=== PATIENT | female | born 1960 | race American Indian/Alaskan Native ===

== ENCOUNTER 2016-06-29 06:51 | Emergency (ER) | payer BC ==
[2016-06-29] MEDS ORDERED: NORCO 10/325 PO ONE (07:22)
[2016-06-29] MEDS ORDERED: ZOFRAN ODT ONE (07:24)
[2016-06-29] MEDS ORDERED: ZOFRAN ODT PO ONE (07:26)
--- NOTE | 2016-06-29 07:27 | Emergency Department Report ---
ED Neck Pain/Injury HPI - General Chief Complaint: Extremity Problem,Nontraumatic Stated Complaint: NECK/SHOULDER/EAR PAIN Time Seen by Provider: 06/29/16 07:21 Mode of arrival: Wheelchair Limitations: No Limitations - History of Present Illness Initial Comments: 55-year-old female past medical history hypertension, spinal fusion surgery presents with complaint of severe left sided neck and shoulder stiffness and pain. Patient states she was at work and spontaneously started feeling pain in her left upper shoulder region. Pain is radiating from left trapezius down to left shoulder, no arm involvement. Patient denies any chest pain palpitations nausea vomiting or diaphoresis. Patient states her neck feels very stiff. Denies any fever or chills. States that she has had episodes of pain like this in the past associated with her cervical radiculopathy. Patient is in acute distress states pain is 10 out of 10 states that turning her head to her left is extremely painful. Denies any new rash. No recent trauma no recent falls. Patient's pain and symptoms are atraumatic. Patient tells me that she has had multiple spinal fusion surgeries. MD Complaint: neck pain Onset/Timin -: Sudden Radiation: left lateral, left shoulder, upper back Severity: moderate Severity scale (0 -10): 8 Quality: sharp, aching Consistency: constant - Related Data Home Medications Medication Instructions Recorded Confirmed Last Taken Lansoprazole (Nf) [Prevacid (Nf)] 30 mg PO QDAY 02/07/16 02/24/16 01/18/16 Previous Rx's Medication Instructions Recorded Last Taken Type Fluticasone/Salmeterol [Advair 1 puff IH BID #1 disk.w.dev 05/16/14 02/16/16 06: 00 Rx Diskus 500-50 mcg] Montelukast [Singulair] 10 mg PO QPM #30 tablet 10/16/15 Unknown Rx Celecoxib [celeBREX] 200 mg PO BID #60 capsule 03/03/16 Unknown Rx Cyclobenzaprine [Flexeril 10 MG 10 mg PO TID PRN #60 tablet 03/03/16 Unknown Rx TAB] Gabapentin [Neurontin] 300 mg PO BID #60 capsule 03/03/16 Unknown Rx HYDROcodone/APAP 10-325 [[place] 1 each PO Q6HR PRN #60 tablet 03/03/16 Unknown Rx 10/325] Butalb/Acetaminophen/Caffeine 1 cap PO Q8HR PRN #10 cap 03/07/16 Unknown Rx [Fioricet 50-300-40 mg CAP] Meclizine [Antivert] 25 mg PO TID PRN #20 tablet 03/07/16 Unknown Rx amLODIPine [Norvasc] 5 mg PO DAILY #60 tab 03/07/16 Unknown Rx HYDROcodone/APAP 5-325 [[place] 1 each PO Q6HR PRN #20 tablet 06/29/16 Unknown Rx 5/325] Allergies Allergy/AdvReac Type Severity Reaction Status Date / Time dexamethasone [From Decadron] Allergy Anaphylaxis Verified 03/07/16 14:18 dexamethasone sod phosphate Allergy Anaphylaxis Verified 03/07/16 14:18 [From Decadron] epinephrine Allergy Rash Verified 03/07/16 14:18 ipratropium bromide Allergy Anaphylaxis Verified 03/07/16 14:18 [From Atrovent] peanut Allergy Anaphylaxis Verified 03/07/16 14:18 ED Review of Systems ROS: Stated complaint: NECK/SHOULDER/EAR PAIN Other details as noted in HPI Constitutional: denies: chills, fever Eyes: denies: eye pain, eye discharge, vision change ENT: denies: ear pain, throat pain Respiratory: denies: cough, shortness of breath, wheezing Cardiovascular: denies: chest pain, palpitations Endocrine: no symptoms reported Gastrointestinal: denies: abdominal pain, nausea, diarrhea Genitourinary: denies: urgency, dysuria, discharge Musculoskeletal: as per HPI, back pain, other (chronic neck pain). denies: joint swelling, arthralgia Skin: denies: rash, lesions Neurological: denies: headache, weakness, paresthesias Psychiatric: denies: anxiety, depression Hematological/Lymphatic: denies: easy bleeding, easy bruising ED Past Medical Hx - Past Medical History Previous Medical History?: Yes Hx Hypertension: Yes (PAIN RELATED) Hx Pulmonary Embolism: Yes Hx Liver Disease: Yes (HEPATITIS C) Hx Sickle Cell Disease: Yes (TRAIT) Hx Asthma: Yes (2004 Pt state she had 5 intubations) Additional medical history: intubations for asthma, lumbar radiculopathy - Surgical History Past Surgical History?: Yes Additional Surgical History: neck surgery, pain pump. States previous to admission and had an exercise stress test. States that test was terminated secondary to asthma. device in back. Pain implant. L4-L5, S1 fusion - Social History Smoking Status: Never Smoker Substance Use Type: Prescribed - Medications Home Medications: Home Medications Medication Instructions Recorded Confirmed Last Taken Type Fluticasone/Salmeterol [Advair 1 puff IH BID #1 disk.w.dev 05/16/14 02/24/16 06:00 Rx Diskus 500-50 mcg] Montelukast [Singulair] 10 mg PO QPM #30 tablet 10/16/15 02/24/16 Unknown Rx Lansoprazole (Nf) [Prevacid (Nf)] 30 mg PO QDAY 02/07/16 02/24/16 01/18/16 History Celecoxib [celeBREX] 200 mg PO BID #60 capsule 03/03/16 Unknown Rx Cyclobenzaprine [Flexeril 10 MG 10 mg PO TID PRN #60 tablet 03/03/16 Unknown Rx TAB] Gabapentin [Neurontin] 300 mg PO BID #60 capsule 03/03/16 Unknown Rx HYDROcodone/APAP 10-325 [[place] 1 each PO Q6HR PRN #60 tablet 03/03/16 Unknown Rx 10/325] Butalb/Acetaminophen/Caffeine 1 cap PO Q8HR PRN #10 cap 03/07/16 Unknown Rx [Fioricet 50-300-40 mg CAP] Meclizine [Antivert] 25 mg PO TID PRN #20 tablet 03/07/16 Unknown Rx amLODIPine [Norvasc] 5 mg PO DAILY #60 tab 03/07/16 Unknown Rx HYDROcodone/APAP 5-325 [[place] 1 each PO Q6HR PRN #20 tablet 06/29/16 Unknown Rx 5/325] ED Physical Exam - General Limitations: No Limitations General appearance: alert, in no apparent distress - Head Head exam: Present: atraumatic, normocephalic - Eye Eye exam: Present: normal appearance, PERRL, EOMI - ENT ENT exam: Present: mucous membranes moist - Neck Neck exam: Present: normal inspection, tenderness (has reproducible tenderness and left trapezius region) - Respiratory Respiratory exam: Present: normal lung sounds bilaterally. Absent: respiratory distress - Cardiovascular Cardiovascular Exam: Present: regular rate, normal rhythm. Absent: systolic murmur, diastolic murmur, rubs, gallop - GI/Abdominal GI/Abdominal exam: Present: soft, normal bowel sounds - Extremities Exam Extremities exam: Present: normal inspection - Back Exam Back exam: Present: normal inspection, full ROM (range of motion limited due to pain in the left side neck shoulder/trapezius), tenderness, muscle spasm, paraspinal tenderness (he shouldn't has palpable spasm of left trapezius muscle , tender to palpation) - Neurological Exam Neurological exam: Present: alert, oriented X3 - Psychiatric Psychiatric exam: Present: normal affect, normal mood - Skin Skin exam: Present: warm, dry, intact, normal color. Absent: rash ED Course Vital Signs 06/29/16 06/29/16 06/29/16 06:56 07:30 08:04 Temperature 98.0 F Pulse Rate 96 H Respiratory 26 H 26 H 26 H Rate Blood Pressure 189/123 Blood Pressure [Right] O2 Sat by Pulse 100 Oximetry 06/29/16 06/29/16 09:41 12:13 Temperature Pulse Rate 88 Respiratory 20 20 Rate Blood Pressure Blood Pressure 160/104 [Right] O2 Sat by Pulse 100 Oximetry ED Medical Decision Making - Lab Data Result diagrams: 06/29/16 08:01 06/29/16 08:01 - Medical Decision Making A/P: Left trapezius muscle spasm, cervical radiculopathy 1- case discussed with Dr. Hong 2- bloodwork and CT within normal limits no acute fracture 3- after administering Toradol and Valium and morphine pain has somewhat diminished. Patient has no acute neurological deficits, range of motion left upper extremity and strength fully intact, patient's neck range of motion is only limited to left lateral flexion due to spasm and left trapezius. 4- patient's follow up with her hiv cts specialist this week, I prescribed analgesics and advised patient to follow-up with orthopedic doctor soon as possible. Patient has no clinical signs of meningitis. Discussed case with Dr. Hong before discharging patient Critical care attestation.: If time is entered above; I have spent that time in minutes in the direct care of this critically ill patient, excluding procedure time. ED Disposition Clinical Impression: Cervical radicular pain, Trapezius muscle spasm, Musculoskeletal pain Disposition: DISCHARGED TO HOME OR SELFCARE Is pt being admited?: No Does the pt Need Aspirin: No Condition: Stable Instructions: Musculoskeletal Pain (ED), Muscle Spasm (ED) Prescriptions: HYDROcodone/APAP 5-325 [[place] 5/325] 1 each PO Q6HR PRN #20 tablet PRN Reason: Pain Referrals: HAI MCMILLAN MD [Staff Physician] - 3-5 Days PRIMARY CARE, [Primary Care Provider] - 3-5 Days ION AYOUB MD [Staff Physician] - 3-5 Days Forms: Work/School Release Form(ED)
[2016-06-29] MEDS ORDERED: ATIVAN IV ONE (07:46)
[2016-06-29] MEDS ORDERED: TORADOL IV ONE (07:47)
[2016-06-29] MEDS ORDERED: LACTATED RINGERS 1,000 ML IV SCH (08:00)
[2016-06-29 08:18] LABS: Basophils % (Auto) 0.3 % (0.0-1.8); Eosinophils % (Auto) 0.6 % (0.0-4.3); Hematocrit 35.4 % (30.3-42.9); Hemoglobin 11.9 gm/dl (10.1-14.3); Mean Corpuscular HGB Conc 34 % (30-34); Mean Corpuscular Volume 75 fl (79-97); Platelet Count 293 K/mm3 (140-440); Red Cell Distribution Width 14.8 % (13.2-15.2); White Blood Count 7.8 K/mm3 (4.5-11.0)
[2016-06-29 08:22] LABS: Mean Corpuscular Hemoglobin 25 pg (28-32)
[2016-06-29 08:41] LABS: Anion Gap 20 mmol/L; Blood Urea Nitrogen 9 mg/dL (7-17); Carbon Dioxide 20 mmol/L (22-30); Chloride 104.3 mmol/L (98-107); Creatine Kinase 124 units/L (30-135); Glucose 100 mg/dL (65-100); Magnesium 1.6 mg/dL (1.7-2.3); Potassium 3.5 mmol/L (3.6-5.0); Sodium 141 mmol/L (137-145)
[2016-06-29] MEDS ORDERED: MORPHINE IV ONE (09:27)
--- NOTE | 2016-06-29 10:49 | Cat Scan Report ---
CT CERVICAL SPINE WITHOUT CONTRAST History: Neck pain Technique: Helical CT with sagittal and coronal reformatted images. Comparison: CT cervical myelogram dated 04/30/12. Findings: There is been previous fusion from C4-C6 with bony fusion of the disc spaces. There is also a disc spacer at C3-4 without complete bony fusion. There is also anterior fusion hardware at C6-7 with disc spacer placement and incomplete bony fusion of the disc space. There is lucency surrounding the orthopedic screws within C7. This could represent mild loosening. This was also demonstrated on the CT cervical myelogram and 04/30/12. Please correlate with the patient. There is no evidence for fracture or subluxation or bone lesion. The posterior elements are appropriate relationship. There is mild bilateral uncovertebral spurring at C3-4 and C6-7 but no evidence for central canal stenosis or high-grade neural foraminal narrowing. The central canal is within normal limits given artifact from surgical hardware. Impression: Postsurgical changes as described above which are unchanged in appearance since 04/30/12. Degenerative changes which are most pronounced at C3-4 and C6-7.
[2016-06-29 12:16] VITALS: BP 160/104
== END 2016-06-29 12:13 | disposition home or self-care (01) ==
LOC: ED 06:51
DX: M54.2 Cervicalgia (principal); M62.838 Other muscle spasm; M79.1 Myalgia; I10 Essential (primary) hypertension; J45.909 Unspecified asthma, uncomplicated; Z86.711 Personal history of pulmonary embolism
CPT/HCPCS: 36415; 72125; 80048; 82550; 83735; 85025; 96361; 96374; 96375; 99284; J1885; J2060; J2270; J7120; Q0162

== ENCOUNTER 2016-10-03 09:15 | Emergency (ER) | payer BC ==
[2016-10-03 09:25] VITALS: BP 129/96
[2016-10-03] MEDS ORDERED: TORADOL IM ONE (11:41)
--- NOTE | 2016-10-05 07:30 | Emergency Department Report ---
Entered by CUCO SIMPSON, acting as scribe for MARCOS ESPINO NP. ED Extremity Problem HPI - General Chief complaint: Extremity Injury, Lower Stated complaint: LT HIP/LEG Time Seen by Provider: 10/03/16 11:33 Source: patient Mode of arrival: Ambulatory Limitations: No Limitations - History of Present Illness Initial comments: 54 y/o female , nontoxic, well nourished in appearance, no acute signs of distress presents c/o choric constant, left sided hip pain that is exacerbated by laying on it. Pt notes pain radiating down the leg. PMHx includes herniated disk to the right side with similar pain, had surgery on 02/16/16. Pt denies numbness, tingling in extremity, trauma to the area, chest pain, SOB, n/v, fever , chills. Patient stated has a primary care doctor that she sees on a regular basis for these but is unable to see him due to no availability is until 2 weeks from now. Patient stated she is here for pain management. MD Complaint: other (left sided hip pain) -: week(s) (1) Location: left (sided hip pain) History of Same: Yes (PSHx of herniated disk associated with right sided pain) Radiation: other (pain shooting down towards leg) Severity scale (0 -10): 5 Quality: aching Consistency: constant Improves with: nothing Worsens with: other (laying down) Associated Symptoms: denies other symptoms - Related Data Home Medications Medication Instructions Recorded Confirmed Last Taken Lansoprazole (Nf) [Prevacid (Nf)] 30 mg PO QDAY 02/07/16 02/24/16 01/18/16 Previous Rx's Medication Instructions Recorded Last Taken Type Fluticasone/Salmeterol [Advair 1 puff IH BID #1 disk.w.dev 05/16/14 02/16/16 06: 00 Rx Diskus 500-50 mcg] Montelukast [Singulair] 10 mg PO QPM #30 tablet 10/16/15 Unknown Rx Celecoxib [celeBREX] 200 mg PO BID #60 capsule 03/03/16 Unknown Rx Cyclobenzaprine [Flexeril 10 MG 10 mg PO TID PRN #60 tablet 03/03/16 Unknown Rx TAB] Gabapentin [Neurontin] 300 mg PO BID #60 capsule 03/03/16 Unknown Rx HYDROcodone/APAP 10-325 [[place] 1 each PO Q6HR PRN #60 tablet 03/03/16 Unknown Rx 10/325] Butalb/Acetaminophen/Caffeine 1 cap PO Q8HR PRN #10 cap 03/07/16 Unknown Rx [Fioricet 50-300-40 mg CAP] Meclizine [Antivert] 25 mg PO TID PRN #20 tablet 03/07/16 Unknown Rx amLODIPine [Norvasc] 5 mg PO DAILY #60 tab 03/07/16 Unknown Rx HYDROcodone/APAP 5-325 [[place] 1 each PO Q6HR PRN #20 tablet 06/29/16 Unknown Rx 5/325] HYDROcodone/APAP 7.5-325 [[place] 1 each PO Q8HR PRN #12 tablet 10/03/16 Unknown Rx 7.5/325] Allergies Allergy/AdvReac Type Severity Reaction Status Date / Time dexamethasone [From Decadron] Allergy Anaphylaxis Verified 03/07/16 14:18 dexamethasone sod phosphate Allergy Anaphylaxis Verified 03/07/16 14:18 [From Decadron] epinephrine Allergy Rash Verified 03/07/16 14:18 ipratropium bromide Allergy Anaphylaxis Verified 03/07/16 14:18 [From Atrovent] peanut Allergy Anaphylaxis Verified 03/07/16 14:18 ED Review of Systems Comment: All other systems reviewed and negative Constitutional: denies: chills, fever Respiratory: denies: shortness of breath Cardiovascular: denies: chest pain Gastrointestinal: denies: nausea, vomiting Neurological: denies: headache, numbness, other (tingling in extremities) ED Past Medical Hx - Past Medical History Previous Medical History?: Yes Hx Hypertension: Yes (PAIN RELATED) Hx Pulmonary Embolism: Yes Hx Liver Disease: Yes (HEPATITIS C) Hx Sickle Cell Disease: Yes (TRAIT) Hx Asthma: Yes (2004 Pt state she had 5 intubations) Additional medical history: intubations for asthma, lumbar radiculopathy - Surgical History Past Surgical History?: Yes Additional Surgical History: neck surgery, pain pump. States previous to admission and had an exercise stress test. States that test was terminated secondary to asthma. device in back. Pain implant. L4-L5, S1 fusion - Social History Smoking Status: Never Smoker Substance Use Type: Alcohol - Medications Home Medications: Home Medications Medication Instructions Recorded Confirmed Last Taken Type Fluticasone/Salmeterol [Advair 1 puff IH BID #1 disk.w.dev 05/16/14 02/24/16 06:00 Rx Diskus 500-50 mcg] Montelukast [Singulair] 10 mg PO QPM #30 tablet 10/16/15 02/24/16 Unknown Rx Lansoprazole (Nf) [Prevacid (Nf)] 30 mg PO QDAY 02/07/16 02/24/16 01/18/16 History Celecoxib [celeBREX] 200 mg PO BID #60 capsule 03/03/16 Unknown Rx Cyclobenzaprine [Flexeril 10 MG 10 mg PO TID PRN #60 tablet 03/03/16 Unknown Rx TAB] Gabapentin [Neurontin] 300 mg PO BID #60 capsule 03/03/16 Unknown Rx HYDROcodone/APAP 10-325 [[place] 1 each PO Q6HR PRN #60 tablet 03/03/16 Unknown Rx 10/325] Butalb/Acetaminophen/Caffeine 1 cap PO Q8HR PRN #10 cap 03/07/16 Unknown Rx [Fioricet 50-300-40 mg CAP] Meclizine [Antivert] 25 mg PO TID PRN #20 tablet 03/07/16 Unknown Rx amLODIPine [Norvasc] 5 mg PO DAILY #60 tab 03/07/16 Unknown Rx HYDROcodone/APAP 5-325 [[place] 1 each PO Q6HR PRN #20 tablet 06/29/16 Unknown Rx 5/325] HYDROcodone/APAP 7.5-325 [[place] 1 each PO Q8HR PRN #12 tablet 10/03/16 Unknown Rx 7.5/325] ED Physical Exam - General Limitations: No Limitations General appearance: alert, in no apparent distress - Head Head exam: Present: atraumatic, normocephalic - Eye Eye exam: Present: normal appearance, PERRL, EOMI Pupils: Present: normal accommodation - ENT ENT exam: Present: mucous membranes moist - Neck Neck exam: Present: normal inspection, full ROM - Respiratory Respiratory exam: Present: normal lung sounds bilaterally - Cardiovascular Cardiovascular Exam: Present: regular rate, normal rhythm, normal heart sounds - GI/Abdominal GI/Abdominal exam: Present: soft, normal bowel sounds. Absent: tenderness, guarding, rebound - External exam: Present: normal external exam - Extremities Exam Extremities exam: Present: normal inspection, full ROM, normal capillary refill. Absent: tenderness, pedal edema, joint swelling, calf tenderness - Expanded Lower Extremity Exam Left Hip exam: Present: normal inspection, full ROM. Absent: tenderness, swelling, abrasion, laceration, ecchymosis, deformity, crepidus, dislocation, erythema, shortening Upper Leg exam: Present: normal inspection, full ROM. Absent: tenderness, swelling Knee exam: Present: normal inspection, full ROM. Absent: tenderness, swelling Lower Leg exam: Present: normal inspection, full ROM. Absent: tenderness, swelling Ankle exam: Present: normal inspection, full ROM. Absent: tenderness, swelling Foot/Toe exam: Present: normal inspection, full ROM. Absent: tenderness, swelling Neuro vascular tendon exam: Present: no vascular compromise Gait: Positive: observed and normal - Back Exam Back exam: Present: normal inspection. Absent: tenderness (spinal), other ( swelling, erythema) - Neurological Exam Neurological exam: Present: oriented X3 - Psychiatric Psychiatric exam: Present: normal affect, normal mood - Skin Skin exam: Present: warm, dry, intact, normal color. Absent: rash ED Course Vital Signs 10/03/16 09:22 Temperature 98 F Pulse Rate 87 Respiratory 20 Rate Blood Pressure 129/96 O2 Sat by Pulse 97 Oximetry ED Medical Decision Making - Medical Decision Making Ed course: This is a 55-year-old female that lives with chronic left hip pain. 1- after physical exam patient denies receiving x-rays for evaluation purposes. Patient stated she will follow-up with her primary care doctor that will perform several series of x-rays. I instructed my concerns about receiving x- ray the patient still denies. Patient stated he wants to be treated for pain currently until she gets in with her primary care doctor. 2- patient received Marion at the time of discharge and was instructed not to operate machinery due to sedation. 3- at the time of discharge patient stated will follow up with her primary care doctor. Agrees with discharge plan of care. No further questions noted by the patient. ED Disposition Clinical Impression: Lumbar radiculopathy, chronic Disposition: DISCHARGED TO HOME OR SELFCARE Is pt being admited?: No Does the pt Need Aspirin: No Condition: Stable Instructions: Lumbar Radiculopathy (ED) Additional Instructions: Follow-up with her primary care doctor in 3-5 days or if symptoms worsen reported by the emergency room. Take Marion as prescribed as needed for pain. Do not operate heavy machinery while taking Marion due to sedation. Prescriptions: HYDROcodone/APAP 7.5-325 [[place] 7.5/325] 1 each PO Q8HR PRN #12 tablet PRN Reason: Pain Referrals: PRIMARY MD ZARIA [Primary Care Provider] - 3-5 Days ZEKE IRAHETA MD [Referring] - 3-5 Days [facility] [Outside] - 3-5 Days [facility] [Outside] - 3-5 Days Forms: Work/School Release Form(ED) This documentation as recorded by the CALVIN [employer]lex[employer] MATHEW,accurately reflects the service I personally performed and the decisions made by me,MARCOS ESPINO, [employer].
== END 2016-10-03 12:34 | disposition home or self-care (01) ==
LOC: ED 09:15
DX: M54.16 Radiculopathy, lumbar region (principal); I10 Essential (primary) hypertension; J45.909 Unspecified asthma, uncomplicated; Z86.711 Personal history of pulmonary embolism; Z86.19 Personal history of other infectious and parasitic diseases; Z91.010 Allergy to peanuts; Z88.8 Allergy status to other drugs, medicaments and biological substances
CPT/HCPCS: 96372; 99282; J1885

== ENCOUNTER 2016-12-17 11:18 | Emergency (ER) | payer BC ==
--- NOTE | 2016-12-17 13:18 | Emergency Department Report ---
ED Headache HPI - General Chief Complaint: Headache Stated Complaint: HEADACHE Time Seen by Provider: 12/17/16 11:45 Source: patient, family Exam Limitations: no limitations - History of Present Illness Initial Comments: Patient here reports headache since Sunday which is 2 days ago. She says she took [id number] medication and amitriptyline without any relief of symptoms. She said she is nauseous but no vomiting. She says she feels like the room is spinning when she stands. She reports photophobia. Patient with history of asthma, congestive heart failure, COPD, diabetes, GERD, hypertension , liver disease, pulmonary embolism, chronic pain syndrome to include back and neck pain status post surgery. Pain and plan to L4 and L5 and S1 infusion. Pain is 10 out of 10 and achy located the frontal head. Denies any fever or chills. Denies any neck pain or stiffness. Pain is better with rest and worse with moving around. Last menstrual period was 05/02/2016. He has any abdominal pain. Denies any back pain. Denies any head injury. Pt had previous headache in the past Timing/Duration: constant, increasing Quality: severe, achy, constant Head Injury Location: frontal Recent Head Trauma: chronic headaches Modifying Factors: improves with: exposure to light, rest Associated Symptoms: other (vertigo). denies: confusion, fatigue, facial pain, fever/chills, flushing, loss of consciousness, nausea/vomiting, nasal congestion , nasal drainage, numbness in legs/feet, rash, seizures, sinus infection, stiff neck, vision changes, weakness Allergies/Adverse Reactions: Allergies dexamethasone [From Decadron] Allergy (Verified 03/07/16 14:18) Anaphylaxis dexamethasone sod phosphate [From Decadron] Allergy (Verified 03/07/16 14:18) Anaphylaxis epinephrine Allergy (Verified 03/07/16 14:18) Rash ipratropium bromide [From Atrovent] Allergy (Verified 03/07/16 14:18) Anaphylaxis peanut Allergy (Verified 03/07/16 14:18) Anaphylaxis Home Medications: Ambulatory Orders Fluticasone/Salmeterol [Advair Diskus 500-50 mcg] 1 puff IH BID #1 disk.w.dev Montelukast [Singulair] 10 mg PO QPM #30 tablet 10/16/15 Lansoprazole (Nf) [Prevacid (Nf)] 30 mg PO QDAY 02/07/16 Celecoxib [celeBREX] 200 mg PO BID #60 capsule 03/03/16 Cyclobenzaprine [Flexeril 10 MG TAB] 10 mg PO TID PRN #60 tablet 03/03/16 Gabapentin [Neurontin] 300 mg PO BID #60 capsule 03/03/16 HYDROcodone/APAP 10-325 [Dieterich 10/325] 1 each PO Q6HR PRN #60 tablet 03/03/16 Butalb/Acetaminophen/Caffeine [Fioricet 50-300-40 mg CAP] 1 cap PO Q8HR PRN #10 cap 03/07/16 Meclizine [Antivert] 25 mg PO TID PRN #20 tablet 03/07/16 amLODIPine [Norvasc] 5 mg PO DAILY #60 tab 03/07/16 HYDROcodone/APAP 5-325 [Dieterich 5/325] 1 each PO Q6HR PRN #20 tablet 06/29/16 HYDROcodone/APAP 7.5-325 [Dieterich 7.5-325 mg TAB] 1 each PO Q8HR PRN #12 tablet Meclizine [Antivert] 25 mg PO TID PRN #12 tablet 12/17/16 Promethazine [Phenergan TAB] 25 mg PO Q6HR PRN #12 tab 12/17/16 Sulfamethoxazole/Trimethoprim [Bactrim DS TAB] 1 each PO BID #14 tablet ED Review of Systems ROS: Stated complaint: HEADACHE Other details as noted in HPI Comment: All other systems reviewed and negative Constitutional: denies: chills, fever Eyes: other (photphobia) ENT: denies: ear pain, throat pain Respiratory: no symptoms reported Cardiovascular: denies: chest pain, palpitations, dyspnea on exertion, orthopnea , edema, syncope, paroxysmal nocturnal dyspnea Gastrointestinal: nausea. denies: abdominal pain, vomiting, diarrhea, constipation Genitourinary: denies: urgency, dysuria, frequency, hematuria, discharge Musculoskeletal: denies: back pain, arthralgia Skin: denies: rash Neurological: headache, vertigo. denies: weakness, numbness, paresthesias, confusion, abnormal gait ED Past Medical Hx - Past Medical History Previous Medical History?: Yes Hx Hypertension: Yes (PAIN RELATED) Hx Pulmonary Embolism: Yes Hx Liver Disease: Yes (HEPATITIS C) Hx Sickle Cell Disease: Yes (TRAIT) Hx Asthma: Yes (2004 Pt state she had 5 intubations) Additional medical history: intubations for asthma, lumbar radiculopathy - Surgical History Past Surgical History?: Yes Additional Surgical History: neck surgery, pain pump. States previous to admission and had an exercise stress test. States that test was terminated secondary to asthma. device in back. Pain implant. L4-L5, S1 fusion - Family History Family history: diabetes, hypertension - Social History Smoking Status: Never Smoker Substance Use Type: Alcohol Other Social History: lives with family - Medications Home Medications: Home Medications Medication Instructions Recorded Confirmed Last Taken Type Fluticasone/Salmeterol [Advair 1 puff IH BID #1 disk.w.dev 05/16/14 02/24/16 06:00 Rx Diskus 500-50 mcg] Montelukast [Singulair] 10 mg PO QPM #30 tablet 10/16/15 02/24/16 Unknown Rx Lansoprazole (Nf) [Prevacid (Nf)] 30 mg PO QDAY 02/07/16 02/24/16 01/18/16 History Celecoxib [celeBREX] 200 mg PO BID #60 capsule 03/03/16 Unknown Rx Cyclobenzaprine [Flexeril 10 MG 10 mg PO TID PRN #60 tablet 03/03/16 Unknown Rx TAB] Gabapentin [Neurontin] 300 mg PO BID #60 capsule 03/03/16 Unknown Rx HYDROcodone/APAP 10-325 [Dieterich 1 each PO Q6HR PRN #60 tablet 03/03/16 Unknown Rx 10/325] Butalb/Acetaminophen/Caffeine 1 cap PO Q8HR PRN #10 cap 03/07/16 Unknown Rx [Fioricet 50-300-40 mg CAP] Meclizine [Antivert] 25 mg PO TID PRN #20 tablet 03/07/16 Unknown Rx amLODIPine [Norvasc] 5 mg PO DAILY #60 tab 03/07/16 Unknown Rx HYDROcodone/APAP 5-325 [Dieterich 1 each PO Q6HR PRN #20 tablet 06/29/16 Unknown Rx 5/325] HYDROcodone/APAP 7.5-325 [Dieterich 1 each PO Q8HR PRN #12 tablet 12/17/16 Unknown Rx 7.5-325 mg TAB] Meclizine [Antivert] 25 mg PO TID PRN #12 tablet 12/17/16 Unknown Rx Promethazine [Phenergan TAB] 25 mg PO Q6HR PRN #12 tab 12/17/16 Unknown Rx Sulfamethoxazole/Trimethoprim 1 each PO BID #14 tablet 12/17/16 Unknown Rx [Bactrim DS TAB] ED Physical Exam - General Limitations: No Limitations General appearance: alert, in no apparent distress - Head Head exam: Present: atraumatic, normocephalic, normal inspection - Expanded Head Exam Expanded Head exam: Absent: laceration, abrasion, contusion, hematoma, racoon eyes, watkins's sign, general tenderness, tenderness of temporal artery, CSF rhinorrhea , CSF otorrhea - Eye Eye exam: Present: normal appearance, PERRL, EOMI. Absent: nystagmus, periorbital swelling, periorbital tenderness Pupils: Present: normal accommodation - Expanded Eye Exam Expanded Eyelids: Normal Inspection: Left (normal) Pupils: Regular, Round: Bilateral, Reactive: Bilateral Sclera/Conjunctival: Normal Inspection: Bilateral - ENT ENT exam: Present: normal exam, normal orophraynx, mucous membranes moist, TM's normal bilaterally, normal external ear exam - Neck Neck exam: Present: normal inspection, full ROM. Absent: tenderness, meningismus, lymphadenopathy, thyromegaly - Respiratory Respiratory exam: Present: normal lung sounds bilaterally. Absent: respiratory distress, wheezes, rales, rhonchi, stridor, chest wall tenderness, accessory muscle use, decreased breath sounds, prolonged expiratory - Cardiovascular Cardiovascular Exam: Present: regular rate, normal rhythm, normal heart sounds - GI/Abdominal GI/Abdominal exam: Present: soft, normal bowel sounds. Absent: distended, tenderness, guarding, rebound, rigid - Extremities Exam Extremities exam: Present: normal inspection, full ROM, normal capillary refill. Absent: tenderness, pedal edema, joint swelling, calf tenderness - Back Exam Back exam: Present: normal inspection, full ROM - Neurological Exam Neurological exam: Present: alert, oriented X3 - Expanded Neurological Exam Expanded Neurological exam: Absent: innattentive, memory loss-remote event, memory loss- recent event, ataxia, receptive aphasia, expressive aphasia, total aphasia, tremor, protecting the airway Patient oriented to: Present: person, place, time Speech: Present: fluid speech Cranial nerves: EOM's Intact: Normal, Gag Reflex: Normal, Tongue Deviation: Normal, Nystagmus: Normal, Facial Sensation: Normal Cerebellar function: Romberg: Normal Upper motor neuron: Pronator Drift: Normal Motor strength exam: RUE: 5, LUE: 5, RLE: 5, LLE: 5 DTR: bicep (R): 2+, bicep (L): 2+, tricep (R): 2+, tricep (L): 2+, knee (R): 2+ , knee (L): 2+, ankle (R): 2+, ankle (L): 2+ Best Eye Response (Donovan): (4) open spontaneously Best Motor Response (Donovan): (6) obeys commands Best Verbal Response (Donovan): (5) oriented Donovan Total: 15 - Psychiatric Psychiatric exam: Present: normal affect, normal mood - Skin Skin exam: Present: warm, dry, intact, normal color. Absent: rash ED Course Vital Signs 12/17/16 11:23 Temperature 98.4 F Pulse Rate 82 Respiratory 18 Rate Blood Pressure 152/96 O2 Sat by Pulse 100 Oximetry - Reevaluation(s) Reevaluation #1: 12/17/16 15:39 Patient received Percocet 5/325 2 tablets in emergency room which had little effect on her headache. She further received Dilaudid 1 mg IM and we will reevaluate. Received a total of 4 mg of Zofran IM which did not relieve her nausea and additional 8 mg Zofran ODT. She is currently tolerating oral liquids. Patient urinalysis also revealed that she has a UTI. Reevaluation #2: 12/17/16 16:53 Patient voices relief of headache after 1 mg of Dilaudid given. ED Medical Decision Making - Lab Data Result diagrams: 12/17/16 14:07 12/17/16 14:07 Lab Results 12/17/16 12/17/16 12/17/16 Range/Units 13:48 14:07 14:07 WBC 5.0 (4.5-11.0) K/mm3 RBC 4.61 (3.65-5.03) M/mm3 Hgb 12.3 (10.1-14.3) gm/dl Hct 36.9 (30.3-42.9) % MCV 80 (79-97) fl MCH 27 L (28-32) pg MCHC 33 (30-34) % RDW 13.8 (13.2-15.2) % Plt Count 217 (140-440) K/mm3 Lymph % (Auto) 43.2 H (13.4-35.0) % [place] % (Auto) 10.1 H (0.0-7.3) % Eos % (Auto) 2.0 (0.0-4.3) % Baso % (Auto) 0.2 (0.0-1.8) % Lymph # 2.2 (1.2-5.4) K/mm3 [place] # 0.5 (0.0-0.8) K/mm3 Eos # 0.1 (0.0-0.4) K/mm3 Baso # 0.0 (0.0-0.1) K/mm3 Seg Neutrophils % 44.5 (40.0-70.0) % Seg Neutrophils # 2.2 (1.8-7.7) K/mm3 Sodium 138 (137-145) mmol/L Potassium 4.2 (3.6-5.0) mmol/L Chloride 100.1 (98-107) mmol/L Carbon Dioxide 25 (22-30) mmol/L Anion Gap 17 mmol/L BUN 10 (7-17) mg/dL Creatinine 0.8 (0.7-1.2) mg/dL Estimated GFR > 60 ml/min BUN/Creatinine Ratio 12.50 % Glucose 103 H (65-100) mg/dL Calcium 8.9 (8.4-10.2) mg/dL Total Bilirubin 0.20 (0.1-1.2) mg/dL AST 17 (5-40) units/L ALT 14 (7-56) units/L Alkaline Phosphatase 97 (35-129) units/L Total Protein 7.2 (6.3-8.2) g/dL Albumin 3.9 (3.9-5) g/dL Albumin/Globulin Ratio 1.2 % Urine Color Straw (Yellow) Urine Turbidity Clear (Clear) Urine pH 7.0 (5.0-7.0) Ur Specific [place] 1.011 (1.003-1.030) Urine Protein <15 mg/dl (Negative) mg/dL Urine Glucose (UA) Neg (Negative) mg/dL Urine Ketones Neg (Negative) mg/dL Urine Blood Neg (Negative) Urine Nitrite Neg (Negative) Urine Bilirubin Neg (Negative) Urine Urobilinogen < 2.0 (<2.0) mg/dL Ur Leukocyte Esterase Mod (Negative) Urine WBC (Auto) 12.0 H (0.0-6.0) /HPF Urine RBC (Auto) 3.0 (0.0-6.0) /HPF U Epithel Cells (Auto) 4.0 (0-13.0) /HPF Urine Bacteria (Auto) 1+ (Negative) /HPF Urine Mucus Few /HPF Urine culture pending - Radiology Data Radiology results: report reviewed CT scan of the brain reveals no acute findings - Medical Decision Making ED course: Patient here presented with headache that started ongoing. Denies any head injury. Acute headache, vertigo and nausea alone. She does have a history of headache and has been treated in the past for headache. Her neurological tests positive Romberg and she reports that she was having vertigo therefore CT scan was done which showed no acute intracranial findings. Patient was given Percocet 5/325 mg 2 tablet in emergency room, Zofran 4 mg IM for nausea and headache but headache was not relieved. She was further given Dilaudid 1 mg IM along with Zofran 8 mg ODT and she voiced relief of headache and nausea. She had lab work done and CBC and chemistry was stable with some level mildly elevated. Previous lab work evaluated from previous hospitalization and no significant change in lab values. Patient had urinalysis done which was positive for bacteria, white blood cell and leukocyte Estrace. Urine culture sent and pending. I discussed diagnosis and treatment plan the patient along with lab results and CT scan results. She voices understanding. Patient discharged home in stable condition with prescription for Dieterich, Phenergan and Antivert's and to follow-up with her primary care physician tomorrow. Discharged home with her family member. Critical care attestation.: If time is entered above; I have spent that time in minutes in the direct care of this critically ill patient, excluding procedure time. ED Disposition Clinical Impression: Nausea alone, Acute cystitis without hematuria, Vertigo Headache Qualifiers: Headache type: unspecified Headache chronicity pattern: episodic headache Intractability: not intractable Qualified Code(s): R51 - Headache Disposition: DC-01 TO HOME OR SELFCARE Is pt being admited?: No Does the pt Need Aspirin: No Condition: Stable Instructions: Acute Headache (ED), Vertigo (ED), Urinary Tract Infection in Women (ED), Acute Nausea and Vomiting (ED) Additional Instructions: Please follow up with primary care physician in the morning Take hydrocodone as instructed and please do not drive or operate heavy machinery while taking this medication Phenergan kidney making sleepy so please do not drive or operate any heavy machinery If you headache or nausea worsen ,please return to the emergency room JAS Rest and increase her fluid intake Take Antibiotic for urinary tract infection Prescriptions: HYDROcodone/APAP 7.5-325 [Dieterich 7.5-325 mg TAB] 1 each PO Q8HR PRN #12 tablet PRN Reason: Pain Meclizine [Antivert] 25 mg PO TID PRN #12 tablet PRN Reason: Vertigo Promethazine [Phenergan TAB] 25 mg PO Q6HR PRN #12 tab PRN Reason: Nausea Sulfamethoxazole/Trimethoprim [Bactrim DS TAB] 1 each PO BID #14 tablet Referrals: PRIMARY CARE, [Primary Care Provider] - 12/18/16 Forms: Accompanied Note, Work/School Release Form(ED)
[2016-12-17] MEDS ORDERED: ZOFRAN IM ONE (13:19)
[2016-12-17] MEDS ORDERED: PERCOCET 5/325 PO ONE (13:19)
[2016-12-17 14:20] LABS: Basophils % (Auto) 0.2 % (0.0-1.8); Hematocrit 36.9 % (30.3-42.9); Hemoglobin 12.3 gm/dl (10.1-14.3); Mean Corpuscular HGB Conc 33 % (30-34); Mean Corpuscular Hemoglobin 27 pg (28-32); Mean Corpuscular Volume 80 fl (79-97); Red Blood Count 4.61 M/mm3 (3.65-5.03); Red Cell Distribution Width 13.8 % (13.2-15.2)
--- NOTE | 2016-12-17 14:33 | Cat Scan Report ---
FINAL REPORT PROCEDURE: CT HEAD/BRAIN WO CON TECHNIQUE: Computerized tomography of the head was performed without contrast material. HISTORY: headache, dizziness COMPARISON: No prior studies are available for comparison. FINDINGS: Skull and scalp: Normal. Paranasal sinuses: Normal. Ventricles and subarachnoid spaces: Normal. Cerebrum: No evidence of hemorrhage, acute infarction or mass . Cerebellum and brainstem: No evidence of hemorrhage, acute infarction or mass. Vasculature: Normal. Comments: Mild periventricular microischemic change and minimal central lacunar infarct disease suspected. IMPRESSION: No acute intracranial pathology seen
[2016-12-17 14:39] LABS: Bacteria,Urine 1+ /HPF (Negative); Bilirubin,Urine NEG (Negative); Blood,Urine NEG (Negative); Ketones,Urine NEG (Negative); Leukocyte Esterase,Urine MOD (Negative); Mucus,Urine FEW /HPF; Nitrite,Urine NEG (Negative); Protein,Urine <15 mg/dL mg/dL (Negative); Urobilinogen,Urine < 2.0 mg/dL (<2.0)
[2016-12-17 14:41] LABS: Alanine Aminotransferase 14 units/L (7-56); Albumin 3.9 g/dL (3.9-5); Albumin/Globulin Ratio 1.2 %; Alkaline Phosphatase 97 units/L (35-129); Anion Gap 17 mmol/L; Blood Urea Nitrogen 10 mg/dL (7-17); Calcium 8.9 mg/dL (8.4-10.2); Carbon Dioxide 25 mmol/L (22-30); Chloride 100.1 mmol/L (98-107); Glucose 103 mg/dL (65-100); Potassium 4.2 mmol/L (3.6-5.0); Sodium 138 mmol/L (137-145); Total Protein 7.2 g/dL (6.3-8.2)
[2016-12-17] MEDS ORDERED: ZOFRAN ODT PO ONE ×2 (14:53→15:01)
[2016-12-17] MEDS ORDERED: ZOFRAN ODT ONE (14:53)
[2016-12-17 15:20] LABS: Platelet Count 217 K/mm3 (140-440)
[2016-12-17] MEDS ORDERED: DILAUDID IM ONE (15:33)
[2016-12-17 17:10] VITALS: BP 170/95
== END 2016-12-17 17:08 | disposition home or self-care (01) ==
LOC: ED 11:18
DX: N30.00 Acute cystitis without hematuria (principal); R51 Headache; R42 Dizziness and giddiness; R11.0 Nausea; D57.00 Hb-SS disease with crisis, unspecified; J45.909 Unspecified asthma, uncomplicated; I10 Essential (primary) hypertension; Z86.711 Personal history of pulmonary embolism; Z88.8 Allergy status to other drugs, medicaments and biological substances; Z79.01 Long term (current) use of anticoagulants
CPT/HCPCS: 36415; 70450; 80053; 81001; 85025; 87086; 96372; 99284; J1170; J2405; J2930; Q0162

== ENCOUNTER 2017-06-27 17:50 | Emergency (ER) | payer BC ==
[2017-06-27 17:56] VITALS: BP 137/86
[2017-06-27] MEDS ORDERED: PERCOCET 5/325 PO ONE (18:01)
[2017-06-27] MEDS ORDERED: ZOFRAN ORAL LIQ PO ONE (18:02)
[2017-06-27] MEDS ORDERED: ZOFRAN ODT PO ONE (18:04)
[2017-06-27] MEDS ORDERED: ZOFRAN ODT ONE (18:05)
--- NOTE | 2017-06-27 18:05 | Emergency Department Report ---
<AYESHA LOCKWOOD - Last Filed: 06/27/17 18:05> ED Lower Extremity HPI - General Chief Complaint: Extremity Injury, Lower Stated Complaint: RIGHT FOOT PAIN Time Seen by Provider: 06/27/17 18:01 Source: patient Mode of arrival: Wheelchair Limitations: No Limitations - History of Present Illness Initial Comments: 56-year-old female past medical history chronic back pain, spinal nerve stimulator, history of laminectomy L spine, right ankle surgery presents with complaint of right ankle and foot pain status post mechanical fall/inversion injury. As per patient she slipped while walking and inverted on her right ankle last night. Pain progressed overnight and right ankle is swollen. Patient denies any paresthesias. MD Complaint: ankle injury -: During the night Injury: Ankle: Right Type of Injury: inversion Place: home Severity scale (0 -10): 8 Worsens With: weight bearing, movement, palpation Context: fall Treatments Prior to Arrival: cold therapy - Related Data Home Medications Medication Instructions Recorded Confirmed Last Taken Lansoprazole (Nf) [Prevacid (Nf)] 30 mg PO QDAY 02/07/16 02/24/16 01/18/16 Previous Rx's Medication Instructions Recorded Last Taken Type Fluticasone/Salmeterol [Advair 1 puff IH BID #1 disk.w.dev 05/16/14 02/16/16 06: 00 Rx Diskus 500-50 mcg] Montelukast [Singulair] 10 mg PO QPM #30 tablet 10/16/15 Unknown Rx Celecoxib [celeBREX] 200 mg PO BID #60 capsule 03/03/16 Unknown Rx Cyclobenzaprine [Flexeril 10 MG 10 mg PO TID PRN #60 tablet 03/03/16 Unknown Rx TAB] Gabapentin [Neurontin] 300 mg PO BID #60 capsule 03/03/16 Unknown Rx HYDROcodone/APAP 10-325 [Dawson 1 each PO Q6HR PRN #60 tablet 03/03/16 Unknown Rx 10/325] Butalb/Acetaminophen/Caffeine 1 cap PO Q8HR PRN #10 cap 03/07/16 Unknown Rx [Fioricet 50-300-40 mg CAP] Meclizine [Antivert] 25 mg PO TID PRN #20 tablet 03/07/16 Unknown Rx amLODIPine [Norvasc] 5 mg PO DAILY #60 tab 03/07/16 Unknown Rx HYDROcodone/APAP 5-325 [Dawson 1 each PO Q6HR PRN #20 tablet 06/29/16 Unknown Rx 5/325] HYDROcodone/APAP 7.5-325 [Dawson 1 each PO Q8HR PRN #12 tablet 12/17/16 Unknown Rx 7.5-325 mg TAB] Meclizine [Antivert] 25 mg PO TID PRN #12 tablet 12/17/16 Unknown Rx Promethazine [Phenergan TAB] 25 mg PO Q6HR PRN #12 tab 12/17/16 Unknown Rx Sulfamethoxazole/Trimethoprim 1 each PO BID #14 tablet 12/17/16 Unknown Rx [Bactrim DS TAB] HYDROcodone/APAP 5-325 [Dawson 1 each PO Q6HR PRN #14 tablet 03/20/17 Unknown Rx 5/325] Ondansetron [Zofran Odt] 4 mg PO Q8HR PRN #14 tab.rapdis 03/20/17 Unknown Rx Pregabalin [Lyrica] 75 mg PO QDAY #30 cap 03/20/17 Unknown Rx Ibuprofen [Motrin] 600 mg PO Q8H PRN #30 tablet 06/27/17 Unknown Rx Allergies Allergy/AdvReac Type Severity Reaction Status Date / Time dexamethasone [From Decadron] Allergy Anaphylaxis Verified 03/20/17 18:43 dexamethasone sod phosphate Allergy Anaphylaxis Verified 03/20/17 18:43 [From Decadron] epinephrine Allergy Rash Verified 03/20/17 18:43 ipratropium bromide Allergy Anaphylaxis Verified 03/20/17 18:43 [From Atrovent] peanut Allergy Anaphylaxis Verified 03/20/17 18:43 ED Review of Systems ROS: Stated complaint: RIGHT FOOT PAIN Other details as noted in HPI ED Past Medical Hx - Past Medical History Previous Medical History?: Yes Hx Hypertension: Yes Hx Pulmonary Embolism: Yes Hx Liver Disease: Yes (HEPATITIS C) Hx Sickle Cell Disease: Yes (TRAIT) Hx Asthma: Yes (2004 Pt state she had 5 intubations) Additional medical history: intubations for asthma, lumbar radiculopathy - Surgical History Additional Surgical History: neck surgery, pain pump. States previous to admission and had an exercise stress test. States that test was terminated secondary to asthma. device in back. Pain implant. L4-L5, S1 fusion. right ankle surgery - Social History Smoking Status: Never Smoker Substance Use Type: None - Medications Home Medications: Home Medications Medication Instructions Recorded Confirmed Last Taken Type Fluticasone/Salmeterol [Advair 1 puff IH BID #1 disk.w.dev 05/16/14 02/24/16 06:00 Rx Diskus 500-50 mcg] Montelukast [Singulair] 10 mg PO QPM #30 tablet 10/16/15 02/24/16 Unknown Rx Lansoprazole (Nf) [Prevacid (Nf)] 30 mg PO QDAY 02/07/16 02/24/16 01/18/16 History Celecoxib [celeBREX] 200 mg PO BID #60 capsule 03/03/16 Unknown Rx Cyclobenzaprine [Flexeril 10 MG 10 mg PO TID PRN #60 tablet 03/03/16 Unknown Rx TAB] Gabapentin [Neurontin] 300 mg PO BID #60 capsule 03/03/16 Unknown Rx HYDROcodone/APAP 10-325 [Dawson 1 each PO Q6HR PRN #60 tablet 03/03/16 Unknown Rx 10/325] Butalb/Acetaminophen/Caffeine 1 cap PO Q8HR PRN #10 cap 03/07/16 Unknown Rx [Fioricet 50-300-40 mg CAP] Meclizine [Antivert] 25 mg PO TID PRN #20 tablet 03/07/16 Unknown Rx amLODIPine [Norvasc] 5 mg PO DAILY #60 tab 03/07/16 Unknown Rx HYDROcodone/APAP 5-325 [Dawson 1 each PO Q6HR PRN #20 tablet 06/29/16 Unknown Rx 5/325] HYDROcodone/APAP 7.5-325 [Dawson 1 each PO Q8HR PRN #12 tablet 12/17/16 Unknown Rx 7.5-325 mg TAB] Meclizine [Antivert] 25 mg PO TID PRN #12 tablet 12/17/16 Unknown Rx Promethazine [Phenergan TAB] 25 mg PO Q6HR PRN #12 tab 12/17/16 Unknown Rx Sulfamethoxazole/Trimethoprim 1 each PO BID #14 tablet 12/17/16 Unknown Rx [Bactrim DS TAB] HYDROcodone/APAP 5-325 [Dawson 1 each PO Q6HR PRN #14 tablet 03/20/17 Unknown Rx 5/325] Ondansetron [Zofran Odt] 4 mg PO Q8HR PRN #14 tab.rapdis 03/20/17 Unknown Rx Pregabalin [Lyrica] 75 mg PO QDAY #30 cap 03/20/17 Unknown Rx Ibuprofen [Motrin] 600 mg PO Q8H PRN #30 tablet 06/27/17 Unknown Rx ED Physical Exam - General Limitations: No Limitations General appearance: alert, in no apparent distress - Head Head exam: Present: atraumatic, normocephalic - Eye Eye exam: Present: normal appearance, PERRL, EOMI Pupils: Present: normal accommodation, irregular - ENT ENT exam: Present: mucous membranes moist - Neck Neck exam: Present: normal inspection, full ROM - Respiratory Respiratory exam: Present: normal lung sounds bilaterally. Absent: respiratory distress - Cardiovascular Cardiovascular Exam: Present: regular rate, normal rhythm. Absent: systolic murmur, diastolic murmur, rubs, gallop - GI/Abdominal GI/Abdominal exam: Present: soft, normal bowel sounds - Extremities Exam Extremities exam: Present: normal inspection - Expanded Lower Extremity Exam Right Hip exam: Present: normal inspection, full ROM Upper Leg exam: Present: normal inspection, full ROM Knee exam: Present: normal inspection, full ROM Lower Leg exam: Present: normal inspection, full ROM Ankle exam: Present: tenderness (tenderness right lateral malleolus), swelling Foot/Toe exam: Present: full ROM, tenderness, swelling (right lateral 5th metatarsal and lateral mallelous), tenderness at base of 5th metatarsal Neuro vascular tendon exam: Present: no vascular compromise (distal dorsalis pedis and posterior tibial pulses are strong to palpation) Gait: Positive: antalgic, unable to bear weight 1 - Pain and swelling here - Back Exam Back exam: Present: normal inspection - Neurological Exam Neurological exam: Present: alert, oriented X3, CN II-XII intact, normal gait - Psychiatric Psychiatric exam: Present: normal affect, normal mood - Skin Skin exam: Present: warm, dry, intact, normal color. Absent: rash ED Course Vital Signs 06/27/17 06/27/17 17:52 19:00 Temperature 97.5 F L Pulse Rate 82 Respiratory 18 16 Rate Blood Pressure 137/86 O2 Sat by Pulse 97 Oximetry Critical care attestation.: If time is entered above; I have spent that time in minutes in the direct care of this critically ill patient, excluding procedure time. ED Disposition Clinical Impression: Right ankle sprain Qualifiers: Encounter type: initial encounter Involved ligament of ankle: unspecified ligament Qualified Code(s): S93.401A - Sprain of unspecified ligament of right ankle, initial encounter Disposition: - TO HOME OR SELFCARE Condition: Stable Instructions: Ankle Sprain (ED), Ankle Stirrup Splint (ED), Ibuprofen (By mouth ), RICE Therapy (ED), Crutch Instructions (ED) Additional Instructions: Follow-up with a orthopedic doctor in 3-5 days or if symptoms worsen and continue return to emergency room as soon as possible. Rest, elevate and ice extremity. Prescriptions: Ibuprofen [Motrin] 600 mg PO Q8H PRN #30 tablet PRN Reason: Pain Referrals: PRIMARY CAREMD [Primary Care Provider] - 3-5 Days DEVANG BARR MD [Staff Physician] - 3-5 Days [facility] [Outside] - 3-5 Days [facility] [Outside] - 3-5 Days <MARCOS ESPINO - Last Filed: 06/27/17 19:17> ED Course - Reevaluation(s) Reevaluation #1: 06/27/17 19:13 Patient is signed out to me by MANUELA Cai and pending xray results. Patient is speaking in full sentences with no signs of distress noted. ED Lower Extremity MDM - Medical Decision Making This is a 56-year-old female that presents with right ankle sprain. Patient is stable. Patient was signed out by Dr. Lashay ROY. X-ray pending. X-ray results within normal limits and the radiologist. Notified of x-ray results not about the patient. Patient received ankle stirrup and crutches and discharged. The patient was educated how to use crutches by RN. Patient was instructed to rice therapy. Patient received Motrin at discharge. Patient was instructed Follow-up with a orthopedic doctor in 3-5 days or if symptoms worsen and continue return to emergency room as soon as possible. At time of discharge , the patient does not seem toxic or ill in appearance. No acute signs of distress noted. Patient agrees to discharge treatment plan of care. No further questions noted by the patient. ED Disposition Is pt being admited?: No Does the pt Need Aspirin: No
[2017-06-27] MEDS ORDERED: MOTRIN PO ONE (18:57)
[2017-06-27] MEDS ORDERED: MOTRIN ONE (18:58)
--- NOTE | 2017-06-27 19:06 | XRay Report ---
FINAL REPORT EXAM: XR ANKLE 3+V RT HISTORY: right ankle pain s/p fall TECHNIQUE: Three views right ankle PRIORS: None. FINDINGS: No fracture is identified. No dislocation seen. Ankle mortise is intact no evidence of joint space widening. There is lateral soft tissue swelling No erosive or degenerative changes are identified. No evidence of joint effusion. IMPRESSION: Lateral soft tissue swelling No acute fracture identified
--- NOTE | 2017-06-27 19:09 | XRay Report ---
FINAL REPORT EXAM: XR FOOT 3+V RT HISTORY: right foot pain s/p fall ? fracture TECHNIQUE: 3 views right foot PRIORS: None. FINDINGS: No fracture or dislocation identified. Joint spaces are within normal limits. No radiopaque foreign body seen. No soft tissue abnormality identified. IMPRESSION: Negative foot series
== END 2017-06-27 19:40 | disposition home or self-care (01) ==
LOC: ED 17:50
DX: S93.491A Sprain of other ligament of right ankle, initial encounter (principal); I26.99 Other pulmonary embolism without acute cor pulmonale; J45.909 Unspecified asthma, uncomplicated; I10 Essential (primary) hypertension; D57.80 Other sickle-cell disorders without crisis; Z88.8 Allergy status to other drugs, medicaments and biological substances; Z91.010 Allergy to peanuts; Z86.19 Personal history of other infectious and parasitic diseases; Z88.5 Allergy status to narcotic agent; W01.0XXA Fall on same level from slipping, tripping and stumbling without subsequent striking against object, initial encounter; Y93.89 Activity, other specified; Y92.89 Other specified places as the place of occurrence of the external cause; Y99.8 Other external cause status
CPT/HCPCS: Q0162

== ENCOUNTER 2017-08-26 11:26 | Emergency (ER) | payer BC ==
[2017-08-26] MEDS ORDERED: ATROVENT IH ONE (11:49)
[2017-08-26] MEDS ORDERED: PROVENTIL IH ONE (11:49)
[2017-08-26] MEDS ORDERED: MAGNESIUM SULFATE 2GM/50ML 2 GM/50 ML BAG IV ONE (12:18)
[2017-08-26] MEDS ORDERED: NACL 0.9% 1000 ML 1,000 ML IV ONE (12:18)
--- NOTE | 2017-08-26 13:03 | XRay Report ---
AP CHEST: HISTORY: Hypertension AP view of the chest demonstrates a normal mediastinal and cardiac contour with clear lungs and normal bony and soft tissue structures. IMPRESSION: Unremarkable AP chest.
--- NOTE | 2017-08-26 13:14 | Emergency Department Report ---
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 She complains of exacerbation of asthma symptoms. She also states that she has some sinus drainage and some small amount of yellow sputum. She does not complain of chest pain. She states that she has been intubated twice in the past. She has a history of pulmonary embolism but does not describe anticoagulation more than a few days. She states that her d-dimer was elevated. Upon review of her records here I do not see any documented pulmonary embolism throughout the course of her history at this hospital. In any case she is not on any anticoagulants. She denies any recent leg pain or swelling. She denies any known cardiac history. She does not smoke. She said no recent travel. -: Gradual, days(s) (1 day) Consistency: other (does not c/o pain) Improves with: none Worsens with: none Associated Symptoms: denies other symptoms, shortness of breath - Related Data Home Medications Medication Instructions Recorded Confirmed Last Taken Lansoprazole (Nf) [Prevacid (Nf)] 30 mg PO QDAY 02/07/16 02/24/16 01/18/16 Previous Rx's Medication Instructions Recorded Last Taken Type Montelukast [Singulair] 10 mg PO QPM #30 tablet 10/16/15 Unknown Rx Celecoxib [celeBREX] 200 mg PO BID #60 capsule 03/03/16 Unknown Rx Cyclobenzaprine [Flexeril 10 MG 10 mg PO TID PRN #60 tablet 03/03/16 Unknown Rx TAB] Gabapentin [Neurontin] 300 mg PO BID #60 capsule 03/03/16 Unknown Rx HYDROcodone/APAP 10-325 [Carnation 1 each PO Q6HR PRN #60 tablet 03/03/16 Unknown Rx 10/325] Butalb/Acetaminophen/Caffeine 1 cap PO Q8HR PRN #10 cap 03/07/16 Unknown Rx [Fioricet 50-300-40 mg CAP] Meclizine [Antivert] 25 mg PO TID PRN #20 tablet 03/07/16 Unknown Rx amLODIPine [Norvasc] 5 mg PO DAILY #60 tab 03/07/16 Unknown Rx HYDROcodone/APAP 5-325 [Carnation 1 each PO Q6HR PRN #20 tablet 06/29/16 Unknown Rx 5/325] HYDROcodone/APAP 7.5-325 [Carnation 1 each PO Q8HR PRN #12 tablet 12/17/16 Unknown Rx 7.5-325 mg TAB] Meclizine [Antivert] 25 mg PO TID PRN #12 tablet 12/17/16 Unknown Rx Promethazine [Phenergan TAB] 25 mg PO Q6HR PRN #12 tab 12/17/16 Unknown Rx Sulfamethoxazole/Trimethoprim 1 each PO BID #14 tablet 12/17/16 Unknown Rx [Bactrim DS TAB] HYDROcodone/APAP 5-325 [Carnation 1 each PO Q6HR PRN #14 tablet 03/20/17 Unknown Rx 5/325] Ondansetron [Zofran Odt] 4 mg PO Q8HR PRN #14 tab.rapdis 03/20/17 Unknown Rx Pregabalin [Lyrica] 75 mg PO QDAY #30 cap 03/20/17 Unknown Rx Ibuprofen [Motrin] 600 mg PO Q8H PRN #30 tablet 06/27/17 Unknown Rx ALBUTEROL NEB's [Proventil 0.083% 2.5 mg IH QID PRN #120 neb 08/26/17 Unknown Rx NEBS] Albuterol Sulfate [Ventolin HFA] 2 puff IH Q4H PRN #1 hfa.aer.ad 08/26/17 Unknown Rx Azithromycin [Zithromax Z-SELWYN] 250 mg PO DAILY #6 tab 08/26/17 Unknown Rx Fluticasone/Salmeterol [Advair 1 puff IH BID #1 disk.w.dev 08/26/17 Unknown Rx Diskus 500-50 mcg] predniSONE [Deltasone] 40 mg PO QDAY #10 tab 08/26/17 Unknown Rx Allergies Allergy/AdvReac Type Severity Reaction Status Date / Time dexamethasone [From Decadron] Allergy Anaphylaxis Verified 08/26/17 11:36 dexamethasone sod phosphate Allergy Anaphylaxis Verified 08/26/17 11:36 [From Decadron] epinephrine Allergy Rash Verified 08/26/17 11:36 ipratropium bromide Allergy Anaphylaxis Verified 08/26/17 11:36 [From Atrovent] peanut Allergy Anaphylaxis Verified 08/26/17 11:36 ED Review of Systems ROS: Stated complaint: SOB Other details as noted in HPI Constitutional: denies: chills, fever Eyes: denies: eye pain, eye discharge, vision change ENT: denies: ear pain, throat pain Respiratory: cough, shortness of breath, wheezing Cardiovascular: denies: chest pain, palpitations Endocrine: no symptoms reported Gastrointestinal: denies: abdominal pain, nausea, diarrhea Genitourinary: denies: urgency, dysuria, discharge Musculoskeletal: denies: back pain, joint swelling, arthralgia Skin: denies: rash, lesions Neurological: denies: headache, weakness, paresthesias Psychiatric: denies: anxiety, depression Hematological/Lymphatic: denies: easy bleeding, easy bruising ED Past Medical Hx - Past Medical History Previous Medical History?: Yes Hx Hypertension: Yes Hx Diabetes: Yes Hx Pulmonary Embolism: Yes Hx Liver Disease: Yes (HEPATITIS C) Hx Sickle Cell Disease: Yes (TRAIT) Hx Asthma: Yes (2004 Pt state she had 5 intubations) Additional medical history: intubations for asthma, lumbar radiculopathy - Surgical History Past Surgical History?: Yes Additional Surgical History: neck surgery, pain pump. States previous to admission and had an exercise stress test. States that test was terminated secondary to asthma. device in back. Pain implant. L4-L5, S1 fusion. right ankle surgery - Social History Smoking Status: Never Smoker Substance Use Type: None - Medications Home Medications: Home Medications Medication Instructions Recorded Confirmed Last Taken Type Montelukast [Singulair] 10 mg PO QPM #30 tablet 10/16/15 02/24/16 Unknown Rx Lansoprazole (Nf) [Prevacid (Nf)] 30 mg PO QDAY 02/07/16 02/24/16 01/18/16 History Celecoxib [celeBREX] 200 mg PO BID #60 capsule 03/03/16 Unknown Rx Cyclobenzaprine [Flexeril 10 MG 10 mg PO TID PRN #60 tablet 03/03/16 Unknown Rx TAB] Gabapentin [Neurontin] 300 mg PO BID #60 capsule 03/03/16 Unknown Rx HYDROcodone/APAP 10-325 [Carnation 1 each PO Q6HR PRN #60 tablet 03/03/16 Unknown Rx 10/325] Butalb/Acetaminophen/Caffeine 1 cap PO Q8HR PRN #10 cap 03/07/16 Unknown Rx [Fioricet 50-300-40 mg CAP] Meclizine [Antivert] 25 mg PO TID PRN #20 tablet 03/07/16 Unknown Rx amLODIPine [Norvasc] 5 mg PO DAILY #60 tab 03/07/16 Unknown Rx HYDROcodone/APAP 5-325 [Carnation 1 each PO Q6HR PRN #20 tablet 06/29/16 Unknown Rx 5/325] HYDROcodone/APAP 7.5-325 [Carnation 1 each PO Q8HR PRN #12 tablet 12/17/16 Unknown Rx 7.5-325 mg TAB] Meclizine [Antivert] 25 mg PO TID PRN #12 tablet 12/17/16 Unknown Rx Promethazine [Phenergan TAB] 25 mg PO Q6HR PRN #12 tab 12/17/16 Unknown Rx Sulfamethoxazole/Trimethoprim 1 each PO BID #14 tablet 12/17/16 Unknown Rx [Bactrim DS TAB] HYDROcodone/APAP 5-325 [Carnation 1 each PO Q6HR PRN #14 tablet 03/20/17 Unknown Rx 5/325] Ondansetron [Zofran Odt] 4 mg PO Q8HR PRN #14 tab.rapdis 03/20/17 Unknown Rx Pregabalin [Lyrica] 75 mg PO QDAY #30 cap 03/20/17 Unknown Rx Ibuprofen [Motrin] 600 mg PO Q8H PRN #30 tablet 06/27/17 Unknown Rx ALBUTEROL NEB's [Proventil 0.083% 2.5 mg IH QID PRN #120 neb 08/26/17 Unknown Rx NEBS] Albuterol Sulfate [Ventolin HFA] 2 puff IH Q4H PRN #1 hfa.aer.ad 08/26/17 Unknown Rx Azithromycin [Zithromax Z-SELWYN] 250 mg PO DAILY #6 tab 08/26/17 Unknown Rx Fluticasone/Salmeterol [Advair 1 puff IH BID #1 disk.w.dev 08/26/17 Unknown Rx Diskus 500-50 mcg] predniSONE [Deltasone] 40 mg PO QDAY #10 tab 08/26/17 Unknown Rx ED Physical Exam - General Limitations: No Limitations General appearance: alert, in no apparent distress - Head Head exam: Present: atraumatic, normocephalic - Eye Eye exam: Present: normal appearance. Absent: scleral icterus - ENT ENT exam: Present: mucous membranes moist - Neck Neck exam: Present: normal inspection. Absent: tenderness, meningismus - Respiratory Respiratory exam: Absent: respiratory distress, accessory muscle use - Cardiovascular Cardiovascular Exam: Present: regular rate, normal rhythm. Absent: systolic murmur, diastolic murmur, rubs, gallop - GI/Abdominal GI/Abdominal exam: Present: soft, normal bowel sounds. Absent: distended, tenderness, guarding, rebound, rigid - Extremities Exam Extremities exam: Present: normal inspection, full ROM, normal capillary refill. Absent: pedal edema, joint swelling, calf tenderness - Back Exam Back exam: Present: normal inspection - Neurological Exam Neurological exam: Present: alert, oriented X3, CN II-XII intact. Absent: motor sensory deficit - Psychiatric Psychiatric exam: Present: normal affect, normal mood - Skin Skin exam: Present: warm, dry, intact, normal color. Absent: rash ED Course Vital Signs 08/26/17 08/26/17 08/26/17 11:32 11:53 12:00 Temperature 97.5 F L Pulse Rate 84 70 Respiratory 16 12 Rate Blood Pressure 168/96 159/98 O2 Sat by Pulse 99 98 100 Oximetry 08/26/17 08/26/17 08/26/17 12:31 13:01 13:31 Temperature Pulse Rate 76 79 Respiratory 25 H 19 16 Rate Blood Pressure 174/94 160/64 160/60 O2 Sat by Pulse 100 99 95 Oximetry 08/26/17 14:00 Temperature Pulse Rate 79 Respiratory 14 Rate Blood Pressure 164/79 O2 Sat by Pulse 97 Oximetry ED Medical Decision Making - Lab Data Result diagrams: 08/26/17 12:44 08/26/17 12:44 Laboratory Results - last 24 hr 08/26/17 08/26/17 08/26/17 12:44 12:44 12:44 WBC 5.8 RBC 5.02 Hgb 13.1 Hct 39.6 MCV 79 MCH 26 L MCHC 33 RDW 14.4 Plt Count 276 Lymph % (Auto) 45.5 H Kings % (Auto) 10.2 H Eos % (Auto) 1.5 Baso % (Auto) 0.5 Lymph # 2.6 Kings # 0.6 Eos # 0.1 Baso # 0.0 Seg Neutrophils % 42.3 Seg Neutrophils # 2.5 PT 12.5 INR 0.89 APTT 27.1 Magnesium 1.70 Total Bilirubin 0.30 AST 17 ALT 14 Alkaline Phosphatase 128 Troponin T < 0.010 NT-Pro-B Natriuret Pep 30.57 Total Protein 7.7 Albumin 3.8 L Albumin/Globulin Ratio 1.0 - Radiology Data Radiology results: report reviewed Critical care attestation.: If time is entered above; I have spent that time in minutes in the direct care of this critically ill patient, excluding procedure time. ED Disposition Clinical Impression: Exacerbation of asthma Qualifiers: Asthma severity: moderate Asthma persistence: unspecified Qualified Code(s): J45.901 - Unspecified asthma with (acute) exacerbation Acute bronchitis Qualifiers: Bronchitis organism: unspecified organism Qualified Code(s): J20.9 - Acute bronchitis, unspecified Disposition: - TO HOME OR SELFCARE Is pt being admited?: No Does the pt Need Aspirin: No Condition: Stable Instructions: Acute Bronchitis (ED) Additional Instructions: Return any recurrent symptoms. Follow up with her primary care physician within the next 24-48 hours. Prescriptions: ALBUTEROL NEB's [Proventil 0.083% NEBS] 2.5 mg IH QID PRN #120 neb PRN Reason: Wheezing Albuterol Sulfate [Ventolin HFA] 2 puff IH Q4H PRN #1 hfa.aer.ad PRN Reason: Shortness Of Breath Azithromycin [Zithromax Z-SELWYN] 250 mg PO DAILY #6 tab Fluticasone/Salmeterol [Advair Diskus 500-50 mcg] 1 puff IH BID #1 disk.w.dev predniSONE [Deltasone] 40 mg PO QDAY #10 tab Referrals: AYESHA THOMAS MD [Primary Care Provider] - 24 Hours Time of Disposition: 14:41
[2017-08-26 13:22] LABS: Basophils % (Auto) 0.5 % (0.0-1.8); Eosinophils # (Auto) 0.1 K/mm3 (0.0-0.4); Eosinophils % (Auto) 1.5 % (0.0-4.3); Hematocrit 39.6 % (30.3-42.9); Hemoglobin 13.1 gm/dl (10.1-14.3); Lymphocytes # (Auto) 2.6 K/mm3 (1.2-5.4); Lymphocytes % (Auto) 45.5 % (13.4-35.0); Mean Corpuscular HGB Conc 33 % (30-34); Mean Corpuscular Hemoglobin 26 pg (28-32); Mean Corpuscular Volume 79 fl (79-97); Monocytes # (Auto) 0.6 K/mm3 (0.0-0.8); Monocytes % (Auto) 10.2 % (0.0-7.3); Platelet Count 276 K/mm3 (140-440); Red Blood Count 5.02 M/mm3 (3.65-5.03); Red Cell Distribution Width 14.4 % (13.2-15.2)
[2017-08-26 13:32] LABS: INR 0.89 (0.87-1.13)
[2017-08-26 13:33] LABS: Partial Thromboplastin Time 27.1 Sec. (24.2-36.6)
[2017-08-26 13:45] LABS: Alanine Aminotransferase 14 units/L (7-56); Albumin 3.8 g/dL (3.9-5)
[2017-08-26 14:06] LABS: Bilirubin,Direct < 0.2 mg/dL (0-0.2)
[2017-08-26 14:24] VITALS: BP 164/79
[2017-08-26 14:35] LABS: Creatine Kinase MB 1.3 ng/mL (0.0-4.0)
[2017-08-26 14:36] LABS: BUN/Creatinine Ratio 13; Blood Urea Nitrogen 9 mg/dL (7-17); Calcium 9.1 mg/dL (8.4-10.2); Hemolysis Index 27
== END 2017-08-26 15:00 | disposition home or self-care (01) ==
LOC: ED 11:26
DX: J45.901 Unspecified asthma with (acute) exacerbation (principal); J20.9 Acute bronchitis, unspecified; I10 Essential (primary) hypertension; E11.9 Type 2 diabetes mellitus without complications
CPT/HCPCS: 36415; 71045; 80048; 80074; 82550; 82553; 83735; 83880; 84484; 85025; 85610; 85730; 96365; 96375; 99283; J2930; J3475; J7030

== ENCOUNTER 2018-07-09 13:24 | Inpatient (IN) | payer BC, OTHER ==
[2018-07-09] MEDS ORDERED: TESSALON PERLES PO ONE (13:36)
[2018-07-09] MEDS ORDERED: PROVENTIL IH ONE (13:36)
[2018-07-09] MEDS ORDERED: NACL 0.9% 1000 ML 1,000 ML IV ONE (13:36)
[2018-07-09] MEDS ORDERED: ATROVENT IH ONE (13:36)
[2018-07-09] MEDS ORDERED: SOLU-Medrol IV ONE (13:36)
[2018-07-09] MEDS ORDERED: BENADRYL IV ONE (13:58)
[2018-07-09] MEDS ORDERED: MAGNESIUM SULFATE 1 GM in NACL 0.9% 50 ML IV ONE (14:00)
[2018-07-09 14:01] LABS: Basophils % (Auto) 0.7 % (0.0-1.8); Eosinophils # (Auto) 0.2 K/mm3 (0.0-0.4); Eosinophils % (Auto) 3.8 % (0.0-4.3); Hematocrit 38.3 % (30.3-42.9); Hemoglobin 12.7 gm/dl (10.1-14.3); Lymphocytes % (Auto) 36.8 % (13.4-35.0); Mean Corpuscular HGB Conc 33 % (30-34); Mean Corpuscular Volume 79 fl (79-97); Monocytes # (Auto) 0.5 K/mm3 (0.0-0.8); Monocytes % (Auto) 10.2 % (0.0-7.3); Platelet Count 296 K/mm3 (140-440); Red Blood Count 4.86 M/mm3 (3.65-5.03); Red Cell Distribution Width 14.2 % (13.2-15.2)
[2018-07-09] MEDS ORDERED: BENADRYL ONE (14:01)
--- NOTE | 2018-07-09 14:01 | Emergency Department Report ---
- General Chief Complaint: Dyspnea/Respdistress Stated Complaint: JOHN Time Seen by Provider: 07/09/18 13:33 Source: patient Mode of arrival: Ambulatory Limitations: No Limitations - History of Present Illness Initial Comments: Patient is a 57-year-old female who is presenting with dyspnea shortness of breath. Patient has a history of asthma has been intubated in the past. Naveed nt has had cough congestion or wheeze. Proximal knee 1 week. Patient receives steroid shot at her primary care physician office after already being on prednisone for several days. Patient was been on Z-[place] as well as is now Levaquin and amoxicillin. Patient's states that medications are not helping. Severity scale (0 -10): 8 Consistency: constant Improves With: nothing Associated Symptoms: nasal congestion, cough, shortness of breath, hoarseness. denies: fever, chills, diaphoresis, headache, rhinorrhea, sore throat, stiff neck, chest pain, abdominal pain, nausea, vomiting, diarrhea, confusion, right sweats, weight loss, epistaxis - Related Data Home Medications Medication Instructions Recorded Confirmed Last Taken Lansoprazole (Nf) [Prevacid (Nf)] 30 mg PO QDAY 02/07/16 02/24/16 01/18/16 Previous Rx's Medication Instructions Recorded Last Taken Type Montelukast [Singulair] 10 mg PO QPM #30 tablet 10/16/15 Unknown Rx Celecoxib [celeBREX] 200 mg PO BID #60 capsule 03/03/16 Unknown Rx Cyclobenzaprine [Flexeril 10 MG 10 mg PO TID PRN #60 tablet 03/03/16 Unknown Rx TAB] Gabapentin [Neurontin] 300 mg PO BID #60 capsule 03/03/16 Unknown Rx HYDROcodone/APAP 10-325 [[place] 1 each PO Q6HR PRN #60 tablet 03/03/16 Unknown Rx 10/325] Butalb/Acetaminophen/Caffeine 1 cap PO Q8HR PRN #10 cap 03/07/16 Unknown Rx [Fioricet 50-300-40 mg CAP] Meclizine [Antivert] 25 mg PO TID PRN #20 tablet 03/07/16 Unknown Rx amLODIPine [Norvasc] 5 mg PO DAILY #60 tab 03/07/16 Unknown Rx HYDROcodone/APAP 5-325 [[place] 1 each PO Q6HR PRN #20 tablet 06/29/16 Unknown Rx 5/325] HYDROcodone/APAP 7.5-325 [[place] 1 each PO Q8HR PRN #12 tablet 12/17/16 Unknown Rx 7.5-325 mg TAB] Meclizine [Antivert] 25 mg PO TID PRN #12 tablet 12/17/16 Unknown Rx Promethazine [Phenergan TAB] 25 mg PO Q6HR PRN #12 tab 12/17/16 Unknown Rx Sulfamethoxazole/Trimethoprim 1 each PO BID #14 tablet 12/17/16 Unknown Rx [Bactrim DS TAB] HYDROcodone/APAP 5-325 [[place] 1 each PO Q6HR PRN #14 tablet 03/20/17 Unknown Rx 5/325] Ondansetron [Zofran Odt] 4 mg PO Q8HR PRN #14 tab.rapdis 03/20/17 Unknown Rx Pregabalin [Lyrica] 75 mg PO QDAY #30 cap 03/20/17 Unknown Rx Ibuprofen [Motrin] 600 mg PO Q8H PRN #30 tablet 06/27/17 Unknown Rx ALBUTEROL NEB's [Proventil 0.083% 2.5 mg IH QID PRN #120 neb 08/26/17 Unknown Rx NEBS] Albuterol Sulfate [Ventolin HFA] 2 puff IH Q4H PRN #1 hfa.aer.ad 08/26/17 Unknown Rx Azithromycin [Zithromax Z-SELWYN] 250 mg PO DAILY #6 tab 08/26/17 Unknown Rx Fluticasone/Salmeterol [Advair 1 puff IH BID #1 disk.w.dev 08/26/17 Unknown Rx Diskus 500-50 mcg] predniSONE [Deltasone] 40 mg PO QDAY #10 tab 08/26/17 Unknown Rx Hydrocodone/Chlorphen Polis(Nf 473 ml PO Q12HR PRN #180 susp 05/09/18 Unknown Rx [Tussionex (Nf)] SUMAtriptan SUCCINATE [Imitrex] 25 mg PO BID PRN #10 tab 05/09/18 Unknown Rx Allergies Allergy/AdvReac Type Severity Reaction Status Date / Time dexamethasone [From Decadron] Allergy Anaphylaxis Verified 08/26/17 11:36 dexamethasone sod phosphate Allergy Anaphylaxis Verified 04/08/18 11:36 [From Decadron] epinephrine Allergy Rash Verified 08/26/17 11:36 ipratropium bromide Allergy Anaphylaxis Verified 08/26/17 11:36 [From Atrovent] peanut Allergy Anaphylaxis Verified 08/26/17 11:36 ED Review of Systems ROS: Stated complaint: JOHN Other details as noted in HPI Comment: All other systems reviewed and negative ED Past Medical Hx - Past Medical History Hx Hypertension: Yes Hx Diabetes: Yes Hx Pulmonary Embolism: Yes Hx Liver Disease: Yes (HEPATITIS C) Hx Sickle Cell Disease: Yes (TRAIT) Hx Asthma: Yes (2004 Pt state she had 5 intubations) Additional medical history: intubations for asthma, lumbar radiculopathy - Surgical History Additional Surgical History: neck surgery, pain pump. States previous to admission and had an exercise stress test. States that test was terminated secondary to asthma. device in back. Pain implant. L4-L5, S1 fusion. right ankle surgery - Social History Smoking Status: Never Smoker Substance Use Type: None - Medications Home Medications: Home Medications Medication Instructions Recorded Confirmed Last Taken Type Montelukast [Singulair] 10 mg PO QPM #30 tablet 10/16/15 02/24/16 Unknown Rx Lansoprazole (Nf) [Prevacid (Nf)] 30 mg PO QDAY 02/07/16 02/24/16 01/18/16 History Celecoxib [celeBREX] 200 mg PO BID #60 capsule 03/03/16 Unknown Rx Cyclobenzaprine [Flexeril 10 MG 10 mg PO TID PRN #60 tablet 03/03/16 Unknown Rx TAB] Gabapentin [Neurontin] 300 mg PO BID #60 capsule 03/03/16 Unknown Rx HYDROcodone/APAP 10-325 [[place] 1 each PO Q6HR PRN #60 tablet 03/03/16 Unknown Rx 10/325] Butalb/Acetaminophen/Caffeine 1 cap PO Q8HR PRN #10 cap 03/07/16 Unknown Rx [Fioricet 50-300-40 mg CAP] Meclizine [Antivert] 25 mg PO TID PRN #20 tablet 03/07/16 Unknown Rx amLODIPine [Norvasc] 5 mg PO DAILY #60 tab 03/07/16 Unknown Rx HYDROcodone/APAP 5-325 [[place] 1 each PO Q6HR PRN #20 tablet 06/29/16 Unknown Rx 5/325] HYDROcodone/APAP 7.5-325 [[place] 1 each PO Q8HR PRN #12 tablet 12/17/16 Unknown Rx 7.5-325 mg TAB] Meclizine [Antivert] 25 mg PO TID PRN #12 tablet 12/17/16 Unknown Rx Promethazine [Phenergan TAB] 25 mg PO Q6HR PRN #12 tab 12/17/16 Unknown Rx Sulfamethoxazole/Trimethoprim 1 each PO BID #14 tablet 12/17/16 Unknown Rx [Bactrim DS TAB] HYDROcodone/APAP 5-325 [[place] 1 each PO Q6HR PRN #14 tablet 03/20/17 Unknown Rx 5/325] Ondansetron [Zofran Odt] 4 mg PO Q8HR PRN #14 tab.rapdis 03/20/17 Unknown Rx Pregabalin [Lyrica] 75 mg PO QDAY #30 cap 03/20/17 Unknown Rx Ibuprofen [Motrin] 600 mg PO Q8H PRN #30 tablet 06/27/17 Unknown Rx ALBUTEROL NEB's [Proventil 0.083% 2.5 mg IH QID PRN #120 neb 08/26/17 Unknown Rx NEBS] Albuterol Sulfate [Ventolin HFA] 2 puff IH Q4H PRN #1 hfa.aer.ad 08/26/17 Unknown Rx Azithromycin [Zithromax Z-SELWYN] 250 mg PO DAILY #6 tab 08/26/17 Unknown Rx Fluticasone/Salmeterol [Advair 1 puff IH BID #1 disk.w.dev 08/26/17 Unknown Rx Diskus 500-50 mcg] predniSONE [Deltasone] 40 mg PO QDAY #10 tab 08/26/17 Unknown Rx Hydrocodone/Chlorphen Polis(Nf 473 ml PO Q12HR PRN #180 susp 05/09/18 Unknown Rx [Tussionex (Nf)] SUMAtriptan SUCCINATE [Imitrex] 25 mg PO BID PRN #10 tab 05/09/18 Unknown Rx ED Physical Exam - General Limitations: No Limitations General appearance: alert, in no apparent distress - Head Head exam: Present: atraumatic, normocephalic - Eye Eye exam: Present: normal appearance - ENT ENT exam: Present: mucous membranes moist - Neck Neck exam: Present: normal inspection - Respiratory Respiratory exam: Present: respiratory distress, wheezes, prolonged expiratory. Absent: normal lung sounds bilaterally, rales, rhonchi - Cardiovascular Cardiovascular Exam: Present: regular rate, normal rhythm, normal heart sounds. Absent: systolic murmur, diastolic murmur, rubs, gallop - GI/Abdominal GI/Abdominal exam: Present: soft, normal bowel sounds. Absent: distended, tenderness, guarding, rebound - Extremities Exam Extremities exam: Present: normal inspection - Back Exam Back exam: Present: normal inspection - Neurological Exam Neurological exam: Present: alert, oriented X3 - Psychiatric Psychiatric exam: Present: normal affect, normal mood - Skin Skin exam: Present: warm, dry, intact, normal color. Absent: rash ED Course Vital Signs 07/09/18 13:53 Pulse Rate [ 94 H Bilateral] Pulse Rate [ 88 Throughout] Respiratory 16 Rate [Bilateral ] Respiratory 16 Rate [ Throughout] - Reevaluation(s) Reevaluation #1: 07/09/18 14:19 Patient with some continued increased work of breathing. Myself and Dr. King decided to be best to put the patient on BiPAP and be proactive regarding her respiratory state care. Patient also have ABG to determine if the patient is retaining CO2. Patient be admitted to the hospitalist service at this time. ED Medical Decision Making - Lab Data Result diagrams: 07/09/18 13:47 Critical Care Time: Yes (30) Critical care attestation.: If time is entered above; I have spent that time in minutes in the direct care of this critically ill patient, excluding procedure time. ED Disposition Clinical Impression: Status asthmaticus Qualifiers: Asthma severity: moderate Asthma persistence: unspecified Qualified Code(s): J45.902 - Unspecified asthma with status asthmaticus Disposition: OP ADMIT IP TO THIS HOSP Is pt being admited?: Yes Does the pt Need Aspirin: No Condition: Stable Time of Disposition: 14:20
[2018-07-09 14:19] LABS: BUN/Creatinine Ratio 13; Blood Urea Nitrogen 10 mg/dL (7-17); Calcium 9.3 mg/dL (8.4-10.2); Hemolysis Index 27
--- NOTE | 2018-07-09 14:29 | History and Physical Report ---
History of Present Illness Chief complaint: I cant breathe History of present illness: 57 YO Female with HTN, HCV, Asthma, DM, PE, Lumbar Radiculopathy S/P Pain Pump Placement, PE not currently on anticoagulation therapy presents to ED for evaluation. Pt states that she has experienced shortness of breath, wheezing ov er the past 1 week with worsening symptoms over the past 2 days. Pt was seen and evaluated by her PCP and treated as outpatient with oral antibiotic therapy, and steroid therapy without improvement. Pt acknowledges frequent nebulizer use without relief. Pt transported to [facility] for further care and evaluation. Pt seen and evaluated in ED and found to have Acute Respiratory Failure. Pt denies fever, chills, CP, Palpitation, NVD, Prolonged travel/immobility, unilateral leg swelling, calf pain, hemoptysis, or recent ill contacts. Pt admitted to IMCU and placed on supplemental oxygen. Past History Past Medical History: hepatitis, pulmonary embolism Past Surgical History: Other (BAck ssurgery, spine surgery, right ankle surgery, pain pump) Social history: , lives with family. denies: smoking, alcohol abuse, prescription drug abuse Family history: hypertension Medications and Allergies Allergies Allergy/AdvReac Type Severity Reaction Status Date / Time dexamethasone [From Decadron] Allergy Anaphylaxis Verified 08/26/17 11:36 dexamethasone sod phosphate Allergy Anaphylaxis Verified 08/26/17 11:36 [From Decadron] epinephrine Allergy Rash Verified 08/26/17 11:36 ipratropium bromide Allergy Anaphylaxis Verified 08/26/17 11:36 [From Atrovent] peanut Allergy Anaphylaxis Verified 08/26/17 11:36 Home Medications Medication Instructions Recorded Confirmed Last Taken Type amLODIPine [Norvasc] 5 mg PO DAILY #60 tab 03/07/16 07/09/18 Unknown Rx Ondansetron [Zofran Odt] 4 mg PO Q8HR PRN #14 tab.rapdis 03/20/17 07/09/18 Unknown Rx ALBUTEROL NEB's [Proventil 0.083% 2.5 mg IH QID PRN #120 neb 08/26/17 07/09/18 Unknown Rx NEBS] Albuterol Sulfate [Ventolin HFA] 2 puff IH Q4H PRN #1 hfa.aer.ad 08/26/17 07/09/18 Unknown Rx Fluticasone/Salmeterol [Advair 1 puff IH BID #1 disk.w.dev 08/26/17 07/09/18 Unknown Rx Diskus 500-50 mcg] Amoxicillin [Trimox CAP] 500 mg PO Q8H 07/09/18 07/09/18 Unknown History Gabapentin [Neurontin] 300 mg PO TID 07/09/18 07/09/18 Unknown History Oxycodone HCl [oxyCODONE TAB] 10 mg PO BID 07/09/18 07/09/18 Unknown History predniSONE [Deltasone] 20 mg PO TID 07/09/18 07/09/18 Unknown History Active Meds: Active Medications Magnesium Sulfate 1 gm/ Sodium (Chloride) 52 mls @ 52 mls/hr IV ONCE ONE Stop: 07/09/18 14:59 Last Admin: 07/09/18 14:29 Dose: 52 mls/hr Documented by: Sodium Chloride (Nacl 0.9% 1000 Ml) 1,000 mls @ 999 mls/hr IV BOLUS ONE Stop: 07/09/18 14:36 Last Admin: 07/09/18 14:28 Dose: 999 mls/hr Documented by: Review of Systems Constitutional: no weight loss, no weight gain, no fever, no chills Ears, nose, mouth and throat: nasal congestion, post-nasal drip, no ear pain, no ear discharge, no decreased hearing Breasts: no change in shape, no mass Cardiovascular: no chest pain, no palpitations, no edema, no lightheadedness Respiratory: shortness of breath, congestion, wheezing, no pain on inspiration Gastrointestinal: no nausea, no vomiting, no hematochezia Genitourinary Female: no pelvic pain, no flank pain, no dysuria, no urinary frequency Rectal: no pain, no incontinence, no hemorrhoids Musculoskeletal: no neck pain, no shooting arm pain, no low back pain Integumentary: no rash, no pruritis, no redness Neurological: memory loss, no head injury, no weakness, no numbness, no seizures Psychiatric: no anxiety, no change in sleep habits, no sleep disturbances Endocrine: no cold intolerance, no polyphagia, no polyuria, no excessive sweating, no weight change Hematologic/Lymphatic: no easy bleeding, no lymphadenopathy Allergic/Immunologic: no urticaria, no allergic rhinitis, no persistent infections Exam - Constitutional Vitals: Temp Pulse Resp BP Pulse Ox 94 H 16 07/09/18 13:53 07/09/18 13:53 General appearance: Present: mild distress - EENT Eyes: Present: PERRL ENT: hearing intact, clear oral mucosa - Neck Neck: Present: supple, normal ROM - Respiratory Respiratory effort: labored Respiratory: bilateral: diminished, wheezing - Cardiovascular Heart Sounds: Present: S1 & S2. Absent: rub, click - Extremities Extremities: pulses symmetrical, No edema Peripheral Pulses: within normal limits - Abdominal General gastrointestinal: Present: soft, non-tender, non-distended, normal bowel sounds Female genitourinary: Present: normal - Integumentary Integumentary: Present: clear, warm, dry - Musculoskeletal Musculoskeletal: gait normal, strength equal bilaterally - Psychiatric Psychiatric: appropriate mood/affect, intact judgment & insight - Neurologic Neurologic: CNII-XII intact, moves all extremities Results - Labs CBC & Chem 7: 07/10/18 05:08 07/10/18 05:08 Labs: Abnormal lab results 07/09/18 07/09/18 Range/Units 13:47 13:47 MCH 26 L (28-32) pg Lymph % (Auto) 36.8 H (13.4-35.0) % [place] % (Auto) 10.2 H (0.0-7.3) % Glucose 112 H (65-100) mg/dL Assessment and Plan - Patient Problems (1) Respiratory failure Current Visit: Yes Status: Acute Qualifiers: Chronicity: acute Respiratory failure complication: hypoxia Qualified Code(s): J96.01 - Acute respiratory failure with hypoxia Plan to address problem: Admit to IMCU, ABG, chest x ray, supplemental oxygen, NIPPV as clinically indicated, pulse oximetry, (2) HTN (hypertension) Current Visit: Yes Status: Acute Qualifiers: Hypertension type: essential hypertension Qualified Code(s): I10 - Essential (primary) hypertension Plan to address problem: monitor bp q shift, continue medical management (3) DVT prophylaxis Current Visit: Yes Status: Acute Plan to address problem: scd to BLE while in bed (4) Status asthmaticus Current Visit: Yes Status: Acute Qualifiers: Asthma severity: moderate Asthma persistence: unspecified Qualified Code(s): J45.902 - Unspecified asthma with status asthmaticus Plan to address problem: IV steroid therapy, IV magnesium therapy, ABG, pulse oximetry, nebulizer therapy, NIPPV as clinically indicated
[2018-07-09] MEDS ORDERED: PROVENTIL IH PRN (14:30)
[2018-07-09] MEDS ORDERED: SODIUM CHLORIDE FLUSH SYRINGE 10 ML IV PRN (14:30)
[2018-07-09] MEDS ORDERED: CHLORPHENIRAMINE PO PRN (14:32)
[2018-07-09] MEDS ORDERED: IMITREX PO PRN (14:32)
[2018-07-09] MEDS ORDERED: NORCO 10/325 PO PRN (14:32)
[2018-07-09] MEDS ORDERED: PHENERGAN PO PRN (14:32)
[2018-07-09] MEDS ORDERED: ANTIVERT PO PRN (14:32)
[2018-07-09] MEDS ORDERED: FLEXERIL PO PRN (14:32)
[2018-07-09] MEDS ORDERED: HYDROCODONE PO PRN (14:32)
[2018-07-09] MEDS ORDERED: IBUPROFEN PO PRN (14:32)
[2018-07-09] MEDS ORDERED: ZOFRAN ODT PO PRN (14:32)
[2018-07-09] MEDS ORDERED: NON-FORMULARY (Butalb/Acetaminophen/Caffeine [Fioricet 50-300-40 Mg Cap] 1 CAP) PO PRN (14:32)
--- NOTE | 2018-07-09 14:40 | XRay Report ---
AP CHEST :07/09/18 13:24:00 CLINICAL: Dyspnea. COMPARISON:08/26/17 FINDINGS: Normal heart and pulmonary vasculature. The lungs are normally expanded and clear. No tubes or lines. The bones and soft tissues are normal. IMPRESSION: Normal chest.
[2018-07-09] MEDS ORDERED: FIORICET PO PRN (15:27)
[2018-07-09] MEDS: SINGULAIR PO SCH (18:52)
[2018-07-09] MEDS: PULMICORT IH SCH (19:14)
[2018-07-09] MEDS: BROVANA NEBU IH SCH (19:14)
[2018-07-09] MEDS: BACTRIM DS PO SCH (21:31)
[2018-07-09] MEDS ORDERED: NON-FORMULARY (Fluticasone/Salmeterol [Advair Diskus 500-50 Mcg] 1 PUFF) IH SCH (22:00)
[2018-07-09] MEDS ORDERED: NEURONTIN PO SCH (22:00)
[2018-07-10 05:36] LABS: Basophils % (Auto) 0.1 % (0.0-1.8); Hematocrit 37.2 % (30.3-42.9); Hemoglobin 12.1 gm/dl (10.1-14.3); Lymphocytes # (Auto) 1.2 K/mm3 (1.2-5.4); Lymphocytes % (Auto) 12.2 % (13.4-35.0); Mean Corpuscular HGB Conc 33 % (30-34); Mean Corpuscular Volume 80 fl (79-97); Monocytes # (Auto) 0.5 K/mm3 (0.0-0.8); Monocytes % (Auto) 5.2 % (0.0-7.3); Platelet Count 288 K/mm3 (140-440); Red Blood Count 4.67 M/mm3 (3.65-5.03); Red Cell Distribution Width 14.1 % (13.2-15.2)
[2018-07-10 06:02] LABS: Alanine Aminotransferase 13 units/L (7-56); Albumin 3.7 g/dL (3.9-5); BUN/Creatinine Ratio 16; Blood Urea Nitrogen 11 mg/dL (7-17); Calcium 9.2 mg/dL (8.4-10.2); Hemolysis Index 8
[2018-07-10] MEDS: PULMICORT IH SCH ×2 (08:05→20:11)
[2018-07-10] MEDS: BROVANA NEBU IH SCH ×2 (08:06→20:11)
[2018-07-10] MEDS: BACTRIM DS PO SCH (09:19)
[2018-07-10] MEDS: SOLU-Medrol IV SCH ×3 (09:19→22:24)
[2018-07-10] MEDS: OxyCONTIN PO SCH ×2 (09:19→22:22)
[2018-07-10] MEDS: LYRICA PO SCH (09:19)
[2018-07-10] MEDS: NEURONTIN PO SCH ×3 (09:19→20:26)
[2018-07-10] MEDS: NORVASC PO SCH (09:20)
[2018-07-10] MEDS: PROTONIX PO SCH (09:21)
[2018-07-10] MEDS: SODIUM CHLORIDE FLUSH SYRINGE 10 ML IV SCH ×2 (09:22→22:29)
[2018-07-10] MEDS ORDERED: LANSOPRAZOLE 30 MG PO SCH (10:00)
[2018-07-10] MEDS ORDERED: NON-FORMULARY (Oxycodone Hcl [Oxycodone Tab] 10 MG) PO SCH (10:00)
--- NOTE | 2018-07-10 13:07 | Progress Note ---
Assessment and Plan Assessment and plan: Acute hypoxemic respiratory failure. Etiology secondary to asthma exacerbation. Continue O2 and supportive care. Acute asthma exacerbation. Continue IV steroid, bronchodilator/nebulizer treatments. BiPAP as clinically indicated. Hypertension. Resume anti-hypertensive medications. DVT prophylaxis. Continue SCDs. History Interval history: Patient complains of cough. Hospitalist Physical - Constitutional Vitals: Temp Pulse Resp BP Pulse Ox 97.4 F L 88 18 150/69 97 07/09/18 14:56 07/10/18 09:20 07/10/18 07:50 07/10/18 09:20 07/09/18 14:56 General appearance: Present: no acute distress - EENT Eyes: Present: PERRL, EOM intact ENT: hearing intact, clear oral mucosa, dentition normal - Neck Neck: Present: supple, normal ROM - Respiratory Respiratory effort: normal Respiratory: bilateral: CTA - Cardiovascular Rhythm: regular Heart Sounds: Present: S1 & S2. Absent: gallop, rub - Extremities Extremities: no ischemia, No edema, Full ROM - Abdominal General gastrointestinal: soft, non-tender, non-distended, normal bowel sounds - Integumentary Integumentary: Present: clear, warm, dry - Neurologic Neurologic: CNII-XII intact, moves all extremities Results - Labs CBC & Chem 7: 07/10/18 05:08 07/10/18 05:08 Labs: Laboratory Last Values WBC 9.7 K/mm3 (4.5-11.0) 07/10/18 05:08 RBC 4.67 M/mm3 (3.65-5.03) 07/10/18 05:08 Hgb 12.1 gm/dl (10.1-14.3) 07/10/18 05:08 Hct 37.2 % (30.3-42.9) 07/10/18 05:08 MCV 80 fl (79-97) 07/10/18 05:08 MCH 26 pg (28-32) L 07/10/18 05:08 MCHC 33 % (30-34) 07/10/18 05:08 RDW 14.1 % (13.2-15.2) 07/10/18 05:08 Plt Count 288 K/mm3 (140-440) 07/10/18 05:08 Lymph % (Auto) 12.2 % (13.4-35.0) L 07/10/18 05:08 [place] % (Auto) 5.2 % (0.0-7.3) 07/10/18 05:08 Eos % (Auto) 0.0 % (0.0-4.3) 07/10/18 05:08 Baso % (Auto) 0.1 % (0.0-1.8) 07/10/18 05:08 Lymph # 1.2 K/mm3 (1.2-5.4) 07/10/18 05:08 [place] # 0.5 K/mm3 (0.0-0.8) 07/10/18 05:08 Eos # 0.0 K/mm3 (0.0-0.4) 07/10/18 05:08 Baso # 0.0 K/mm3 (0.0-0.1) 07/10/18 05:08 Seg Neutrophils % 82.5 % (40.0-70.0) H 07/10/18 05:08 Seg Neutrophils # 8.0 K/mm3 (1.8-7.7) H 07/10/18 05:08 POC ABG pH 7.461 (7.35-7.45) H 07/09/18 15:01 POC ABG pCO2 33.9 (35-45) L 07/09/18 15:01 POC ABG pO2 95 (80-105) 07/09/18 15:01 POC ABG HCO3 24.2 07/09/18 15:01 POC ABG Total CO2 25 07/09/18 15:01 POC ABG O2 Sat 98 07/09/18 15:01 POC ABG Base Excess 0 07/09/18 15:01 FiO2 21 % 07/09/18 15:01 Sodium 139 mmol/L (137-145) 07/10/18 05:08 Potassium 5.0 mmol/L (3.6-5.0) 07/10/18 05:08 Chloride 103.6 mmol/L (98-107) 07/10/18 05:08 Carbon Dioxide 24 mmol/L (22-30) 07/10/18 05:08 Anion Gap 16 mmol/L 07/10/18 05:08 BUN 11 mg/dL (7-17) 07/10/18 05:08 Creatinine 0.7 mg/dL (0.7-1.2) 07/10/18 05:08 Estimated GFR > 60 ml/min 07/10/18 05:08 BUN/Creatinine Ratio 16 % 07/10/18 05:08 Glucose 119 mg/dL (65-100) H 07/10/18 05:08 Calcium 9.2 mg/dL (8.4-10.2) 07/10/18 05:08 Total Bilirubin < 0.20 mg/dL (0.1-1.2) 07/10/18 05:08 AST 13 units/L (5-40) 07/10/18 05:08 ALT 13 units/L (7-56) 07/10/18 05:08 Alkaline Phosphatase 102 units/L (35-129) 07/10/18 05:08 Total Protein 7.2 g/dL (6.3-8.2) 07/10/18 05:08 Albumin 3.7 g/dL (3.9-5) L 07/10/18 05:08 Albumin/Globulin Ratio 1.1 % 07/10/18 05:08
[2018-07-10] MEDS: TESSALON PERLES PO SCH ×2 (14:20→22:23)
[2018-07-10] MEDS: ROBITUSSIN PO PRN (16:26)
[2018-07-10] MEDS: HumuLIN R SUB-Q SCH ×2 (16:53→23:33)
[2018-07-10] MEDS: SINGULAIR PO SCH (18:19)
[2018-07-10] MEDS: MUCINEX ER PO SCH (22:23)
[2018-07-11] MEDS: TESSALON PERLES PO SCH ×3 (06:13→21:06)
[2018-07-11] MEDS: SOLU-Medrol IV SCH ×3 (06:13→21:08)
[2018-07-11] MEDS: PULMICORT IH SCH ×2 (07:14→21:40)
[2018-07-11] MEDS: BROVANA NEBU IH SCH ×2 (07:14→21:40)
[2018-07-11] MEDS: HumuLIN R SUB-Q SCH ×4 (09:23→21:26)
--- NOTE | 2018-07-11 09:26 | Progress Note ---
Assessment and Plan Assessment and plan: Acute hypoxemic respiratory failure. Etiology secondary to asthma exacerbation. Continue O2 and supportive care. Acute asthma exacerbation. Continue IV steroid, bronchodilator/nebulizer treatments. BiPAP as clinically indicated. Hypertension. Resume anti-hypertensive medications. DVT prophylaxis. Continue SCDs. History Interval history: Patient complains of cough. Hospitalist Physical - Constitutional Vitals: Temp Pulse Resp BP Pulse Ox 97.6 F 99 H 18 125/67 94 07/11/18 07:00 07/11/18 07:30 07/11/18 07:30 07/11/18 07:00 07/11/18 07:00 General appearance: Present: no acute distress - EENT Eyes: Present: PERRL, EOM intact ENT: hearing intact, clear oral mucosa, dentition normal - Neck Neck: Present: supple, normal ROM - Respiratory Respiratory effort: normal Respiratory: bilateral: diminished, wheezing - Cardiovascular Rhythm: regular Heart Sounds: Present: S1 & S2. Absent: gallop, rub - Extremities Extremities: no ischemia, No edema, Full ROM - Abdominal General gastrointestinal: soft, non-tender, non-distended, normal bowel sounds - Integumentary Integumentary: Present: clear, warm, dry - Neurologic Neurologic: CNII-XII intact, moves all extremities Results - Labs CBC & Chem 7: 07/10/18 05:08 07/10/18 05:08 Labs: Laboratory Last Values WBC 9.7 K/mm3 (4.5-11.0) 07/10/18 05:08 RBC 4.67 M/mm3 (3.65-5.03) 07/10/18 05:08 Hgb 12.1 gm/dl (10.1-14.3) 07/10/18 05:08 Hct 37.2 % (30.3-42.9) 07/10/18 05:08 MCV 80 fl (79-97) 07/10/18 05:08 MCH 26 pg (28-32) L 07/10/18 05:08 MCHC 33 % (30-34) 07/10/18 05:08 RDW 14.1 % (13.2-15.2) 07/10/18 05:08 Plt Count 288 K/mm3 (140-440) 07/10/18 05:08 Lymph % (Auto) 12.2 % (13.4-35.0) L 07/10/18 05:08 [place] % (Auto) 5.2 % (0.0-7.3) 07/10/18 05:08 Eos % (Auto) 0.0 % (0.0-4.3) 07/10/18 05:08 Baso % (Auto) 0.1 % (0.0-1.8) 07/10/18 05:08 Lymph # 1.2 K/mm3 (1.2-5.4) 07/10/18 05:08 [place] # 0.5 K/mm3 (0.0-0.8) 07/10/18 05:08 Eos # 0.0 K/mm3 (0.0-0.4) 07/10/18 05:08 Baso # 0.0 K/mm3 (0.0-0.1) 07/10/18 05:08 Seg Neutrophils % 82.5 % (40.0-70.0) H 07/10/18 05:08 Seg Neutrophils # 8.0 K/mm3 (1.8-7.7) H 07/10/18 05:08 POC ABG pH 7.461 (7.35-7.45) H 07/09/18 15:01 POC ABG pCO2 33.9 (35-45) L 07/09/18 15:01 POC ABG pO2 95 (80-105) 07/09/18 15:01 POC ABG HCO3 24.2 07/09/18 15:01 POC ABG Total CO2 25 07/09/18 15:01 POC ABG O2 Sat 98 07/09/18 15:01 POC ABG Base Excess 0 07/09/18 15:01 FiO2 21 % 07/09/18 15:01 Sodium 139 mmol/L (137-145) 07/10/18 05:08 Potassium 5.0 mmol/L (3.6-5.0) 07/10/18 05:08 Chloride 103.6 mmol/L (98-107) 07/10/18 05:08 Carbon Dioxide 24 mmol/L (22-30) 07/10/18 05:08 Anion Gap 16 mmol/L 07/10/18 05:08 BUN 11 mg/dL (7-17) 07/10/18 05:08 Creatinine 0.7 mg/dL (0.7-1.2) 07/10/18 05:08 Estimated GFR > 60 ml/min 07/10/18 05:08 BUN/Creatinine Ratio 16 % 07/10/18 05:08 Glucose 119 mg/dL (65-100) H 07/10/18 05:08 POC Glucose 151 (70-105) H 07/11/18 07:55 Calcium 9.2 mg/dL (8.4-10.2) 07/10/18 05:08 Total Bilirubin < 0.20 mg/dL (0.1-1.2) 07/10/18 05:08 AST 13 units/L (5-40) 07/10/18 05:08 ALT 13 units/L (7-56) 07/10/18 05:08 Alkaline Phosphatase 102 units/L (35-129) 07/10/18 05:08 Total Protein 7.2 g/dL (6.3-8.2) 07/10/18 05:08 Albumin 3.7 g/dL (3.9-5) L 07/10/18 05:08 Albumin/Globulin Ratio 1.1 % 07/10/18 05:08
[2018-07-11] MEDS: MUCINEX ER PO SCH ×2 (11:15→21:06)
[2018-07-11] MEDS: OxyCONTIN PO SCH ×2 (11:15→21:07)
[2018-07-11] MEDS: PROTONIX PO SCH (11:16)
[2018-07-11] MEDS: LYRICA PO SCH (11:16)
[2018-07-11] MEDS: NEURONTIN PO SCH ×3 (11:17→21:07)
[2018-07-11] MEDS: NORVASC PO SCH (11:18)
[2018-07-11] MEDS: ROBITUSSIN PO PRN (11:25)
[2018-07-11] MEDS: MIRALAX 3350 PO SCH (11:39)
[2018-07-11] MEDS: SODIUM CHLORIDE FLUSH SYRINGE 10 ML IV SCH ×2 (12:34→21:08)
[2018-07-11] MEDS: SINGULAIR PO SCH (17:13)
[2018-07-12] MEDS: TESSALON PERLES PO SCH (05:40)
[2018-07-12] MEDS: SOLU-Medrol IV SCH (05:41)
[2018-07-12] MEDS: HumuLIN R SUB-Q SCH (08:16)
[2018-07-12] MEDS: BROVANA NEBU IH SCH (08:51)
[2018-07-12] MEDS: PULMICORT IH SCH (08:51)
--- NOTE | 2018-07-12 09:30 | Discharge Summary ---
Providers - Providers Date of Admission: 07/09/18 14:30 Date of discharge: 07/12/18 Attending physician: LILIBETH FLEMING Primary care physician: AYESHA THOMAS Hospitalization Reason for admission: asthma exac Condition: Stable Hospital course: 57 YO Female with HTN, HCV, Asthma, DM, PE, Lumbar Radiculopathy S/P Pain Pump Placement, PE not currently on anticoagulation therapy presented to ED w/ c/o shortness of breath, wheezing over the past 1 week with worsening symptoms over the past 2 days LUGGER. Pt was seen and evaluated by her PCP and treated as outpatient with oral antibiotic therapy, and steroid therapy without improvement. Pt acknowledged frequent nebulizer use without relief. Pt transported to [facility] for further care and evaluation. Pt was admitted with diagnosis of Acute hypoxic Respiratory Failure secondary to acute asthma exacerbation. The patient was initially admitted to IM and treated with breathing treatments and IV steroids and Singulair. Patient has slow but significant improvement throughout hospitalization. Patient returned to her baseline and was felt to receive maximal hospital benefit for discharge. D edicated discharge time 32 minutes. Disposition: DC- TO HOME OR SELFCARE Time spent for discharge: 32 - Discharge Diagnoses (1) HTN (hypertension) Status: Acute Qualifiers: Hypertension type: essential hypertension Qualified Code(s): I10 - Essential (primary) hypertension (2) Respiratory failure Status: Acute Qualifiers: Chronicity: acute Respiratory failure complication: hypoxia Qualified Code(s): J96.01 - Acute respiratory failure with hypoxia (3) Status asthmaticus Status: Acute Qualifiers: Asthma severity: moderate Asthma persistence: unspecified Qualified Code(s): J45.902 - Unspecified asthma with status asthmaticus (4) Cough Status: Acute Core Measure Documentation - Palliative Care Palliative Care/ Comfort Measures: Not Applicable - Core Measures Any of the following diagnoses?: none Exam - Constitutional Vitals: Temp Pulse Resp BP Pulse Ox 97.8 F 67 16 173/88 96 07/12/18 05:58 07/12/18 05:58 07/12/18 05:58 07/12/18 05:58 07/12/18 05:58 General appearance: Present: no acute distress, well-nourished - EENT Eyes: Present: PERRL ENT: hearing intact, clear oral mucosa - Neck Neck: Present: supple, normal ROM - Respiratory Respiratory effort: normal Respiratory: bilateral: CTA - Cardiovascular Heart Sounds: Present: S1 & S2. Absent: rub, click - Extremities Extremities: pulses symmetrical, No edema Peripheral Pulses: within normal limits - Abdominal General gastrointestinal: Present: soft, non-tender, non-distended, normal bowel sounds Female genitourinary: Present: normal - Integumentary Integumentary: Present: clear, warm, dry - Musculoskeletal Musculoskeletal: gait normal, strength equal bilaterally - Psychiatric Psychiatric: appropriate mood/affect, intact judgment & insight - Neurologic Neurologic: CNII-XII intact, moves all extremities Plan Activity: no restrictions Weight Bearing Status: Full Weight Bearing Diet: diabetic Follow up with: AYESHA THOMAS MD [Primary Care Provider] - 3-5 Days KRUPA REY MD [Staff Physician] - 7 Days Prescriptions: ALBUTEROL NEB's [Proventil 0.083% NEBS] 2.5 mg IH Q3HRT PRN 30 Days nebu PRN Reason: Shortness Of Breath amLODIPine [Norvasc] 5 mg PO DAILY #60 tab Arformoterol Nebu [Brovana Nebu] 15 mcg IH Q12HRT 30 Days ml Benzonatate [Tessalon Perles] 100 mg PO Q8HR #30 capsule Budesonide [Pulmicort Respules] 0.5 mg IH Q12HRT 30 Days nebu Butalb/Acetamin/Caff 50-325-40 [Fioricet] 1 tab PO Q8H PRN 30 Days tablet PRN Reason: Headache Celecoxib [celeBREX] 200 mg PO BID #20 capsule Cyclobenzaprine [Flexeril 10 MG TAB] 10 mg PO TID PRN #12 tablet PRN Reason: Muscle Spasm Gabapentin [Neurontin] 300 mg PO TID #90 capsule guaiFENesin [Robitussin] 200 mg PO Q4H PRN 12 Days oral.liqd PRN Reason: Cough Montelukast [Singulair] 10 mg PO QPM #30 tablet Ondansetron [Zofran ODT TAB] 4 mg PO Q8HR PRN #14 tab.rapdis PRN Reason: Nausea And Vomiting Oxycodone HCl [oxyCODONE TAB] 10 mg PO BID #12 tablet Pantoprazole [Protonix TAB] 40 mg PO DAILY #30 tablet Pregabalin [Lyrica] 75 mg PO QDAY #30 capsule SUMAtriptan succinate [Imitrex] 25 mg PO BID PRN #60 tablet PRN Reason: Headache,MIGRAINE
[2018-07-12] MEDS: NORVASC PO SCH (09:52)
[2018-07-12] MEDS: OxyCONTIN PO SCH (09:52)
[2018-07-12] MEDS: PROTONIX PO SCH (09:52)
[2018-07-12] MEDS: MUCINEX ER PO SCH (09:52)
[2018-07-12] MEDS: SODIUM CHLORIDE FLUSH SYRINGE 10 ML IV SCH (09:53)
[2018-07-12] MEDS: NEURONTIN PO SCH (09:53)
[2018-07-12] MEDS: MIRALAX 3350 PO SCH (09:53)
[2018-07-12] MEDS: LYRICA PO SCH (09:53)
[2018-07-12 17:42] VITALS: BP 143/86
== END 2018-07-12 13:54 | disposition home or self-care (01) | DRG 189 ==
LOC: ED 13:24 → IMCU 14:30 → 3A 07-10 15:05
PROVIDERS: ADMIT Internal Medicine; ATTEND Hospitalist
PROC: 4A033R1 Measurement of Arterial Saturation, Peripheral, Percutaneous Approach (ICD-10-PCS; principal; 2018-07-09)
DX: J96.01 Acute respiratory failure with hypoxia (principal); J45.902 Unspecified asthma with status asthmaticus; I10 Essential (primary) hypertension; E11.9 Type 2 diabetes mellitus without complications; Z79.899 Other long term (current) drug therapy; Z79.51 Long term (current) use of inhaled steroids; Z88.8 Allergy status to other drugs, medicaments and biological substances; Z91.010 Allergy to peanuts; Z86.711 Personal history of pulmonary embolism; Z82.49 Family history of ischemic heart disease and other diseases of the circulatory system; Z79.84 Long term (current) use of oral hypoglycemic drugs
CPT/HCPCS: 36415; 71045; 80048; 80053; 82803; 82962; 85025; 94640; 96365; 96375; G0378; J1200; J1815; J2930; J3475; J7030

== ENCOUNTER 2019-01-06 09:04 | Outpatient (CLI) | payer BC, OTHER ==
[2019-01-06 09:31] LABS: Basophils % (Auto) 0.7 % (0.0-1.8); Eosinophils # (Auto) 0.1 K/mm3 (0.0-0.4); Eosinophils % (Auto) 2.7 % (0.0-4.3); Hematocrit 35.9 % (30.3-42.9); Lymphocytes # (Auto) 1.3 K/mm3 (1.2-5.4); Lymphocytes % (Auto) 36.1 % (13.4-35.0); Mean Corpuscular HGB Conc 34 % (30-34); Mean Corpuscular Volume 80 fl (79-97); Monocytes # (Auto) 0.3 K/mm3 (0.0-0.8); Monocytes % (Auto) 9.6 % (0.0-7.3); Platelet Count 276 K/mm3 (140-440)
[2019-01-06 10:01] LABS: Alanine Aminotransferase 14 units/L (7-56); Albumin 4.1 g/dL (3.9-5); BUN/Creatinine Ratio 16; Blood Urea Nitrogen 11 mg/dL (7-17); Calcium 9.4 mg/dL (8.4-10.2); Hemolysis Index 0
== END 2019-01-06 09:05 | disposition home or self-care (01) ==
LOC: LAB 09:04
PROVIDERS: ATTEND Internal Medicine
DX: R00.2 Palpitations (principal)
CPT/HCPCS: 36415; 80053; 84443; 85025

== ENCOUNTER 2019-05-16 07:09 | Outpatient (CLI) | payer BC, OTHER | END 2019-05-16 07:10 | disposition home or self-care (01) | LOC: ECHO 07:09 | PROVIDERS: ATTEND Internal Medicine | DX: I34.0 Nonrheumatic mitral (valve) insufficiency (principal); I10 Essential (primary) hypertension; R00.2 Palpitations; R07.89 Other chest pain | CPT/HCPCS: 78452; 93017; 93306; A9502 ==

== ENCOUNTER 2019-06-17 20:34 | Observation (INO) | payer BC, OTHER ==
[2019-06-17] MEDS ORDERED: ASPIRIN 325 MG TAB PO ONE (20:50)
[2019-06-17] MEDS ORDERED: ONDANSETRON 4 MG/2 ML INJ IV ONE (21:07)
[2019-06-17] MEDS ORDERED: MECLIZINE 25 MG TAB PO ONE (21:07)
[2019-06-17 21:45] LABS: Basophils % (Auto) 0.5 % (0.0-1.8); Eosinophils # (Auto) 0.2 K/mm3 (0.0-0.4); Eosinophils % (Auto) 3.3 % (0.0-4.3); Hematocrit 35.1 % (30.3-42.9); Hemoglobin 11.8 gm/dl (10.1-14.3); Lymphocytes % (Auto) 40.4 % (13.4-35.0); Mean Corpuscular HGB Conc 34 % (30-34); Mean Corpuscular Volume 79 fl (79-97); Monocytes # (Auto) 0.6 K/mm3 (0.0-0.8); Platelet Count 279 K/mm3 (140-440); Red Blood Count 4.43 M/mm3 (3.65-5.03); Red Cell Distribution Width 13.9 % (13.2-15.2)
--- NOTE | 2019-06-17 21:48 | Emergency Department Report ---
ED Dizziness HPI - General Chief Complaint: Dizziness Stated Complaint: DIZZINESS Time Seen by Provider: 06/17/19 20:59 Source: patient, old records reviewed Mode of arrival: Wheelchair Limitations: No Limitations - History of Present Illness Initial Comments: 58-year-old female with a past medical history asthma, diabetes, hypertension, hepatitis C, previous pulmonary embolism, and sickle cell trait presents to the hospital complains of dizziness for the last several days to have been progressively we have worsening. Today while working here at [facility] dizziness worsened to the point where she has difficulty walking and had to hold on to the wall and keep her balance. Patient describes the dizziness as a spinning sensation that is worse with any head movement or postural changes. Positive social nausea without vomiting. Patient complains of a headache behind her eyes. Denies blurred vision or focal weakness. Patient did complain of some intermittent left-sided tingling sensation to her left arm that started earlier today. Patient complains of a fluttering sensation in her heart without chest pain or shortness of breath. Patient has had fluttering recently and had a negative stress test 2 weeks ago and has been recommended to have an outpatient Holter monitor placed. As per medical record patient had a stress test and echocardiogram performed here 05/16/2019. Patient also states she's had intermittent epistaxis for the past week - Related Data Previous Rx's Medication Instructions Recorded Last Taken Type ALBUTEROL NEB's [Proventil 0.083% 2.5 mg IH QID PRN #120 neb 08/26/17 Unknown Rx NEBS] Albuterol Sulfate [Ventolin HFA] 2 puff IH Q4H PRN #1 hfa.aer.ad 08/26/17 Unknown Rx Fluticasone/Salmeterol [Advair 1 puff IH BID #1 disk.w.dev 08/26/17 Unknown Rx Diskus 500-50 mcg] ALBUTEROL NEB's [Proventil 0.083% 2.5 mg IH Q3HRT PRN 30 Days nebu 07/12/18 Unknown Rx NEBS] Arformoterol Nebu [Brovana Nebu] 15 mcg IH Q12HRT 30 Days ml 07/12/18 Unknown Rx Benzonatate [Tessalon Perles] 100 mg PO Q8HR #30 capsule 07/12/18 Unknown Rx Budesonide [Pulmicort Respules] 0.5 mg IH Q12HRT 30 Days nebu 07/12/18 Unknown Rx Butalb/Acetamin/Caff 50-325-40 1 tab PO Q8H PRN 30 Days tablet 07/12/18 Unknown Rx [Fioricet 50-325-40] Cefuroxime Axetil [Ceftin] 500 mg PO Q12H #14 ml 07/12/18 Unknown Rx Celecoxib [celeBREX] 200 mg PO BID #20 capsule 07/12/18 Unknown Rx Cyclobenzaprine [Flexeril 10 MG 10 mg PO TID PRN #12 tablet 07/12/18 Unknown Rx TAB] Gabapentin 300 mg PO TID #90 capsule 07/12/18 Unknown Rx Montelukast [Singulair] 10 mg PO QPM #30 tablet 07/12/18 Unknown Rx Ondansetron [Zofran ODT TAB] 4 mg PO Q8HR PRN #14 tab.rapdis 07/12/18 Unknown Rx Oxycodone HCl [oxyCODONE] 10 mg PO BID #12 tablet 07/12/18 Unknown Rx Pantoprazole [Protonix TAB] 40 mg PO DAILY #30 tablet 07/12/18 Unknown Rx Pregabalin 75 mg PO QDAY #30 capsule 07/12/18 Unknown Rx SUMAtriptan succinate [Imitrex] 25 mg PO BID PRN #60 tablet 07/12/18 Unknown Rx amLODIPine 5 mg PO DAILY #60 tab 07/12/18 Unknown Rx guaiFENesin [Robitussin] 200 mg PO Q4H PRN 12 Days 07/12/18 Unknown Rx oral.liqd methylPREDNISolone [Medrol] 4 mg PO QAM #1 tab.ds.pk 07/12/18 Unknown Rx Oxycodone HCl [oxyCODONE TAB] 10 mg PO BID #30 tablet 08/12/18 Unknown Rx Prednisone [predniSONE 10 mg 10 mg PO .TAPER #1 tab.ds.pk 11/29/18 Unknown Rx (6-Day Pack, 21 Tabs)] levoFLOXacin [Levaquin TAB] 500 mg PO QDAY #6 tablet 11/29/18 Unknown Rx Allergies Allergy/AdvReac Type Severity Reaction Status Date / Time dexamethasone [From Decadron] Allergy Anaphylaxis Verified 09/07/18 15:52 dexamethasone sod phosphate Allergy Anaphylaxis Verified 09/07/18 15:52 [From Decadron] epinephrine Allergy Rash Verified 09/07/18 15:52 ipratropium bromide Allergy Anaphylaxis Verified 09/07/18 15:52 [From Atrovent] peanut Allergy Anaphylaxis Verified 09/07/18 15:52 ED Review of Systems ROS: Stated complaint: DIZZINESS Other details as noted in HPI Comment: All other systems reviewed and negative ED Past Medical Hx - Past Medical History Previous Medical History?: Yes Hx Hypertension: Yes Hx Diabetes: Yes (steroid induced) Hx Pulmonary Embolism: Yes Hx Liver Disease: Yes (HEPATITIS C) Hx Sickle Cell Disease: Yes (TRAIT) Hx Asthma: Yes (2004 Pt state she had 5 intubations) Additional medical history: intubations for asthma, lumbar radiculopathy - Surgical History Past Surgical History?: Yes Additional Surgical History: neck surgery, pain pump. States previous to admission and had an exercise stress test. States that test was terminated secondary to asthma. device in back. Pain implant. L4-L5, S1 fusion. right ankle surgery - Social History Smoking Status: Never Smoker Substance Use Type: None - Medications Home Medications: Home Medications Medication Instructions Recorded Confirmed Last Taken Type ALBUTEROL NEB's [Proventil 0.083% 2.5 mg IH QID PRN #120 neb 08/26/17 07/09/18 Unknown Rx NEBS] Albuterol Sulfate [Ventolin HFA] 2 puff IH Q4H PRN #1 hfa.aer.ad 08/26/17 07/09/18 Unknown Rx Fluticasone/Salmeterol [Advair 1 puff IH BID #1 disk.w.dev 08/26/17 07/09/18 Unknown Rx Diskus 500-50 mcg] ALBUTEROL NEB's [Proventil 0.083% 2.5 mg IH Q3HRT PRN 30 Days nebu 07/12/18 Unknown Rx NEBS] Arformoterol Nebu [Brovana Nebu] 15 mcg IH Q12HRT 30 Days ml 07/12/18 Unknown Rx Benzonatate [Tessalon Perles] 100 mg PO Q8HR #30 capsule 07/12/18 Unknown Rx Budesonide [Pulmicort Respules] 0.5 mg IH Q12HRT 30 Days nebu 07/12/18 Unknown Rx Butalb/Acetamin/Caff 50-325-40 1 tab PO Q8H PRN 30 Days tablet 07/12/18 Unknown Rx [Fioricet 50-325-40] Cefuroxime Axetil [Ceftin] 500 mg PO Q12H #14 ml 07/12/18 Unknown Rx Celecoxib [celeBREX] 200 mg PO BID #20 capsule 07/12/18 Unknown Rx Cyclobenzaprine [Flexeril 10 MG 10 mg PO TID PRN #12 tablet 07/12/18 Unknown Rx TAB] Gabapentin 300 mg PO TID #90 capsule 07/12/18 Unknown Rx Montelukast [Singulair] 10 mg PO QPM #30 tablet 07/12/18 Unknown Rx Ondansetron [Zofran ODT TAB] 4 mg PO Q8HR PRN #14 tab.rapdis 07/12/18 Unknown Rx Oxycodone HCl [oxyCODONE] 10 mg PO BID #12 tablet 07/12/18 Unknown Rx Pantoprazole [Protonix TAB] 40 mg PO DAILY #30 tablet 07/12/18 Unknown Rx Pregabalin 75 mg PO QDAY #30 capsule 07/12/18 Unknown Rx SUMAtriptan succinate [Imitrex] 25 mg PO BID PRN #60 tablet 07/12/18 Unknown Rx amLODIPine 5 mg PO DAILY #60 tab 07/12/18 Unknown Rx guaiFENesin [Robitussin] 200 mg PO Q4H PRN 12 Days 07/12/18 Unknown Rx oral.liqd methylPREDNISolone [Medrol] 4 mg PO QAM #1 tab.ds.pk 07/12/18 Unknown Rx Oxycodone HCl [oxyCODONE TAB] 10 mg PO BID #30 tablet 08/12/18 Unknown Rx Prednisone [predniSONE 10 mg 10 mg PO .TAPER #1 tab.ds.pk 11/29/18 Unknown Rx (6-Day Pack, 21 Tabs)] levoFLOXacin [Levaquin TAB] 500 mg PO QDAY #6 tablet 11/29/18 Unknown Rx ED Physical Exam - General Limitations: No Limitations ED Course Vital Signs 06/17/19 06/17/19 06/17/19 20:38 21:04 21:16 Temperature 97.9 F Pulse Rate 74 80 Respiratory 18 15 Rate Blood Pressure 176/84 Blood Pressure 179/89 [Right] O2 Sat by Pulse 99 89 Oximetry 06/17/19 06/17/1906/17/20 21:30 22:40 22:46 Temperature Pulse Rate 77 76 Respiratory 14 17 Rate Blood Pressure 176/84 176/84 176/84 Blood Pressure [Right] O2 Sat by Pulse 96 95 Oximetry 06/17/19 06/17/19 06/17/19 23:00 23:16 23:30 Temperature Pulse Rate 79 78 72 Respiratory 14 17 14 Rate Blood Pressure 142/74 146/82 128/67 Blood Pressure [Right] O2 Sat by Pulse 93 94 96 Oximetry 06/17/19 06/18/19 06/18/19 23:46 00:00 00:16 Temperature Pulse Rate 70 70 70 Respiratory 16 15 16 Rate Blood Pressure 170/89 156/60 147/87 Blood Pressure [Right] O2 Sat by Pulse 96 95 96 Oximetry 06/18/19 06/18/19 06/18/19 00:30 00:54 01:00 Temperature Pulse Rate 70 72 70 Respiratory 16 19 16 Rate Blood Pressure 133/70 133/70 133/70 Blood Pressure [Right] O2 Sat by Pulse 94 97 94 Oximetry 06/18/19 06/18/19 06/18/19 01:16 01:30 01:46 Temperature Pulse Rate 63 63 65 Respiratory 16 16 15 Rate Blood Pressure 77/45 87/50 77/45 Blood Pressure [Right] O2 Sat by Pulse 96 95 95 Oximetry 06/18/19 06/18/19 06/18/19 02:00 02:16 02:30 Temperature Pulse Rate 69 63 91 H Respiratory 15 16 15 Rate Blood Pressure 77/45 77/45 77/45 Blood Pressure [Right] O2 Sat by Pulse 97 97 98 Oximetry - Reevaluation(s) Reevaluation #1: 06/18/19 02:06 Complained of headache and persistent dizziness. Toradol provided without improvement in her headache. Dilaudid 0.5 mg provided. Patient received meclizine 50 mg then pt and received additional Benadryl [address] given her report of cramps with prior IV contrast administration. Patient tolerated IV contrast without allergy. ED Medical Decision Making - Lab Data Result diagrams: 06/17/19 21:28 06/17/19 21:28 Lab Results 06/17/19 06/17/19 06/17/19 Range/Units 21:28 21:28 21:28 WBC 5.0 (4.5-11.0) K/mm3 RBC 4.43 (3.65-5.03) M/mm3 Hgb 11.8 (10.1-14.3) gm/dl Hct 35.1 (30.3-42.9) % MCV 79 (79-97) fl MCH 27 L (28-32) pg MCHC 34 (30-34) % RDW 13.9 (13.2-15.2) % Plt Count 279 (140-440) K/mm3 Lymph % (Auto) 40.4 H (13.4-35.0) % Riley % (Auto) 11.0 H (0.0-7.3) % Eos % (Auto) 3.3 (0.0-4.3) % Baso % (Auto) 0.5 (0.0-1.8) % Lymph # 2.0 (1.2-5.4) K/mm3 Riley # 0.6 (0.0-0.8) K/mm3 Eos # 0.2 (0.0-0.4) K/mm3 Baso # 0.0 (0.0-0.1) K/mm3 Seg Neutrophils % 44.8 (40.0-70.0) % Seg Neutrophils # 2.3 (1.8-7.7) K/mm3 PT 13.0 (12.2-14.9) Sec. INR 0.97 (0.87-1.13) APTT 27.2 (24.2-36.6) Sec. Sodium 144 (137-145) mmol/L Potassium 3.8 (3.6-5.0) mmol/L Chloride 107.3 H (98-107) mmol/L Carbon Dioxide 25 (22-30) mmol/L Anion Gap 16 mmol/L BUN 11 (7-17) mg/dL Creatinine 0.7 (0.7-1.2) mg/dL Estimated GFR > 60 ml/min BUN/Creatinine Ratio 16 % Glucose 116 H (65-100) mg/dL Calcium 9.1 (8.4-10.2) mg/dL Magnesium (1.7-2.3) mg/dL Troponin T < 0.010 (0.00-0.029) ng/mL 06/17/19 06/17/19 Range/Units 21:28 23:36 WBC (4.5-11.0) K/mm3 RBC (3.65-5.03) M/mm3 Hgb (10.1-14.3) gm/dl Hct (30.3-42.9) % MCV (79-97) fl MCH (28-32) pg MCHC (30-34) % RDW (13.2-15.2) % Plt Count (140-440) K/mm3 Lymph % (Auto) (13.4-35.0) % Riley % (Auto) (0.0-7.3) % Eos % (Auto) (0.0-4.3) % Baso % (Auto) (0.0-1.8) % Lymph # (1.2-5.4) K/mm3 Riley # (0.0-0.8) K/mm3 Eos # (0.0-0.4) K/mm3 Baso # (0.0-0.1) K/mm3 Seg Neutrophils % (40.0-70.0) % Seg Neutrophils # (1.8-7.7) K/mm3 PT (12.2-14.9) Sec. INR (0.87-1.13) APTT (24.2-36.6) Sec. Sodium (137-145) mmol/L Potassium (3.6-5.0) mmol/L Chloride (98-107) mmol/L Carbon Dioxide (22-30) mmol/L Anion Gap mmol/L BUN (7-17) mg/dL Creatinine (0.7-1.2) mg/dL Estimated GFR ml/min BUN/Creatinine Ratio % Glucose (65-100) mg/dL Calcium (8.4-10.2) mg/dL Magnesium 1.90 (1.7-2.3) mg/dL Troponin T < 0.010 (0.00-0.029) ng/mL - Radiology Data Radiology results: report reviewed CT HEAD WITHOUT CONTRAST INDICATION / CLINICAL INFORMATION: headache, vertigo. TECHNIQUE: All CT scans at this location are performed using CT dose reduction for ALARA by means of automated exposure control. COMPARISON: None available. FINDINGS: HEMORRHAGE: No evidence of intracranial hemorrhage or extra-axial fluid collection. EXTRA-AXIAL SPACES: Cortical sulci, sylvian fissures and basilar cisterns have an unremarkable appearance. VENTRICULAR SYSTEM: The ventricular system is of normal size and configuration. CEREBRAL PARENCHYMA: No areas of abnormal brain parenchymal attenuation are identified. There is no indication of recent infarction. MIDLINE SHIFT OR HERNIATION: There is no mass effect. CEREBELLUM / BRAINSTEM: Brainstem and cerebellum have an unremarkable appe arance. INTRACRANIAL VESSELS: Calcified atherosclerotic plaque is seen along the course of the cavernous segments of both internal carotid arteries. ORBITS: visualized portions of the orbits have an unremarkable appearance. SOFT TISSUES of HEAD: No significant abnormality. CALVARIUM: Evaluation of bone windows reveals no abnormalities. PARANASAL SINUSES / MASTOID AIR CELLS: Paranasal sinuses are free from inflammatory mucosal disease. Mastoid air cells are normally pneumatized. IMPRESSION: 1. No significant abnormality on head CT without contrast. No interval change. CHEST 2 VIEW, 06/17/2019 9:56 PM CLINICAL INFORMATION/INDICATION: Chest pain COMPARISON: Chest radiograph, 07/09/2018 FINDINGS: SUPPORT DEVICES: Spinal stimulator device is again noted. HEART: The heart is normal in size. LUNGS/PLEURA: The lungs are clear of focal airspace disease or significant pleural effusion. ADDITIONAL FINDINGS: No additional acute findings. IMPRESSION: 1. No evidence of acute cardiopulmonary process. CTA neck without and with intravenous contrast material CLINICAL HISTORY: Headache with Vertigo TECHNIQUE: Following acquisition of a timing bolus 0.625 mm thick contiguous axial scans we re obtained from aortic arch to the skull base during rapid bolus intravenous contrast infusion. In addition to evaluation of axial source images multiplanar reconstructions were produced and reviewed for this report. 3 plane MIP reconstructions were produced and reviewed. FINDINGS: Thoracic aorta: No abnormalities are observed along the course of the visualized thoracic aorta or at the origins of the great vessels. Right carotid artery: Right common carotid artery, right carotid bifurcation and cervical portions of the right internal carotid artery all have an unremarkable appearance. Carotid artery: Left common carotid artery, left carotid bifurcation and cervical portions of the left internal carotid artery are all free from atherosclerotic disease. Normal and symmetrical vertebral arteries are present. There is no indication of stenosis along the course of the vertebral arteries. Both vertebral arteries contribute to the basilar artery origin. The basilar artery has an unremarkable appearance. The degree of stenosis, if any, is determined utilizing NASCET like criteria. In this case there is no indication of hemodynamically significant stenosis. At the carotid bifurcations or elsewhere. Evaluation of the airway reveals findings suggesting right-sided vocal cord paralysis. The right vocal cord is in a near midline position. There is dilatation of the right piriform sinus. Evaluation of the nonvascular soft tissue structures reveal no additional abnormality. There is no indication of cervical lymphadenopathy. Visualized portions of the parotid glands and the submandibular salivary glands have a normal appearance. Thyroid gland has a normal appearance. Evaluation of the lung apices reveals no evidence of lung nodule or infiltrate. Evaluation of the cervical spine reveals extensive postoperative changes. Patient is status post ACDF at C3-4, C4-5, C5-6 and C6-7 levels. Solid bone union is present at the C4- 5 and C5-6 levels. Imaging findings do not indicate the presence of solid bone union at C3-4 and C6-7 levels. Advanced osteoarthritic changes are observed at C2-3 and C7-T1 levels. IMPRESSION: 1. No indication of stenosis at the carotid bifurcations or elsewhere. 2. Evidence of right vocal cord paralysis. 3. Extensive postoperative changes throughout the cervical region as described above. CTA head with intravenous contrast CLINICAL HISTORY: Headache with Vertigo TECHNIQUE: 0.625 mm thick contiguous axial scans were obtained from the skull base to the skull vertex during rapid bolus administration of intravenous contrast material. Multiplanar reconstructions were produced in the coronal and sagittal planes. In addition 3 plane MIP in structions were produced and reviewed for this report. The axial source images and reconstructed images were reviewed for this report. All CT scans at this location are performed using CT dose reduction for ALARA by means of automated exposure control. FINDINGS: The caliber of the intracranial vessels is normal throughout. There is no indication of intracranial stenosis or large vessel occlusion. There is no indication of vasculitis. There is no evidence of aneurysm or other vascular malformation. Incidental note is made of a large right posterior communicating artery. Dural sinuses are well visualized on this study. There is no indication of dural sinus thrombosis. Note is made of a dominant right transverse sinus. IMPRESSION: No significant abnormalities are identified on CTA head. - Medical Decision Making Patient persisted also with intractable vertigo. No improvement after meclizine and additional meds. Patient also has headache and required pain medication. CT head and CT angiogram head and neck without acute findings. She she will be admitted to the hospitalist service for further treatment. - Differential Diagnosis peripheral versus central vertigo, intracranial hemorrhage, intracranial ma Critical Care Time: No Critical care attestation.: If time is entered above; I have spent that time in minutes in the direct care of this critically ill patient, excluding procedure time. ED Disposition Clinical Impression: Vertigo, Headache Disposition: DC-09 OP ADMIT IP TO THIS HOSP Is pt being admited?: Yes Condition: Stable Time of Disposition: 02:32 (DR Gonzalez/hosp)
[2019-06-17 21:54] LABS: INR 0.97 (0.87-1.13)
[2019-06-17 21:56] LABS: Partial Thromboplastin Time 27.2 Sec. (24.2-36.6)
[2019-06-17 22:07] LABS: BUN/Creatinine Ratio 16; Blood Urea Nitrogen 11 mg/dL (7-17); Calcium 9.1 mg/dL (8.4-10.2); Hemolysis Index 1
--- NOTE | 2019-06-17 22:34 | Cat Scan Report ---
CT HEAD WITHOUT CONTRAST INDICATION / CLINICAL INFORMATION: headache, vertigo. TECHNIQUE: All CT scans at this location are performed using CT dose reduction for ALARA by means of automated e xposure control. COMPARISON: None available. FINDINGS: HEMORRHAGE: No evidence of intracranial hemorrhage or extra-axial fluid collection. EXTRA-AXIAL SPACES: Cortical sulci, sylvian fissures and basilar cisterns have an unremarkable appear ance. VENTRICULAR SYSTEM: The ventricular system is of normal size and configuration. CEREBRAL PARENCHYMA: No areas of abnormal brain parenchymal attenuation are identified. There is no i ndication of recent infarction. MIDLINE SHIFT OR HERNIATION: There is no mass effect. CEREBELLUM / BRAINSTEM: Brainstem and cerebellum have an unremarkable appearance. INTRACRANIAL VESSELS: Calcified atherosclerotic plaque is seen along the course of the cavernous segm ents of both internal carotid arteries. ORBITS: visualized portions of the orbits have an unremarkable appearance. SOFT TISSUES of HEAD: No significant abnormality. CALVARIUM: Evaluation of bone windows reveals no abnormalities. PARANASAL SINUSES / MASTOID AIR CELLS: Paranasal sinuses are free from inflammatory mucosal disease. Mastoid air cells are normally pneumatized. IMPRESSION: 1. No significant abnormality on head CT without contrast. No interval change. Signer Name: Zbigniew Carlson MD Signed: 06/17/2019 10:30 PM Workstation Name: [id number]
--- NOTE | 2019-06-17 22:40 | XRay Report ---
CHEST 2 VIEW, 06/17/2019 9:56 PM CLINICAL INFORMATION/INDICATION: Chest pain COMPARISON: Chest radiograph, 07/09/2018 FINDINGS: SUPPORT DEVICES: Spinal stimulator device is again noted. HEART: The heart is normal in size. LUNGS/PLEURA: The lungs are clear of focal airspace disease or significant pleural effusion. ADDITIONAL FINDINGS: No additional acute findings. IMPRESSION: 1. No evidence of acute cardiopulmonary process. Signer Name: Марина Aguilera MD Signed: 06/17/2019 10:36 PM Workstation Name: [id number]
[2019-06-17] MEDS ORDERED: diphenhydrAMINE 50 MG/ML VIAL IV ONE (23:11)
[2019-06-17] MEDS ORDERED: KETOROLAC 30 MG/1 ML INJ IV ONE (23:11)
[2019-06-17] MEDS ORDERED: SODIUM CHLORIDE 0.9% 500 ML 500 ML IV ONE (23:43)
--- NOTE | 2019-06-18 01:49 | Cat Scan Report ---
CTA neck without and with intravenous contrast material CLINICAL HISTORY: Headache with Vertigo TECHNIQUE: Following acquisition of a timing bolus 0.625 mm thick contiguous axial scans were obtained from aort ic arch to the skull base during rapid bolus intravenous contrast infusion. In addition to evaluation of axial source images multiplanar reconstructions were produced and reviewed for this report. 3 [place] ne MIP reconstructions were produced and reviewed. FINDINGS: Thoracic aorta: No abnormalities are observed along the course of the visualized thoracic aorta or at the origins of the great vessels. Right carotid artery: Right common carotid artery, right carotid bifurcation and cervical portions of the right internal carotid artery all have an unremarkable appearance. Carotid artery: Left common carotid artery, left carotid bifurcation and cervical portions of the lef t internal carotid artery are all free from atherosclerotic disease. Normal and symmetrical vertebral arteries are present. There is no indication of stenosis along the c ourse of the vertebral arteries. Both vertebral arteries contribute to the basilar artery origin. The basilar artery has an unremarkable appearance. The degree of stenosis, if any, is determined utilizing NASCET like criteria. In this case there is no indication of hemodynamically significant stenosis. At the carotid bifurcations or elsewhere. Evaluation of the airway reveals findings suggesting right-sided vocal cord paralysis. The right voca l cord is in a near midline position. There is dilatation of the right piriform sinus. Evaluation of the nonvascular soft tissue structures reveal no additional abnormality. There is no in dication of cervical lymphadenopathy. Visualized portions of the parotid glands and the submandibular salivary glands have a normal appearance. Thyroid gland has a normal appearance. Evaluation of the l anil apices reveals no evidence of lung nodule or infiltrate. Evaluation of the cervical spine reveals extensive postoperative changes. Patient is status post ACDF at C3-4, C4-5, C5-6 and C6-7 levels. Solid bone union is present at the C4-5 and C5-6 levels. Imagin g findings do not indicate the presence of solid bone union at C3-4 and C6-7 levels. Advanced osteoar thritic changes are observed at C2-3 and C7-T1 levels. IMPRESSION: 1. No indication of stenosis at the carotid bifurcations or elsewhere. 2. Evidence of right vocal cord paralysis. 3. Extensive postoperative changes throughout the cervical region as described above. Contrast dose report: Omnipaque 350: 100 ml, administered intravenously All CT examinations performed at this facility utilize modulated dose reduction, iterative reconstruc tion or weight-based dosing, as appropriate, to obtain a radiation dose which is as low as can reason ably be achieved. Signer Name: Zbigniew Carlson MD Signed: 06/18/2019 1:45 AM Workstation Name: [id number]
[2019-06-18] MEDS ORDERED: HYDROmorphone 1 MG/1 ML INJ IV ONE (01:53)
[2019-06-18] MEDS ORDERED: ONDANSETRON 4 MG/2 ML INJ IV ONE (01:53)
--- NOTE | 2019-06-18 01:54 | Cat Scan Report ---
CTA head with intravenous contrast CLINICAL HISTORY: Headache with Vertigo TECHNIQUE: 0.625 mm thick contiguous axial scans were obtained from the skull base to the skull vertex during ra pid bolus administration of intravenous contrast material. Multiplanar reconstructions were produced in the coronal and sagittal planes. In addition 3 plane MIP instructions were produced and reviewed f or this report. The axial source images and reconstructed images were reviewed for this report. All CT scans at this location are performed using CT dose reduction for ALARA by means of automated e xposure control. FINDINGS: The caliber of the intracranial vessels is normal throughout. There is no indication of intracranial stenosis or large vessel occlusion. There is no indication of vasculitis. There is no evidence of aneurysm or other vascular malformation. Incidental note is made of a large right posterior communicating artery. Dural sinuses are well visualized on this study. There is no indication of dural sinus thrombosis. No te is made of a dominant right transverse sinus. IMPRESSION: No significant abnormalities are identified on CTA head. CONTRAST DOSE REPORT: Omnipaque 350: 100 ml administered intravenously. Signer Name: Zbigniew Carlson MD Signed: 06/18/2019 1:49 AM Workstation Name: [id number]
--- NOTE | 2019-06-18 02:50 | History and Physical Report ---
History of Present Illness History of present illness: 58-year-old male with a history of asthma, chronic pain, migraine comes emergency room with complaints of dizziness. She states that when she changes position, the room spins and she is having difficulty ambulating. Her symptoms started yesterday, she went home, during the night symptoms worsen so she came back to the emergency room for further evaluation. Also stated that 5 days ago she had some fluttering in her heart, status post recent evaluation with cardiology for the fluttering, stress test which is negative, she is scheduled to go back to set up for Holter monitor. Patient is being admitted for acute vertigo with difficulty ambulating. Patient stated over the last few days her blood pressures been running high, no history of hypertension. Patient is admitted for vertigo, difficulty ambulating Review Of Systems: Constitutional: no weight loss, fever, chills Ears, eyes, nose, mouth and throat: no nasal congestion, no nasal discharge, no sinus pressure, blurry vision, diplopia Neck: No neck pain or rigidity. Cardiovascular: No palpitations, chest pain Respiratory: No s cough, shortness of breath Gastrointestinal: No hematochezia, abdominal pain Genitourinary : no dysuria, frequency , hematuria Musculoskeletal: no muscle ache , joint pain Integumentary: no rash, no pruritis Neurological: no parathesias, focal weakness Endocrine: no cold or heat intolerance, no polyuria or polydipsia Hematologic/Lymphatic: no easy bruising, no easy bleeding, no gland swelling Allergic/Immunologic: no urticaria, no angioedema. PAST MEDICAL HISTORY: chronic pain, asthma, migraine PAST SURGICAL HISTORY: Neck, left ankle, carpal tunnel release, ulnar nerve, lower back, pain pump FAMILY HISTORY:hypertension, diabetes SOCIAL HISTORY: Denies tobacco, drugs, social alcohol Medications and Allergies Allergies Allergy/AdvReac Type Severity Reaction Status Date / Time dexamethasone [From Decadron] Allergy Anaphylaxis Verified 09/07/18 15:52 dexamethasone sod phosphate Allergy Anaphylaxis Verified 09/07/18 15:52 [From Decadron] epinephrine Allergy Rash Verified 09/07/18 15:52 ipratropium bromide Allergy Anaphylaxis Verified 09/07/18 15:52 [From Atrovent] peanut Allergy Anaphylaxis Verified 09/07/18 15:52 Home Medications Medication Instructions Recorded Confirmed Last Taken Type ALBUTEROL NEB's [Proventil 0.083% 2.5 mg IH QID PRN #120 neb 08/26/17 06/18/19 Unknown Rx NEBS] Fluticasone/Salmeterol [Advair 1 puff IH BID #1 disk.w.dev 08/26/17 06/18/19 Unknown Rx Diskus 500-50 mcg] Montelukast [Singulair] 10 mg PO QPM #30 tablet 07/12/18 06/18/19 Unknown Rx Oxycodone HCl [oxyCODONE] 10 mg PO BID #12 tablet 07/12/18 06/18/19 Unknown Rx Meclizine [Antivert] 25 mg PO TID PRN #20 tablet 06/18/19 Unknown Rx amLODIPine 10 mg PO QDAY #30 tablet 06/18/19 Unknown Rx Exam - Physical Exam Narrative exam: General Apperance: The patient sitting in bed no acute distress HEENT: Normocephalic, atraumatic. Pupils equally round and reactive to light, extraocular movement intact, and no sclericterus or JVD or thyromegaly or nodule. Neck supple, no carotid bruit, mucous membranes moist, no exudate or erythema Heart: S1-S2, regular is rhythm Lungs: Clear to auscultation decreased breath sounds at bases bilaterally, breathing comfortable Abdomen: Positive bowel sounds, soft, nontender, nondistended, no organomegaly Extremities: No edema cyanosis clubbing Skin: no rash, nodule, warm and dry Neuro:CN 2 -12 intact, motor/sensory intact, speech is fluent - Constitutional Vitals: Temp Pulse Resp BP Pulse Ox 97.9 F 91 H 15 77/45 98 06/17/19 20:38 06/18/19 02:30 06/18/19 02:30 06/18/19 02:30 06/18/19 02:30 Results - Labs CBC & Chem 7: 06/18/19 03:37 06/18/19 03:37 Labs: Abnormal lab results 06/17/19 06/17/19 Range/Units 21:28 21:28 MCH 27 L (28-32) pg Lymph % (Auto) 40.4 H (13.4-35.0) % [place] % (Auto) 11.0 H (0.0-7.3) % Chloride 107.3 H (98-107) mmol/L Glucose 116 H (65-100) mg/dL - Imaging and Cardiology CT Scan - head: report reviewed Assessment and Plan CTA head and neck reviewed Assessment Vertigo, acute Start meclizine, consult neurology Hypertension, new onset IV hydralazine as needed for control Chronic pain Continue Percocet, stable Vocal cord paralysis, follow-up with ENT outpatient DVT prophylaxis
[2019-06-18] MEDS ORDERED: ONDANSETRON 4 MG/2 ML INJ IV PRN (03:19)
[2019-06-18] MEDS ORDERED: ACETAMINOPHEN 325 MG TAB PO PRN (03:19)
[2019-06-18] MEDS ORDERED: hydrALAZINE 20 MG/1 ML INJ IV PRN (03:28)
[2019-06-18 04:14] LABS: Basophils % (Auto) 0.5 % (0.0-1.8); Eosinophils # (Auto) 0.2 K/mm3 (0.0-0.4); Eosinophils % (Auto) 3.9 % (0.0-4.3); Hematocrit 33.2 % (30.3-42.9); Hemoglobin 11.2 gm/dl (10.1-14.3); Lymphocytes # (Auto) 2.2 K/mm3 (1.2-5.4); Lymphocytes % (Auto) 47.3 % (13.4-35.0); Mean Corpuscular HGB Conc 34 % (30-34); Mean Corpuscular Volume 80 fl (79-97); Monocytes # (Auto) 0.4 K/mm3 (0.0-0.8); Platelet Count 261 K/mm3 (140-440); Red Blood Count 4.18 M/mm3 (3.65-5.03); Red Cell Distribution Width 14.1 % (13.2-15.2)
[2019-06-18 04:35] LABS: BUN/Creatinine Ratio 18; Blood Urea Nitrogen 11 mg/dL (7-17); Calcium 8.7 mg/dL (8.4-10.2); Hemolysis Index 3
[2019-06-18] MEDS: MECLIZINE 25 MG TAB PO SCH ×3 (04:48→17:55)
[2019-06-18] MEDS ORDERED: MECLIZINE 25 MG TAB ONE (04:53)
[2019-06-18] MEDS: oxyCODONE /ACETAMINOPHEN 5-325MG TAB PO PRN ×3 (06:05→17:55)
[2019-06-18] MEDS ORDERED: ENOXAPARIN 40 MG/0.4 ML INJ SUB-Q SCH (10:00)
[2019-06-18] MEDS ORDERED: amLODIPine 10 MG TAB PO SCH (13:00)
--- NOTE | 2019-06-18 13:01 | Discharge Summary ---
Providers - Providers Date of Admission: 06/18/19 02:48 Date of discharge: 06/18/19 Attending physician: YUKO SANTOS 06/18/19 03:19 Consult to Physician [CONS] Routine Comment: Consulting Provider: SHAWNA COLE Physician Instructions: Reason For Exam: vertigo 06/18/19 12:47 Physical Therapy Evaluation and Treat [CONS] Routine Comment: Reason For Exam: placement Primary care physician: [facility] MD ADALGISA Hospitalization Condition: Stable Pertinent studies: CT head CTA head/neck CXR Hospital course: Discharge diagnosis: /Vertigo, acute Started on meclizine, consulted neurology CT head CTA head/neck w/o acute findings /Hypertension, new onset IV hydralazine as needed for control placed on norvasc /Chronic pain Continue Percocet, stable /Vocal cord paralysis, follow-up with ENT outpatient Disposition: - TO HOME OR SELFCARE Time spent for discharge: 34 minutes Core Measure Documentation - Palliative Care Palliative Care/ Comfort Measures: Not Applicable - Core Measures Any of the following diagnoses?: none Exam - Constitutional Vitals: Temp Pulse Resp BP Pulse Ox 98.7 F 73 20 123/66 94 06/18/19 05:12 06/18/19 04:50 06/18/19 05:12 06/18/19 05:12 06/18/19 04:50 General appearance: Present: no acute distress, well-nourished - EENT Eyes: Present: PERRL ENT: hearing intact, clear oral mucosa - Neck Neck: Present: supple, normal ROM - Respiratory Respiratory effort: normal Respiratory: bilateral: CTA - Cardiovascular Heart Sounds: Present: S1 & S2. Absent: rub, click - Extremities Extremities: pulses symmetrical, No edema Peripheral Pulses: within normal limits - Abdominal General gastrointestinal: Present: soft, non-tender, non-distended, normal bowel sounds - Integumentary Integumentary: Present: clear, warm, dry - Musculoskeletal Musculoskeletal: gait normal, strength equal bilaterally - Psychiatric Psychiatric: appropriate mood/affect, intact judgment & insight - Neurologic Neurologic: CNII-XII intact, moves all extremities Plan Activity: advance as tolerated, fall precautions Weight Bearing Status: Weight Bear as Tolerated Diet: low fat, low cholesterol Follow up with: PIERRE FREY MD [Primary Care Provider] - 3-5 Days Prescriptions: amLODIPine 10 mg PO QDAY #30 tablet Meclizine [Antivert] 25 mg PO TID PRN #20 tablet PRN Reason: Vertigo
[2019-06-18 14:13] VITALS: BP 119/74
--- NOTE | 2019-06-18 19:32 | Consultation ---
History of Present Illness Consult date: 06/18/19 Reason for Consult: Vertigo Chief complaint: Vertigo History of present illness: Patient is a 58-year-old woman with a history of asthma, diabetes, hypertension, history of PE, sickle cell trait, history of migraines. She states that for the past 1 week, she's been having symptoms of dizziness, with the room spinning around, that was associated with nausea. These symptoms have progressively worsened over the past week, and ultimately she was admitted yesterday. She states that symptoms of vertigo worsened with head movement and with change in position, and improved with laying down and sitting still. Patient has a history of chronic pain as well, and has a pain pump in place. Past History Past Medical History: other (asthma, diabetes, hypertension, history of PE, sickle cell trait, history of migraines) Social history: lives with family Family history: no significant family history Medications and Allergies Allergies Allergy/AdvReac Type Severity Reaction Status Date / Time dexamethasone [From Decadron] Allergy Anaphylaxis Verified 09/07/18 15:52 dexamethasone sod phosphate Allergy Anaphylaxis Verified 09/07/18 15:52 [From Decadron] epinephrine Allergy Rash Verified 09/07/18 15:52 ipratropium bromide Allergy Anaphylaxis Verified 09/07/18 15:52 [From Atrovent] peanut Allergy Anaphylaxis Verified 09/07/18 15:52 Home Medications Medication Instructions Recorded Confirmed Last Taken Type ALBUTEROL NEB's [Proventil 0.083% 2.5 mg IH QID PRN #120 neb 08/26/17 06/18/19 Unknown Rx NEBS] Fluticasone/Salmeterol [Advair 1 puff IH BID #1 disk.w.dev 08/26/17 06/18/19 Unknown Rx Diskus 500-50 mcg] Montelukast [Singulair] 10 mg PO QPM #30 tablet 07/12/18 06/18/19 Unknown Rx Oxycodone HCl [oxyCODONE] 10 mg PO BID #12 tablet 07/12/18 06/18/19 Unknown Rx Meclizine [Antivert] 25 mg PO TID PRN #20 tablet 06/18/19 Unknown Rx amLODIPine 10 mg PO QDAY #30 tablet 06/18/19 Unknown Rx Review of Systems All systems: negative Neurological: vertigo Physical Examination - Vital Signs Vital Signs: Vital Signs Temp Pulse Resp BP Pulse Ox 97.9 F 74 18 179/89 99 06/17/19 20:38 06/17/19 20:38 06/17/19 20:38 06/17/19 20:38 06/17/19 20:38 - Physical Exam Narrative exam: Patient is alert, awake, oriented x4, follows complex commands. PERRL, EOMI, VFF, no facial weakness noted, tongue midline, b/l intact to LT. No dysarthria or aphasia noted. 5/5 strength in all extremities. B/l intact to LT. B/l intact to FTN and HTS. 2+ reflexes throughout. [place]-Hallpike maneuver was positive on t he right. Benny maneuver was performed on the right. - Constitutional General appearance: comfortable - EENT EENT: Present: ATNC, PERRL, mucous membranes moist, hearing intact, vision intact - Respiratory Respiratory: Present: lungs clear, normal breath sounds - Cardiovascular Cardiovascular: Present: regular rate, normal S1, normal S2 Extremities: Present: no clubbing, cyanosis, no inflammation - Gastrointestinal Gastrointestinal: Present: normoactive bowel sounds, soft, non-tender - Integumentary Integumentary: Present: normal - Musculoskeletal Musculoskeletal: Present: no fluid collection, no pain - Psychiatric Psychiatric: Present: mood/affect appropriate Results - Laboratory Findings CBC and BMP: 06/18/19 03:37 06/18/19 03:37 Abnormal Lab Findings: Abnormal Labs 06/17/19 06/17/19 06/18/19 21:28 21:28 03:37 MCH 27 L 27 L Lymph % (Auto) 40.4 H 47.3 H [place] % (Auto) 11.0 H 9.0 H Seg Neutrophils % 39.3 L Chloride 107.3 H Creatinine Glucose 116 H 06/18/19 03:37 MCH Lymph % (Auto) [place] % (Auto) Seg Neutrophils % Chloride Creatinine 0.6 L Glucose 117 H Assessment and Plan Patient is a 58-year-old woman with a history of asthma, diabetes, hypertension, history of PE, sickle cell trait, history of migraines, who presents with one- week history of vertigo area according patient's clinical findings, 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 To support this diagnosis, [place]-Hallpike test was positive on the right, and patient had some improvement with symptoms after Benny maneuver was performed. Plan: 1. BPPV: - [place]-hallpike +ve on right - Benny maneuver performed, with some improvement in symptoms - CT head: no acute abnormality - CTA head/neck: no significant stenosis - Cont. Meclizine 25mg Q12H PRN for vertigo - Recommend outpatient Vestibular occupational therapy - Recommend for patient to follow up with ENT as outpatient. - Will sign off. Please call with any questions. Thank you for allowing me to take part in the care of this patient. Chema Cool MD Neurology
== END 2019-06-18 18:33 | disposition home or self-care (01) ==
LOC: ED 20:34 → 3A 06-18 02:48
PROVIDERS: ADMIT Internal Medicine; ATTEND Internal Medicine
DX: R42 Dizziness and giddiness (principal); G43.909 Migraine, unspecified, not intractable, without status migrainosus; I10 Essential (primary) hypertension; G89.29 Other chronic pain; J45.909 Unspecified asthma, uncomplicated; E11.9 Type 2 diabetes mellitus without complications; Z86.19 Personal history of other infectious and parasitic diseases; Z86.711 Personal history of pulmonary embolism
CPT/HCPCS: 36415; 70450; 70496; 70498; 71046; 80048; 83735; 84484; 85025; 85610; 85730; 93005; 93010; 96372; 96374; 96375; 96376; 99284; G0378; J1170; J1200; J1650; J1885; J2405; J7040; Q9967

== ENCOUNTER 2019-10-20 16:54 | Emergency (ER) | payer SELFPAY ==
[2019-10-20] MEDS ORDERED: predniSONE 20 MG TAB PO ONE (17:01)
[2019-10-20] MEDS ORDERED: KETOROLAC 60 MG/2 ML INJ IM ONE (17:01)
[2019-10-20] MEDS ORDERED: HYDROcodone/ACETAMINOPHEN 10-325MG TAB PO ONE (17:01)
--- NOTE | 2019-10-20 17:20 | Emergency Department Report ---
ED Back Pain/Injury HPI - General Chief Complaint: Back Pain/Injury Stated Complaint: BACK PAIN Time Seen by Provider: 10/20/19 17:01 Source: patient Limitations: No Limitations - History of Present Illness Initial Comments: This is a 58-year-old female nontoxic, well nourished in appearance, no acute signs of distress presents to the ED with c/o of acute on chronic lower back pain. Patient stated that the past 2 days he was moving and developed this pain. Patient states has history of sciatica nerve pain which is similar symptoms as today. Patient states that pain radiates through to her right lower extremity. Patient stated she has hard time walking due to the pain. Patient denies any trauma. Denies any bladder or bowel instability. Patient denies any urinary symptoms. Denies any fever, chills, nausea, vomiting, headache, stiff neck, chest pain or shortness of breath. Patient denies any numbness or tingling. Denies any allergies to predisone. Had several lumbar surgeries. MD Complaint: back pain -: days(s) Similar Symptoms Previously: Yes Radiation: left leg Severity: moderate Severity scale (0 -10): 10 Quality: aching Consistency: constant Improves With: immobilization, sitting upright Worsens With: movement, walking Associated Symptoms: denies other symptoms. denies: confusion, weakness, chest pain, numbness, difficulty walking, cough, difficulty urinating, diaphoresis, incontinence, fever/chills, constipation, headaches, abdominal pain, loss of appetite, malaise, nausea/vomiting, rash, seizure, shortness of breath, syncope - Related Data Previous Rx's Medication Instructions Recorded Last Taken Type ALBUTEROL NEB's [Proventil 0.083% 2.5 mg IH QID PRN #120 neb 08/26/17 Unknown Rx NEBS] Fluticasone/Salmeterol [Advair 1 puff IH BID #1 disk.w.dev 08/26/17 Unknown Rx Diskus 500-50 mcg] Montelukast [Singulair] 10 mg PO QPM #30 tablet 07/12/18 Unknown Rx Oxycodone HCl [oxyCODONE] 10 mg PO BID #12 tablet 07/12/18 Unknown Rx Meclizine [Antivert] 25 mg PO TID PRN #20 tablet 06/18/19 Unknown Rx amLODIPine 10 mg PO QDAY #30 tablet 06/18/19 Unknown Rx Acetaminophen/Codeine [Tylenol 1 tab PO Q6H PRN #12 tab 10/20/19 Unknown Rx /Codeine # 3 tab] Sulfamethoxazole/Trimethoprim 1 each PO BID #14 tablet 10/20/19 Unknown Rx [Bactrim DS TAB] Allergies Allergy/AdvReac Type Severity Reaction Status Date / Time dexamethasone [From Decadron] Allergy Anaphylaxis Verified 09/07/18 15:52 dexamethasone sod phosphate Allergy Anaphylaxis Verified 09/07/18 15:52 [From Decadron] epinephrine Allergy Rash Verified 09/07/18 15:52 ipratropium bromide Allergy Anaphylaxis Verified 09/07/18 15:52 [From Atrovent] peanut Allergy Anaphylaxis Verified 09/07/18 15:52 ED Review of Systems ROS: Stated complaint: BACK PAIN Other details as noted in HPI Constitutional: denies: chills, fever Eyes: denies: eye pain, eye discharge, vision change ENT: denies: ear pain, throat pain Respiratory: denies: cough, shortness of breath, wheezing Cardiovascular: denies: chest pain, palpitations Endocrine: no symptoms reported Gastrointestinal: denies: abdominal pain, nausea, diarrhea Genitourinary: denies: urgency, dysuria, discharge Musculoskeletal: back pain. denies: joint swelling, arthralgia Skin: denies: rash, lesions Neurological: denies: headache, weakness, paresthesias Psychiatric: denies: anxiety, depression Hematological/Lymphatic: denies: easy bleeding, easy bruising ED Past Medical Hx - Past Medical History Previous Medical History?: Yes Hx Hypertension: Yes Hx Diabetes: Yes (steroid induced) Hx Pulmonary Embolism: Yes Hx Liver Disease: Yes (HEPATITIS C) Hx Sickle Cell Disease: No Hx Asthma: Yes (2004 Pt state she had 5 intubations) Hx HIV: No Additional medical history: intubations for asthma, lumbar radiculopathy - Surgical History Hx Open Heart Surgery: No Hx Cholecystectomy: No Hx Appendectomy: No Hx Breast Surgery: No Additional Surgical History: neck surgery, pain pump. States previous to admission and had an exercise stress test. States that test was terminated secondary to asthma. device in back. Pain implant. L4-L5, S1 fusion. right ankle surgery - Social History Smoking Status: Never Smoker - Medications Home Medications: Home Medications Medication Instructions Recorded Confirmed Last Taken Type ALBUTEROL NEB's [Proventil 0.083% 2.5 mg IH QID PRN #120 neb 08/26/17 06/18/19 Unknown Rx NEBS] Fluticasone/Salmeterol [Advair 1 puff IH BID #1 disk.w.dev 08/26/17 06/18/19 Unknown Rx Diskus 500-50 mcg] Montelukast [Singulair] 10 mg PO QPM #30 tablet 07/12/18 06/18/19 Unknown Rx Oxycodone HCl [oxyCODONE] 10 mg PO BID #12 tablet 07/12/18 06/18/19 Unknown Rx Meclizine [Antivert] 25 mg PO TID PRN #20 tablet 06/18/19 Unknown Rx amLODIPine 10 mg PO QDAY #30 tablet 06/18/19 Unknown Rx Acetaminophen/Codeine [Tylenol 1 tab PO Q6H PRN #12 tab 10/20/19 Unknown Rx /Codeine # 3 tab] Sulfamethoxazole/Trimethoprim 1 each PO BID #14 tablet 10/20/19 Unknown Rx [Bactrim DS TAB] ED Physical Exam - General Limitations: No Limitations General appearance: alert, in no apparent distress - Head Head exam: Present: atraumatic, normocephalic - Neck Neck exam: Present: normal inspection, full ROM. Absent: tenderness, lymphadenopathy - GI/Abdominal GI/Abdominal exam: Present: soft, normal bowel sounds. Absent: distended, tenderness, guarding, rebound, rigid, diminished bowel sounds - Extremities Exam Extremities exam: Present: normal inspection, full ROM, normal capillary refill. Absent: tenderness - Back Exam Back exam: Present: normal inspection, full ROM, paraspinal tenderness (right lumbar paraspinal), vertebral tenderness. Absent: tenderness, CVA tenderness (R), CVA tenderness (L), muscle spasm, rash noted - Expanded Back Exam Expanded Back exam: Absent: saddle anesthesia Back exam: Negative Straight Leg Raising: Left, Right - Neurological Exam Neurological exam: Present: alert, oriented X3, normal gait - Psychiatric Psychiatric exam: Present: normal affect, normal mood - Skin Skin exam: Present: warm, dry, intact, normal color. Absent: rash ED Course Vital Signs 10/20/19 10/20/19 17:18 18:20 Temperature 98.5 F Pulse Rate 72 Respiratory 20 20 Rate Blood Pressure 144/77 [Left] O2 Sat by Pulse 99 Oximetry - Reevaluation(s) Reevaluation #1: 10/20/19 17:20 Patient is speaking in full sentences with no signs of distress noted. ED Medical Decision Making - Medical Decision Making This is a 58-year-old female that presents with low back strain. Patient is stable was examined by me. UA has been obtained and shows some UTI. CT scan has been obtained and dictated by the radiologist with chronic findings and no acute changes. There is no cauda equina syndrome during examination. No bladder or bowel instability. Patient received medical treatment in the ED which stated that her symptoms has resolved and subsided. Stated family member will drive the patient home after discharge due to possible drowsiness. Patient is discharged with Tylenol #3. Patient was instructed not to operate any machinery while taking this medication as they cause her drowsiness. Patient was referred to Follow-up with a primary care doctor in 3-5 days or if symptoms worsen and continue return to emergency room as soon as possible. At time of discharge, the patient does not seem toxic or ill in appearance. No acute signs of distress noted. Patient agrees to discharge treatment plan of care. No further questions noted by the patient. This chart is dictated with using [employer] Critical care attestation.: If time is entered above; I have spent that time in minutes in the direct care of this critically ill patient, excluding procedure time. ED Disposition Clinical Impression: Low back strain Qualifiers: Encounter type: initial encounter Qualified Code(s): S39.012A - Strain of muscle, fascia and tendon of lower back, initial encounter UTI (urinary tract infection) Qualifiers: Urinary tract infection type: acute cystitis Hematuria presence: without hematuria Qualified Code(s): N30.00 - Acute cystitis without hematuria Disposition: TO HOME OR SELFCARE Is pt being admited?: No Does the pt Need Aspirin: No Condition: Stable Instructions: Low Back Strain (ED), Acetaminophen/Codeine (By mouth) Additional Instructions: Follow-up with your primary care doctor in 3-5 days or if symptoms worsen such as bladder or bowel stability, chest pain, short of breath, numbness or tingling sensation in extremities, headache, dizziness, visual changes, nausea vomiting, or abdominal pain, return back to emergency room as was possible. Do not operate any machinery while taking Tylenol with codeine as this may cause drowsiness. Prescriptions: Sulfamethoxazole/Trimethoprim [Bactrim DS TAB] 1 each PO BID #14 tablet Acetaminophen/Codeine [Tylenol /Codeine # 3 tab] 1 tab PO Q6H PRN #12 tab PRN Reason: Pain , Severe (7-10) Referrals: PRIMARY MD ZARIA [Primary Care Provider] - 3-5 Days MONET BARNEY MD [Staff Physician] - 3-[address] [facility] [Provider Group] - 3-5 Days Forms: Work/School Release Form(ED)
[2019-10-20] MEDS ORDERED: HYDROmorphone 2 MG/1 ML INJ IM ONE (18:16)
--- NOTE | 2019-10-20 19:15 | Cat Scan Report ---
CT LUMBAr SPINE INDICATION: low back pain. TECHNIQUE: Axial CT images of the lumbar spine were obtained. Sagittal and coronal reformatted images were prod uced. All CT scans at this location are performed using CT dose reduction for ALARA by means of autom ated exposure control. COMPARISON: No previous exams available for comparison. FINDINGS: ALIGNMENT: There is decompressive laminectomy and fusion at L4-5 with posterior instrumentation. Ther e is mild residual anterolisthesis at this segment. There is no significant lumbar scoliosis. 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 There is no clear CT evidence of acute compression fracture involving the lumbar spine . INTRAVERTEBRAL DISCS:There is notable left facet joint arthropathy at L3-L4, particularly on the righ t with notable irregularity of the articular contours at. The pedicle screws at L4 PICC somewhat supe rior course as well as slightly medial on the right. The disc bulge appears to contribute to moderate degree of spinal stenosis at L3-4. Additionally, the right neural foraminal narrowing appears to enc richey on the exiting right L3 nerve root sheath. The disc bulge at L2-3 slightly flattens the ventral thecal sac. The neural foramen appear patent at. There is no CT evidence of significant stenosis at L1-2 or the transitional level L5-S1. PARASPINAL SOFT TISSUES: No significant abnormality. ADDITIONAL FINDINGS: None. IMPRESSION: 1. There is decompression and fusion at L4-L5 as detailed above. 2. There is prominent facet joint arthropathy at L3-4 with moderate spinal stenosis. Additionally, th e right neural from narrowing appears to encroach on the exiting right L3 nerve root sheath. 3. There is no CT evidence of acute compression fracture involving the lumbar spine. 4. 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
[2019-10-20 19:50] LABS: Bacteria,Urine 1+ /HPF (Negative); Bilirubin,Urine NEG (Negative); Blood,Urine SM (Negative); Color,Urine Yellow (Yellow); Mucus,Urine FEW /HPF; Protein,Urine <15 mg/dL mg/dL (Negative); Urobilinogen,Urine < 2.0 mg/dL (<2.0)
[2019-10-20 20:35] VITALS: BP 152/71
== END 2019-10-20 20:36 | disposition home or self-care (01) ==
LOC: ED 16:54
DX: S39.012A Strain of muscle, fascia and tendon of lower back, initial encounter (principal); N39.0 Urinary tract infection, site not specified; I10 Essential (primary) hypertension; E11.9 Type 2 diabetes mellitus without complications; J45.909 Unspecified asthma, uncomplicated; Z98.890 Other specified postprocedural states; Z79.899 Other long term (current) drug therapy; Z88.6 Allergy status to analgesic agent; X58.XXXA Exposure to other specified factors, initial encounter; Y93.89 Activity, other specified; Y92.89 Other specified places as the place of occurrence of the external cause; Y99.8 Other external cause status
CPT/HCPCS: 72131; 81001; 87086; 96372; 99284; J1170; J1885; J7512

== ENCOUNTER 2020-01-08 15:07 | Inpatient (IN) | payer OTHER, SELFPAY ==
[2020-01-08] MEDS ORDERED: MAGNESIUM SULFATE 2 GM/50 ML BAG IV ONE (15:09)
[2020-01-08] MEDS ORDERED: SODIUM CHLORIDE 0.9% 1000 ML 1,000 ML IV ONE (15:09)
[2020-01-08] MEDS ORDERED: methylPREDNISolone Sod Succinate 125 MG/2 ML INJ IV ONE (15:09)
[2020-01-08] MEDS ORDERED: ALBUTEROL 2.5 MG/3 ML NEBU IH ONE (15:10)
[2020-01-08] MEDS ORDERED: ONDANSETRON 4 MG/2 ML INJ IV ONE (16:05)
[2020-01-08] MEDS ORDERED: MORPHINE 2 MG/1 ML INJ ONE (16:05)
[2020-01-08] MEDS ORDERED: ONDANSETRON 4 MG/2 ML INJ ONE (16:05)
[2020-01-08] MEDS ORDERED: MORPHINE 2 MG/1 ML INJ IV ONE (16:05)
[2020-01-08 16:08] LABS: Basophils % (Auto) 0.5 % (0.0-1.8); Eosinophils # (Auto) 0.2 K/mm3 (0.0-0.4); Eosinophils % (Auto) 3.2 % (0.0-4.3); Hematocrit 37.3 % (30.3-42.9); Hemoglobin 12.4 gm/dl (10.1-14.3); Lymphocytes # (Auto) 1.7 K/mm3 (1.2-5.4); Lymphocytes % (Auto) 33.4 % (13.4-35.0); Mean Corpuscular HGB Conc 33 % (30-34); Mean Corpuscular Volume 80 fl (79-97); Monocytes # (Auto) 0.5 K/mm3 (0.0-0.8); Monocytes % (Auto) 9.1 % (0.0-7.3); Platelet Count 272 K/mm3 (140-440); Red Blood Count 4.68 M/mm3 (3.65-5.03); Red Cell Distribution Width 14.2 % (13.2-15.2)
--- NOTE | 2020-01-08 16:10 | XRay Report ---
CHEST 1 VIEW INDICATION / CLINICAL INFORMATION: JOHN. COMPARISON: 01/04/2020 FINDINGS: SUPPORT DEVICES: None. HEART / MEDIASTINUM: Stable. LUNGS / PLEURA: No significant pulmonary or pleural abnormality. No pneumothorax. ADDITIONAL FINDINGS: No significant additional findings. IMPRESSION: 1. No acute findings. Signer Name: Vikas Gee MD Signed: 01/08/2020 4:06 PM Workstation Name: [id number]
[2020-01-08 16:16] LABS: INR 0.92 (0.87-1.13); Partial Thromboplastin Time 26.7 Sec. (24.2-36.6)
[2020-01-08 16:21] LABS: Creatine Kinase MB 2.2 ng/mL (0.0-4.0)
[2020-01-08 16:22] LABS: Alanine Aminotransferase 13 units/L (7-56); Blood Urea Nitrogen 10 mg/dL (7-17); Calcium 8.9 mg/dL (8.4-10.2); Hemolysis Index 12
[2020-01-08 16:24] LABS: C-Reactive Protein 0.4 mg/dL (0.00-1.30)
--- NOTE | 2020-01-08 16:26 | Emergency Department Report ---
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 She has a history of asthma requiring intubation previously. She was here 3 days ago with complaints of shortness of breath. As per my colleague's, 01/04/2020 medical decision making: - Medical Decision Making 59-year-old female presents to ED with acute asthma exacerbation. Patient initially tachypneic, diaphoretic, respiratory distress. Patient was given a 1 hour neb treatment of albuterol, along with mag sulfate and Solu-Medrol. Chest x-ray was negative. Patient was reassessed multiple times. She is currently feeling much better. She is no longer tachypneic, wheezing has resolved. Patient feels well enough for discharge home. Prescriptions given. Outpatient follow-up advised. Return precautions given. Patient states that she is again very short of breath. She thinks she may have had a fever. She has been weak in general. She has had a nonproductive cough. She presents with a pulse oximetry of approximately 95-96 on room air. She is coughing frequently. She feels quite weak and is giving a limited history. According to triage patient has been short of breath since Sunday. She went to her primary care physician today who sent her to the emergency department. She has not been experiencing fever. Severity scale (0 -10): 10 - Related Data Previous Rx's Medication Instructions Recorded Last Taken Type ALBUTEROL NEB's [Proventil 0.083% 2.5 mg IH QID PRN #120 neb 08/26/17 Unknown Rx NEBS] Fluticasone/Salmeterol [Advair 1 puff IH BID #1 disk.w.dev 08/26/17 Unknown Rx Diskus 500-50 mcg] Montelukast [Singulair] 10 mg PO QPM #30 tablet 07/12/18 Unknown Rx Oxycodone HCl [oxyCODONE] 10 mg PO BID #12 tablet 07/12/18 Unknown Rx Meclizine [Antivert] 25 mg PO TID PRN #20 tablet 06/18/19 Unknown Rx amLODIPine 10 mg PO QDAY #30 tablet 06/18/19 Unknown Rx Acetaminophen/Codeine [Tylenol 1 tab PO Q6H PRN #12 tab 10/20/19 Unknown Rx /Codeine # 3 tab] Sulfamethoxazole/Trimethoprim 1 each PO BID #14 tablet 10/20/19 Unknown Rx [Bactrim DS TAB] Albuterol Sulfate [Proventil Hfa] 2 puff IH Q4HR PRN #1 hfa.aer.ad 01/04/20 Unknown Rx Allergies Allergy/AdvReac Type Severity Reaction Status Date / Time dexamethasone [From Decadron] Allergy Anaphylaxis Verified 09/07/18 15:52 dexamethasone sod phosphate Allergy Anaphylaxis Verified 09/07/18 15:52 [From Decadron] epinephrine Allergy Rash Verified 09/07/18 15:52 ipratropium bromide Allergy Anaphylaxis Verified 09/07/18 15:52 [From Atrovent] peanut Allergy Anaphylaxis Verified 09/07/18 15:52 ED Review of Systems Comment: Unobtainable due to pts medical conditions ED Past Medical Hx - Past Medical History Previous Medical History?: Yes Hx Hypertension: Yes Hx Diabetes: Yes (steroid induced) Hx Pulmonary Embolism: Yes Hx Liver Disease: Yes (HEPATITIS C) Hx Sickle Cell Disease: No Hx Asthma: Yes (2004 Pt state she had 5 intubations) Hx HIV: No Additional medical history: intubations for asthma, lumbar radiculopathy - Surgical History Past Surgical History?: Yes Hx Open Heart Surgery: No Hx Cholecystectomy: No Hx Appendectomy: No Hx Breast Surgery: No Additional Surgical History: neck surgery, pain pump. States previous to admission and had an exercise stress test. States that test was terminated secondary to asthma. device in back. Pain implant. L4-L5, S1 fusion. right ankle surgery - Social History Smoking Status: Never Smoker Substance Use Type: None - Medications Home Medications: Home Medications Medication Instructions Recorded Confirmed Last Taken Type ALBUTEROL NEB's [Proventil 0.083% 2.5 mg IH QID PRN #120 neb 08/26/17 06/18/19 Unknown Rx NEBS] Fluticasone/Salmeterol [Advair 1 puff IH BID #1 disk.w.dev 04/08/18 01/29/20 Unknown Rx Diskus 500-50 mcg] Montelukast [Singulair] 10 mg PO QPM #30 tablet 07/12/18 06/18/19 Unknown Rx Oxycodone HCl [oxyCODONE] 10 mg PO BID #12 tablet 07/12/18 06/18/19 Unknown Rx Meclizine [Antivert] 25 mg PO TID PRN #20 tablet 06/18/19 Unknown Rx amLODIPine 10 mg PO QDAY #30 tablet 06/18/19 Unknown Rx Acetaminophen/Codeine [Tylenol 1 tab PO Q6H PRN #12 tab 10/20/19 Unknown Rx /Codeine # 3 tab] Sulfamethoxazole/Trimethoprim 1 each PO BID #14 tablet 10/20/19 Unknown Rx [Bactrim DS TAB] Albuterol Sulfate [Proventil Hfa] 2 puff IH Q4HR PRN #1 hfa.aer.ad 01/04/20 Unknown Rx ED Physical Exam - General Limitations: No Limitations General appearance: in no apparent distress, lethargic - Head Head exam: Present: atraumatic, normocephalic - Eye Eye exam: Present: normal appearance. Absent: scleral icterus - ENT ENT exam: Present: mucous membranes moist - Neck Neck exam: Present: normal inspection - Respiratory Respiratory exam: Present: rhonchi. Absent: respiratory distress - Cardiovascular Cardiovascular Exam: Present: regular rate, normal rhythm. Absent: systolic murmur, diastolic murmur, rubs, gallop - GI/Abdominal GI/Abdominal exam: Present: soft, normal bowel sounds. Absent: distended, tenderness, guarding, rebound, rigid - Extremities Exam Extremities exam: Present: normal inspection. Absent: pedal edema, calf tenderness - Back Exam Back exam: Present: normal inspection - Neurological Exam Neurological exam: Present: oriented X3, CN II-XII intact (As testable). Absent: alert (Somewhat lethargic), motor sensory deficit - Psychiatric Psychiatric exam: Present: anxious, flat affect - Skin Skin exam: Present: warm, dry, intact, normal color. Absent: rash ED Course - Reevaluation(s) Reevaluation #1: Patient was given a continuous neb when she arrived. I really did not hear a lot of wheezing. She tolerated that well. Her respiratory condition seemed to improved. However, she was still not giving much information. She was complaining of being congested and feeling ill. Her complaints seem to be somewhat disproportionate. The respiratory therapist initially thought that she needed BiPAP because she was lethargic. However, she was able to speak in full sentences and did not have signs of respiratory distress. Ultimately a blood gas was performed to better elucidate the patient's respiratory status. It was essentially not suggestive of the need for BiPAP. I actually discussed this with the patient. She stated that she did not need BiPAP. Continue to complain of congestion. She received Solu-Medrol and magnesium. Patient was found to have a mildly elevated d-dimer. A COVID work-up was ad ditionally ordered due to the patient's repeated visits for shortness of breath. Was not suggestive yet of COVID infection based on ancillary testing. The PCR was negative. The patient is allergic to contrast dye she states. Therefore a VQ scan of her chest was ordered. This is pending. Patient will be signed out to the oncoming physician for follow-up on this test. 01/08/20 19:51 ED Medical Decision Making - Lab Data Result diagrams: 01/08/20 15:46 01/08/20 15:46 Laboratory Results - last 24 hr 01/08/20 01/08/20 01/08/20 15:46 15:46 15:46 WBC 5.2 RBC 4.68 Hgb 12.4 Hct 37.3 MCV 80 MCH 27 L MCHC 33 RDW 14.2 Plt Count 272 Lymph % (Auto) 33.4 [place] % (Auto) 9.1 H Eos % (Auto) 3.2 Baso % (Auto) 0.5 Lymph # 1.7 [place] # 0.5 Eos # 0.2 Baso # 0.0 Seg Neutrophils % 53.8 Seg Neutrophils # 2.8 PT 12.5 INR 0.92 APTT 26.7 D-Dimer 293.08 H Sodium 139 Potassium 3.8 Chloride 102.8 Carbon Dioxide 22 Anion Gap 18 BUN 10 Glucose 117 H Calcium 8.9 Magnesium 1.90 Total Bilirubin 0.40 AST 17 ALT 13 Alkaline Phosphatase 102 Lactate Dehydrogenase Total Creatine Kinase 143 H CK-MB (CK-2) 2.2 CK-MB (CK-2) Rel Index 1.5 Troponin T < 0.010 C-Reactive Protein NT-Pro-B Natriuret Pep 69.51 Total Protein 7.4 Albumin 4.0 Albumin/Globulin Ratio 1.2 01/08/20 15:46 WBC RBC Hgb Hct MCV MCH MCHC RDW Plt Count Lymph % (Auto) [place] % (Auto) Eos % (Auto) Baso % (Auto) Lymph # [place] # Eos # Baso # Seg Neutrophils % Seg Neutrophils # PT INR APTT D-Dimer Sodium Potassium Chloride Carbon Dioxide Anion Gap BUN Glucose 118 H Calcium Magnesium Total Bilirubin AST ALT Alkaline Phosphatase Lactate Dehydrogenase 198 H Total Creatine Kinase CK-MB (CK-2) CK-MB (CK-2) Rel Index Troponin T C-Reactive Protein 0.40 NT-Pro-B Natriuret Pep Total Protein Albumin Albumin/Globulin Ratio Laboratory Results - last 24 hr 01/08/20 01/08/20 01/08/20 15:46 15:46 15:46 WBC 5.2 RBC 4.68 Hgb 12.4 Hct 37.3 MCV 80 MCH 27 L MCHC 33 RDW 14.2 Plt Count 272 Lymph % (Auto) 33.4 [place] % (Auto) 9.1 H Eos % (Auto) 3.2 Baso % (Auto) 0.5 Lymph # 1.7 [place] # 0.5 Eos # 0.2 Baso # 0.0 Seg Neutrophils % 53.8 Seg Neutrophils # 2.8 PT 12.5 INR 0.92 APTT 26.7 D-Dimer 293.08 H ABG pH ABG pCO2 ABG pO2 ABG HCO3 ABG O2 Saturation ABG O2 Content ABG Base Excess ABG Hemoglobin ABG Carboxyhemoglobin ABG Methemoglobin Oxyhemoglobin FiO2 Sodium 139 Potassium 3.8 Chloride 102.8 Carbon Dioxide 22 Anion Gap 18 BUN 10 Creatinine 0.7 Estimated GFR > 60 BUN/Creatinine Ratio 14 Glucose 117 H Calcium 8.9 Magnesium 1.90 Ferritin Total Bilirubin 0.40 Direct Bilirubin < 0.2 Indirect Bilirubin 0.2 AST 17 ALT 13 Alkaline Phosphatase 102 Lactate Dehydrogenase Total Creatine Kinase 143 H CK-MB (CK-2) 2.2 CK-MB (CK-2) Rel Index 1.5 Troponin T < 0.010 C-Reactive Protein NT-Pro-B Natriuret Pep 69.51 Total Protein 7.4 Albumin 4.0 Albumin/Globulin Ratio 1.2 01/08/20 01/08/20 01/08/20 15:46 15:46 16:53 WBC RBC Hgb Hct MCV MCH MCHC RDW Plt Count Lymph % (Auto) [place] % (Auto) Eos % (Auto) Baso % (Auto) Lymph # [place] # Eos # Baso # Seg Neutrophils % Seg Neutrophils # PT INR APTT D-Dimer ABG pH 7.481 H ABG pCO2 30.0 ABG pO2 87.2 ABG HCO3 21.9 ABG O2 Saturation 97.3 ABG O2 Content 17.0 ABG Base Excess -0.7 ABG Hemoglobin 12.6 ABG Carboxyhemoglobin 1.1 ABG Methemoglobin 0.5 Oxyhemoglobin 95.7 FiO2 21 Sodium Potassium Chloride Carbon Dioxide Anion Gap BUN Creatinine Estimated GFR BUN/Creatinine Ratio Glucose 118 H Calcium Magnesium Ferritin 87.9 Total Bilirubin Direct Bilirubin Indirect Bilirubin AST ALT Alkaline Phosphatase Lactate Dehydrogenase 198 H Total Creatine Kinase CK-MB (CK-2) CK-MB (CK-2) Rel Index Troponin T C-Reactive Protein 0.40 NT-Pro-B Natriuret Pep Total Protein Albumin Albumin/Globulin Ratio ED Disposition Clinical Impression: SOB (shortness of breath), Hypoxia, Elevated d-dimer, Lethargic Asthma Qualifiers: Asthma severity: unspecified severity Asthma persistence: intermittent Asthma complication type: with acute exacerbation Qualified Code(s): J45.21 - Mild intermittent asthma with (acute) exacerbation Respiratory failure Qualifiers: Chronicity: acute Respiratory failure complication: hypoxia Qualified Code(s): J96.01 - Acute respiratory failure with hypoxia Disposition: OP ADMIT IP TO THIS HOSP Condition: Critical <VISHAL JIMENEZ III - Last Filed: 01/08/20 22:06> ED Review of Systems ROS: Stated complaint: SOB/COUGH Other details as noted in HPI ED Course Vital Signs 01/08/20 01/08/20 01/08/20 15:23 15:27 15:30 Temperature Pulse Rate 87 Pulse Rate [ 92 H Anterior Bilateral Throughout] Respiratory 25 H Rate Respiratory 29 H Rate [Anterior Bilateral Throughout] Blood Pressure 197/105 Blood Pressure [Left] O2 Sat by Pulse 97 99 Oximetry 01/08/20 01/08/20 01/08/20 15:46 15:56 16:00 Temperature 98.3 F Pulse Rate 89 106 H Pulse Rate [ Anterior Bilateral Throughout] Respiratory 34 H 25 H Rate Respiratory Rate [Anterior Bilateral Throughout] Blood Pressure 197/105 154/70 Blood Pressure [Left] O2 Sat by Pulse 100 Oximetry 01/08/20 01/08/20 01/08/20 17:00 18:29 19:45 Temperature 97.9 F Pulse Rate 85 90 93 H Pulse Rate [ Anterior Bilateral Throughout] Respiratory 20 16 18 Rate Respiratory Rate [Anterior Bilateral Throughout] Blood Pressure 163/68 Blood Pressure 152/63 151/71 [Left] O2 Sat by Pulse 99 96 96 Oximetry 01/08/20 01/08/20 01/08/20 20:00 21:00 21:40 Temperature Pulse Rate 85 Pulse Rate [ Anterior Bilateral Throughout] Respiratory 20 18 27 H Rate Respiratory Rate [Anterior Bilateral Throughout] Blood Pressure 148/85 Blood Pressure [Left] O2 Sat by Pulse 100 Oximetry 01/08/20 21:56 Temperature Pulse Rate Pulse Rate [ Anterior Bilateral Throughout] Respiratory 20 Rate Respiratory Rate [Anterior Bilateral Throughout] Blood Pressure Blood Pressure [Left] O2 Sat by Pulse Oximetry - Reevaluation(s) Reevaluation #2: Patient is complaining of headache. Patient will be given Dilaudid. On 50% on the BiPAP and she is satting only 97%. Patient still having increased work to breathe. Patient will be admitted to the hospitalist service. I discussed all results with patient. I discussed plan of care with patient. Patient agrees with plan of care and admission. Patient to be admitted to the hospitalist service. 01/08/20 22:04 - Consultations Consultation #1: Hospitalist consulted for admission. Hospitalist to admit patient. 01/08/20 22:05 ED Medical Decision Making - Lab Data Result diagrams: 01/08/20 15:46 01/08/20 15:46 - EKG Data -: EKG Interpreted by Nh EKG shows normal: sinus rhythm, axis, intervals, QRS complexes, ST-T waves Rate: normal - Radiology Data Radiology results: report reviewed NUCLEAR MEDICINE PERFUSION LUNG SCAN INDICATION / CLINICAL INFORMATION: Difficulty breathing. TECHNIQUE: 5.0 mCi of Tc-99m MAA were given by IV. COMPARISON: Chest radiograph dated 01/08/2020. FINDINGS: PERFUSION: No significant perfusion defects. ADDITIONAL FINDINGS: None. IMPRESSION: 1. Low probability for pulmonary embolism. CHEST 1 VIEW INDICATION / CLINICAL INFORMATION: JOHN. COMPARISON: 01/04/2020 FINDINGS: SUPPORT DEVICES: None. HEART / MEDIASTINUM: Stable. LUNGS / PLEURA: No significant pulmonary or pleural abnormality. No pneumothorax. ADDITIONAL FINDINGS: No significant additional findings. IMPRESSION: 1. No acute findings - Differential Diagnosis Hypoxia, status asthmaticus, fatigue, respiratory failure, Critical Care Time: Yes Critical care time in (mins) excluding proc time.: 35 Critical care attestation.: If time is entered above; I have spent that time in minutes in the direct care of this critically ill patient, excluding procedure time. Critical Care Time: 35 minutes ED Disposition Is pt being admited?: Yes Does the pt Need Aspirin: No Time of Disposition: 22:04
[2020-01-08 16:33] LABS: BUN/Creatinine Ratio 14; Bilirubin,Direct < 0.2 mg/dL (0-0.2)
[2020-01-08 17:07] LABS: ABG Base Excess -0.7 mmol/L (-2.0-3.0); ABG HCO3 21.9 mmol/L (20.0-26.0); ABG Methemoglobin 0.5 % (0.0-1.5); ABG Oxygen Saturation 97.3 % (95.0-99.0); ABG PH 7.481 pH Units (7.350-7.450); ABG PO2 87.2 mm Hg (80.0-90.0)
[2020-01-08] MEDS ORDERED: HYDROcodone/ACETAMINOPHEN 5-325 MG TAB PO ONE (19:50)
[2020-01-08] MEDS ORDERED: KETOROLAC 30 MG/1 ML INJ IV ONE (21:32)
--- NOTE | 2020-01-08 21:56 | Nuclear Medicine Report ---
NUCLEAR MEDICINE PERFUSION LUNG SCAN INDICATION / CLINICAL INFORMATION: Difficulty breathing. TECHNIQUE: 5.0 mCi of Tc-99m MAA were given by IV. COMPARISON: Chest radiograph dated 01/08/2020. FINDINGS: PERFUSION: No significant perfusion defects. ADDITIONAL FINDINGS: None. IMPRESSION: 1. Low probability for pulmonary embolism. Signer Name: Cheko Valenzuela MD Signed: 01/08/2020 9:52 PM Workstation Name: [id number]
[2020-01-08] MEDS ORDERED: HYDROmorphone 1 MG/1 ML INJ IV ONE (22:05)
[2020-01-08] MEDS ORDERED: HYDROmorphone 1 MG/1 ML INJ ONE (22:25)
[2020-01-08] MEDS ORDERED: ACETAMINOPHEN 325 MG TAB PO PRN (23:04)
[2020-01-08] MEDS ORDERED: MAGNESIUM HYDROXIDE (MOM) ORAL LIQD UDC PO PRN (23:04)
--- NOTE | 2020-01-08 23:18 | History and Physical Report ---
History of Present Illness Date of examination: 01/08/20 Date of admission: 01/08/20 22:06 Chief complaint: Shortness of breath History of present illness: 59-year-old female with known history of asthma with 5 previous intubations in the past presents today in the emergency room with shortness of breath. She was seen in the emergency room 3 days ago with similar complaints. She was seen by her primary care physician today and sent to the emergency room. She complains of occasional cough which is nonproductive, she denies any fever or chills, no chest pain, no headache or dizziness, no nausea or vomiting however she complains of feeling weak. Upon arrival in the emergency room patient was tachypneic, diaphoretic, hypoxic and in respiratory distress. She was given nebulizing treatments, magnesium sulfate and IV Solu-Medrol. Patient was subsequently placed on BiPAP. Chest x-ray has been within normal limits. 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 Past History Past Medical History: diabetes (steroid induced), hypertension, other (hepatitis C, Asthma with 5 intubations in the past,Lumbar radiculopathy) Past Surgical History: Other (L4-l5,S1 Fusion, BACK IMPLANT for pain, Neck surgery, Right ankle surgery) Family history: no significant family history Medications and Allergies Allergies Allergy/AdvReac Type Severity Reaction Status Date / Time dexamethasone [From Decadron] Allergy Anaphylaxis Verified 09/07/18 15:52 dexamethasone sod phosphate Allergy Anaphylaxis Verified 09/07/18 15:52 [From Decadron] epinephrine Allergy Rash Verified 09/07/18 15:52 ipratropium bromide Allergy Anaphylaxis Verified 09/07/18 15:52 [From Atrovent] peanut Allergy Anaphylaxis Verified 09/07/18 15:52 Home Medications Medication Instructions Recorded Confirmed Last Taken Type ALBUTEROL NEB's [Proventil 0.083% 2.5 mg IH QID PRN #120 neb 08/26/17 06/18/19 Unknown Rx NEBS] Fluticasone/Salmeterol [Advair 1 puff IH BID #1 disk.w.dev 08/26/17 06/18/19 Unknown Rx Diskus 500-50 mcg] Montelukast [Singulair] 10 mg PO QPM #30 tablet 02/22/19 01/29/20 Unknown Rx Oxycodone HCl [oxyCODONE] 10 mg PO BID #12 tablet 07/12/18 06/18/19 Unknown Rx Meclizine [Antivert] 25 mg PO TID PRN #20 tablet 06/18/19 Unknown Rx amLODIPine 10 mg PO QDAY #30 tablet 06/18/19 Unknown Rx Acetaminophen/Codeine [Tylenol 1 tab PO Q6H PRN #12 tab 10/20/19 Unknown Rx /Codeine # 3 tab] Sulfamethoxazole/Trimethoprim 1 each PO BID #14 tablet 10/20/19 Unknown Rx [Bactrim DS TAB] Albuterol Sulfate [Proventil Hfa] 2 puff IH Q4HR PRN #1 hfa.aer.ad 01/04/20 Unknown Rx Active Meds: Active Medications Acetaminophen (Tylenol) 650 mg PO Q6H PRN PRN Reason: Pain MILD(1-3)/Fever >100.5/RIBEIRO Albuterol/Ipratropium (Duoneb *Not For Prn Use*) 1 ampul IH Q6HRT EBONI Heparin Sodium (Porcine) (Heparin) 5,000 unit SUB-Q Q8HR EBONI Magnesium Hydroxide (Milk Of Magnesia) 30 ml PO Q4H PRN PRN Reason: Constipation Methylprednisolone Sodium Succinate (Solu-Medrol) 40 mg IV Q8HR EBONI Sodium Chloride (Sodium Chloride Flush Syringe 10 Ml) 10 ml IV BID EBONI Sodium Chloride (Sodium Chloride Flush Syringe 10 Ml) 10 ml IV PRN PRN PRN Reason: LINE FLUSH Review of Systems Constitutional: no fever, no chills Ears, nose, mouth and throat: no nasal congestion, no sore throat Cardiovascular: no chest pain, no palpitations Respiratory: cough, shortness of breath Gastrointestinal: no abdominal pain, no nausea, no vomiting, no diarrhea Genitourinary Female: no pelvic pain, no flank pain, no dysuria Musculoskeletal: no neck pain, no low back pain Integumentary: no rash, no pruritis Neurological: no headaches, no confusion Psychiatric: no anxiety, no depression Exam - Constitutional Vitals: Temp Pulse Resp BP Pulse Ox 97.9 F 83 14 159/75 97 01/08/20 19:45 01/08/20 22:30 01/08/20 22:30 01/08/20 22:30 01/08/20 22:30 General appearance: Present: no acute distress, well-nourished - EENT Eyes: Present: PERRL, EOM intact. Absent: scleral icterus ENT: hearing intact, clear oral mucosa, dentition normal - Neck Neck: Present: supple, normal ROM - Respiratory Respiratory effort: normal Respiratory: bilateral: wheezing (few scattered wheezes bilaterally) - Cardiovascular Rhythm: regular Heart Sounds: Present: S1 & S2. Absent: gallop, systolic murmur, diastolic murmur, rub - Extremities Extremities: no ischemia, pulses intact, pulses symmetrical, No edema, Full ROM Peripheral Pulses: within normal limits - Abdominal General gastrointestinal: Present: soft, non-tender, non-distended, normal bowel sounds. Absent: mass - Integumentary Integumentary: Present: clear, warm, dry - Musculoskeletal Musculoskeletal: strength equal bilaterally - Psychiatric Psychiatric: appropriate mood/affect, intact judgment & insight, memory intact, cooperative - Neurologic Neurologic: CNII-XII intact, no focal deficits, moves all extremities HEART Score - HEART Score Troponin: Troponin T < 0.010 ng/mL (0.00-0.029) 01/08/20 15:46 Results - Labs CBC & Chem 7: 01/08/20 15:46 01/08/20 15:46 Labs: Abnormal lab results 01/08/20 01/08/20 01/08/20 Range/Units 15:46 15:46 15:46 MCH 27 L (28-32) pg [place] % (Auto) 9.1 H (0.0-7.3) % D-Dimer 293.08 H (0-234) ng/mlDDU ABG pH (7.350-7.450) pH Units Glucose 117 H (65-100) mg/dL Lactate Dehydrogenase (91-180) units/L Total Creatine Kinase 143 H (30-135) units/L 01/08/20 01/08/20 Range/Units 15:46 16:53 MCH (28-32) pg [place] % (Auto) (0.0-7.3) % D-Dimer (0-234) ng/mlDDU ABG pH 7.481 H (7.350-7.450) pH Units Glucose 118 H (65-100) mg/dL Lactate Dehydrogenase 198 H (91-180) units/L Total Creatine Kinase (30-135) units/L Assessment and Plan - Patient Problems (1) Asthma with acute exacerbation Current Visit: No Status: Acute Plan to address problem: Patient placed on nebulizing treatments and IV steroid. We will keep O2 saturation greater or equal to 92%. We will place a consult to powerhouse mechanic supervisor for evaluation and recommendation. (2) HTN (hypertension) Current Visit: No Status: Chronic Plan to address problem: We will resume routine home medications as needed and monitor vital signs closely. (3) DVT prophylaxis Current Visit: No Status: Acute Plan to address problem: Patient placed on subcutaneous heparin. (4) Full code status Current Visit: Yes Status: Acute
[2020-01-09] MEDS ORDERED: ALBUTEROL 2.5 MG/3 ML NEBU IH ONE ×2 (00:45→09:07)
[2020-01-09] MEDS: ALBUTEROL 2.5 MG/3 ML NEBU IH SCH ×4 (01:00→21:48)
[2020-01-09] MEDS ORDERED: LORazepam 2 MG/ML VIAL IV ONE (01:44)
[2020-01-09] MEDS ORDERED: IPRATROPIUM/ALBUTEROL SULFATE 3 ML AMPUL.NEB IH SCH (02:00)
[2020-01-09] MEDS ORDERED: LORazepam 2 MG/ML VIAL ONE (03:08)
[2020-01-09] MEDS ORDERED: methylPREDNISolone Sod Succinate 40 MG/1 ML INJ ONE ×2 (06:04→16:55)
[2020-01-09] MEDS ORDERED: HEPARIN 5,000 UNIT/1 ML VIAL ONE ×2 (06:04→16:55)
[2020-01-09] MEDS: methylPREDNISolone Sod Succinate 40 MG/1 ML INJ IV SCH ×3 (06:06→23:11)
[2020-01-09] MEDS: HEPARIN 5,000 UNIT/1 ML VIAL SUB-Q SCH ×3 (06:07→23:11)
[2020-01-09 06:18] LABS: Basophils % (Auto) 0.1 % (0.0-1.8); Hematocrit 32.4 % (30.3-42.9); Hemoglobin 10.9 gm/dl (10.1-14.3); Lymphocytes # (Auto) 0.6 K/mm3 (1.2-5.4); Mean Corpuscular HGB Conc 34 % (30-34); Mean Corpuscular Volume 79 fl (79-97); Monocytes # (Auto) 0.2 K/mm3 (0.0-0.8); Monocytes % (Auto) 2.9 % (0.0-7.3); Platelet Count 250 K/mm3 (140-440); Red Blood Count 4.08 M/mm3 (3.65-5.03); Red Cell Distribution Width 14.2 % (13.2-15.2)
[2020-01-09 06:26] LABS: INR 0.95 (0.87-1.13)
[2020-01-09 06:29] LABS: BUN/Creatinine Ratio 14; Blood Urea Nitrogen 13 mg/dL (7-17); Calcium 9.3 mg/dL (8.4-10.2); Hemolysis Index 7
--- NOTE | 2020-01-09 11:09 | Progress Note ---
<JERONIMO AVILES - Last Filed: 01/09/20 15:24> Assessment and Plan Assessment and Plan - Patient Problems (1) Asthma with acute exacerbation Current Visit: No Status: Acute Plan to address problem: Continue respiratory care, bronchodilator and IV steroid. oxygen supplement PRN keep O2 saturation greater or equal to 92%. marketing services manager for evaluation and recommendation. (2) HTN (hypertension) Current Visit: No Status: Chronic Plan to address problem: We will resume routine home medications as needed monitor vital signs closely. (3) DVT prophylaxis Current Visit: No Status: Acute Plan to address problem: Patient placed on subcutaneous heparin. (4) Full code status Current Visit: Yes Status: Acute - Patient Problems (1) Elevated d-dimer Current Visit: Yes Status: Acute Plan to address problem: Covid 19 test ordered-f/u with result trend inflammatory makers (2) Acute respiratory failure with hypoxia Current Visit: Yes Status: Acute Plan to address problem: Patient was on bipap at admission Condition has improved-on room air with 02 sat 97% Continue to monitor 02 sat, ABG prn Oxygen supplement PRN VQ scan -shows low probability for PE Chest x-ray shows no acute finding Subjective Interval history: Patient seen-on room air, and she reports persistent cough Oxygen sat. 97% on room air patient also reports chest pain -not radiating likely due to cough VQ scan -shows low probability for PE Chest x-ray shows no acute finding Ibuprofen 800mg given times 1 Objective - Constitutional Vitals: Vital Signs - 12hr 01/08/20 01/08/20 01/08/20 23:15 23:30 23:48 Pulse Rate Pulse Rate [ Anterior Bilateral Throughout] Respiratory 17 18 22 Rate Respiratory Rate [Anterior Bilateral Throughout] Blood Pressure 148/77 164/69 148/77 O2 Sat by Pulse 98 98 98 Oximetry 01/09/20 01/09/20 01/09/20 00:30 00:48 01:00 Pulse Rate 69 87 Pulse Rate [ 70 Anterior Bilateral Throughout] Respiratory 15 17 Rate Respiratory 29 H Rate [Anterior Bilateral Throughout] Blood Pressure 148/77 143/118 O2 Sat by Pulse 93 98 Oximetry 01/09/20 01/09/20 01/09/20 02:00 02:30 03:00 Pulse Rate 81 81 95 H Pulse Rate [ Anterior Bilateral Throughout] Respiratory 17 17 12 Rate Respiratory Rate [Anterior Bilateral Throughout] Blood Pressure 160/73 153/73 155/66 O2 Sat by Pulse 96 96 96 Oximetry 01/09/20 01/09/20 01/09/20 03:15 03:46 04:00 Pulse Rate 84 87 84 Pulse Rate [ Anterior Bilateral Throughout] Respiratory 17 16 19 Rate Respiratory Rate [Anterior Bilateral Throughout] Blood Pressure 146/69 113/49 119/51 O2 Sat by Pulse 93 94 93 Oximetry 01/09/20 01/09/20 01/09/20 04:15 05:00 05:16 Pulse Rate 83 82 75 Pulse Rate [ Anterior Bilateral Throughout] Respiratory 16 16 17 Rate Respiratory Rate [Anterior Bilateral Throughout] Blood Pressure 113/47 108/53 139/73 O2 Sat by Pulse 93 97 99 Oximetry 01/09/20 01/09/20 01/09/20 05:30 06:15 06:30 Pulse Rate 72 67 74 Pulse Rate [ Anterior Bilateral Throughout] Respiratory 15 16 17 Rate Respiratory Rate [Anterior Bilateral Throughout] Blood Pressure 139/73 120/68 119/68 O2 Sat by Pulse 99 97 98 Oximetry 01/09/20 01/09/20 01/09/20 06:45 07:03 07:16 Pulse Rate 78 Pulse Rate [ Anterior Bilateral Throughout] Respiratory 18 Rate Respiratory Rate [Anterior Bilateral Throughout] Blood Pressure 121/69 147/63 149/114 O2 Sat by Pulse 95 Oximetry 01/09/20 01/09/20 01/09/20 07:30 07:46 08:00 Pulse Rate Pulse Rate [ Anterior Bilateral Throughout] Respiratory Rate Respiratory Rate [Anterior Bilateral Throughout] Blood Pressure 151/84 157/88 155/79 O2 Sat by Pulse Oximetry 01/09/20 01/09/20 01/09/20 08:15 08:30 08:45 Pulse Rate Pulse Rate [ Anterior Bilateral Throughout] Respiratory Rate Respiratory Rate [Anterior Bilateral Throughout] Blood Pressure 135/71 139/67 137/75 O2 Sat by Pulse Oximetry 01/09/20 01/09/20 09:00 09:15 Pulse Rate Pulse Rate [ Anterior Bilateral Throughout] Respiratory Rate Respiratory Rate [Anterior Bilateral Throughout] Blood Pressure 137/70 140/83 O2 Sat by Pulse Oximetry General appearance: Present: no acute distress, well-nourished - EENT Eyes: PERRL, EOM intact ENT: hearing intact, clear oral mucosa Ears: bilateral: normal - Neck Neck: supple, normal ROM - Respiratory Respiratory effort: normal, other (patient reports persistent cough costinsternal pain) Respiratory: bilateral: CTA - Breasts Breasts: normal - Cardiovascular Rhythm: regular Heart Sounds: Present: S1 & S2. Absent: gallop, rub Extremities: pulses intact, No edema, normal color, Full ROM - Gastrointestinal General gastrointestinal: Present: soft, non-tender, non-distended, normal bowel sounds - Genitourinary Female genitourinary: normal - Integumentary Integumentary: clear, warm, dry - Musculoskeletal Musculoskeletal: 1, strength equal bilaterally - Neurologic Neurologic: moves all extremities - Psychiatric Psychiatric: memory intact, appropriate mood/affect, intact judgment & insight - Labs CBC & Chem 7: 01/09/20 05:49 01/09/20 05:49 Labs: Abnormal lab results 01/08/20 01/08/20 01/08/20 Range/Units 15:46 15:46 15:46 MCH 27 L (28-32) pg Lymph % (Auto) (13.4-35.0) % [place] % (Auto) 9.1 H (0.0-7.3) % Lymph # (1.2-5.4) K/mm3 Seg Neutrophils % (40.0-70.0) % D-Dimer 293.08 H (0-234) ng/mlDDU ABG pH (7.350-7.450) pH Units Glucose 117 H (65-100) mg/dL Lactate Dehydrogenase (91-180) units/L Total Creatine Kinase 143 H (30-135) units/L 01/08/20 01/08/20 01/09/20 Range/Units 15:46 16:53 05:49 MCH 27 L (28-32) pg Lymph % (Auto) 7.0 L (13.4-35.0) % [place] % (Auto) (0.0-7.3) % Lymph # 0.6 L (1.2-5.4) K/mm3 Seg Neutrophils % 90.0 H (40.0-70.0) % D-Dimer (0-234) ng/mlDDU ABG pH 7.481 H (7.350-7.450) pH Units Glucose 118 H (65-100) mg/dL Lactate Dehydrogenase 198 H (91-180) units/L Total Creatine Kinase (30-135) units/L 01/09/20 Range/Units 05:49 MCH (28-32) pg Lymph % (Auto) (13.4-35.0) % [place] % (Auto) (0.0-7.3) % Lymph # (1.2-5.4) K/mm3 Seg Neutrophils % (40.0-70.0) % D-Dimer (0-234) ng/mlDDU ABG pH (7.350-7.450) pH Units Glucose 149 H (65-100) mg/dL Lactate Dehydrogenase (91-180) units/L Total Creatine Kinase (30-135) units/L HEART Score - HEART Score History: Moderately suspicious Troponin: Troponin T < 0.010 ng/mL (0.00-0.029) 01/08/20 15:46 <YUKO SANTOS - Last Filed: 01/09/20 16:59> Assessment and Plan I saw and evaluated the patient. I agree with the findings and the plan of care as documented in the Nurse Practitioner's~note. Subjective Date of service: 01/09/20 Objective - Constitutional Vitals: Vital Signs - 12hr 01/09/20 01/09/20 01/09/20 05:00 05:16 05:30 Pulse Rate 82 75 72 Pulse Rate [ Anterior Bilateral Throughout] Respiratory 16 17 15 Rate Respiratory Rate [Anterior Bilateral Throughout] Blood Pressure 108/53 139/73 139/73 O2 Sat by Pulse 97 99 99 Oximetry 01/09/20 01/09/20 01/09/20 06:15 06:30 06:45 Pulse Rate 67 74 78 Pulse Rate [ Anterior Bilateral Throughout] Respiratory 16 17 18 Rate Respiratory Rate [Anterior Bilateral Throughout] Blood Pressure 120/68 119/68 121/69 O2 Sat by Pulse 97 98 95 Oximetry 01/09/20 01/09/20 01/09/20 07:03 07:16 07:30 Pulse Rate Pulse Rate [ Anterior Bilateral Throughout] Respiratory Rate Respiratory Rate [Anterior Bilateral Throughout] Blood Pressure 147/63 149/114 151/84 O2 Sat by Pulse Oximetry 01/09/20 01/09/20 01/09/20 07:46 08:00 08:15 Pulse Rate Pulse Rate [ Anterior Bilateral Throughout] Respiratory Rate Respiratory Rate [Anterior Bilateral Throughout] Blood Pressure 157/88 155/79 135/71 O2 Sat by Pulse Oximetry 01/09/20 01/09/20 01/09/20 08:30 08:45 09:00 Pulse Rate Pulse Rate [ Anterior Bilateral Throughout] Respiratory Rate Respiratory Rate [Anterior Bilateral Throughout] Blood Pressure 139/67 137/75 137/70 O2 Sat by Pulse Oximetry 01/09/20 01/09/20 01/09/20 09:15 09:30 09:45 Pulse Rate Pulse Rate [ Anterior Bilateral Throughout] Respiratory Rate Respiratory Rate [Anterior Bilateral Throughout] Blood Pressure 140/83 142/73 140/71 O2 Sat by Pulse Oximetry 01/09/20 01/09/20 01/09/20 10:00 10:16 10:30 Pulse Rate Pulse Rate [ Anterior Bilateral Throughout] Respiratory Rate Respiratory Rate [Anterior Bilateral Throughout] Blood Pressure 134/67 135/59 147/76 O2 Sat by Pulse Oximetry 01/09/20 01/09/20 01/09/20 12:06 12:16 12:30 Pulse Rate Pulse Rate [ Anterior Bilateral Throughout] Respiratory Rate Respiratory Rate [Anterior Bilateral Throughout] Blood Pressure 160/101 138/57 160/101 O2 Sat by Pulse 100 97 98 Oximetry 01/09/20 01/09/20 01/09/20 12:46 13:00 13:10 Pulse Rate Pulse Rate [ 93 H Anterior Bilateral Throughout] Respiratory Rate Respiratory 22 Rate [Anterior Bilateral Throughout] Blood Pressure 160/101 160/101 O2 Sat by Pulse 96 96 Oximetry 01/09/20 01/09/20 01/09/20 13:16 13:30 13:46 Pulse Rate Pulse Rate [ Anterior Bilateral Throughout] Respiratory Rate Respiratory Rate [Anterior Bilateral Throughout] Blood Pressure 137/62 137/62 137/62 O2 Sat by Pulse 96 95 95 Oximetry 01/09/20 01/09/20 01/09/20 14:00 14:16 15:00 Pulse Rate Pulse Rate [ Anterior Bilateral Throughout] Respiratory Rate Respiratory Rate [Anterior Bilateral Throughout] Blood Pressure 137/62 137/62 129/52 O2 Sat by Pulse 97 96 Oximetry 01/09/20 16:01 Pulse Rate Pulse Rate [ Anterior Bilateral Throughout] Respiratory Rate Respiratory Rate [Anterior Bilateral Throughout] Blood Pressure 126/87 O2 Sat by Pulse Oximetry - Labs CBC & Chem 7: 01/09/20 05:49 01/09/20 05:49 Labs: Abnormal lab results 01/08/20 01/09/20 01/09/20 Range/Units 16:53 05:49 05:49 MCH 27 L (28-32) pg Lymph % (Auto) 7.0 L (13.4-35.0) % Lymph # 0.6 L (1.2-5.4) K/mm3 Seg Neutrophils % 90.0 H (40.0-70.0) % ABG pH 7.481 H (7.350-7.450) pH Units Glucose 149 H (65-100) mg/dL HEART Score - HEART Score Troponin: Troponin T < 0.010 ng/mL (0.00-0.029) 01/08/20 15:46
[2020-01-09] MEDS ORDERED: IBUPROFEN 600 MG TAB PO ONE ×2 (12:28→12:38)
--- NOTE | 2020-01-09 12:37 | Consultation ---
History of Present Illness Consult date: 01/09/20 Requesting physician: REMI HERNDON Reason for consult: asthma (Status Asthmaticus) History of present illness: PULMONARY/CCM CONSULT NOTE (Full dictation # ) Please see dictated notes for full details Past History Past Medical History: diabetes (steroid induced), hypertension, other (hepatitis C, Asthma with 5 intubations in the past,Lumbar radiculopathy) Past Surgical History: Other (L4-l5,S1 Fusion, BACK IMPLANT for pain, Neck surgery, Right ankle surgery) Family history: no significant family history Medications and Allergies Allergies Allergy/AdvReac Type Severity Reaction Status Date / Time dexamethasone [From Decadron] Allergy Anaphylaxis Verified 09/07/18 15:52 dexamethasone sod phosphate Allergy Anaphylaxis Verified 09/07/18 15:52 [From Decadron] epinephrine Allergy Rash Verified 09/07/18 15:52 ipratropium bromide Allergy Anaphylaxis Verified 09/07/18 15:52 [From Atrovent] peanut Allergy Anaphylaxis Verified 09/07/18 15:52 Home Medications Medication Instructions Recorded Confirmed Last Taken Type ALBUTEROL NEB's [Proventil 0.083% 2.5 mg IH QID PRN #120 neb 08/26/17 06/18/19 Unknown Rx NEBS] Fluticasone/Salmeterol [Advair 1 puff IH BID #1 disk.w.dev 08/26/17 06/18/19 Unknown Rx Diskus 500-50 mcg] Montelukast [Singulair] 10 mg PO QPM #30 tablet 07/12/18 06/18/19 Unknown Rx Oxycodone HCl [oxyCODONE] 10 mg PO BID #12 tablet 07/12/18 06/18/19 Unknown Rx Meclizine [Antivert] 25 mg PO TID PRN #20 tablet 06/18/19 Unknown Rx amLODIPine 10 mg PO QDAY #30 tablet 06/18/19 Unknown Rx Acetaminophen/Codeine [Tylenol 1 tab PO Q6H PRN #12 tab 10/20/19 Unknown Rx /Codeine # 3 tab] Sulfamethoxazole/Trimethoprim 1 each PO BID #14 tablet 10/20/19 Unknown Rx [Bactrim DS TAB] Albuterol Sulfate [Proventil Hfa] 2 puff IH Q4HR PRN #1 hfa.aer.ad 01/04/20 Unknown Rx Active Meds: Active Medications Acetaminophen (Tylenol) 650 mg PO Q6H PRN PRN Reason: Pain MILD(1-3)/Fever >100.5/RIBEIRO Albuterol (Proventil) 2.5 mg IH Q6HRT [facility] Last Admin: 01/09/20 09:41 Dose: Not Given Documented by: Heparin Sodium (Porcine) (Heparin) 5,000 unit SUB-Q Q8HR [facility] Last Admin: 01/09/20 06:07 Dose: 5,000 unit Documented by: Magnesium Hydroxide (Milk Of Magnesia) 30 ml PO Q4H PRN PRN Reason: Constipation Methylprednisolone Sodium Succinate (Solu-Medrol) 40 mg IV Q8HR [facility] Last Admin: 01/09/20 06:06 Dose: 40 mg Documented by: Sodium Chloride (Sodium Chloride Flush Syringe 10 Ml) 10 ml IV BID [facility] Last Admin: 01/09/20 11:34 Dose: 10 ml Documented by: Sodium Chloride (Sodium Chloride Flush Syringe 10 Ml) 10 ml IV PRN PRN PRN Reason: LINE FLUSH Physical Examination Vital signs: Vital Signs Pulse Ox 97 01/08/20 15:23 Results - Laboratory Findings CBC and BMP: 01/09/20 05:49 01/09/20 05:49 ABG ABG pH 7.481 pH Units (7.350-7.450) H 01/08/20 16:53 ABG pCO2 30.0 mm Hg 01/08/20 16:53 ABG pO2 87.2 mm Hg (80.0-90.0) 01/08/20 16:53 ABG O2 Saturation 97.3 % (95.0-99.0) 01/08/20 16:53 PT/INR, D-dimer PT 12.9 Sec. (12.2-14.9) 01/09/20 05:49 INR 0.95 (0.87-1.13) 01/09/20 05:49 D-Dimer 293.08 ng/mlDDU (0-234) H 01/08/20 15:46 Abnormal lab findings: Abnormal Labs 01/08/20 01/08/20 01/08/20 15:46 15:46 15:46 MCH 27 L Lymph % (Auto) [place] % (Auto) 9.1 H Lymph # Seg Neutrophils % D-Dimer 293.08 H ABG pH Glucose 117 H Lactate Dehydrogenase Total Creatine Kinase 143 H 01/08/20 01/08/20 01/09/20 15:46 16:53 05:49 MCH 27 L Lymph % (Auto) 7.0 L [place] % (Auto) Lymph # 0.6 L Seg Neutrophils % 90.0 H D-Dimer ABG pH 7.481 H Glucose 118 H Lactate Dehydrogenase 198 H Total Creatine Kinase 01/09/20 05:49 MCH Lymph % (Auto) [place] % (Auto) Lymph # Seg Neutrophils % D-Dimer ABG pH Glucose 149 H Lactate Dehydrogenase Total Creatine Kinase
[2020-01-09] MEDS ORDERED: MORPHINE 4 MG/1 ML INJ IV ONE (16:10)
[2020-01-09] MEDS ORDERED: ONDANSETRON 4 MG/2 ML INJ IV ONE (16:11)
[2020-01-09] MEDS ORDERED: ONDANSETRON 4 MG/2 ML INJ ONE (16:17)
[2020-01-09] MEDS ORDERED: MORPHINE 4 MG/1 ML INJ ONE (16:17)
[2020-01-09] MEDS ORDERED: MELATONIN 5 MG TAB PO ONE (23:51)
[2020-01-10] MEDS ORDERED: MELATONIN 5 MG TAB PO ONE (00:15)
[2020-01-10] MEDS ORDERED: ZOLPIDEM 5 MG TAB PO ONE (01:00)
[2020-01-10] MEDS: ALBUTEROL 2.5 MG/3 ML NEBU IH SCH ×4 (02:45→21:11)
[2020-01-10] MEDS: methylPREDNISolone Sod Succinate 40 MG/1 ML INJ IV SCH ×3 (05:47→22:21)
[2020-01-10] MEDS: HEPARIN 5,000 UNIT/1 ML VIAL SUB-Q SCH ×3 (05:48→22:21)
[2020-01-10] MEDS ORDERED: NON-FORMULARY EACH (Oxycodone Hcl [Oxycodone] 10 MG) PO PRN (09:48)
[2020-01-10] MEDS ORDERED: MECLIZINE 25 MG TAB PO PRN (09:48)
[2020-01-10] MEDS ORDERED: ALBUTEROL 8.5 GM MDI INHALATION IH PRN (09:48)
[2020-01-10] MEDS ORDERED: amLODIPine 10 MG TAB PO PRN (09:48)
[2020-01-10] MEDS ORDERED: MORPHINE 2 MG/1 ML INJ IV PRN (09:49)
[2020-01-10] MEDS ORDERED: FLUTICASONE IH SCH (10:00)
[2020-01-10] MEDS ORDERED: SALMETEROL IH SCH (10:00)
[2020-01-10] MEDS ORDERED: ALBUTEROL 2.5 MG/3 ML NEBU IH PRN (10:24)
[2020-01-10] MEDS: oxyCODONE 5 MG TAB PO PRN ×2 (10:37→22:21)
--- NOTE | 2020-01-10 11:04 | Progress Note ---
<JERONIMO AVILES - Last Filed: 01/10/20 14:48> Assessment and Plan Assessment and Plan - Patient Problems (1) Asthma with acute exacerbation Current Visit: No Status: Acute Plan to address problem: Continue respiratory care, bronchodilator and IV steroid. oxygen supplement PRN keep O2 saturation greater or equal to 92%. cleaning matron for evaluation and recommendation. (2) HTN (hypertension) Current Visit: No Status: Chronic Plan to address problem: We will resume routine home medications as needed monitor vital signs closely. (3) DVT prophylaxis Current Visit: No Status: Acute Plan to address problem: Patient placed on subcutaneous heparin. (4) Full code status Current Visit: Yes Status: Acute - Patient Problems (1) Elevated d-dimer Current Visit: Yes Status: Acute Plan to address problem: Covid 19 test ordered-negative trend inflammatory makers (2) Acute respiratory failure with hypoxia Current Visit: Yes Status: Acute Plan to address problem: Condition stable-possible discharge tomorrow -on room air with 02 sat 97% Continue to monitor 02 sat, ABG prn Oxygen supplement PRN VQ scan -shows low probability for PE Chest x-ray shows no acute finding Covid test -negative Subjective Date of service: 01/10/20 Interval history: Patient seen-on room air at bedside. She denies chest pain and shortness of breath. Mild wheezing noted. patient also reports intermitent cough. reviewed lab, mar, and v/s VQ scan -shows low probability for PE Chest x-ray shows no acute finding Objective - Constitutional Vitals: Vital Signs - 12hr 01/09/20 01/10/20 01/10/20 23:36 04:44 04:55 Temperature 97.8 F 98.1 F Pulse Rate 74 63 73 Respiratory 20 20 Rate Blood Pressure 140/79 133/66 O2 Sat by Pulse 94 96 Oximetry General appearance: Present: no acute distress, well-nourished - EENT Eyes: PERRL, EOM intact ENT: hearing intact, clear oral mucosa Ears: bilateral: normal - Neck Neck: supple, normal ROM - Respiratory Respiratory effort: normal Respiratory: bilateral: CTA - Breasts Breasts: normal - Cardiovascular Rhythm: regular Heart Sounds: Present: S1 & S2. Absent: gallop, rub Extremities: pulses intact, No edema, normal color, Full ROM - Gastrointestinal General gastrointestinal: Present: soft, non-tender, non-distended, normal bowel sounds - Genitourinary Female genitourinary: normal - Integumentary Integumentary: clear, warm, dry - Musculoskeletal Musculoskeletal: 1, strength equal bilaterally - Neurologic Neurologic: moves all extremities - Psychiatric Psychiatric: memory intact, appropriate mood/affect, intact judgment & insight - Labs CBC & Chem 7: 01/09/20 05:49 01/09/20 05:49 Labs: Abnormal lab results 01/09/20 Range/Units 22:49 POC Glucose 121 H (70-105) HEART Score - HEART Score Troponin: Troponin T < 0.010 ng/mL (0.00-0.029) 01/08/20 15:46 <YUKO SANTOS - Last Filed: 01/10/20 16:33> Assessment and Plan I saw and evaluated the patient. I agree with the findings and the plan of care as documented in the Nurse Practitioner's~note, If clinically remains stable possible d/c tomorrow am Objective - Constitutional Vitals: Vital Signs - 12hr 01/10/20 01/10/20 01/10/20 04:44 04:55 13:48 Temperature 98.1 F Pulse Rate 63 73 Pulse Rate [ 82 Anterior Bilateral Throughout] Respiratory 20 Rate Respiratory 20 Rate [Anterior Bilateral Throughout] Blood Pressure 133/66 O2 Sat by Pulse 96 Oximetry - Labs CBC & Chem 7: 01/09/20 05:49 01/09/20 05:49 Labs: Abnormal lab results 01/09/20 Range/Units 22:49 POC Glucose 121 H (70-105) HEART Score - HEART Score Troponin: Troponin T < 0.010 ng/mL (0.00-0.029) 01/08/20 15:46
[2020-01-10] MEDS: ARFORMOTEROL 15 MCG/2 ML NEBU IH SCH ×2 (13:19→21:11)
[2020-01-10] MEDS: BUDESONIDE 0.5 MG/2 ML NEBU IH SCH ×2 (13:19→21:11)
[2020-01-10] MEDS: GABAPENTIN 300 MG CAP PO SCH ×2 (14:46→22:21)
--- NOTE | 2020-01-10 17:29 | Progress Note ---
Subjective Date of service: 01/10/20 Interval history: Patient is seen today for: Seen and examined at bedside; 24hour events reviewed; nursing and respiratory care staff consulted; no adverse overnight events reported to me; Objective Vital Signs - 12hr 01/10/20 13:48 Pulse Rate [ 82 Anterior Bilateral Throughout] Respiratory 20 Rate [Anterior Bilateral Throughout] CBC and BMP: 01/09/20 05:49 01/09/20 05:49 ABG, PT/INR, D-dimer: ABG ABG pH 7.481 pH Units (7.350-7.450) H 01/08/20 16:53 ABG pCO2 30.0 mm Hg 01/08/20 16:53 ABG pO2 87.2 mm Hg (80.0-90.0) 01/08/20 16:53 ABG O2 Saturation 97.3 % (95.0-99.0) 01/08/20 16:53 PT/INR, D-dimer PT 12.9 Sec. (12.2-14.9) 01/09/20 05:49 INR 0.95 (0.87-1.13) 01/09/20 05:49 D-Dimer 293.08 ng/mlDDU (0-234) H 01/08/20 15:46 Abnormal lab findings: Abnormal Labs 01/08/20 01/08/20 01/08/20 15:46 15:46 15:46 MCH 27 L Lymph % (Auto) [place] % (Auto) 9.1 H Lymph # Seg Neutrophils % D-Dimer 293.08 H ABG pH Glucose 117 H POC Glucose Lactate Dehydrogenase Total Creatine Kinase 143 H 01/08/20 01/08/20 01/09/20 15:46 16:53 05:49 MCH 27 L Lymph % (Auto) 7.0 L [place] % (Auto) Lymph # 0.6 L Seg Neutrophils % 90.0 H D-Dimer ABG pH 7.481 H Glucose 118 H POC Glucose Lactate Dehydrogenase 198 H Total Creatine Kinase 01/09/20 01/09/20 05:49 22:49 MCH Lymph % (Auto) [place] % (Auto) Lymph # Seg Neutrophils % D-Dimer ABG pH Glucose 149 H POC Glucose 121 H Lactate Dehydrogenase Total Creatine Kinase
[2020-01-10] MEDS ORDERED: ONDANSETRON 4 MG/2 ML INJ IV PRN (21:52)
[2020-01-11] MEDS: ALBUTEROL 2.5 MG/3 ML NEBU IH SCH ×3 (02:00→16:45)
[2020-01-11 04:43] VITALS: BP 148/74
[2020-01-11] MEDS: methylPREDNISolone Sod Succinate 40 MG/1 ML INJ IV SCH (05:51)
[2020-01-11] MEDS: HEPARIN 5,000 UNIT/1 ML VIAL SUB-Q SCH (05:51)
[2020-01-11] MEDS: GABAPENTIN 300 MG CAP PO SCH (05:51)
[2020-01-11] MEDS: BUDESONIDE 0.5 MG/2 ML NEBU IH SCH (09:46)
[2020-01-11] MEDS: ARFORMOTEROL 15 MCG/2 ML NEBU IH SCH (09:47)
--- NOTE | 2020-01-11 10:15 | Discharge Summary ---
<YUKO SANTOS - Last Filed: 01/11/20 11:23> Providers - Providers Date of Admission: 01/08/20 22:06 Attending physician: YUKO SANTOS 01/08/20 23:04 Consult to Dietitian/Nutrition [CONS] Routine Physician Instructions: Reason For Exam: Reason for Consult: Diet education Consult to Physician [CONS] Routine Comment: Consulting Provider: SYDNEY MOBLEY Physician Instructions: Reason For Exam: STATUS ASTHMATICUS Primary care physician: PERIANESTHESIA RN Hospitalization Condition: Stable Disposition: DC-01 TO HOME OR SELFCARE Exam - Constitutional Vitals: Temp Pulse Resp BP Pulse Ox 97.9 F 66 16 148/74 94 01/11/20 04:42 01/11/20 04:42 01/11/20 04:42 01/11/20 04:42 01/11/20 04:42 Plan Follow up with: PRIMARY CARE, [Primary Care Provider] - 3-5 Days Forms: Discharge Signature Page, Work/School Release Form Prescriptions: Gabapentin 300 mg PO Q8HR 10 Days #30 cap guaiFENesin ER [Mucinex ER] 600 mg PO Q12H #14 tablet.er Prednisone [predniSONE 10 mg (6-Day Pack, 21 Tabs)] 10 mg PO .TAPER #1 tab.ds.pk <JERONIMO AVILES - Last Filed: 01/11/20 14:40> Providers - Providers Date of Admission: 01/08/20 22:06 Date of discharge: 01/11/20 Attending physician: YUKO SANTOS 01/08/20 23:04 Consult to Dietitian/Nutrition [CONS] Routine Physician Instructions: Reason For Exam: Reason for Consult: Diet education Consult to Physician [CONS] Routine Comment: Consulting Provider: SYDNEY MOBLEY Physician Instructions: Reason For Exam: STATUS ASTHMATICUS Primary care physician: PERIANESTHESIA RN Hospitalization - Discharge Diagnoses (1) Elevated d-dimer Status: Acute Comment: patient negative for covid 19 (2) Acute respiratory failure with hypoxia Status: Acute Comment: Resolved. 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 Absent: rub, click - Extremities Extremities: pulses symmetrical, No edema Peripheral Pulses: within normal limits - Abdominal General gastrointestinal: Present: soft, non-tender, non-distended, normal bowel sounds Female genitourinary: Present: normal - Integumentary Integumentary: Present: clear, warm, dry - Musculoskeletal Musculoskeletal: gait normal, strength equal bilaterally - Psychiatric Psychiatric: appropriate mood/affect, intact judgment & insight - Neurologic Neurologic: CNII-XII intact, moves all extremities Plan Diet: low fat, low cholesterol, low salt, diabetic, low carbohydrate
--- NOTE | 2020-01-11 12:22 | Event Note ---
Date: 01/11/20 Asked to see patient for Critical Care however she was downgraded. 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 - reduced bilateral air movement - prolonged expiratory phase - no active wheezing but coughing with forced exhalations A&P: - RN asked to ensure 1 week f/up with her stud beef cattle farmer post discharge
== END 2020-01-11 16:25 | disposition home or self-care (01) | DRG 189 ==
LOC: ED 15:07 → IMCU 22:06 → 4A 01-09 16:22
PROVIDERS: ADMIT Internal Medicine Geriatric Medicine; ATTEND Internal Medicine
PROC: 4A033R1 Measurement of Arterial Saturation, Peripheral, Percutaneous Approach (ICD-10-PCS; principal; 2020-01-08)
PROC: 5A09357 Assistance with Respiratory Ventilation, Less than 24 Consecutive Hours, Continuous Positive Airway Pressure (ICD-10-PCS; 2020-01-08)
DX: J96.01 Acute respiratory failure with hypoxia (principal); J45.901 Unspecified asthma with (acute) exacerbation; I10 Essential (primary) hypertension; E11.9 Type 2 diabetes mellitus without complications; Z79.899 Other long term (current) drug therapy; Z03.818 Encounter for observation for suspected exposure to other biological agents ruled out; Z91.010 Allergy to peanuts; Z86.711 Personal history of pulmonary embolism
CPT/HCPCS: 36415; 71045; 78580; 80048; 80076; 82550; 82553; 82728; 82803; 82947; 82962; 83615; 83735; 83880; 84145; 84484; 85025; 85379; 85610; 85730; 86140; 87400; 93005; 94640; 94644; G0378; 87502; A9540; J1170; J1644; J1885; J2060; J2270; J2405; J2920; J2930; J3475; J7030; U0003-CS

== ENCOUNTER 2020-03-23 22:43 | Emergency (ER) | payer SELFPAY ==
[2020-03-23] MEDS ORDERED: methylPREDNISolone Sod Succinate 125 MG/2 ML INJ IM ONE (23:26)
[2020-03-23] MEDS ORDERED: ACETAMINOPHEN 500 MG TAB PO ONE (23:26)
[2020-03-23] MEDS ORDERED: KETOROLAC 30 MG/1 ML INJ IM ONE (23:26)
[2020-03-24 00:28] VITALS: BP 155/85
--- NOTE | 2020-03-24 00:30 | Emergency Department Report ---
ED Extremity Problem HPI - General Chief complaint: Extremity Injury, Lower Stated complaint: RIGHT FOOT PAIN Source: patient Mode of arrival: Ambulatory Limitations: No Limitations - History of Present Illness Initial comments: Patient is a 59-year-old -[place] female with a history of hypertension, steroid-induced diabetes, PE, asthma, hepatitis C, kidney stones, and chronic low back pain who presents to the ED with complaint of acute onset persistent severe nontraumatic right plantar foot pain for the last 2 weeks. Patient states that the pain is worse with ambulation or palpation of the right plantar foot. Patient states that she has been taking aejs-rco-iugyjbf pain medications at home with no relief. Patient states that the pain is especially gotten worse in the last 2 days. Patient denies fall, traumatic injury, dizziness, syncope, chest pain, shortness of breath, fever, chills, cough, headache, back pain, numbness and tingling or weakness of lower extremities bilaterally. MD Complaint: extremity pain (right plantar foot pain), joint paint (Right plantar foot pain) -: Sudden, week(s) (2) Location: right (foot), lower extremity (right plantar foot pain) History of Same: Yes -: Yes arthralgia (right plnatar foot) Severity scale (0 -10): 4 Quality: burning, aching, sharp, constant Consistency: constant Improves with: nothing Worsens with: weight bearing, walking, palpation Associated Symptoms: denies other symptoms, arthralgias (Palpable right plantar foot pain). denies: chest pain, shortness of breath, fever, myalgias - Related Data Home Medications Medication Instructions Recorded Confirmed Last Taken Fluticasone/Salmeterol [Advair 1 puff IH DAILY 01/09/20 01/09/20 01/07/20 Diskus 500-50 mcg] Oxycodone HCl [oxyCODONE] 10 mg PO BID PRN 01/09/20 01/09/20 Unknown amLODIPine 10 mg PO QDAY PRN 01/09/20 01/09/20 01/05/20 Previous Rx's Medication Instructions Recorded Last Taken Type Meclizine [Antivert] 25 mg PO TID PRN #20 tablet 06/18/19 01/02/20 Rx Albuterol Sulfate [Proventil Hfa] 2 puff IH Q4HR PRN #1 hfa.aer.ad 01/04/20 01/07/20 Rx ALBUTEROL NEB's [Proventil 0.083% 2.5 mg IH Q4HRT PRN nebu 01/11/20 Unknown Rx NEBS] ALBUTEROL NEB's [Proventil 0.083% 2.5 mg IH Q6HRT nebu 01/11/20 Unknown Rx NEBS] Acetaminophen [Acetaminophen TAB] 650 mg PO Q6H PRN tablet 01/11/20 Unknown Rx Arformoterol Nebu [Brovana Nebu] 15 mcg IH Q12HRT ml 01/11/20 Unknown Rx Budesonide [Pulmicort Respules] 1 mg IH Q12HRT nebu 01/11/20 Unknown Rx Gabapentin 300 mg PO Q8HR 10 Days #30 cap 01/11/20 Unknown Rx Magnesium Hydroxide [Milk of 30 ml PO Q4H PRN oral.liqd 01/11/20 Unknown Rx Magnesia] Prednisone [predniSONE 10 mg 10 mg PO .TAPER #1 tab.ds.pk 01/11/20 Unknown Rx (6-Day Pack, 21 Tabs)] guaiFENesin ER [Mucinex ER] 600 mg PO Q12H #14 tablet.er 01/11/20 Unknown Rx Naproxen 500 mg PO Q12H PRN #30 tablet 03/24/20 Unknown Rx predniSONE [Deltasone] 60 mg PO QDAY #15 tab 03/24/20 Unknown Rx traMADoL [Ultram] 50 mg PO Q6HR PRN #12 tablet 03/24/20 Unknown Rx Allergies Allergy/AdvReac Type Severity Reaction Status Date / Time dexamethasone [From Decadron] Allergy Anaphylaxis Verified 09/07/18 15:52 dexamethasone sod phosphate Allergy Anaphylaxis Verified 09/07/18 15:52 [From Decadron] epinephrine Allergy Rash Verified 09/07/18 15:52 ipratropium bromide Allergy Anaphylaxis Verified 09/07/18 15:52 [From Atrovent] peanut Allergy Anaphylaxis Verified 09/07/18 15:52 ED Review of Systems ROS: Stated complaint: RIGHT FOOT PAIN Other details as noted in HPI Constitutional: denies: chills, fever Eyes: denies: eye pain, eye discharge, vision change ENT: denies: ear pain, throat pain Respiratory: denies: cough, shortness of breath, wheezing Cardiovascular: denies: chest pain, palpitations Endocrine: no symptoms reported Gastrointestinal: denies: abdominal pain, nausea, diarrhea Genitourinary: denies: urgency, dysuria, discharge Musculoskeletal: arthralgia (right planta foot pain), myalgia. denies: back pain, joint swelling Skin: denies: rash, lesions Neurological: denies: headache, weakness, paresthesias Psychiatric: denies: anxiety, depression Hematological/Lymphatic: denies: easy bleeding, easy bruising ED Past Medical Hx - Past Medical History Hx Hypertension: Yes Hx Congestive Heart Failure: No Hx Diabetes: Yes (steroid induced) Hx Pulmonary Embolism: Yes Hx Liver Disease: Yes (HEPATITIS C) Hx Sickle Cell Disease: No Hx Kidney Stones: Yes Hx Asthma: Yes (5 intubation) Hx Tuberculosis: No (Exposure) Hx HIV: No Additional medical history: intubations for asthma, lumbar radiculopathy - Surgical History Hx Open Heart Surgery: No Hx Cholecystectomy: No Hx Appendectomy: No Hx Breast Surgery: No Additional Surgical History: neck surgery, pain pump. States previous to admission and had an exercise stress test. States that test was terminated secondary to asthma. device in back. Pain implant. L4-L5, S1 fusion. right ankle surgery - Social History Smoking Status: Never Smoker Substance Use Type: None - Medications Home Medications: Home Medications Medication Instructions Recorded Confirmed Last Taken Type Meclizine [Antivert] 25 mg PO TID PRN #20 tablet 06/18/19 01/09/20 01/02/20 Rx Albuterol Sulfate [Proventil Hfa] 2 puff IH Q4HR PRN #1 hfa.aer.ad 01/04/20 01/09/20 01/07/20 Rx Fluticasone/Salmeterol [Advair 1 puff IH DAILY 01/09/20 01/09/20 01/07/20 History Diskus 500-50 mcg] Oxycodone HCl [oxyCODONE] 10 mg PO BID PRN 01/09/20 01/09/20 Unknown History amLODIPine 10 mg PO QDAY PRN 01/09/20 01/09/20 01/05/20 History ALBUTEROL NEB's [Proventil 0.083% 2.5 mg IH Q4HRT PRN nebu 01/11/20 Unknown Rx NEBS] ALBUTEROL NEB's [Proventil 0.083% 2.5 mg IH Q6HRT nebu 01/11/20 Unknown Rx NEBS] Acetaminophen [Acetaminophen TAB] 650 mg PO Q6H PRN tablet 01/11/20 Unknown Rx Arformoterol Nebu [Brovana Nebu] 15 mcg IH Q12HRT ml 01/11/20 Unknown Rx Budesonide [Pulmicort Respules] 1 mg IH Q12HRT nebu 01/11/20 Unknown Rx Gabapentin 300 mg PO Q8HR 10 Days #30 cap 01/11/20 Unknown Rx Magnesium Hydroxide [Milk of 30 ml PO Q4H PRN oral.liqd 01/11/20 Unknown Rx Magnesia] Prednisone [predniSONE 10 mg 10 mg PO .TAPER #1 tab.ds.pk 01/11/20 Unknown Rx (6-Day Pack, 21 Tabs)] guaiFENesin ER [Mucinex ER] 600 mg PO Q12H #14 tablet.er 01/11/20 Unknown Rx Naproxen 500 mg PO Q12H PRN #30 tablet 03/24/20 Unknown Rx predniSONE [Deltasone] 60 mg PO QDAY #15 tab 03/24/20 Unknown Rx traMADoL [Ultram] 50 mg PO Q6HR PRN #12 tablet 03/24/20 Unknown Rx ED Physical Exam - General Limitations: No Limitations General appearance: alert, in no apparent distress - Head Head exam: Present: atraumatic, normocephalic, normal inspection - Eye Eye exam: Present: normal appearance, PERRL, EOMI Pupils: Present: normal accommodation - ENT ENT exam: Present: normal exam, normal orophraynx, mucous membranes moist, TM's normal bilaterally, normal external ear exam - Neck Neck exam: Present: normal inspection, full ROM - Respiratory Respiratory exam: Present: normal lung sounds bilaterally. Absent: respiratory distress, wheezes, rales, rhonchi, stridor, chest wall tenderness, accessory muscle use, decreased breath sounds, prolonged expiratory - Cardiovascular Cardiovascular Exam: Present: regular rate, normal rhythm, normal heart sounds. Absent: systolic murmur, diastolic murmur, rubs, gallop - GI/Abdominal GI/Abdominal exam: Present: soft, normal bowel sounds. Absent: distended, tenderness, guarding, hyperactive bowel sounds, hypoactive bowel sounds, organomegaly - Extremities Exam Extremities exam: Present: normal inspection, full ROM, tenderness (Palpable right plantar foot tenderness), normal capillary refill - Back Exam Back exam: Present: normal inspection, full ROM. Absent: tenderness, CVA tenderness (R), CVA tenderness (L), muscle spasm, paraspinal tenderness, vertebral tenderness - Neurological Exam Neurological exam: Present: alert, oriented X3, CN II-XII intact, normal gait, reflexes normal - Psychiatric Psychiatric exam: Present: normal affect, normal mood - Skin Skin exam: Present: warm, dry, intact, normal color. Absent: rash ED Medical Decision Making - Medical Decision Making This is a 59-year-old -[place] female with a history of hypertension, steroid-induced diabetes, PE, asthma, hepatitis C, kidney stones, and chronic low back pain who presents to the ED with complaint of acute onset persistent severe nontraumatic right plantar foot pain for the last 2 weeks. Patient states that the pain is worse with ambulation or palpation of the right plantar foot. Patient states that she has been taking wczh-axi-hydwfzr pain medications at home with no relief. Patient states that the pain is especially gotten worse in the last 2 days. In the ED, patient is alert and oriented x3 and is not in any distress but appears to be in pain. Patient was treated for pain in the ED on reevaluation, patient's pain is moderately controlled medications. Patient was discharged home on more pain medications and advised to follow-up with her primary care physician in 5 to 7 days for reevaluation or return to the ED immediately if symptoms get worse. - Differential Diagnosis Plantar fasciitis; Muscle strain; Tendonitis; Osteoarthritis Critical care attestation.: If time is entered above; I have spent that time in minutes in the direct care of this critically ill patient, excluding procedure time. ED Disposition Clinical Impression: Plantar fasciitis of right foot, Tendinitis of right foot Disposition: DC-01 TO HOME OR SELFCARE Is pt being admited?: No Does the pt Need Aspirin: No Condition: Stable Instructions: Arthralgia (ED), Plantar Fasciitis (ED), Tendinitis (ED) Additional Instructions: Your symptoms are due to inflammation of the ligaments of your foot. Take medication with food, drink plenty of fluids and follow-up with your primary care physician in 5 to 7 days for reevaluation. Return to the ED immediately if symptoms get worse. Prescriptions: predniSONE [Deltasone] 60 mg PO QDAY #15 tab Naproxen 500 mg PO Q12H PRN #30 tablet PRN Reason: Pain , Severe (7-10) traMADoL [Ultram] 50 mg PO Q6HR PRN #12 tablet PRN Reason: Pain Referrals: [facility] [Provider Group] - 7-10 days Forms: Work/School Release Form(ED) Time of Disposition: 00:32 Print Language: [place]
== END 2020-03-24 00:43 | disposition home or self-care (01) ==
LOC: ED 22:43
DX: M72.2 Plantar fascial fibromatosis (principal); M77.8 Other enthesopathies, not elsewhere classified; I10 Essential (primary) hypertension; E11.9 Type 2 diabetes mellitus without complications; J45.909 Unspecified asthma, uncomplicated; Z88.8 Allergy status to other drugs, medicaments and biological substances; Z98.890 Other specified postprocedural states; Z79.899 Other long term (current) drug therapy
CPT/HCPCS: 96372; 99282; J1885; J2930

== ENCOUNTER 2020-04-18 15:54 | Emergency (ER) | payer SELFPAY ==
[2020-04-18 16:46] VITALS: BP 137/74
--- NOTE | 2020-04-18 17:06 | XRay Report ---
RIGHT FOOT 3 VIEW(S) INDICATION / CLINICAL INFORMATION: right foot pain COMPARISON: None available. FINDINGS: BONES / JOINT(S): No acute fracture or subluxation. No significant arthritis. Os peroneum is noted. SOFT TISSUES: Generalized soft tissue swelling of the distal leg. ADDITIONAL FINDINGS: None. Signer Name: Vinh Hedrick MD Signed: 04/18/2020 5:02 PM Workstation Name: [employer] [id number]
--- NOTE | 2020-04-18 17:13 | Emergency Department Report ---
ED Lower Extremity HPI - General Chief Complaint: Extremity Problem,Nontraumatic Stated Complaint: RT FOOT PAIN Time Seen by Provider: 04/18/20 16:10 Source: patient Mode of arrival: Ambulatory Limitations: No Limitations - History of Present Illness Initial Comments: This is a 59-year-old female nontoxic, well nourished in appearance, no acute signs of distress presents to the ED with c/o of right foot pain 1 week. Patient denies any injuries or trauma. Patient denies any numbness, tingling, fever, chills, nausea, vomiting, chest pain, shortness of breath, headache, stiff neck. Patient denies any joint swelling or joint redness. Patient denies decreased range of motion. Patient stated has decreased gait due to pain. MD Complaint: foot injury -: days(s) Injury: Foot: Right Severity: mild Severity scale (0 -10): 8 Improves With: immobilization Worsens With: weight bearing, movement, palpation Associated Symptoms: swelling, able to partially bear weight. denies: snap/pop sensation, numbness, tingling, unable to bear weight - Related Data Home Medications Medication Instructions Recorded Confirmed Last Taken Fluticasone/Salmeterol [Advair 1 puff IH DAILY 01/09/20 01/09/20 01/07/20 Diskus 500-50 mcg] Oxycodone HCl [oxyCODONE] 10 mg PO BID PRN 01/09/20 01/09/20 Unknown amLODIPine 10 mg PO QDAY PRN 01/09/20 01/09/20 01/05/20 Previous Rx's Medication Instructions Recorded Last Taken Type Meclizine [Antivert] 25 mg PO TID PRN #20 tablet 06/18/19 01/02/20 Rx Albuterol Sulfate [Proventil Hfa] 2 puff IH Q4HR PRN #1 hfa.aer.ad 01/04/20 01/07/20 Rx ALBUTEROL NEB's [Proventil 0.083% 2.5 mg IH Q4HRT PRN nebu 01/11/20 Unknown Rx NEBS] ALBUTEROL NEB's [Proventil 0.083% 2.5 mg IH Q6HRT nebu 01/11/20 Unknown Rx NEBS] Acetaminophen [Acetaminophen TAB] 650 mg PO Q6H PRN tablet 01/11/20 Unknown Rx Arformoterol Nebu [Brovana Nebu] 15 mcg IH Q12HRT ml 01/11/20 Unknown Rx Budesonide [Pulmicort Respules] 1 mg IH Q12HRT nebu 01/11/20 Unknown Rx Gabapentin 300 mg PO Q8HR 10 Days #30 cap 01/11/20 Unknown Rx Magnesium Hydroxide [Milk of 30 ml PO Q4H PRN oral.liqd 01/11/20 Unknown Rx Magnesia] Prednisone [predniSONE 10 mg 10 mg PO .TAPER #1 tab.ds.pk 01/11/20 Unknown Rx (6-Day Pack, 21 Tabs)] guaiFENesin ER [Mucinex ER] 600 mg PO Q12H #14 tablet.er 01/11/20 Unknown Rx Naproxen 500 mg PO Q12H PRN #30 tablet 03/24/20 Unknown Rx predniSONE [Deltasone] 60 mg PO QDAY #15 tab 03/24/20 Unknown Rx traMADoL [Ultram] 50 mg PO Q6HR PRN #12 tablet 03/24/20 Unknown Rx Naproxen 500 mg PO Q12H PRN #12 tablet 04/18/20 Unknown Rx traMADoL [Ultram 50 MG tab] 50 mg PO Q6HR PRN #6 tablet 04/18/20 Unknown Rx Allergies Allergy/AdvReac Type Severity Reaction Status Date / Time dexamethasone [From Decadron] Allergy Anaphylaxis Verified 09/07/18 15:52 dexamethasone sod phosphate Allergy Anaphylaxis Verified 09/07/18 15:52 [From Decadron] epinephrine Allergy Rash Verified 09/07/18 15:52 ipratropium bromide Allergy Anaphylaxis Verified 09/07/18 15:52 [From Atrovent] peanut Allergy Anaphylaxis Verified 09/07/18 15:52 ED Review of Systems ROS: Stated complaint: RT FOOT PAIN Other details as noted in HPI Constitutional: denies: chills, fever Eyes: denies: eye pain, eye discharge, vision change ENT: denies: ear pain, throat pain Respiratory: denies: cough, shortness of breath, wheezing Cardiovascular: denies: chest pain, palpitations Endocrine: no symptoms reported Gastrointestinal: denies: abdominal pain, nausea, diarrhea Genitourinary: denies: urgency, dysuria, discharge Musculoskeletal: denies: back pain, joint swelling, arthralgia Skin: denies: rash, lesions Neurological: denies: headache, weakness, paresthesias Psychiatric: denies: anxiety, depression Hematological/Lymphatic: denies: easy bleeding, easy bruising ED Past Medical Hx - Past Medical History Previous Medical History?: Yes Hx Hypertension: Yes Hx Congestive Heart Failure: No Hx Diabetes: Yes (steroid induced) Hx Pulmonary Embolism: Yes Hx Liver Disease: Yes (HEPATITIS C) Hx Sickle Cell Disease: No Hx Kidney Stones: Yes Hx Asthma: Yes (5 intubation) Hx Tuberculosis: No (Exposure) Hx HIV: No Additional medical history: intubations for asthma, lumbar radiculopathy - Surgical History Past Surgical History?: Yes Hx Open Heart Surgery: No Hx Cholecystectomy: No Hx Appendectomy: No Hx Breast Surgery: No Additional Surgical History: neck surgery, pain pump. States previous to admission and had an exercise stress test. States that test was terminated secondary to asthma. device in back. Pain implant. L4-L5, S1 fusion. right ankle surgery - Social History Smoking Status: Never Smoker Substance Use Type: None - Medications Home Medications: Home Medications Medication Instructions Recorded Confirmed Last Taken Type Meclizine [Antivert] 25 mg PO TID PRN #20 tablet 06/18/19 01/09/20 01/02/20 Rx Albuterol Sulfate [Proventil Hfa] 2 puff IH Q4HR PRN #1 hfa.aer.ad 01/04/20 01/09/20 01/07/20 Rx Fluticasone/Salmeterol [Advair 1 puff IH DAILY 01/09/20 01/09/20 01/07/20 Hi story Diskus 500-50 mcg] Oxycodone HCl [oxyCODONE] 10 mg PO BID PRN 01/09/20 01/09/20 Unknown History amLODIPine 10 mg PO QDAY PRN 01/09/20 01/09/20 01/05/20 History ALBUTEROL NEB's [Proventil 0.083% 2.5 mg IH Q4HRT PRN nebu 01/11/20 Unknown Rx NEBS] ALBUTEROL NEB's [Proventil 0.083% 2.5 mg IH Q6HRT nebu 01/11/20 Unknown Rx NEBS] Acetaminophen [Acetaminophen TAB] 650 mg PO Q6H PRN tablet 01/11/20 Unknown Rx Arformoterol Nebu [Brovana Nebu] 15 mcg IH Q12HRT ml 01/11/20 Unknown Rx Budesonide [Pulmicort Respules] 1 mg IH Q12HRT nebu 01/11/20 Unknown Rx Gabapentin 300 mg PO Q8HR 10 Days #30 cap 01/11/20 Unknown Rx Magnesium Hydroxide [Milk of 30 ml PO Q4H PRN oral.liqd 01/11/20 Unknown Rx Magnesia] Prednisone [predniSONE 10 mg 10 mg PO .TAPER #1 tab.ds.pk 01/11/20 Unknown Rx (6-Day Pack, 21 Tabs)] guaiFENesin ER [Mucinex ER] 600 mg PO Q12H #14 tablet.er 01/11/20 Unknown Rx Naproxen 500 mg PO Q12H PRN #30 tablet 03/24/20 Unknown Rx predniSONE [Deltasone] 60 mg PO QDAY #15 tab 03/24/20 Unknown Rx traMADoL [Ultram] 50 mg PO Q6HR PRN #12 tablet 03/24/20 Unknown Rx Naproxen 500 mg PO Q12H PRN #12 tablet 04/18/20 Unknown Rx traMADoL [Ultram 50 MG tab] 50 mg PO Q6HR PRN #6 tablet 04/18/20 Unknown Rx ED Physical Exam - General Limitations: No Limitations General appearance: alert, in no apparent distress - Head Head exam: Present: atraumatic, normocephalic - Eye Eye exam: Present: normal appearance - Neck Neck exam: Present: normal inspection, full ROM - Respiratory Respiratory exam: Absent: respiratory distress - Cardiovascular Cardiovascular Exam: Present: regular rate - Extremities Exam Extremities exam: Present: normal inspection, full ROM, tenderness, normal capillary refill. Absent: joint swelling - Expanded Lower Extremity Exam Right Hip exam: Present: normal inspection, full ROM. Absent: tenderness, swelling Upper Leg exam: Present: normal inspection, full ROM. Absent: tenderness, swelling Knee exam: Present: normal inspection, full ROM. Absent: tenderness, swelling Lower Leg exam: Present: normal inspection, full ROM. Absent: tenderness, swelling Ankle exam: Present: normal inspection, full ROM. Absent: tenderness, swelling Foot/Toe exam: Present: full ROM, tenderness, swelling. Absent: abrasion, laceration, ecchymosis, deformity, crepidus, dislocation, erythema, amputation, puncture wound, foreign body, calcaneal tenderness, tenderness at base of 5th metatarsal, nail avulsion, subungual hematoma Neuro vascular tendon exam: Present: no vascular compromise Gait: Positive: observed and limited by pain 1 - pain here - Back Exam Back exam: Present: full ROM - Neurological Exam Neurological exam: Present: alert, oriented X3 - Psychiatric Psychiatric exam: Present: normal affect, normal mood - Skin Skin exam: Present: warm, dry, intact, normal color. Absent: rash ED Course Vital Signs 04/18/20 04/18/20 16:46 17:14 Temperature 98.6 F Pulse Rate 78 88 Respiratory 18 Rate Blood Pressure 137/74 [Left] O2 Sat by Pulse 98 Oximetry - Reevaluation(s) Reevaluation #1: 04/18/20 17:11 Patient is speaking in full sentences with no signs of distress noted. ED Lower Extremity MDM - Radiology Data Referring Physician: MARCOS ESPINO Patient Name: CHARLY HENDRIX Date of : 1960 Sex: Female Report Date: 2020-04-18 Report Status: Finalized [address] [address] XRay Report Signed Patient: CHARLY HENDRIX MR#: [id number] : 1960 Acct:[id number] Age/Sex: 59 / F ADM Date: 04/18/20 Loc: ED Attending Dr: Ordering Physician: MARCOS ESPINO NP Date of Service: 04/18/20 Procedure(s): XR foot 3+V RT Accession Number(s): [id number] cc: MARCOS ESPINO NP Fluoro Time In Minutes: RIGHT FOOT 3 VIEW(S) INDICATION / CLINICAL INFORMATION: right foot pain COMPARISON: None available. FINDINGS: BONES / JOINT(S): No acute fracture or subluxation. No significant arthritis. Os peroneum is noted. SOFT TISSUES: Generalized soft tissue swelling of the distal leg. ADDITIONAL FINDINGS: None. Signer Name: Vinh Barnes MD Signed: 04/18/2020 5:02 PM Workstation Name: [id number] Transcribed By: Dictated By: VINH BARNES Electronically Authenticated By: VINH BARNES Signed Date/Time: 04/18/201701 DD/ 00 TD/TT: - Medical Decision Making This is a 59-year-old female that presents with right foot strain. Patient is stable and was examined by me. I referred patient to an orthopedic doctor for further evaluation for possible MRI. X-ray has been obtained and dictated by the radiologist. Patient is notified of the x-ray report with noted by the patient. Patient does have normal gait with no tenderness and no joint swelling . No ecchymosis. no joint redness or swelling. Not warm to touch. No signs of cellulites present. Patient has a foot ortho shoe. Patient was instructed to RICE therapy. Patient is discharged with Naproxen. At time of discharge, the patient does not seem toxic or ill in appearance. No acute signs of distress noted. Patient agrees to discharge treatment plan of care. No further questions noted by the patient. Critical care attestation.: If time is entered above; I have spent that time in minutes in the direct care of this critically ill patient, excluding procedure time. ED Disposition Clinical Impression: Right foot strain Qualifiers: Encounter type: initial encounter Qualified Code(s): S96.911A - Strain of unspecified muscle and tendon at ankle and foot level, right foot, initial encounter Disposition: - TO HOME OR SELFCARE Is pt being admited?: No Does the pt Need Aspirin: No Condition: Stable Instructions: RICE Therapy for Routine Care of Injuries, Oari-vl-Fvlw, Foot Sprain Additional Instructions: Follow-up with a orthopedic doctor in 3-5 days or if symptoms worsen and continue return to emergency room as soon as possible. Prescriptions: Naproxen 500 mg PO Q12H PRN #12 tablet PRN Reason: Pain , Severe (7-10) traMADoL [Ultram 50 MG tab] 50 mg PO Q6HR PRN #6 tablet PRN Reason: Pain Referrals: PRIMARY [facility] [Referring] - 3-5 Days DEVANG BARR MD [Staff Physician] - 3-5 Days
== END 2020-04-18 17:37 | disposition home or self-care (01) ==
LOC: ED 15:54
DX: S96.911A Strain of unspecified muscle and tendon at ankle and foot level, right foot, initial encounter (principal); I10 Essential (primary) hypertension; E11.9 Type 2 diabetes mellitus without complications; J45.909 Unspecified asthma, uncomplicated; Z87.442 Personal history of urinary calculi; Z79.899 Other long term (current) drug therapy; Z88.8 Allergy status to other drugs, medicaments and biological substances; Z98.890 Other specified postprocedural states; X58.XXXA Exposure to other specified factors, initial encounter; Y93.89 Activity, other specified; Y92.89 Other specified places as the place of occurrence of the external cause; Y99.8 Other external cause status
CPT/HCPCS: 99283

== ENCOUNTER 2020-06-11 14:24 | Outpatient (CLI) | payer BC ==
--- NOTE | 2020-06-11 16:31 | XRay Report ---
RIGHT FOOT 3 VIEWS INDICATION / CLINICAL INFORMATION: RIGHT FOOT PAIN.. COMPARISON: 04/18/2020 FINDINGS: Moderate degenerative change in the first metatarsophalangeal joint. No other significant skeletal ab normality. No change from 04/18/2020 Signer Name: Damien Wilburn MD FACR Signed: 06/11/2020 4:27 PM Workstation Name: [id number]
== END 2020-06-11 14:25 | disposition home or self-care (01) ==
LOC: XRAY 14:24
PROVIDERS: ATTEND Podiatrist Foot & Ankle Surgery
DX: M19.071 Primary osteoarthritis, right ankle and foot (principal)

== ENCOUNTER 2020-10-07 12:25 | Outpatient (CLI) | payer BC ==
--- NOTE | 2020-10-07 13:36 | Cat Scan Report ---
CT head/brain wo con INDICATION: Hypertension. TECHNIQUE: Routine CT head. All CT scans at this location are performed using CT dose reduction for A LAKSHMI by means of automated exposure control. COMPARISON: CTA head 06/18/2019 FINDINGS: Intracranial: Morgan-white matter differentiation is maintained. No intracranial hemorrhage. No extra a xial collection. No hydrocephalus. No herniation. Unchanged white matter hypoattenuation seen within the right centrum ovale which could be related to remote infarction. Sinuses: Paranasal sinuses and mastoid air cells are essentially clear. Orbits: Globes are intact. Calvarium: No acute fracture. IMPRESSION: 1. No acute intracranial abnormality. Signer Name: Yg Funez MD Signed: 10/07/2020 1:32 PM Workstation Name: [id number]
== END 2020-10-07 12:26 | disposition home or self-care (01) ==
LOC: CT 12:25
PROVIDERS: ATTEND Internal Medicine
DX: I10 Essential (primary) hypertension (principal)
CPT/HCPCS: 70450

== ENCOUNTER 2020-12-11 19:17 | Emergency (ER) | payer BC ==
[2020-12-11 19:20] VITALS: BP 166/81
--- NOTE | 2020-12-11 19:25 | Event Note ---
ED Screening Note Date of service: 12/11/20 Time: 19:24 ED Screening Note: Patient complains of mild cough, nasal congestion, and shortness of breath x2 days Denies any fever or chest pain History of asthma and multiple intubations No wheezing noted on lung exam No swelling in the extremities noted She denies any recent long travel or history of DVT/PE or hemoptysis This initial assessment/diagnostic orders/clinical plan/treatment(s) is/are subject to change based on patients health status, clinical progression and re- assessment by fellow clinical providers in the ED. Further treatment and workup at subsequent clinical providers discretion. Patient/guardian urged not to elope from the ED as their condition may be serious if not clinically assessed and managed. Initial orders include: Labs Chest x-ray
[2020-12-11 19:38] LABS: Basophils % (Auto) 0.8 % (0.0-1.8); Eosinophils # (Auto) 0.1 K/mm3 (0.0-0.4); Eosinophils % (Auto) 1.8 % (0.0-4.3); Hematocrit 36.3 % (30.3-42.9); Hemoglobin 12.3 gm/dl (10.1-14.3); Lymphocytes # (Auto) 2.1 K/mm3 (1.2-5.4); Lymphocytes % (Auto) 40.1 % (13.4-35.0); Mean Corpuscular HGB Conc 34 % (30-34); Mean Corpuscular Volume 81 fl (79-97); Monocytes # (Auto) 0.5 K/mm3 (0.0-0.8); Monocytes % (Auto) 9.2 % (0.0-7.3); Platelet Count 263 K/mm3 (140-440); Red Blood Count 4.47 M/mm3 (3.65-5.03); Red Cell Distribution Width 13.9 % (13.2-15.2)
[2020-12-11 19:53] LABS: Alanine Aminotransferase 13 units/L (7-56); Albumin 4.2 g/dL (3.9-5); BUN/Creatinine Ratio 20; Blood Urea Nitrogen 16 mg/dL (7-17); Calcium 9.4 mg/dL (8.4-10.2); Hemolysis Index 9
--- NOTE | 2020-12-11 19:55 | XRay Report ---
CHEST 2 VIEWS 1940 INDICATION / CLINICAL INFORMATION: shortness of breath COMPARISON: 01/08/2020 FINDINGS: SUPPORT DEVICES: Spinal stimulator is again seen in the lower thoracic area HEART / MEDIASTINUM: No significant abnormality. LUNGS / PLEURA: No significant pulmonary or pleural abnormality. No pneumothorax. ADDITIONAL FINDINGS: No significant additional findings. IMPRESSION: No significant acute abnormality Signer Name: Bronson Batista MD Signed: 12/11/2020 7:50 PM Workstation Name: [id number]
--- NOTE | 2020-12-11 20:29 | Emergency Department Report ---
- General Chief Complaint: Upper Respiratory Infection Stated Complaint: ASTHMA Time Seen by Provider: 12/11/20 19:23 Source: patient Mode of arrival: Ambulatory Limitations: No Limitations - History of Present Illness Initial Comments: Patient is a 60-year-old -Algerian female with a history of asthma, hepatitis C, kidney stones and PE who presents to the ED with complaint of acute onset persistent nasal and sinus congestion, frontal sinus pressure, persistent dry cough and shortness of breath for the last 2 days, worse in the last 12 hours. Patient states that she ran out of her albuterol inhaler at home. Patient states that in the last 12 hours her symptoms have worsened. Patient denies dizziness, syncope, chest pain, nausea and vomiting, fever, chills, diarr hea, dysuria, urinary frequency and urgency, headache or sore throat. MD Complaint: cough, rhinorrhea, nasal congestion, sinus pain -: Sudden, days(s) (2) Severity: moderate Severity scale (0 -10): 5 Quality: aching Consistency: constant Improves With: nothing Associated Symptoms: denies other symptoms, rhinorrhea, nasal congestion, cough, shortness of breath. denies: fever, chills, myalgias, diaphoresis, headache, stiff neck, chest pain, abdominal pain, nausea, vomiting, diarrhea, rash, confus ion, right sweats, weight loss, epistaxis Treatments Prior to Arrival: none - Related Data Home Medications Medication Instructions Recorded Confirmed Last Taken Oxycodone HCl [oxyCODONE] 10 mg PO BID PRN 01/09/20 01/09/20 Unknown amLODIPine 10 mg PO QDAY PRN 01/09/20 01/09/20 01/05/20 Previous Rx's Medication Instructions Recorded Last Taken Type Meclizine [Antivert] 25 mg PO TID PRN #20 tablet 06/18/19 01/02/20 Rx ALBUTEROL NEB's [Proventil 0.083% 2.5 mg IH Q4HRT PRN nebu 01/11/20 Unknown Rx NEBS] ALBUTEROL NEB's [Proventil 0.083% 2.5 mg IH Q6HRT nebu 01/11/20 Unknown Rx NEBS] Acetaminophen [Acetaminophen TAB] 650 mg PO Q6H PRN tablet 01/11/20 Unknown Rx Arformoterol Nebu [Brovana Nebu] 15 mcg IH Q12HRT ml 01/11/20 Unknown Rx Budesonide [Pulmicort Respules] 1 mg IH Q12HRT nebu 01/11/20 Unknown Rx Gabapentin 300 mg PO Q8HR 10 Days #30 cap 01/11/20 Unknown Rx Magnesium Hydroxide [Milk of 30 ml PO Q4H PRN oral.liqd 01/11/20 Unknown Rx Magnesia] Prednisone [predniSONE 10 mg 10 mg PO .TAPER #1 tab.ds.pk 01/11/20 Unknown Rx (6-Day Pack, 21 Tabs)] guaiFENesin ER [Mucinex ER] 600 mg PO Q12H #14 tablet.er 01/11/20 Unknown Rx Naproxen 500 mg PO Q12H PRN #30 tablet 03/24/20 Unknown Rx predniSONE [Deltasone] 60 mg PO QDAY #15 tab 03/24/20 Unknown Rx traMADoL [Ultram] 50 mg PO Q6HR PRN #12 tablet 03/24/20 Unknown Rx Naproxen 500 mg PO Q12H PRN #12 tablet 04/18/20 Unknown Rx traMADoL [Ultram 50 MG tab] 50 mg PO Q6HR PRN #6 tablet 04/18/20 Unknown Rx Albuterol Sulfate [Proventil Hfa] 2 puff IH Q4HR PRN #1 hfa.aer.ad 12/11/20 Unkn own Rx Azithromycin [Zithromax Z-SELWYN] 250 mg PO DAILY #6 tablet 12/11/20 Unknown Rx Benzonatate [Tessalon Perles] 100 mg PO Q8HR #30 capsule 12/11/20 Unknown Rx Cetirizine HCl [Zyrtec 10mg tab] 10 mg PO DAILY #30 tablet 12/11/20 Unknown Rx Fluticasone/Salmeterol [Advair 1 puff IH DAILY #1 inh 12/11/20 Unknown Rx Diskus 500-50 mcg] Montelukast [Singulair] 10 mg PO QPM #30 tablet 12/11/20 Unknown Rx predniSONE [Deltasone] 40 mg PO QDAY #10 tab 12/11/20 Unknown Rx Allergies Allergy/AdvReac Type Severity Reaction Status Date / Time dexamethasone [From Decadron] Allergy Anaphylaxis Verified 09/07/18 15:52 dexamethasone sod phosphate Allergy Anaphylaxis Verified 09/07/18 15:52 [From Decadron] epinephrine Allergy Rash Verified 09/07/18 15:52 ipratropium bromide Allergy Anaphylaxis Verified 09/07/18 15:52 [From Atrovent] peanut Allergy Anaphylaxis Verified 09/07/18 15:52 ED Review of Systems ROS: Stated complaint: ASTHMA Other details as noted in HPI Constitutional: denies: chills, fever Eyes: denies: eye pain, eye discharge, vision change ENT: congestion, other (Frontal sinus pressure). denies: ear pain, throat pain Respiratory: cough (Dry cough), shortness of breath. denies: wheezing Cardiovascular: denies: chest pain, palpitations Endocrine: no symptoms reported Gastrointestinal: denies: abdominal pain, nausea, diarrhea Genitourinary: denies: urgency, dysuria, discharge Musculoskeletal: denies: back pain, joint swelling, arthralgia Skin: denies: rash, lesions Neurological: denies: headache, weakness, paresthesias Psychiatric: denies: anxiety, depression Hematological/Lymphatic: denies: easy bleeding, easy bruising ED Past Medical Hx - Past Medical History Previous Medical History?: Yes Hx Hypertension: Yes Hx Congestive Heart Failure: No Hx Diabetes: Yes (steroid induced) Hx Pulmonary Embolism: Yes Hx Liver Disease: Yes (HEPATITIS C) Hx Sickle Cell Disease: No Hx Kidney Stones: Yes Hx Asthma: Yes (5 intubation) Hx Tuberculosis: No (Exposure) Hx HIV: No Additional medical history: intubations for asthma, lumbar radiculopathy - Surgical History Hx Open Heart Surgery: No Hx Cholecystectomy: No Hx Appendectomy: No Hx Breast Surgery: No Additional Surgical History: neck surgery, pain pump. States previous to admission and had an exercise stress test. States that test was terminated secondary to asthma. device in back. Pain implant. L4-L5, S1 fusion. right ankle surgery - Social History Smoking Status: Never Smoker Substance Use Type: None - Medications Home Medications: Home Medications Medication Instructions Recorded Confirmed Last Taken Type Meclizine [Antivert] 25 mg PO TID PRN #20 tablet 06/18/19 01/09/20 01/02/20 Rx Oxycodone HCl [oxyCODONE] 10 mg PO BID PRN 01/09/20 01/09/20 Unknown History amLODIPine 10 mg PO QDAY PRN 01/09/20 01/09/20 01/05/20 History ALBUTEROL NEB's [Proventil 0.083% 2.5 mg IH Q4HRT PRN nebu 01/11/20 Unknown Rx NEBS] ALBUTEROL NEB's [Proventil 0.083% 2.5 mg IH Q6HRT nebu 01/11/20 Unknown Rx NEBS] Acetaminophen [Acetaminophen TAB] 650 mg PO Q6H PRN tablet 01/11/20 Unknown Rx Arformoterol Nebu [Brovana Nebu] 15 mcg IH Q12HRT ml 01/11/20 Unknown Rx Budesonide [Pulmicort Respules] 1 mg IH Q12HRT nebu 01/11/20 Unknown Rx Gabapentin 300 mg PO Q8HR 10 Days #30 cap 01/11/20 Unknown Rx Magnesium Hydroxide [Milk of 30 ml PO Q4H PRN oral.liqd 01/11/20 Unknown Rx Magnesia] Prednisone [predniSONE 10 mg 10 mg PO .TAPER #1 tab.ds.pk 01/11/20 Unknown Rx (6-Day Pack, 21 Tabs)] guaiFENesin ER [Mucinex ER] 600 mg PO Q12H #14 tablet.er 01/11/20 Unknown Rx Naproxen 500 mg PO Q12H PRN #30 tablet 03/24/20 Unknown Rx predniSONE [Deltasone] 60 mg PO QDAY #15 tab 03/24/20 Unknown Rx traMADoL [Ultram] 50 mg PO Q6HR PRN #12 tablet 03/24/20 Unknown Rx Naproxen 500 mg PO Q12H PRN #12 tablet 04/18/20 Unknown Rx traMADoL [Ultram 50 MG tab] 50 mg PO Q6HR PRN #6 tablet 04/18/20 Unknown Rx Albuterol Sulfate [Proventil Hfa] 2 puff IH Q4HR PRN #1 hfa.aer.ad 12/11/20 Unknown Rx Azithromycin [Zithromax Z-SELWYN] 250 mg PO DAILY #6 tablet 12/11/20 Unknown Rx Benzonatate [Tessalon Perles] 100 mg PO Q8HR #30 capsule 12/11/20 Unknown Rx Cetirizine HCl [Zyrtec 10mg tab] 10 mg PO DAILY #30 tablet 12/11/20 Unknown Rx Fluticasone/Salmeterol [Advair 1 puff IH DAILY #1 inh 12/11/20 Unknown Rx Diskus 500-50 mcg] Montelukast [Singulair] 10 mg PO QPM #30 tablet 12/11/20 Unknown Rx predniSONE [Deltasone] 40 mg PO QDAY #10 tab 12/11/20 Unknown Rx ED Physical Exam - General Limitations: No Limitations General appearance: alert, in no apparent distress - Head Head exam: Present: atraumatic, normocephalic, normal inspection - Eye Eye exam: Present: normal appearance, PERRL, EOMI Pupils: Present: normal accommodation - ENT ENT exam: Present: normal orophraynx, mucous membranes moist, TM's normal bilaterally, normal external ear exam, other (Grossly congested nasal passages; palpable frontal and maxillary sinus tenderness) - Neck Neck exam: Present: normal inspection, full ROM - Respiratory Respiratory exam: Present: normal lung sounds bilaterally. Absent: respiratory distress, wheezes, rales, chest wall tenderness, accessory muscle use, decreased breath sounds, prolonged expiratory - Cardiovascular Cardiovascular Exam: Present: regular rate, normal rhythm, normal heart sounds. Absent: systolic murmur, diastolic murmur, rubs, gallop - GI/Abdominal GI/Abdominal exam: Present: soft, normal bowel sounds. Absent: tenderness, guarding, rebound, hyperactive bowel sounds, hypoactive bowel sounds, organom egaly, mass - Extremities Exam Extremities exam: Present: normal inspection, full ROM, normal capillary refill - Back Exam Back exam: Present: normal inspection, full ROM. Absent: tenderness, CVA tenderness (R), CVA tenderness (L), muscle spasm, paraspinal tenderness - Neurological Exam Neurological exam: Present: alert, oriented X3, CN II-XII intact, normal gait, reflexes normal - Psychiatric Psychiatric exam: Present: normal affect, normal mood - Skin Skin exam: Present: warm, dry, intact, normal color. Absent: rash ED Course Vital Signs 12/11/20 19:19 Temperature 98.2 F Pulse Rate 77 Respiratory 20 Rate Blood Pressure 166/81 O2 Sat by Pulse 95 Oximetry ED Medical Decision Making - Lab Data Result diagrams: 12/11/20 19:27 12/11/20 19:27 - Radiology Data Radiology results: report reviewed, image reviewed [facility] [address] [place] [address] XRay Report Signed Patient: CHARLY HENDRIX MR#: [id number] : 1960 Acct:[id number] Age/Sex: 60 / F ADM Date: 12/11/20 Loc: ED Attending Dr: Ordering Physician: JAIMIE HARRELL Date of Service: 12/11/20 Procedure(s): XR chest routine 2V Accession Number(s): [id number] cc: JAIMIE HARRELL Fluoro Time In Minutes: CHEST 2 VIEWS 1939 INDICATION / CLINICAL INFORMATION: shortness of breath COMPARISON: 01/08/2020 FINDINGS: SUPPORT DEVICES: Spinal stimulator is again seen in the lower thoracic area HEART / MEDIASTINUM: No significant abnormality. LUNGS / PLEURA: No significant pulmonary or pleural abnormality. No pneumothorax. ADDITIONAL FINDINGS: No significant additional findings. IMPRESSION: No significant acute abnormality Signer Name: Bronson Batista MD Signed: 12/11/2020 7:50 PM Workstation Name: [id number] Transcribed By: GJ Dictated By: Bronson Batista MD Electronically Authenticated By: Bronson Batista MD Signed Date/Time: 12/11/201949 DD/ 49 TD/TT: - Medical Decision Making This is a 60-year-old -Algerian female with a history of asthma, hepatitis C, kidney stones and PE who presents to the ED with complaint of acute onset persistent nasal and sinus congestion, frontal sinus pressure, persistent dry cough and shortness of breath for the last 2 days, worse in the last 12 hours. Patient states that she ran out of her albuterol inhaler at home. In the ED, patient is alert and oriented x3 and is not in any distress, vital signs are stable. Lab test results were reviewed and are all nonactionable. Chest x-ray shows no acute cardiopulmonary abnormalities or pneumonitis. Patient was discharged home on medications and advised to follow-up with her primary care physician in 5 to 7 days for reevaluation or return to the ED immediately if symptoms get worse. - Differential Diagnosis Asthma; bronchitis; URI; sinusitis; pneumonia Critical care attestation.: If time is entered above; I have spent that time in minutes in the direct care of this critically ill patient, excluding procedure time. ED Disposition Clinical Impression: Acute bronchitis with asthma with acute exacerbation, Acute upper respiratory infection Acute sinusitis, unspecified Qualifiers: Sinusitis location: pansinusitis Recurrence: non-recurrent Qualified Code(s): J01.40 - Acute pansinusitis, unspecified Disposition: DC- TO HOME OR SELFCARE Is pt being admited?: No Does the pt Need Aspirin: No Condition: Stable Instructions: Acute Bronchitis (ED), Sinusitis, Adult, [id number], Cough, Adult, [id number], Upper Respiratory Infection, Adult, [id number], Acute Bronchitis, Adult, [id number], Asthma, Adult, [id number] Additional Instructions: All lab test results were reviewed and are all nonactionable. Chest x-ray showed no acute cardiopulmonary abnormalities or pneumonitis. Therefore take medications with food, drink plenty of fluids and follow-up with your primary care physician in 5 to 7 days for reevaluation. Return to the ED immediately if symptoms get worse. Prescriptions: Fluticasone/Salmeterol [Advair Diskus 500-50 mcg] 1 puff IH DAILY #1 inh predniSONE [Deltasone] 40 mg PO QDAY #10 tab Albuterol Sulfate [Proventil Hfa] 2 puff IH Q4HR PRN #1 hfa.aer.ad PRN Reason: Wheezing Montelukast [Singulair] 10 mg PO QPM #30 tablet Benzonatate [Tessalon Perles] 100 mg PO Q8HR #30 capsule Azithromycin [Zithromax Z-SELWYN] 250 mg PO DAILY #6 tablet Cetirizine HCl [Zyrtec 10mg tab] 10 mg PO DAILY #30 tablet Referrals: MONET BARNEY MD [Staff Physician] - 7-10 days Forms: Work/School Release Form(ED) Time of Disposition: 20:30 Print Language: SWEDISH
== END 2020-12-11 20:52 | disposition home or self-care (01) ==
LOC: ED 19:17
DX: J01.40 Acute pansinusitis, unspecified (principal); J45.901 Unspecified asthma with (acute) exacerbation; J20.9 Acute bronchitis, unspecified; J06.9 Acute upper respiratory infection, unspecified; I10 Essential (primary) hypertension; E11.9 Type 2 diabetes mellitus without complications; Z98.890 Other specified postprocedural states; Z79.899 Other long term (current) drug therapy; Z88.8 Allergy status to other drugs, medicaments and biological substances
CPT/HCPCS: 36415; 71046; 80053; 83880; 84484; 85025; 99283

== ENCOUNTER 2021-02-17 07:29 | Emergency (ER) | payer BC ==
[2021-02-17] MEDS ORDERED: KETOROLAC 10 MG TAB PO ONE (07:55)
[2021-02-17] MEDS ORDERED: HYDROcodone/ACETAMINOPHEN 5-325 MG TAB PO ONE (07:55)
--- NOTE | 2021-02-17 07:59 | Emergency Department Report ---
ED Lower Extremity HPI - General Chief Complaint: Extremity Injury, Lower Stated Complaint: FOOT PAIN Time Seen by Provider: 02/17/21 07:31 Source: patient Mode of arrival: Wheelchair Limitations: No Limitations - History of Present Illness Initial Comments: 60-year-old female presents to the ER today with complaints of Left foot injury and pain. 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 She states that while pushing Wow around registering patient, she accidentally tripped over one of the metal barriers on the floor. She describes a hyper plantarflexion type injury. She states that she did not experience any pain immediately after the incident, but 2 hours later she started having pain to the lateral and medial aspect of her foot. She states that she continued walking around for the rest of her shift. When she got home the pain started to get worse to the point that she was unable to sleep throughout the night. She states that the pain radiates up into her calf. she states that she took 800mg ibuprofen without much relief of her pain. She reports associated swelling and bruising. She reports worsening pain with movement of her foot and weightbearing. She denies any prior surgeries, fractures or sprains to her left foot. She reports no other symptoms at this time. MD Complaint: foot injury -: days(s) (1) - Related Data Home Medications Medication Instructions Recorded Confirmed Last Taken Oxycodone HCl [oxyCODONE] 10 mg PO BID PRN 01/09/20 01/09/20 Unknown amLODIPine 10 mg PO QDAY PRN 01/09/20 01/09/20 01/05/20 Previous Rx's Medication Instructions Recorded Last Taken Type Meclizine [Antivert] 25 mg PO TID PRN #20 tablet 06/18/19 01/02/20 Rx ALBUTEROL NEB's [Proventil 0.083% 2.5 mg IH Q4HRT PRN nebu 01/11/20 Unknown Rx NEBS] ALBUTEROL NEB's [Proventil 0.083% 2.5 mg IH Q6HRT nebu 01/11/20 Unknown Rx NEBS] Acetaminophen [Acetaminophen TAB] 650 mg PO Q6H PRN tablet 01/11/20 Unknown Rx Arformoterol Nebu [Brovana Nebu] 15 mcg IH Q12HRT ml 01/11/20 Unknown Rx Budesonide [Pulmicort Respules] 1 mg IH Q12HRT nebu 01/11/20 Unknown Rx Gabapentin 300 mg PO Q8HR 10 Days #30 cap 01/11/20 Unknown Rx Magnesium Hydroxide [Milk of 30 ml PO Q4H PRN oral.liqd 01/11/20 Unknown Rx Magnesia] Prednisone [predniSONE 10 mg 10 mg PO .TAPER #1 tab.ds.pk 01/11/20 Unknown Rx (6-Day Pack, 21 Tabs)] guaiFENesin ER [Mucinex ER] 600 mg PO Q12H #14 tablet.er 01/11/20 Unknown Rx Naproxen 500 mg PO Q12H PRN #30 tablet 03/24/20 Unknown Rx predniSONE [Deltasone] 60 mg PO QDAY #15 tab 03/24/20 Unknown Rx traMADoL [Ultram] 50 mg PO Q6HR PRN #12 tablet 03/24/20 Unknown Rx Naproxen 500 mg PO Q12H PRN #12 tablet 04/18/20 Unknown Rx traMADoL [Ultram 50 MG tab] 50 mg PO Q6HR PRN #6 tablet 04/18/20 Unknown Rx Albuterol Sulfate [Proventil Hfa] 2 puff IH Q4HR PRN #1 hfa.aer.ad 12/11/20 Unknown Rx Azithromycin [Zithromax Z-SELWYN] 250 mg PO DAILY #6 tablet 12/11/20 Unknown Rx Benzonatate [Tessalon Perles] 100 mg PO Q8HR #30 capsule 12/11/20 Unknown Rx Cetirizine HCl [Zyrtec 10mg tab] 10 mg PO DAILY #30 tablet 12/11/20 Unknown Rx Fluticasone/Salmeterol [Advair 1 puff IH DAILY #1 inh 12/11/20 Unknown Rx Diskus 500-50 mcg] Montelukast [Singulair] 10 mg PO QPM #30 tablet 12/11/20 Unknown Rx predniSONE [Deltasone] 40 mg PO QDAY #10 tab 12/11/20 Unknown Rx Ketorolac [Toradol] 10 mg PO Q6H PRN #12 tablet 02/17/21 Unknown Rx oxyCODONE /ACETAMINOPHEN [Percocet 1 tab PO Q6HR PRN #12 tablet 02/17/21 Unknown Rx 5/325] Allergies Allergy/AdvReac Type Severity Reaction Status Date / Time dexamethasone [From Decadron] Allergy Anaphylaxis Verified 09/07/18 15:52 dexamethasone sod phosphate Allergy Anaphylaxis Verified 09/07/18 15:52 [From Decadron] epinephrine Allergy Rash Verified 09/07/18 15:52 ipratropium bromide Allergy Anaphylaxis Verified 09/07/18 15:52 [From Atrovent] peanut Allergy Anaphylaxis Verified 09/07/18 15:52 ED Review of Systems ROS: Stated complaint: FOOT PAIN Other details as noted in HPI Comment: All other systems reviewed and negative Constitutional: denies: chills, fever Eyes: denies: eye pain, eye discharge, vision change ENT: denies: ear pain, throat pain, dental pain, hearing loss, epistaxis, congestion Respiratory: denies: cough, orthopnea, shortness of breath, SOB with exertion, SOB at rest, wheezing Cardiovascular: denies: chest pain, palpitations, dyspnea on exertion, edema, syncope, paroxysmal nocturnal dyspnea Gastrointestinal: denies: abdominal pain, nausea, diarrhea Genitourinary: denies: urgency, dysuria, frequency, hematuria, discharge, abnormal menses, dyspareunia Musculoskeletal: joint swelling, arthralgia. denies: back pain Skin: denies: rash, lesions Neurological: abnormal gait. denies: headache, weakness, numbness, paresthesias, confusion, vertigo Psychiatric: denies: anxiety, depression, homicidal thoughts, suicidal thoughts Hematological/Lymphatic: denies: easy bleeding, easy bruising, swollen glands ED Past Medical Hx - Past Medical History Hx Hypertension: Yes Hx Congestive Heart Failure: No Hx Diabetes: Yes (steroid induced) Hx Pulmonary Embolism: Yes Hx Liver Disease: Yes (HEPATITIS C) Hx Sickle Cell Disease: No Hx Kidney Stones: Yes Hx Asthma: Yes (5 intubation) Hx Tuberculosis: No (Exposure) Hx HIV: No Additional medical history: intubations for asthma, lumbar radiculopathy - Surgical History Hx Open Heart Surgery: No Hx Cholecystectomy: No Hx Appendectomy: No Hx Breast Surgery: No Additional Surgical History: neck surgery, pain pump. States previous to admission and had an exercise stress test. States that test was terminated secondary to asthma. device in back. Pain implant. L4-L5, S1 fusion. right ankle surgery - Social History Smoking Status: Never Smoker Substance Use Type: None - Medications Home Medications: Home Medications Medication Instructions Recorded Confirmed Last Taken Type Meclizine [Antivert] 25 mg PO TID PRN #20 tablet 06/18/19 01/09/20 01/02/20 Rx Oxycodone HCl [oxyCODONE] 10 mg PO BID PRN 01/09/20 01/09/20 Unknown History amLODIPine 10 mg PO QDAY PRN 01/09/20 01/09/20 01/05/20 History ALBUTEROL NEB's [Proventil 0.083% 2.5 mg IH Q4HRT PRN nebu 01/11/20 Unknown Rx NEBS] ALBUTEROL NEB's [Proventil 0.083% 2.5 mg IH Q6HRT nebu 01/11/20 Unknown Rx NEBS] Acetaminophen [Acetaminophen TAB] 650 mg PO Q6H PRN tablet 01/11/20 Unknown Rx Arformoterol Nebu [Brovana Nebu] 15 mcg IH Q12HRT ml 01/11/20 Unknown Rx Budesonide [Pulmicort Respules] 1 mg IH Q12HRT nebu 01/11/20 Unknown Rx Gabapentin 300 mg PO Q8HR 10 Days #30 cap 01/11/20 Unknown Rx Magnesium Hydroxide [Milk of 30 ml PO Q4H PRN oral.liqd 01/11/20 Unknown Rx Magnesia] Prednisone [predniSONE 10 mg 10 mg PO .TAPER #1 tab.ds.pk 01/11/20 Unknown Rx (6-Day Pack, 21 Tabs)] guaiFENesin ER [Mucinex ER] 600 mg PO Q12H #14 tablet.er 01/11/20 Unknown Rx Naproxen 500 mg PO Q12H PRN #30 tablet 03/24/20 Unknown Rx predniSONE [Deltasone] 60 mg PO QDAY #15 tab 03/24/20 Unknown Rx traMADoL [Ultram] 50 mg PO Q6HR PRN #12 tablet 03/24/20 Unknown Rx Naproxen 500 mg PO Q12H PRN #12 tablet 04/18/20 Unknown Rx traMADoL [Ultram 50 MG tab] 50 mg PO Q6HR PRN #6 tablet 04/18/20 Unknown Rx Albuterol Sulfate [Proventil Hfa] 2 puff IH Q4HR PRN #1 hfa.aer.ad 12/11/20 Unknown Rx Azithromycin [Zithromax Z-SELWYN] 250 mg PO DAILY #6 tablet 12/11/20 Unknown Rx Benzonatate [Tessalon Perles] 100 mg PO Q8HR #30 capsule 12/11/20 Unknown Rx Cetirizine HCl [Zyrtec 10mg tab] 10 mg PO DAILY #30 tablet 12/11/20 Unknown Rx Fluticasone/Salmeterol [Advair 1 puff IH DAILY #1 inh 12/11/20 Unknown Rx Diskus 500-50 mcg] Montelukast [Singulair] 10 mg PO QPM #30 tablet 12/11/20 Unknown Rx predniSONE [Deltasone] 40 mg PO QDAY #10 tab 12/11/20 Unknown Rx Ketorolac [Toradol] 10 mg PO Q6H PRN #12 tablet 02/17/21 Unknown Rx oxyCODONE /ACETAMINOPHEN [Percocet 1 tab PO Q6HR PRN #12 tablet 02/17/21 Unknown Rx 5/325] ED Physical Exam - General General appearance: alert, in distress (Secondary to pain) - Head Head exam: Present: atraumatic, normocephalic, normal inspection - Neck Neck exam: Present: normal inspection, full ROM - Respiratory Respiratory exam: Present: normal lung sounds bilaterally. Absent: respiratory distress, wheezes, rales, rhonchi - Cardiovascular Cardiovascular Exam: Present: regular rate, normal rhythm, normal heart sounds - Extremities Exam Extremities exam: Present: normal inspection, full ROM, normal capillary refill, calf tenderness (left ). Absent: pedal edema, joint swelling - Expanded Lower Extremity Exam Right Gait: Positive: observed and limited by pain Left Lower Leg exam: Present: normal inspection, tenderness (Left calf). Absent: swelling, abrasion, laceration, ecchymosis, deformity, crepidus, dislocation, erythema, palpable cord, Micaela's sign Foot/Toe exam: Present: normal inspection, tenderness (Severe tenderness to palpation to the medial and lateral aspect of the right foot, including the arch of the right foot, and the base of the fifth metatarsal bone.), swelling (mild ), tenderness at base of 5th metatarsal. Absent: full ROM (Decrease range of motion of the foot due to pain.), abrasion, laceration, ecchymosis, deformity, crepidus, erythema, amputation, puncture wound Neuro vascular tendon exam: Present: no vascular compromise. Absent: abnormal cap refill, motor deficit, sensory deficit, tendon deficit Gait: Positive: observed and limited by pain - Neurological Exam Neurological exam: Present: alert, oriented X3, CN II-XII intact - Psychiatric Psychiatric exam: Present: normal affect, normal mood - Skin Skin exam: Present: intact ED Course Vital Signs 02/17/21 02/17/21 02/17/21 07:37 08:24 10:12 Temperature 98.6 F Pulse Rate 64 67 Respiratory 16 20 15 Rate Blood Pressure 154/70 Blood Pressure 145/83 [Left] O2 Sat by Pulse 99 99 Oximetry 02/17/21 10:30 Temperature Pulse Rate 57 L Respiratory 15 Rate Blood Pressure 146/69 Blood Pressure [Left] O2 Sat by Pulse 99 Oximetry ED Lower Extremity MDM - Lab Data Result diagrams: 02/17/21 10:08 02/17/21 10:08 - Radiology Data Radiology results: report reviewed Patient: CHARLY HENDRIX MR#: [id number] : 1960 Acct:[id number] Age/Sex: 60 / F ADM Date: 02/17/21 Loc: ED Attending Dr: Ordering Physician: HEIDY RODRIGUEZ Date of Service: 02/17/21 Procedure(s): XR foot 3+V LT Accession Number(s): [id number] cc: HEIDY RODRIGUEZ Fluoro Time In Minutes: LEFT FOOT 3 VIEWS INDICATION: Foot injury/pain. COMPARISON: None. IMPRESSION: No acute osseous or soft tissue abnormality. No significant DJD . Signer Name: Hans Goldstein Jr, MD Signed: 02/17/2021 8:36 AM Workstation Name: [id number] Transcribed By: TTR Dictated By: HANS GOLDSTEIN JR, MD Electronically Authenticated By: HANS GOLDSTEIN JR, MD Signed Date/Time: 02/17/21835 DD/ 4 TD/TT: Patient: CHARLY HENDRIX MR#: [id number] : 1960 Acct:[id number] Age/Sex: 60 / F ADM Date: 02/17/21 Loc: ED Attending Dr: Ordering Physician: HEIDY RODRIGUEZ Date of Service: 02/17/21 Procedure(s): VL venous duplex LE LT Accession Number(s): [id number] cc: HEIDY RODRIGUEZ . DUPLEX DOPPLER LOWER EXTREMITY VEINS, LEFT INDICATION / CLINICAL INFORMATION: calf pain. TECHNIQUE: Duplex doppler imaging was performed through the veins of the left lower extremity using venous compression and other maneuvers. COMPARISON: None available. FINDINGS: LEFT COMMON FEMORAL VEIN: Negative. LEFT FEMORAL VEIN: Negative. LEFT POPLITEAL VEIN: Negative. LEFT CALF VEINS: Negative. ADDITIONAL FINDINGS: None. IMPRESSION: 1. No sonographic evidence for DVT in the left lower extremity. Signer Name: Patricio Rust MD Signed: 02/17/2021 11:06 AM Workstation Name: [id number] Transcribed By: RANDI Dictated By: PATRICIO RUST MD Electronically Authenticated By: PATRICIO RUST MD Signed Date/Time: 02/17/21 1106 DD/ 1106 TD/TT: - Medical Decision Making 0948: Patient still writhing in pain stating that her pain is still 10 out of 10 in her left calf and left foot. X-ray does not show any acute fracture or dislocation. Venous Doppler ordered to rule out possible DVT. Case was discussed with Dr. Lock, who also evaluated the patient, on exam does not show any obvious signs of infection like cellulitis, abscess, compartment syndrome, septic joint or acute arterial occlusion but given that patient's pain is out of proportion to physical exam, we will add labs to rule out infectious process like necrotizing fasciitis. 1130: Patient resting much more comfortably now. Her pain have improved. Labs show a normal white count, and his CMP is unremarkable. Venous Doppler shows no DVT. Reviewed vital signs show the patient is afebrile, and remaining vital signs are unremarkable. Discussed all results with patient. Suspect that her pain likely related to muscle strain/joint sprain. She will be given Shreyas wrap and postop shoe and a walker. 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 Mercado, and recommend that she follows up with him next week. She will be given medication to help with pain. Patient expressed understanding of all instructions and agree with plan. Patient stable at time of discharge. Critical care attestation.: If time is entered above; I have spent that time in minutes in the direct care of this critically ill patient, excluding procedure time. ED Disposition Clinical Impression: Sprain of foot, left, Left leg pain Disposition: 01 HOME / SELF CARE / HOMELESS Is pt being admited?: No Does the pt Need Aspirin: No Condition: Stable Instructions: Foot Sprain, Elastic Bandage and RICE Therapy Additional Instructions: I recommend that you use a walker to help you ambulate, and I recommend that you limit weightbearing on that leg for the next 3-4 days. Use the Shreyas wrap and a postop shoe for the next 3 to 4 days. Elevate your leg as often as possible. You can apply ice to the area of pain, 20 minutes on 20 minutes off. Take Toradol and the Percocet as prescribed to help with pain. I do recommend that yo u follow-up with your business rules analyst Dr. Gregory next week. Return to the ER if your symptoms changes or worsens in any way. Prescriptions: oxyCODONE /ACETAMINOPHEN [Percocet 5/325] 1 tab PO Q6HR PRN #12 tablet PRN Reason: Pain Ketorolac [Toradol] 10 mg PO Q6H PRN #12 tablet PRN Reason: Pain Referrals: MORA MI DPM [Staff Physician] - 3-5 Days Forms: Work/School Release Form(ED) Time of Disposition: 11:34 Print Language: THAI
--- NOTE | 2021-02-17 08:40 | XRay Report ---
LEFT FOOT 3 VIEWS INDICATION: Foot injury/pain. COMPARISON: None. IMPRESSION: No acute osseous or soft tissue abnormality. No significant DJD. Signer Name: Hans Goldstein Jr, MD Signed: 02/17/2021 8:36 AM Workstation Name: [id number]
[2021-02-17] MEDS ORDERED: diazePAM 5 MG TAB PO ONE (09:02)
[2021-02-17] MEDS ORDERED: diazePAM 10 MG/2 ML SYRINGE IV ONE (09:06)
[2021-02-17] MEDS ORDERED: HALOPERIDOL LACTATE 5 MG/1 ML INJ IM ONE (09:47)
--- NOTE | 2021-02-17 09:47 | Event Note ---
Date of service: 02/17/21 Face to Face: For this encounter I have reviewed the PA/GLASS CYLINDER FLANGER documentation, treatment plan, medical decision making, and I had face to face time with this patient. Patient presented with a history of foot injury on the left. This was a hyperflexion injury in the plantar direction. This happened 2 days prior. The pain was not immediate. It gradually started and is worsened. She is currently complaining of pain in the lateral and medial aspect of the left foot that radiates up into the calf. Pain seems to be out of proportion to exam. On exam, the patient has good pulses. There is no warmth. There is no erythema. There is no edema. There is no bruising or ecchymoses. Patient does not have delayed capillary refill.There is no splinter hemorrhage. Etiology for the pain is unclear at this time. Certainly, radiographically there is no evidence of acute fracture or dislocation. Patient be treated symptomatically and referred.
[2021-02-17 11:03] LABS: Alanine Aminotransferase 13 units/L (7-56); Albumin 3.7 g/dL (3.9-5); Blood Urea Nitrogen 13 mg/dL (7-17); Calcium 8.9 mg/dL (8.4-10.2); Hemolysis Index 11
[2021-02-17 11:06] LABS: BUN/Creatinine Ratio 19
[2021-02-17 11:08] LABS: Basophils % (Auto) 0.5 % (0.0-1.8); Eosinophils # (Auto) 0.1 K/mm3 (0.0-0.4); Eosinophils % (Auto) 1.9 % (0.0-4.3); Hematocrit 37.6 % (30.3-42.9); Hemoglobin 12.4 gm/dl (10.1-14.3); Lymphocytes # (Auto) 1.8 K/mm3 (1.2-5.4); Lymphocytes % (Auto) 32.4 % (13.4-35.0); Mean Corpuscular HGB Conc 33 % (30-34); Mean Corpuscular Volume 81 fl (79-97); Monocytes # (Auto) 0.5 K/mm3 (0.0-0.8); Platelet Count 253 K/mm3 (140-440); Red Blood Count 4.66 M/mm3 (3.65-5.03); Red Cell Distribution Width 13.8 % (13.2-15.2)
--- NOTE | 2021-02-17 11:11 | Vascular Lab Report ---
. DUPLEX DOPPLER LOWER EXTREMITY VEINS, LEFT INDICATION / CLINICAL INFORMATION: calf pain. TECHNIQUE: Duplex doppler imaging was performed through the veins of the left lower extremity using venous compr ession and other maneuvers. COMPARISON: None available. FINDINGS: LEFT COMMON FEMORAL VEIN: Negative. LEFT FEMORAL VEIN: Negative. LEFT POPLITEAL VEIN: Negative. LEFT CALF VEINS: Negative. ADDITIONAL FINDINGS: None. IMPRESSION: 1. No sonographic evidence for DVT in the left lower extremity. Signer Name: Mike Rust MD Signed: 02/17/2021 11:06 AM Workstation Name: [id number]
[2021-02-17 11:42] VITALS: BP 146/69
== END 2021-02-17 12:10 | disposition home or self-care (01) ==
LOC: ED 07:29
DX: S93.692A Other sprain of left foot, initial encounter (principal); I10 Essential (primary) hypertension; Z87.442 Personal history of urinary calculi; Z79.899 Other long term (current) drug therapy; Z88.8 Allergy status to other drugs, medicaments and biological substances; Z91.010 Allergy to peanuts; W01.0XXA Fall on same level from slipping, tripping and stumbling without subsequent striking against object, initial encounter; Y93.89 Activity, other specified; Y92.89 Other specified places as the place of occurrence of the external cause; Y99.8 Other external cause status
CPT/HCPCS: 36415; 73630; 80053; 85025; 93971; 96372; 96374; 99284; J1630; J3360

== ENCOUNTER 2021-04-29 08:36 | Emergency (ER) | payer BC ==
--- NOTE | 2021-04-29 08:43 | Event Note ---
ED Screening Note Date of service: 04/29/21 Time: 08:41 ED Screening Note: Patient comes in for worst RIBEIRO of her life. RIBEIRO and nausea woke her up. This initial assessment/diagnostic orders/clinical plan/treatment(s) is/are subject to change based on patients health status, clinical progression and re- assessment by fellow clinical providers in the ED. Further treatment and workup at subsequent clinical providers discretion. Patient/guardian urged not to elope from the ED as their condition may be serious if not clinically assessed and managed. Initial orders include:
--- NOTE | 2021-04-29 09:11 | Cat Scan Report ---
CT head/brain wo con INDICATION / CLINICAL INFORMATION: 60 years Female; Worst RIBEIRO of her life. TECHNIQUE: Routine CT head without contrast. All CT scans at this location are performed using CT dos e reduction for ALARA by means of automated exposure control. COMPARISON: None. FINDINGS: BRAIN / INTRACRANIAL CONTENTS: No acute hemorrhage, mass effect, midline shift, hydrocephalus, or acu te, large territorial infarct. No signs of significant atrophy or chronic infarct. There are mild areas of decreased attenuation in the white matter of the cerebral hemispheres. These are nonspecific findings and may be related to microangiopathy (hypertension, diabetes, atheroscleros is), given the patient's age. CRANIOCERVICAL JUNCTION: No significant abnormality. ORBITS: No significant abnormality of visualized orbits. SINUSES / MASTOIDS: Visualized paranasal sinuses and mastoid air cells are essentially clear. ADDITIONAL FINDINGS: None. IMPRESSION: 1. No focal mass, hemorrhage, hydrocephalus, or acute, large territorial infarct. Signer Name: Tae Joy MD, III Signed: 04/29/2021 9:07 AM Workstation Name: [id number]
[2021-04-29 09:47] LABS: Hematocrit 38.4 % (30.3-42.9); Hemoglobin 12.6 gm/dl (10.1-14.3); Mean Corpuscular HGB Conc 33 % (30-34); Mean Corpuscular Volume 80 fl (79-97); Platelet Count 268 K/mm3 (140-440); Red Blood Count 4.79 M/mm3 (3.65-5.03); Red Cell Distribution Width 13.5 % (13.2-15.2)
[2021-04-29] MEDS ORDERED: HYDROmorphone 1 MG/1 ML INJ IM ONE (09:47)
--- NOTE | 2021-04-29 09:47 | Emergency Department Report ---
ED General Adult HPI - General Chief complaint: Pain General Stated complaint: Headache, facial pain Time Seen by Provider: 04/29/21 08:39 Source: patient, RN notes reviewed, old records reviewed Mode of arrival: Ambulatory Limitations: No Limitations - History of Present Illness Initial comments: The patient is a 60-year-old female. Her past medical history includes chronic pain, history of CSF leak, hypertension, asthma, and history of cervical spine hardware. The patient reports that around 7 or 8 years ago, she had spinal injections performed, which caused a CSF leak. At that time, she had presented with a headache and neck pain, and she reports having had a full work-up, including CT scan of the brain, and spinal tap, which were unremarkable. She has since stopped receiving spinal injections, and presents to the ER today with a complaint of headache and right-sided facial pain. The headache is frontal, bitemporal, and involving the bilateral trapezius. The headache started at 2:00 in the morning, it is not sudden or thunderclap in nature, and it is not maximal in intensity. She reports that it is throbbing, dull and aching, and gradually got worse, reaching maximal intensity, approximately 4 to 5 hours after symptom onset. She reports that this is not the worst headache of her life, she reports that she had a worse headache 7 or 8 years ago, when she was initially diagnosed with a CSF leak. She does report that this feels very similar to her prior episodes of CSF leak. She denies midline neck pain, vomiting, loss of vision, chest pain, abdominal pain, shortness of breath, extremity weakness and numbness. No fevers or chills. No loss of taste or smell. Symptoms are improved when she lays flat, and worse when she sits up. She does get up and down quite a bit, although she reports that she denies significant heavy lifting. She was improved in the emergency room with hydromorphone, Reglan, Benadryl, laying flat, intravenous caffeine, and intranasal lidocaine. She denies dental pain. -: Gradual, hour(s) Location: head, face, mouth Radiation: neck Severity scale (0 -10): 10 Quality: burning, aching, other Consistency: constant Improves with: other (As per history of present illness) Worsens with: other (As per history of present illness) - Related Data Home Medications Medication Instructions Recorded Confirmed Last Taken amLODIPine 10 mg PO QDAY PRN 01/09/20 01/09/20 01/05/20 Previous Rx's Medication Instructions Recorded Last Taken Type Meclizine [Antivert] 25 mg PO TID PRN #20 tablet 06/18/19 01/02/20 Rx ALBUTEROL NEB's [Proventil 0.083% 2.5 mg IH Q4HRT PRN nebu 01/11/20 Unknown Rx NEBS] ALBUTEROL NEB's [Proventil 0.083% 2.5 mg IH Q6HRT nebu 01/11/20 Unknown Rx NEBS] Acetaminophen [Acetaminophen TAB] 650 mg PO Q6H PRN tablet 01/11/20 Unknown Rx Arformoterol Nebu [Brovana Nebu] 15 mcg IH Q12HRT ml 01/11/20 Unknown Rx Budesonide [Pulmicort Respules] 1 mg IH Q12HRT nebu 01/11/20 Unknown Rx Gabapentin 300 mg PO Q8HR 10 Days #30 cap 01/11/20 Unknown Rx Magnesium Hydroxide [Milk of 30 ml PO Q4H PRN oral.liqd 01/11/20 Unknown Rx Magnesia] Prednisone [predniSONE 10 mg 10 mg PO .TAPER #1 tab.ds.pk 01/11/20 Unknown Rx (6-Day Pack, 21 Tabs)] guaiFENesin ER [Mucinex ER] 600 mg PO Q12H #14 tablet.er 01/11/20 Unknown Rx predniSONE [Deltasone] 60 mg PO QDAY #15 tab 03/24/20 Unknown Rx Albuterol Sulfate [Proventil Hfa] 2 puff IH Q4HR PRN #1 hfa.aer.ad 12/11/20 Unknown Rx Azithromycin [Zithromax Z-SELWYN] 250 mg PO DAILY #6 tablet 12/11/20 Unknown Rx Benzonatate [Tessalon Perles] 100 mg PO Q8HR #30 capsule 12/11/20 Unknown Rx Cetirizine HCl [Zyrtec 10mg tab] 10 mg PO DAILY #30 tablet 12/11/20 Unknown Rx Fluticasone/Salmeterol [Advair 1 puff IH DAILY #1 inh 12/11/20 Unknown Rx Diskus 500-50 mcg] Montelukast [Singulair] 10 mg PO QPM #30 tablet 12/11/20 Unknown Rx predniSONE [Deltasone] 40 mg PO QDAY #10 tab 12/11/20 Unknown Rx Caffeine [Alertness Aid] 300 mg PO QDAY PRN #10 tablet 04/29/21 Unknown Rx Metoclopramide [Reglan] 10 mg PO QID PRN #30 tablet 04/29/21 Unknown Rx Allergies Allergy/AdvReac Type Severity Reaction Status Date / Time dexamethasone [From Decadron] Allergy Anaphylaxis Verified 09/07/18 15:52 dexamethasone sod phosphate Allergy Anaphylaxis Verified 09/07/18 15:52 [From Decadron] epinephrine Allergy Rash Verified 09/07/18 15:52 ipratropium bromide Allergy Anaphylaxis Verified 09/07/18 15:52 [From Atrovent] peanut Allergy Anaphylaxis Verified 09/07/18 15:52 ED Review of Systems ROS: Stated complaint: BODY AND FACE PAIN Other details as noted in HPI Constitutional: denies: fever, malaise Eyes: denies: eye discharge, vision change ENT: denies: ear pain, dental pain Respiratory: denies: cough Cardiovascular: denies: chest pain Gastrointestinal: denies: abdominal pain, vomiting Musculoskeletal: arthralgia, myalgia Neurological: headache. denies: weakness, numbness, paresthesias Psychiatric: anxiety ED Past Medical Hx - Past Medical History Hx Hypertension: Yes Hx Congestive Heart Failure: No Hx Diabetes: Yes (steroid induced) Hx Pulmonary Embolism: Yes Hx Liver Disease: Yes (HEPATITIS C) Hx Sickle Cell Disease: No Hx Kidney Stones: Yes Hx Asthma: Yes (5 intubation) Hx Tuberculosis: No (Exposure) Hx HIV: No Additional medical history: intubations for asthma, lumbar radiculopathy - Surgical History Hx Open Heart Surgery: No Hx Cholecystectomy: No Hx Appendectomy: No Hx Breast Surgery: No Additional Surgical History: neck surgery, pain pump. States previous to admission and had an exercise stress test. States that test was terminated secondary to asthma. device in back. Pain implant. L4-L5, S1 fusion. right ankle surgery - Social History Substance Use Type: Alcohol - Medications Home Medications: Home Medications Medication Instructions Recorded Confirmed Last Taken Type Meclizine [Antivert] 25 mg PO TID PRN #20 tablet 06/18/19 01/09/20 01/02/20 Rx amLODIPine 10 mg PO QDAY PRN 01/09/20 01/09/20 01/05/20 History ALBUTEROL NEB's [Proventil 0.083% 2.5 mg IH Q4HRT PRN nebu 01/11/20 Unknown Rx NEBS] ALBUTEROL NEB's [Proventil 0.083% 2.5 mg IH Q6HRT nebu 01/11/20 Unknown Rx NEBS] Acetaminophen [Acetaminophen TAB] 650 mg PO Q6H PRN tablet 01/11/20 Unknown Rx Arformoterol Nebu [Brovana Nebu] 15 mcg IH Q12HRT ml 01/11/20 Unknown Rx Budesonide [Pulmicort Respules] 1 mg IH Q12HRT nebu 01/11/20 Unknown Rx Gabapentin 300 mg PO Q8HR 10 Days #30 cap 01/11/20 Unknown Rx Magnesium Hydroxide [Milk of 30 ml PO Q4H PRN oral.liqd 01/11/20 Unknown Rx Magnesia] Prednisone [predniSONE 10 mg 10 mg PO .TAPER #1 tab.ds.pk 01/11/20 Unknown Rx (6-Day Pack, 21 Tabs)] guaiFENesin ER [Mucinex ER] 600 mg PO Q12H #14 tablet.er 01/11/20 Unknown Rx predniSONE [Deltasone] 60 mg PO QDAY #15 tab 03/24/20 Unknown Rx Albuterol Sulfate [Proventil Hfa] 2 puff IH Q4HR PRN #1 hfa.aer.ad 12/11/20 Unknown Rx Azithromycin [Zithromax Z-SELWYN] 250 mg PO DAILY #6 tablet 12/11/20 Unknown Rx Benzonatate [Tessalon Perles] 100 mg PO Q8HR #30 capsule 12/11/20 Unknown Rx Cetirizine HCl [Zyrtec 10mg tab] 10 mg PO DAILY #30 tablet 12/11/20 Unknown Rx Fluticasone/Salmeterol [Advair 1 puff IH DAILY #1 inh 12/11/20 Unknown Rx Diskus 500-50 mcg] Montelukast [Singulair] 10 mg PO QPM #30 tablet 12/11/20 Unknown Rx predniSONE [Deltasone] 40 mg PO QDAY #10 tab 12/11/20 Unknown Rx Caffeine [Alertness Aid] 300 mg PO QDAY PRN #10 tablet 04/29/21 Unknown Rx Metoclopramide [Reglan] 10 mg PO QID PRN #30 tablet 04/29/21 Unknown Rx ED Physical Exam - General Limitations: No Limitations General appearance: alert, anxious, in distress, obese - Head Head exam: Present: atraumatic, normocephalic - Eye Eye exam: Present: normal appearance, PERRL, EOMI. Absent: nystagmus - ENT ENT exam: Present: normal exam, normal orophraynx, mucous membranes moist, norm al external ear exam - Neck Neck exam: Present: normal inspection, other (There is muscular reproducible tenderness). Absent: tenderness, meningismus - Respiratory Respiratory exam: Present: normal lung sounds bilaterally. Absent: respiratory distress, wheezes, rales, rhonchi, stridor, decreased breath sounds - Cardiovascular Cardiovascular Exam: Present: regular rate, normal rhythm, normal heart sounds. Absent: bradycardia, tachycardia, systolic murmur, diastolic murmur, rubs, gallop - GI/Abdominal GI/Abdominal exam: Present: soft. Absent: distended, tenderness, guarding, rebound, rigid, pulsatile mass - Extremities Exam Extremities exam: Present: normal inspection, full ROM, other (2+ pulses noted in the bilateral upper and lower extremities. There is no palpable cord. negative Homans sign. Muscular compartments are soft. The pelvis is stable.). Absent: pedal edema, calf tenderness - Back Exam Back exam: Present: normal inspection, full ROM, paraspinal tenderness. Absent: tenderness, CVA tenderness (R), CVA tenderness (L), vertebral tenderness - Neurological Exam Neurological exam: Present: alert, oriented X3, other (No facial droop. Tongue midline. Extraocular movements intact bilaterally. Facial sensation intact to light touch in V1, V2, V3 distribution bilaterally. 5 and a 5 strength in 4 extremities. Sensation intact to light touch in 4 extremities.). Absent: motor sensory deficit - Psychiatric Psychiatric exam: Present: anxious - Skin Skin exam: Present: warm, dry, intact, normal color. Absent: rash ED Course Vital Signs 04/29/21 04/29/21 08:41 10:14 Temperature 98.8 F 98.1 F Pulse Rate 106 H 102 H Respiratory 18 12 Rate Blood Pressure 171/92 146/74 [Right] O2 Sat by Pulse 98 97 Oximetry - Reevaluation(s) Reevaluation #1: 04/29/21 11:14 Differential diagnosis, including but not limited to: Migraine headache, tension headache, cluster headache, aneurysm, CSF leak, trigeminal neuralgia, TMJ Assessment and plan: 60-year-old female, who was afebrile, with reassuring vital signs, improved tachycardia, chronically hypertensive, who presents to the ER today with a headache that is not sudden or thunderclap in nature, not maximal in intensity, and not the worst headache of her life, very qualitatively similar to prior episodes of CSF leak. Patient felt improved after appropriate medications. She has a GCS of 15, with NIH score of 0, and no meningeal signs. Noncontrast CT scan of the brain was ordered prior to my personal evaluation. She has no dental tenderness on examination, and she does not have allodynia on facial examination. Given the history, physical, and past history of spontaneous CSF leak, and reports of no personal family history of aneurysm, I think aneurysmal pathology is very unlikely. I had an extensive and long discussion with the patient about various options for work-up, including CT head, LP, and CT angiogram head. Discussed risks, benefits and alternatives of each. The patient states that she does not want a spinal tap, and she is comfortable with the decision making and plan of care. She understands the risks and benefits associated with each diagnostic procedure. Therefore, through shared decision making, we have elected to continue to treat her pain with intravenous caffeine, and obtain a CT angiogram of the head. Presuming no acute findings are noted, patient will be discharged with caffeine pills, Reglan, instructions to avoid NSAIDs, instructions to consume plenty of fluids, and instructions to lay flat for at least the next 24 hours. She will need to follow-up with her outpatient neurosurgeon for further outpatient evaluation. I discussed this extensively with the patient, and she is agreeable and comfortable with this plan of care Elevated blood pressure reviewed and appreciated. Please reference the [employer] clinical policy on asymptomatic hypertension. 04/29/21 12:54 The patient is reevaluated multiple times while in the emergency department. She has consumes 2 cans of Coca[employer]. She feels much improved. CT angiogram head negative for acute findings. The patient endorses that she feels 70 to 80% better. She endorses that she feels ready for discharge. She will need to follow-up as an outpatient. Return precautions reviewed. All questions answered. ED Medical Decision Making - Lab Data Result diagrams: 04/29/21 09:28 04/29/21 09:28 Vital Signs 04/29/21 04/29/21 08:41 10:14 Temperature 98.8 F 98.1 F Pulse Rate 106 H 102 H Respiratory 18 12 Rate Blood Pressure 171/92 146/74 [Right] O2 Sat by Pulse 98 97 Oximetry Lab Results 04/29/21 04/29/21 Range/Units 09:28 09:28 WBC 5.2 (4.5-11.0) K/mm3 RBC 4.79 (3.65-5.03) M/mm3 Hgb 12.6 (10.1-14.3) gm/dl Hct 38.4 (30.3-42.9) % MCV 80 (79-97) fl MCH 26 L (28-32) pg MCHC 33 (30-34) % RDW 13.5 (13.2-15.2) % Plt Count 268 (140-440) K/mm3 Sodium 138 (137-145) mmol/L Potassium 4.4 (3.6-5.0) mmol/L Chloride 102.2 (98-107) mmol/L Carbon Dioxide 24 (22-30) mmol/L Anion Gap 16 mmol/L BUN 10 (7-17) mg/dL Creatinine 0.7 (0.6-1.2) mg/dL Estimated GFR > 60 ml/min BUN/Creatinine Ratio 14 % Glucose 103 H (65-100) mg/dL Calcium 9.3 (8.4-10.2) mg/dL Total Bilirubin 0.20 (0.1-1.2) mg/dL AST 18 (5-40) units/L ALT 18 (7-56) units/L Alkaline Phosphatase 114 (35-129) units/L Total Protein 7.6 (6.3-8.2) g/dL Albumin 4.4 (3.9-5) g/dL Albumin/Globulin Ratio 1.4 % - Radiology Data Radiology results: pending, report reviewed, image reviewed CT head/brain wo con INDICATION / CLINICAL INFORMATION: 60 years Female; Worst RIBEIRO of her life. TECHNIQUE: Routine CT head without contrast. All CT scans at this location are performed using CT dose reduction for ALARA by means of automated exposure control. COMPARISON: None. FINDINGS: BRAIN / INTRACRANIAL CONTENTS: No acute hemorrhage, mass effect, midline shift, hydrocephalus, or acute, large territorial infarct. No signs of significant atrophy or chronic infarct. There are mild areas of decreased attenuation in the white matter of the cerebral hemispheres. These are nonspecific findings and may be related to microangiopathy (hypertension, diabetes, atherosclerosis), given the patient's age. CRANIOCERVICAL JUNCTION: No significant abnormality. ORBITS: No significant abnormality of visualized orbits. SINUSES / MASTOIDS: Visualized paranasal sinuses and mastoid air cells are essentially clear. ADDITIONAL FINDINGS: None. IMPRESSION: 1. No focal mass, hemorrhage, hydrocephalus, or acute, large territorial infarct. Signer Name: Tae Joy MD, III Signed: 04/29/2021 8:07 AM Workstation Name: [id number] CTA HEAD WITH CONTRAST 04/29/2021 HISTORY: Headache. COMPARISON: None. TECHNIQUE: All CT scans at this location are performed using CT dose reduction for ALARA by means of automated exposure control.. 3-D/MIP reformats postprocessed. Percentage stenosis is determined by direct quantitative measurements of diseased internal carotid artery diameter compared with normal distal internal carotid artery reference segments or by criteria similar to NASCET where applicable. CONTRAST: 100 ml of Omnipaque 350 FINDINGS: CTA HEAD: Intracranial vertebral arteries: No significant abnormality. Basilar artery: No significant abnormality. Posterior cerebral arteries: No significant abnormality. Intracranial internal carotid arteries: No significant abnormality. Anterior cerebral arteries: No significant abnormality. Middle cerebral arteries: No significant abnormality. Dural venous sinuses:Not optimally opacified. No significant abnormality. Additional findings: None. IMPRESSION: 1. No significant abnormality. Signer Name: Esvin Russo MD Signed: 04/29/2021 11:19 AM Critical care attestation.: If time is entered above; I have spent that time in minutes in the direct care of this critically ill patient, excluding procedure time. ED Disposition Clinical Impression: At risk for cerebrospinal fluid leakage Acute headache Qualifiers: Headache type: unspecified Intractability: not intractable Qualified Code(s): R51.9 - Headache, unspecified Disposition: 01 HOME / SELF CARE / HOMELESS Is pt being admited?: No Does the pt Need Aspirin: No Condition: Good Instructions: Spinal Headache Additional Instructions: Do not take metformin medication for the next 2 days, if patient takes this medication. Please take the prescribed medications as needed and directed, drink plenty of fluids, lay flat for 24 hours, avoid heavy lifting, and consume plenty of caffeine. Minimize/avoid consumption of aspirin, Motrin, ibuprofen, Naprosyn, Aleve. Patient may also take Tylenol/acetaminophen, 650 mg by mouth, every 4-6 hours as needed for pain, maximum daily dose to not exceed 3 g per 24 hours. We do recommend that the patient lay flat, and not get up, for at least 24 hours. We also recommend that the patient not drive or operate motor vehicles for the next 24 hours. Take your medications as needed and directed. We suspect that the patient has a recurrent CSF/cerebrospinal fluid leak. Recommend that the patient follow-up with an outpatient neurosurgeon within the next 3 to 5 days for repeat checkup and evaluation. Please return to the emergency room right away with new pain, worsened pain, migration of pain, projectile vomiting, change in mental status, confusion, inability to tolerate liquid feeds, new, worsened or different symptoms not present on the initial emergency room evaluation Prescriptions: Caffeine [Alertness Aid] 300 mg PO QDAY PRN #10 tablet PRN Reason: Headache Metoclopramide [Reglan] 10 mg PO QID PRN #30 tablet PRN Reason: Nausea Referrals: [facility] [Provider Group] - 3-5 Days Forms: Work/School Release Form(ED)
[2021-04-29 10:04] LABS: Alanine Aminotransferase 18 units/L (7-56); Albumin 4.4 g/dL (3.9-5); Blood Urea Nitrogen 10 mg/dL (7-17); Calcium 9.3 mg/dL (8.4-10.2); Hemolysis Index 5
[2021-04-29] MEDS ORDERED: diphenhydrAMINE 50 MG/ML VIAL IV ONE (10:13)
[2021-04-29] MEDS ORDERED: LIDOCAINE (4%) 40 MG/ML TOPICAL SOLN 50 ML BOTTLE TP ONE (10:13)
[2021-04-29] MEDS ORDERED: METOCLOPRAMIDE 10 MG/2 ML INJ IV ONE (10:13)
[2021-04-29 10:18] LABS: BUN/Creatinine Ratio 14
[2021-04-29] MEDS ORDERED: SODIUM CHLORIDE 0.9% 1000 ML 1,000 ML with CAFFEINE/SODIUM BENZOATE 500 MG IV ONE (11:30)
[2021-04-29 11:34] LABS: Basophils % (Auto) 0.4 % (0.0-1.8); Eosinophils % (Auto) 0.8 % (0.0-4.3); Lymphocytes # (Auto) 0.4 K/mm3 (1.2-5.4); Lymphocytes % (Auto) 7.1 % (13.4-35.0); Monocytes # (Auto) 0.7 K/mm3 (0.0-0.8); Monocytes % (Auto) 13.9 % (0.0-7.3)
--- NOTE | 2021-04-29 12:23 | Cat Scan Report ---
CTA HEAD WITH CONTRAST 04/29/2021 HISTORY: Headache. COMPARISON: None. TECHNIQUE: All CT scans at this location are performed using CT dose reduction for ALARA by means of automated exposure control.. 3-D/MIP reformats postprocessed. Percentage stenosis is determined by d irect quantitative measurements of diseased internal carotid artery diameter compared with normal dis rafiq internal carotid artery reference segments or by criteria similar to NASCET where applicable. CONTRAST: 100 ml of Omnipaque 350 FINDINGS: CTA HEAD: Intracranial vertebral arteries: No significant abnormality. Basilar artery: No significant abnormality. Posterior cerebral arteries: No significant abnormality. Intracranial internal carotid arteries: No significant abnormality. Anterior cerebral arteries: No significant abnormality. Middle cerebral arteries: No significant abnormality. Dural venous sinuses:Not optimally opacified. No significant abnormality. Additional findings: None. IMPRESSION: 1. No significant abnormality. Signer Name: Esvin Russo MD Signed: 04/29/2021 12:19 PM Workstation Name: [id number]
[2021-04-29 13:21] VITALS: BP 145/86
== END 2021-04-29 13:24 | disposition home or self-care (01) ==
LOC: ED 08:36
DX: G96.00 Cerebrospinal fluid leak, unspecified (principal); R51.9 Headache, unspecified; I10 Essential (primary) hypertension; E11.9 Type 2 diabetes mellitus without complications; J45.909 Unspecified asthma, uncomplicated; Z86.711 Personal history of pulmonary embolism; Z79.899 Other long term (current) drug therapy; Z88.8 Allergy status to other drugs, medicaments and biological substances; Z91.010 Allergy to peanuts
CPT/HCPCS: 36415; 70450; 70496; 80053; 85025; 96361; 96372; 96374; 96375; 99284; J1170; J1200; J2765; J7030; J8521; Q9967; Q0162

== ENCOUNTER 2021-08-20 08:58 | Emergency (ER) | payer BC ==
[2021-08-20] MEDS ORDERED: KETOROLAC 60 MG/2 ML INJ IM ONE (09:03)
[2021-08-20] MEDS ORDERED: CYCLOBENZAPRINE 10 MG TAB PO ONE (09:04)
[2021-08-20 09:06] VITALS: BP 164/107
[2021-08-20] MEDS ORDERED: oxyCODONE /ACETAMINOPHEN 5-325MG TAB PO ONE (09:06)
[2021-08-20] MEDS ORDERED: LIDOCAINE 5% 1 EACH PATCH TD SCH (10:00)
[2021-08-20] MEDS ORDERED: predniSONE 20 MG TAB PO ONE (10:03)
--- NOTE | 2021-08-20 11:06 | Emergency Department Report ---
ED Neck Pain/Injury HPI - General Chief Complaint: Pain General Stated Complaint: LEFT SHOULDER PAIN Time Seen by Provider: 08/20/21 09:01 Mode of arrival: Ambulatory Limitations: No Limitations - History of Present Illness Initial Comments: 60-year-old black female presents to the emergency department for evaluation of 2-day history of left neck and shoulder pain. States that pain initially started yesterday, got worse while she was working, and was so severe this morning that she had problems lifting her arm. States that pain is worse when she attempts to turn her neck. She denies injury or trauma. She denies chest pain, shortness of breath, nausea, vomiting, dizziness, and diaphoresis. MD Complaint: neck pain, other (Left shoulder pain) -: Gradual, days(s) (1) Place: home, work Radiation: left shoulder Severity: severe Severity scale (0 -10): 10 Quality: burning, aching Consistency: constant Worsens With: movement of extremity, movement of neck Associated Symptoms: denies: headache, fever, numbness, tingling, weakness, vertigo, difficulty walking, swollen glands, difficulty swallowing, nausea, vomiting Treatments Prior to Arrival: none - Related Data Home Medications Medication Instructions Recorded Confirmed Last Taken amLODIPine 10 mg PO QDAY PRN 01/09/20 01/09/20 01/05/20 Previous Rx's Medication Instructions Recorded Last Taken Type Fluticasone/Salmeterol [Advair 1 each IH BID 30 Days blst.w.dev 09/05/17 Unknown Rx 250-50 Diskus] guaiFENesin ER [Mucinex ER] 600 mg PO BID #14 tablet 09/05/17 Unknown Rx levoFLOXacin [Levaquin TAB] 750 mg PO DAILY #5 tablet 09/05/17 Unknown Rx oxyCODONE /ACETAMINOPHEN [Percocet 1 tab PO Q6H PRN #10 tablet 09/05/17 Unknown Rx 5/325 mg] predniSONE [Deltasone] 50 mg PO QDAY #5 tab 09/05/17 Unknown Rx Diazepam [Valium] 5 mg PO Q8H PRN #13 tablet 03/05/18 Unknown Rx traMADoL [Ultram 50 MG tab] 50 mg PO Q6HR PRN #13 tablet 03/05/18 Unknown Rx Gabapentin [Neurontin] 100 mg PO Q8HR #30 capsule 02/01/19 Unknown Rx Ondansetron [Zofran Odt] 4 mg PO Q8HR PRN #14 tab.rapdis 02/01/19 Unknown Rx Prednisone [predniSONE 10 mg 10 mg PO .TAPER #1 tab.ds.pk 02/01/19 Unknown Rx (6-Day Pack, 21 Tabs)] oxyCODONE /ACETAMINOPHEN [Percocet 1 tab PO Q6HR PRN #14 tablet 02/01/19 Unknown Rx 5/325] Meclizine [Antivert] 25 mg PO TID PRN #20 tablet 06/18/19 01/02/20 Rx ALBUTEROL NEB's [Proventil 0.083% 2.5 mg IH Q4HRT PRN nebu 01/11/20 Unknown Rx NEBS] ALBUTEROL NEB's [Proventil 0.083% 2.5 mg IH Q6HRT nebu 01/11/20 Unknown Rx NEBS] Acetaminophen [Acetaminophen TAB] 650 mg PO Q6H PRN tablet 01/11/20 Unknown Rx Arformoterol Nebu [Brovana Nebu] 15 mcg IH Q12HRT ml 01/11/20 Unknown Rx Budesonide [Pulmicort Respules] 1 mg IH Q12HRT nebu 01/11/20 Unknown Rx Gabapentin 300 mg PO Q8HR 10 Days #30 cap 01/11/20 Unknown Rx Magnesium Hydroxide [Milk of 30 ml PO Q4H PRN oral.liqd 01/11/20 Unknown Rx Magnesia] Prednisone [predniSONE 10 mg 10 mg PO .TAPER #1 tab.ds.pk 01/11/20 Unknown Rx (6-Day Pack, 21 Tabs)] guaiFENesin ER [Mucinex ER] 600 mg PO Q12H #14 tablet.er 01/11/20 Unknown Rx predniSONE [Deltasone] 60 mg PO QDAY #15 tab 03/24/20 Unknown Rx Albuterol Sulfate [Proventil Hfa] 2 puff IH Q4HR PRN #1 hfa.aer.ad 12/11/20 Unknown Rx Azithromycin [Zithromax Z-SELWYN] 250 mg PO DAILY #6 tablet 12/11/20 Unknown Rx Benzonatate [Tessalon Perles] 100 mg PO Q8HR #30 capsule 12/11/20 Unknown Rx Cetirizine HCl [Zyrtec 10mg tab] 10 mg PO DAILY #30 tablet 12/11/20 Unknown Rx Fluticasone/Salmeterol [Advair 1 puff IH DAILY #1 inh 12/11/20 Unknown Rx Diskus 500-50 mcg] Montelukast [Singulair] 10 mg PO QPM #30 tablet 12/11/20 Unknown Rx predniSONE [Deltasone] 40 mg PO QDAY #10 tab 12/11/20 Unknown Rx Caffeine [Alertness Aid] 300 mg PO QDAY PRN #10 tablet 04/29/21 Unknown Rx Metoclopramide [Reglan] 10 mg PO QID PRN #30 tablet 04/29/21 Unknown Rx Cyclobenzaprine [Flexeril] 10 mg PO TID PRN #21 tab 08/20/21 Unknown Rx Lidocaine [Lidoderm] 1 each TP DAILY #10 patch 08/20/21 Unknown Rx Naproxen [Naprosyn] 500 mg PO BID #14 tab 08/20/21 Unknown Rx Prednisone [predniSONE 10 mg 10 mg PO .TAPER #1 pack 08/20/21 Unknown Rx (6-Day Pack, 21 Tabs)] Allergies Allergy/AdvReac Type Severity Reaction Status Date / Time dexamethasone [From Decadron] Allergy Anaphylaxis Verified 07/15/21 12:26 dexamethasone sod phosphate Allergy Anaphylaxis Verified 07/15/21 12:26 [From Decadron] epinephrine Allergy Rash Verified 07/15/21 12:26 ipratropium bromide Allergy Anaphylaxis Verified 07/15/21 12:26 [From Atrovent] peanut Allergy Anaphylaxis Verified 07/15/21 12:26 shellfish derived Allergy Anaphylaxis Verified 07/15/21 12:26 ED Review of Systems ROS: Stated complaint: LEFT SHOULDER PAIN Other details as noted in HPI Comment: All other systems reviewed and negative Constitutional: denies: chills, fever Respiratory: denies: cough, shortness of breath, SOB with exertion, SOB at rest Cardiovascular: denies: chest pain, palpitations, dyspnea on exertion, edema, syncope, paroxysmal nocturnal dyspnea Gastrointestinal: denies: abdominal pain, nausea, vomiting Genitourinary: denies: urgency, dysuria Musculoskeletal: denies: back pain Neurological: denies: headache, weakness, numbness, paresthesias, confusion, abnormal gait, vertigo Psychiatric: denies: anxiety, depression ED Past Medical Hx - Past Medical History Hx Hypertension: Yes ("stress related" not currently being treated) Hx Congestive Heart Failure: No Hx Diabetes: Yes ("steriod induced") Hx Pulmonary Embolism: Yes Hx Liver Disease: Yes (HEPATITIS C) Hx Sickle Cell Disease: No Hx Kidney Stones: Yes Hx Asthma: Yes Hx Tuberculosis: No (Exposure) Hx HIV: No Additional medical history: intubations for asthma, lumbar radiculopathy - Surgical History Hx Open Heart Surgery: No Hx Cholecystectomy: No Hx Appendectomy: No Hx Breast Surgery: No Additional Surgical History: back, neck, tonsilectomy - Social History Substance Use Type: None, Alcohol - Medications Home Medications: Home Medications Medication Instructions Recorded Confirmed Last Taken Type Fluticasone/Salmeterol [Advair 1 each IH BID 30 Days blst.w.dev 09/05/17 Unknown Rx 250-50 Diskus] guaiFENesin ER [Mucinex ER] 600 mg PO BID #14 tablet 09/05/17 Unknown Rx levoFLOXacin [Levaquin TAB] 750 mg PO DAILY #5 tablet 09/05/17 Unknown Rx oxyCODONE /ACETAMINOPHEN [Percocet 1 tab PO Q6H PRN #10 tablet 09/05/17 Unknown Rx 5/325 mg] predniSONE [Deltasone] 50 mg PO QDAY #5 tab 09/05/17 Unknown Rx Diazepam [Valium] 5 mg PO Q8H PRN #13 tablet 03/05/18 Unknown Rx traMADoL [Ultram 50 MG tab] 50 mg PO Q6HR PRN #13 tablet 03/05/18 Unknown Rx Gabapentin [Neurontin] 100 mg PO Q8HR #30 capsule 02/01/19 Unknown Rx Ondansetron [Zofran Odt] 4 mg PO Q8HR PRN #14 tab.rapdis 02/01/19 Unknown Rx Prednisone [predniSONE 10 mg 10 mg PO .TAPER #1 tab.ds.pk 02/01/19 Unknown Rx (6-Day Pack, 21 Tabs)] oxyCODONE /ACETAMINOPHEN [Percocet 1 tab PO Q6HR PRN #14 tablet 02/01/19 Unknown Rx 5/325] Meclizine [Antivert] 25 mg PO TID PRN #20 tablet 06/18/19 01/09/20 01/02/20 Rx amLODIPine 10 mg PO QDAY PRN 0801/09/20 01/05/20 History ALBUTEROL NEB's [Proventil 0.083% 2.5 mg IH Q4HRT PRN nebu 01/11/20 Unknown Rx NEBS] ALBUTEROL NEB's [Proventil 0.083% 2.5 mg IH Q6HRT nebu 01/11/20 Unknown Rx NEBS] Acetaminophen [Acetaminophen TAB] 650 mg PO Q6H PRN tablet 01/11/20 Unknown Rx Arformoterol Nebu [Brovana Nebu] 15 mcg IH Q12HRT ml 01/11/20 Unknown Rx Budesonide [Pulmicort Respules] 1 mg IH Q12HRT nebu 01/11/20 Unknown Rx Gabapentin 300 mg PO Q8HR 10 Days #30 cap 01/11/20 Unknown Rx Magnesium Hydroxide [Milk of 30 ml PO Q4H PRN oral.liqd 01/11/20 Unknown Rx Magnesia] Prednisone [predniSONE 10 mg 10 mg PO .TAPER #1 tab.ds.pk 01/11/20 Unknown Rx (6-Day Pack, 21 Tabs)] guaiFENesin ER [Mucinex ER] 600 mg PO Q12H #14 tablet.er 01/11/20 Unknown Rx predniSONE [Deltasone] 60 mg PO QDAY #15 tab 03/24/20 Unknown Rx Albuterol Sulfate [Proventil Hfa] 2 puff IH Q4HR PRN #1 hfa.aer.ad 12/11/20 Unknown Rx Azithromycin [Zithromax Z-SELWYN] 250 mg PO DAILY #6 tablet 12/11/20 Unknown Rx Benzonatate [Tessalon Perles] 100 mg PO Q8HR #30 capsule 12/11/20 Unknown Rx Cetirizine HCl [Zyrtec 10mg tab] 10 mg PO DAILY #30 tablet 12/11/20 Unknown Rx Fluticasone/Salmeterol [Advair 1 puff IH DAILY #1 inh 12/11/20 Unknown Rx Diskus 500-50 mcg] Montelukast [Singulair] 10 mg PO QPM #30 tablet 12/11/20 Unknown Rx predniSONE [Deltasone] 40 mg PO QDAY #10 tab 12/11/20 Unknown Rx Caffeine [Alertness Aid] 300 mg PO QDAY PRN #10 tablet 04/29/21 Unknown Rx Metoclopramide [Reglan] 10 mg PO QID PRN #30 tablet 04/29/21 Unknown Rx Cyclobenzaprine [Flexeril] 10 mg PO TID PRN #21 tab 08/20/21 Unknown Rx Lidocaine [Lidoderm] 1 each TP DAILY #10 patch 08/20/21 Unknown Rx Naproxen [Naprosyn] 500 mg PO BID #14 tab 08/20/21 Unknown Rx Prednisone [predniSONE 10 mg 10 mg PO .TAPER #1 pack 08/20/21 Unknown Rx (6-Day Pack, 21 Tabs)] ED Physical Exam - General Limitations: No Limitations General appearance: alert, in no apparent distress - Head Head exam: Present: atraumatic, normocephalic - Eye Eye exam: Present: normal appearance. Absent: conjunctival injection - Neck Neck exam: Present: normal inspection, tenderness (Left side only). Absent: full ROM, lymphadenopathy - Respiratory Respiratory exam: Present: normal lung sounds bilaterally. Absent: respiratory distress, wheezes, rales, rhonchi, stridor, chest wall tenderness, accessory muscle use - Cardiovascular Cardiovascular Exam: Present: regular rate, normal heart sounds - GI/Abdominal GI/Abdominal exam: Present: soft, normal bowel sounds. Absent: distended, tenderness, guarding, rebound, rigid - Extremities Exam Extremities exam: Present: normal inspection - Expanded Upper Extremity Exam Left Shoulder Exam: Present: normal inspection, tenderness, other (Decreased range of motion). Absent: full ROM, swelling, abrasion, laceration, ecchymosis, deformity, crepidus, dislocation, erythema, tenderness over AC joint Vascular: Present: normal capillary refill, radial pulse. Absent: vascular compromise, pulse deficit radial art - Back Exam Back exam: Present: normal inspection. Absent: tenderness - Neurological Exam Neurological exam: Present: alert, oriented X3, normal gait - Expanded Neurological Exam Expanded Patient oriented to: Present: person, time Speech: Present: fluid speech Cranial nerves: EOM's Intact: Normal Motor strength exam: RUE: 5, LUE: 5, RLE: 5, LLE: 5 Best Eye Response (White): (4) open spontaneously Best Motor Response (Donovan): (6) obeys commands Best Verbal Response (White): (5) oriented White Total: 15 - Psychiatric Psychiatric exam: Present: normal affect, normal mood - Skin Skin exam: Present: warm, dry, intact, normal color ED Course Vital Signs 08/20/21 09:05 Temperature 98.6 F Pulse Rate 98 H Respiratory 24 Rate Blood Pressure 164/107 [Right] O2 Sat by Pulse 99 Oximetry - Reevaluation(s) Reevaluation #1: 08/20/21 11:07 Pain significantly improved, and patient states that she feels much better. She continues to deny chest pain, shortness of breath, nausea, vomiting, and dizziness. ED Medical Decision Making - Medical Decision Making 60-year-old black female presents to the emergency department for evaluation of 2-day history of left neck and shoulder pain. States that pain initially started yesterday, got worse while she was working, and was so severe this morning that she had problems lifting her arm. States that pain is worse when she attempts to turn her neck. She denies injury or trauma. She denies chest pain, shortness of breath, nausea, vomiting, dizziness, and diaphoresis. Symptoms and exam consistent with cervical radicular pain. Pain significantly improved after medication. Patient to be discharged home with prednisone pack, Flexeril, naproxen, and lidocaine patches to use for pain. She is advised to take medications as prescribed and follow-up with primary care provider as needed. She is advised to return to the emergency department for any concerning symptoms. Critical care attestation.: If time is entered above; I have spent that time in minutes in the direct care of this critically ill patient, excluding procedure time. ED Disposition Clinical Impression: Cervical radicular pain Disposition: 01 HOME / SELF CARE / HOMELESS Is pt being admited?: No Does the pt Need Aspirin: No Condition: Stable Instructions: Radicular Pain, Cervical Radiculopathy, [id number] Additional Instructions: Take medications as prescribed. Follow-up with primary care provider if no improvement or worsening symptoms. Prescriptions: Cyclobenzaprine [Flexeril] 10 mg PO TID PRN #21 tab PRN Reason: Muscle Spasm Lidocaine [Lidoderm] 1 each TP DAILY #10 patch Naproxen [Naprosyn] 500 mg PO BID #14 tab Prednisone [predniSONE 10 mg (6-Day Pack, 21 Tabs)] 10 mg PO .TAPER #1 pack Referrals: ALYSSA LYNCH MD [Referring] - 3-5 Days LYNN TERRELL DO [Referring] - 3-5 Days Forms: Work/School Release Form(ED) Time of Disposition: 11:07
== END 2021-08-20 11:37 | disposition home or self-care (01) ==
LOC: ED 08:58
DX: M54.12 Radiculopathy, cervical region (principal); I10 Essential (primary) hypertension; E11.9 Type 2 diabetes mellitus without complications; I26.99 Other pulmonary embolism without acute cor pulmonale; K76.9 Liver disease, unspecified; N20.0 Calculus of kidney; J45.909 Unspecified asthma, uncomplicated; Z88.6 Allergy status to analgesic agent; Z88.1 Allergy status to other antibiotic agents; Z91.010 Allergy to peanuts; Z91.013 Allergy to seafood; Z91.09 Other allergy status, other than to drugs and biological substances; Z79.899 Other long term (current) drug therapy; Z98.890 Other specified postprocedural states
CPT/HCPCS: 96372; 99282; J1885

== ENCOUNTER 2021-09-28 16:23 | Inpatient (IN) | payer BC ==
--- NOTE | 2021-09-28 16:42 | Emergency Department Report ---
ED Neuro Deficit HPI - General Stated Complaint: SOB/HBP Time Seen by Provider: 09/28/21 16:34 Source: patient - History of Present Illness Initial Comments: Patient is 60 years old female with history of hypertension and asthma. Patient presented to the ER complaining of headache that started this morning Patient stated that she had difficulty speaking right. She stated that she started stuttering and thats never happened before. Patient also experiencing right upper and lower extremity weakness and numbness. Patient stated that her symptoms better now. -: This morning Location: speech, right arm, right leg Presenting Symptoms: Present: Weak/Paralyzed One Side, Facial Droop/Numbness, Unable to Speak Clearly Context: sudden onset Associated Symptoms: confusion, headaches - Related Data Home Medications: Home Medications Medication Instructions Recorded Confirmed Last Taken amLODIPine 10 mg PO QDAY PRN 01/09/20 09/29/21 01/05/20 Previous Rx's Medication Instructions Recorded Last Taken Type levoFLOXacin [Levaquin TAB] 750 mg PO DAILY #5 tablet 09/05/17 Unknown Rx predniSONE [Deltasone] 50 mg PO QDAY #5 tab 09/05/17 Unknown Rx Diazepam [Valium] 5 mg PO Q8H PRN #13 tablet 03/05/18 Unknown Rx traMADoL [Ultram 50 MG tab] 50 mg PO Q6HR PRN #13 tablet 03/05/18 Unknown Rx Ondansetron [Zofran Odt] 4 mg PO Q8HR PRN #14 tab.rapdis 02/01/19 Unknown Rx oxyCODONE /ACETAMINOPHEN [Percocet 1 tab PO Q6HR PRN #14 tablet 02/01/19 Unknown Rx 5/325] Meclizine [Antivert] 25 mg PO TID PRN #20 tablet 06/18/19 01/02/20 Rx ALBUTEROL NEB's [Proventil 0.083% 2.5 mg IH Q4HRT PRN nebu 01/11/20 Unknown Rx NEBS] Acetaminophen [Acetaminophen TAB] 650 mg PO Q6H PRN tablet 01/11/20 Unknown Rx Arformoterol Nebu [Brovana Nebu] 15 mcg IH Q12HRT ml 01/11/20 Unknown Rx Budesonide [Pulmicort Respules] 1 mg IH Q12HRT nebu 01/11/20 Unknown Rx Gabapentin 300 mg PO Q8HR 10 Days #30 cap 01/11/20 Unknown Rx Magnesium Hydroxide [Milk of 30 ml PO Q4H PRN oral.liqd 01/11/20 Unknown Rx Magnesia] guaiFENesin ER [Mucinex ER] 600 mg PO Q12H #14 tablet.er 01/11/20 Unknown Rx predniSONE [Deltasone] 60 mg PO QDAY #15 tab 03/24/20 Unknown Rx Albuterol Sulfate [Proventil Hfa] 2 puff IH Q4HR PRN #1 hfa.aer.ad 12/11/20 Unknown Rx Azithromycin [Zithromax Z-SELWYN] 250 mg PO DAILY #6 tablet 12/11/20 Unknown Rx Benzonatate [Tessalon Perles] 100 mg PO Q8HR #30 capsule 12/11/20 Unknown Rx Cetirizine HCl [Zyrtec 10mg tab] 10 mg PO DAILY #30 tablet 12/11/20 Unknown Rx Fluticasone/Salmeterol [Advair 1 puff IH DAILY #1 inh 12/11/20 Unknown Rx Diskus 500-50 mcg] Montelukast [Singulair] 10 mg PO QPM #30 tablet 12/11/20 Unknown Rx predniSONE [Deltasone] 40 mg PO QDAY #10 tab 12/11/20 Unknown Rx Caffeine [Alertness Aid] 300 mg PO QDAY PRN #10 tablet 04/29/21 Unknown Rx Metoclopramide [Reglan] 10 mg PO QID PRN #30 tablet 04/29/21 Unknown Rx Cyclobenzaprine [Flexeril] 10 mg PO TID PRN #21 tab 08/20/21 Unknown Rx Lidocaine [Lidoderm] 1 each TP DAILY #10 patch 08/20/21 Unknown Rx Naproxen [Naprosyn] 500 mg PO BID #14 tab 08/20/21 Unknown Rx Prednisone [predniSONE 10 mg 10 mg PO .TAPER #1 pack 08/20/21 Unknown Rx (6-Day Pack, 21 Tabs)] Allergies/Adverse Reactions: Allergies Allergy/AdvReac Type Severity Reaction Status Date / Time dexamethasone [From Decadron] Allergy Anaphylaxis Verified 09/28/21 16:36 dexamethasone sod phosphate Allergy Anaphylaxis Verified 09/28/21 16:36 [From Decadron] epinephrine Allergy Rash Verified 09/28/21 16:36 ipratropium bromide Allergy Anaphylaxis Verified 09/28/21 16:36 [From Atrovent] peanut Allergy Anaphylaxis Verified 09/28/21 16:36 shellfish derived Allergy Anaphylaxis Verified 09/28/21 16:36 ED Review of Systems ROS: Stated complaint: SOB/HBP Other details as noted in HPI Comment: All other systems reviewed and negative Constitutional: denies: chills, fever Respiratory: denies: cough, shortness of breath, SOB with exertion, SOB at rest Cardiovascular: denies: chest pain, palpitations Gastrointestinal: denies: abdominal pain, nausea, vomiting, diarrhea Musculoskeletal: denies: back pain Neurological: headache, weakness, numbness, confusion. denies: paresthesias, abnormal gait ED Past Medical Hx - Past Medical History Hx Hypertension: Yes ("stress related" not currently being treated) Hx Congestive Heart Failure: No Hx Diabetes: Yes ("steriod induced") Hx Pulmonary Embolism: Yes Hx Liver Disease: Yes (HEPATITIS C) Hx Sickle Cell Disease: No Hx Kidney Stones: Yes Hx Asthma: Yes Hx Tuberculosis: No (Exposure) Hx HIV: No Additional medical history: intubations for asthma, lumbar radiculopathy - Surgical History Hx Open Heart Surgery: No Hx Cholecystectomy: No Hx Appendectomy: No Hx Breast Surgery: No Additional Surgical History: back, neck, tonsilectomy - Social History Substance Use Type: None, Alcohol - Medications Home Medications: Home Medications Medication Instructions Recorded Confirmed Last Taken Type levoFLOXacin [Levaquin TAB] 750 mg PO DAILY #5 tablet 09/05/17 09/29/21 Unknown Rx predniSONE [Deltasone] 50 mg PO QDAY #5 tab 09/05/17 09/29/21 Unknown Rx Diazepam [Valium] 5 mg PO Q8H PRN #13 tablet 03/05/18 09/29/21 Unknown Rx traMADoL [Ultram 50 MG tab] 50 mg PO Q6HR PRN #13 tablet 03/05/18 09/29/21 Unknown Rx Ondansetron [Zofran Odt] 4 mg PO Q8HR PRN #14 tab.rapdis 02/01/19 09/29/21 Unknown Rx oxyCODONE /ACETAMINOPHEN [Percocet 1 tab PO Q6HR PRN #14 tablet 02/01/19 09/29/21 Unknown Rx 5/325] Meclizine [Antivert] 25 mg PO TID PRN #20 tablet 06/18/19 09/29/21 01/02/20 Rx amLODIPine 10 mg PO QDAY PRN 01/09/20 09/29/21 01/05/20 History ALBUTEROL NEB's [Proventil 0.083% 2.5 mg IH Q4HRT PRN nebu 01/11/20 09/29/21 Unknown Rx NEBS] Acetaminophen [Acetaminophen TAB] 650 mg PO Q6H PRN tablet 01/11/20 09/29/21 U nknown Rx Arformoterol Nebu [Brovana Nebu] 15 mcg IH Q12HRT ml 01/11/20 09/29/21 Unknown Rx Budesonide [Pulmicort Respules] 1 mg IH Q12HRT nebu 01/11/20 09/29/21 Unknown Rx Gabapentin 300 mg PO Q8HR 10 Days #30 cap 01/11/20 09/29/21 Unknown Rx Magnesium Hydroxide [Milk of 30 ml PO Q4H PRN oral.liqd 01/11/20 09/29/21 Unknown Rx Magnesia] guaiFENesin ER [Mucinex ER] 600 mg PO Q12H #14 tablet.er 01/11/20 09/29/21 Unknown Rx predniSONE [Deltasone] 60 mg PO QDAY #15 tab 03/24/20 09/29/21 Unknown Rx Albuterol Sulfate [Proventil Hfa] 2 puff IH Q4HR PRN #1 hfa.aer.ad 12/11/20 Unknown Rx Azithromycin [Zithromax Z-SELWYN] 250 mg PO DAILY #6 tablet 12/11/20 09/29/21 Unkno wn Rx Benzonatate [Tessalon Perles] 100 mg PO Q8HR #30 capsule 12/11/20 09/29/21 Unknown Rx Cetirizine HCl [Zyrtec 10mg tab] 10 mg PO DAILY #30 tablet 12/11/20 09/29/21 Unknown Rx Fluticasone/Salmeterol [Advair 1 puff IH DAILY #1 inh 12/11/20 09/29/21 Unknown Rx Diskus 500-50 mcg] Montelukast [Singulair] 10 mg PO QPM #30 tablet 12/11/20 09/29/21 Unknown Rx predniSONE [Deltasone] 40 mg PO QDAY #10 tab 12/11/20 09/29/21 Unknown Rx Caffeine [Alertness Aid] 300 mg PO QDAY PRN #10 tablet 04/29/21 09/29/21 Unknown Rx Metoclopramide [Reglan] 10 mg PO QID PRN #30 tablet 04/29/21 09/29/21 Unknown Rx Cyclobenzaprine [Flexeril] 10 mg PO TID PRN #21 tab 08/20/21 09/29/21 Unknown Rx Lidocaine [Lidoderm] 1 each TP DAILY #10 patch 08/20/21 09/29/21 Unknown Rx Naproxen [Naprosyn] 500 mg PO BID #14 tab 08/20/21 09/29/21 Unknown Rx Prednisone [predniSONE 10 mg 10 mg PO .TAPER #1 pack 08/20/21 09/29/21 Unknown Rx (6-Day Pack, 21 Tabs)] ED Neuro Physical Exam - General General appearance: alert, in no apparent distress, anxious Suspected Stroke: Yes - Head Head exam: Present: atraumatic, normocephalic, normal inspection - Eye Eye exam: Present: normal appearance - ENT ENT exam: Present: normal exam, normal orophraynx, mucous membranes moist - Neck Neck exam: Present: normal inspection, full ROM. Absent: tenderness, meningismus - Respiratory Respiratory exam: Present: normal lung sounds bilaterally - Cardiovascular Cardiovascular Exam: Present: regular rate, normal rhythm, normal heart sounds - GI/Abdominal GI/Abdominal exam: Present: soft, normal bowel sounds. Absent: distended, tenderness, guarding, rebound, rigid, organomegaly, mass, bruit, pulsatile mass, hernia - Extremities Exam Extremities exam: Present: normal inspection, full ROM, normal capillary refill. Absent: tenderness - Back Exam Back exam: Present: normal inspection, full ROM. Absent: CVA tenderness (R), CVA tenderness (L) - Neurological Exam Neurological exam: Present: alert, oriented X3, CN II-XII intact - NIHSS Assessment Interval: Baseline 1a. Level of Consciousness: alert/keenly responsive 1b. LOC Questions: answers both correctly 1c. LOC Commands: performs tasks correctly 2. Best Gaze: normal 3. Visual: no visual loss 4. Facial Palsy: normal symmetrical movement 5b. Motor Arm Right: no drift 5a. Motor Arm Left: no drift 6a. Motor Leg Left: no drift 6b. Motor Leg Right: no drift 7. Limb Ataxia: absent 8. Sensory: normal 9. Best Language: no aphasia 10. Dysarthria: normal 11. Extinction/Inattention: no abnormality Total Score: 0 Stroke Severity: No Stroke Symptoms - Psychiatric Psychiatric exam: Present: normal mood - Skin Skin exam: Present: warm, intact, normal color ED Course Vital Signs 09/28/21 09/28/21 09/28/21 16:56 17:02 17:06 Temperature Pulse Rate 68 Respiratory 14 16 Rate Blood Pressure Blood Pressure 168/81 [Left] O2 Sat by Pulse 99 99 98 Oximetry 09/28/21 09/28/21 09/28/21 17:16 17:30 17:46 Temperature Pulse Rate 72 74 76 Respiratory 18 17 15 Rate Blood Pressure 168/81 168/81 168/81 Blood Pressure [Left] O2 Sat by Pulse 99 99 98 Oximetry 09/28/21 09/28/21 09/28/21 18:14 18:16 18:30 Temperature Pulse Rate 72 78 70 Respiratory 14 10 L 13 Rate Blood Pressure 168/81 168/81 168/81 Blood Pressure [Left] O2 Sat by Pulse 99 98 98 Oximetry 09/28/21 09/28/21 09/28/21 18:46 19:00 19:16 Temperature Pulse Rate 82 71 78 Respiratory 11 L 14 14 Rate Blood Pressure 168/81 168/81 168/81 Blood Pressure [Left] O2 Sat by Pulse Oximetry 09/28/21 09/28/21 09/28/21 19:30 19:46 20:00 Temperature Pulse Rate 88 73 72 Respiratory 14 15 16 Rate Blood Pressure 168/81 168/81 168/81 Blood Pressure [Left] O2 Sat by Pulse Oximetry 09/28/21 09/28/21 09/28/21 20:16 20:30 20:40 Temperature Pulse Rate 76 78 76 Respiratory 14 16 18 Rate Blood Pressure 168/81 168/81 168/81 Blood Pressure [Left] O2 Sat by Pulse Oximetry 09/28/21 09/28/21 20:50 21:15 Temperature 97.9 F Pulse Rate 73 88 Respiratory 17 15 Rate Blood Pressure 168/81 Blood Pressure 150/90 [Left] O2 Sat by Pulse 98 Oximetry - Lab Data Result diagrams: 09/28/21 Unknown 09/29/21 03:40 Lab Results 09/28/21 Range/Units 17:05 POC Glucose 105 (70-105) mg/dL - EKG Data -: EKG Interpreted by Me - Radiology Data Radiology results: report reviewed - Medical Decision Making Patient is 60 years old female with history of hypertension and asthma. Patient presented to the ER complaining of headache that started this morning Patient stated that she had difficulty speaking right. She stated that she started stuttering and thats never happened before. Patient also experiencing right upper and lower extremity weakness and numbness. Patient stated that her symptoms better now. Stroke protocol immediately initiated and patient examined by stroke telemetry neurologist. CT brain is negative for acute finding. CTA head and neck is unremarkable. I discussed the patient with Dr. King, he agreed to admit the patient to medical service for further management. Critical care attestation.: If time is entered above; I have spent that time in minutes in the direct care of this critically ill patient, excluding procedure time. ED Disposition Clinical Impression: Hypertensive emergency, Acute headache, Acute nausea with nonbilious vomiting Disposition: ADMITTED INPATIENT Is pt being admited?: Yes Condition: Stable
[2021-09-28 16:57] LABS: Hematocrit 37.2 % (30.3-42.9); Hemoglobin 12.3 gm/dl (10.1-14.3); Mean Corpuscular HGB Conc 33 % (30-34); Mean Corpuscular Volume 80 fl (79-97); Platelet Count 266 K/mm3 (140-440); Red Blood Count 4.64 M/mm3 (3.65-5.03); Red Cell Distribution Width 13.9 % (13.2-15.2)
[2021-09-28 17:03] LABS: INR 0.87 (0.87-1.13); Partial Thromboplastin Time 24.8 Sec. (24.2-36.6); Thrombin Time 16.8 Sec. (15.1-19.6)
[2021-09-28 17:08] LABS: Creatine Kinase MB 1.9 ng/mL (0.0-4.0)
[2021-09-28 17:10] LABS: Alanine Aminotransferase 13 units/L (7-56); Albumin 4.3 g/dL (3.9-5); Blood Urea Nitrogen 12 mg/dL (7-17); Calcium 9.4 mg/dL (8.4-10.2); Hemolysis Index 18
[2021-09-28 17:11] LABS: BUN/Creatinine Ratio 20; Bilirubin,Direct < 0.2 mg/dL (0-0.2)
[2021-09-28] MEDS ORDERED: MORPHINE 4 MG/1 ML INJ IV ONE (17:14)
[2021-09-28] MEDS ORDERED: ONDANSETRON 4 MG/2 ML INJ IV ONE ×2 (17:14→18:25)
--- NOTE | 2021-09-28 17:30 | Consultation ---
History of Present Illness Consult date: 09/28/21 History of present illness: [facility] Consult Note # Demographics Consult Type: Acute Stroke Level 1 (0-4.5 hrs) Patient Location: Emergency Room First Name: Bertha Last Name: Estrellita Date of : 1960 Age: 60 Gender: Female Facility: [facility] Time of Initial Page ( Time): 09/28/2021, 16:51 Time of Return Call ( Time): 09/28/2021, 16:52 # HPI Chief Complaint: speech changes headache History: Patient reported having stuttering, then on her way home was noted to have elevated blood pressure. This was around 3:30pm. She also noted having a headache this morning upon awakening at 6am, as well as dizziness & nausea. She also reported difficulty writing at an appointment at 3pm. Denied history of headaches. Last Known Normal: I have collected independent history specific to time last normal or last known well. We have collaborated with the provider and at this time, we have the most current timeline with the information that is available. 3pm Duration: constant hours Possible Thrombolytic candidate: not on warfarin or NOACs no intracranial hemorrhage history no recent major surgery Associated Symptoms: dizziness headache nausea no neck pain # Scores Time of exam and NIHSS (): 09/28/2021, 16:58 Level of Consciousness 1a: [0] = Alert; keenly responsive LOC Questions 1b: [0] = Answers both questions correctly LOC Commands 1c: [0] = Performs both tasks correctly Best Gaze 2: [0] = Normal Visual 3: [0] = No visual loss Facial Palsy 4: [0] = Normal symmetrical movements Motor Arm Left 5a: [0] = No drift Motor Arm Right 5b: [0] = No drift Motor Leg Left 6a: [0] = No drift Motor Leg Right 6b: [0] = No drift Limb Ataxia 7: [0] = Absent Sensory 8: [0] = Normal Best Language 9: [0] = No aphasia Dysarthria 10: [0] = Normal Extinction and Inattention 11: [0] = No abnormality NIHSS Total: 0 Modified Norwell Scale (mRS) pre-stroke: [0] = No Symptoms Modified Yasir Scale total: 0 VAN Screening: Negative # Exam SBP: 168 DBP: 81 Mental Status: awake alert and oriented x 3 follows commands In distress from pain Language: normal speech # PMH-FH-SH Social History: non-smoker Allergies: Dexamethasone, epinephrine # Data Glucose: [address] personally read by me (Eastern Time): 09/28/2021, 17:[address]: no bleed preliminarily reviewed by me, please refer to radiology read for official reading # Assessment Impression: Headache Rule-out SAH based on clinical presentation # Plan Thrombolytic/Intervention: NOT IV Thrombolysis or IA Intervention candidate Thrombolytic Exclusion (< 3 hour window): NIHSS = 0 Thrombolytic Exclusion: After discussing the risks & benefits, & with concern for potential SAH, the patient elected not to pursue thrombolytic therapy. Labs: B12 CBC comprehensive metabolic panel ESR hemoglobin A1c lipid panel thiamine troponin TSH urine drug screen ua Imaging: (urgency: STAT): CT Angiogram Head and CT Angiogram Neck AND call back with results if abnormal Imaging: (urgency: routine): MRI Brain without contrast Diagnostic Test: echo without bubble study lumbar puncture: cell count, protein, glucose Opening & closing pressure, xanthochromia, viral panel, Gram stain, bacterial & viral cultures, cytology & flow cytometry Therapy/Evaluation: NPO until swallow evaluation PT/OT evaluation Medication: migraine cocktail: Toradol 30 mg IV + Benadryl 25 mg IV + antiemetic IV Continue outpatient medication regimen pending diagnostic results. DVT Prophylaxis: SCD Other: telemetry monitoring I have discussed my recommendations with the referring provider If CTA or LP show evidence of SAH, Neurosurgery/ Neuroendovascular consultation Disposition: admit Medications and Allergies Allergies Allergy/AdvReac Type Severity Reaction Status Date / Time dexamethasone [From Decadron] Allergy Anaphylaxis Verified 09/28/21 16:36 dexamethasone sod phosphate Allergy Anaphylaxis Verified 09/28/21 16:36 [From Decadron] epinephrine Allergy Rash Verified 09/28/21 16:36 ipratropium bromide Allergy Anaphylaxis Verified 09/28/21 16:36 [From Atrovent] peanut Allergy Anaphylaxis Verified 09/28/21 16:36 shellfish derived Allergy Anaphylaxis Verified 09/28/21 16:36 Home Medications Medication Instructions Recorded Confirmed Last Taken Type Fluticasone/Salmeterol [Advair 1 each IH BID 30 Days blst.w.dev 09/05/17 Unknown Rx 250-50 Diskus] guaiFENesin ER [Mucinex ER] 600 mg PO BID #14 tablet 09/05/17 Unknown Rx levoFLOXacin [Levaquin TAB] 750 mg PO DAILY #5 tablet 09/05/17 Unknown Rx oxyCODONE /ACETAMINOPHEN [Percocet 1 tab PO Q6H PRN #10 tablet 09/05/17 Unknown Rx 5/325 mg] predniSONE [Deltasone] 50 mg PO QDAY #5 tab 09/05/17 Unknown Rx Diazepam [Valium] 5 mg PO Q8H PRN #13 tablet 03/05/18 Unknown Rx traMADoL [Ultram 50 MG tab] 50 mg PO Q6HR PRN #13 tablet 03/05/18 Unknown Rx Gabapentin [Neurontin] 100 mg PO Q8HR #30 capsule 02/01/19 Unknown Rx Ondansetron [Zofran Odt] 4 mg PO Q8HR PRN #14 tab.rapdis 02/01/19 Unknown Rx Prednisone [predniSONE 10 mg 10 mg PO .TAPER #1 tab.ds.pk 02/01/19 Unknown Rx (6-Day Pack, 21 Tabs)] oxyCODONE /ACETAMINOPHEN [Percocet 1 tab PO Q6HR PRN #14 tablet 02/01/19 Unknown Rx 5/325] Meclizine [Antivert] 25 mg PO TID PRN #20 tablet 06/18/19 01/09/20 01/02/20 Rx amLODIPine 10 mg PO QDAY PRN 01/09/20 01/09/20 01/05/20 History ALBUTEROL NEB's [Proventil 0.083% 2.5 mg IH Q4HRT PRN nebu 01/11/20 Unknown Rx NEBS] ALBUTEROL NEB's [Proventil 0.083% 2.5 mg IH Q6HRT nebu 01/11/20 Unknown Rx NEBS] Acetaminophen [Acetaminophen TAB] 650 mg PO Q6H PRN tablet 01/11/20 Unknown Rx Arformoterol Nebu [Brovana Nebu] 15 mcg IH Q12HRT ml 01/11/20 Unknown Rx Budesonide [Pulmicort Respules] 1 mg IH Q12HRT nebu 01/11/20 Unknown Rx Gabapentin 300 mg PO Q8HR 10 Days #30 cap 01/11/20 Unknown Rx Magnesium Hydroxide [Milk of 30 ml PO Q4H PRN oral.liqd 01/11/20 Unknown Rx Magnesia] Prednisone [predniSONE 10 mg 10 mg PO .TAPER #1 tab.ds.pk 01/11/20 Unknown Rx (6-Day Pack, 21 Tabs)] guaiFENesin ER [Mucinex ER] 600 mg PO Q12H #14 tablet.er 01/11/20 Unknown Rx predniSONE [Deltasone] 60 mg PO QDAY #15 tab 03/24/20 Unknown Rx Albuterol Sulfate [Proventil Hfa] 2 puff IH Q4HR PRN #1 hfa.aer.ad 12/11/20 Unknown Rx Azithromycin [Zithromax Z-SELWYN] 250 mg PO DAILY #6 tablet 12/11/20 Unknown Rx Benzonatate [Tessalon Perles] 100 mg PO Q8HR #30 capsule 12/11/20 Unknown Rx Cetirizine HCl [Zyrtec 10mg tab] 10 mg PO DAILY #30 tablet 12/11/20 Unknown Rx Fluticasone/Salmeterol [Advair 1 puff IH DAILY #1 inh 12/11/20 Unknown Rx Diskus 500-50 mcg] Montelukast [Singulair] 10 mg PO QPM #30 tablet 12/11/20 Unknown Rx predniSONE [Deltasone] 40 mg PO QDAY #10 tab 12/11/20 Unknown Rx Caffeine [Alertness Aid] 300 mg PO QDAY PRN #10 tablet 04/29/21 Unknown Rx Metoclopramide [Reglan] 10 mg PO QID PRN #30 tablet 04/29/21 Unknown Rx Cyclobenzaprine [Flexeril] 10 mg PO TID PRN #21 tab 08/20/21 Unknown Rx Lidocaine [Lidoderm] 1 each TP DAILY #10 patch 08/20/21 Unknown Rx Naproxen [Naprosyn] 500 mg PO BID #14 tab 08/20/21 Unknown Rx Prednisone [predniSONE 10 mg 10 mg PO .TAPER #1 pack 08/20/21 Unknown Rx (6-Day Pack, 21 Tabs)] Physical Examination - Vital Signs Vital Signs: Vital Signs Pulse Ox 99 09/28/21 16:56 Results - Laboratory Findings CBC and BMP: 09/28/21 Unknown 09/28/21 Unknown Abnormal Lab Findings: Abnormal Labs 09/28/21 09/28/21 Unknown Unknown MCH 27 L Glucose 137 H Total Creatine Kinase 165 H
--- NOTE | 2021-09-28 17:31 | Cat Scan Report ---
NONENHANCED CT SCAN OF THE HEAD: INDICATION / CLINICAL INFORMATION: 60 years Female; Stroke symptoms. TECHNIQUE: Routine CT head without contrast. All CT scans at this location are performed using CT dos e reduction for ALARA by means of automated exposure control. COMPARISON: CT scan of the head from 04/29/2021 FINDINGS: BRAIN / INTRACRANIAL CONTENTS: No stroke mimics; no intracerebral hemorrhage No acute hemorrhage, mass effect, midline shift, hydrocephalus, or acute, large territorial infarct. Chronic changes in the basal ganglia, solorzano radiata and centrum semiovale wall due to small vessel disease CRANIOCERVICAL JUNCTION: No significant abnormality. ORBITS: No significant abnormality of visualized orbits. SINUSES / MASTOIDS: No significant abnormality of the visualized paranasal sinuses or mastoid air rowena ls. ADDITIONAL FINDINGS: Empty sella IMPRESSION: No acute focal parenchymal lesion Signer Name: Nani Robins MD Signed: 09/28/2021 5:27 PM Workstation Name: [id number]
[2021-09-28] MEDS ORDERED: ACETAMINOPHEN 325 MG TAB PO PRN ×2 (18:15)
[2021-09-28] MEDS ORDERED: MORPHINE 4 MG/1 ML INJ IV PRN (18:15)
[2021-09-28] MEDS ORDERED: oxyCODONE /ACETAMINOPHEN 5-325MG TAB PO PRN (18:15)
[2021-09-28] MEDS ORDERED: PROMETHAZINE 25 MG RECT SUPP PR PRN (18:15)
[2021-09-28] MEDS ORDERED: MAGNESIUM HYDROXIDE (MOM) ORAL LIQD UDC PO PRN ×2 (18:15→18:18)
[2021-09-28] MEDS ORDERED: ALBUTEROL 2.5 MG/3 ML NEBU IH PRN (18:15)
[2021-09-28] MEDS ORDERED: ONDANSETRON 4 MG/2 ML INJ IV PRN ×2 (18:15)
[2021-09-28] MEDS ORDERED: METOCLOPRAMIDE 10 MG TAB PO PRN ×2 (18:15→18:18)
[2021-09-28] MEDS ORDERED: traMADol 50 MG TAB PO PRN ×2 (18:18→19:00)
[2021-09-28] MEDS ORDERED: diazePAM 5 MG TAB PO PRN (18:18)
[2021-09-28] MEDS ORDERED: amLODIPine 10 MG TAB PO PRN (18:18)
[2021-09-28] MEDS ORDERED: CYCLOBENZAPRINE 10 MG TAB PO PRN (18:18)
[2021-09-28] MEDS ORDERED: MECLIZINE 25 MG TAB PO PRN (18:18)
[2021-09-28] MEDS ORDERED: CAFFEINE 200 MG PO PRN (18:18)
--- NOTE | 2021-09-28 18:21 | History and Physical Report ---
History of Present Illness Chief complaint: My speech was slurred and my face felt numb History of present illness: 60 YO Female with HTN, HCV, Asthma, DM, Lumbar Radiculopathy S/P Pain Pump Placement, PE not currently on anticoagulation therapy presents to ED for evaluation. Patient reports "my speech was slurred and my face felt numb". Pt states that she has experienced intermittent headaches over the past 3 days with persistent symptoms over the same timeframe. Patient also reports a sudden onset of slurred speech and facial numbness 30 minutes prior to presentation. The patient presented to a nearby fire station after developing the aforementioned symptoms and was found to have a blood pressure of 202/103 mmHg. Patient instructed to seek further care at [facility]. The patient was transported to [facility] via private vehicle for further care and evaluation of the aforementioned symptoms. The patient was seen and evaluated in the emergency department. All lab and imaging studies reviewed. The patient was found to have a focal neurologic deficit upon presentation. A code stroke was called. Teleneurology consulted. The patient was found to have clinical symptoms consistent with CVA as well accelerated hypertension. The patient was admitted to telemetry and initiated on CVA protocol. Pt denies fever, chills, CP, Palpitation, NVD, Prolonged travel/immobility, unilateral leg swelling, calf pain, hemoptysis, or recent ill contacts. Prior admission on 10/07/2020 reviewed. All medication listed at time of admission has been reconciled. Advanced care planning conducted in ED. Past History Past Medical History: diabetes, hypertension, other (See HPI) Past Surgical History: Other (Pain pump placement) Social history: , lives with family. denies: smoking, alcohol abuse, prescription drug abuse Family history: hypertension Medications and Allergies Allergies Allergy/AdvReac Type Severity Reaction Status Date / Time dexamethasone [From Decadron] Allergy Anaphylaxis Verified 09/28/21 16:36 dexamethasone sod phosphate Allergy Anaphylaxis Verified 09/28/21 16:36 [From Decadron] epinephrine Allergy Rash Verified 09/28/21 16:36 ipratropium bromide Allergy Anaphylaxis Verified 09/28/21 16:36 [From Atrovent] peanut Allergy Anaphylaxis Verified 09/28/21 16:36 shellfish derived Allergy Anaphylaxis Verified 09/28/21 16:36 Home Medications Medication Instructions Recorded Confirmed Last Taken Type Fluticasone/Salmeterol [Advair 1 each IH BID 30 Days blst.w.dev 09/05/17 Unknown Rx 250-50 Diskus] guaiFENesin ER [Mucinex ER] 600 mg PO BID #14 tablet 09/05/17 Unknown Rx levoFLOXacin [Levaquin TAB] 750 mg PO DAILY #5 tablet 09/05/17 Unknown Rx oxyCODONE /ACETAMINOPHEN [Percocet 1 tab PO Q6H PRN #10 tablet 09/05/17 Unknown Rx 5/325 mg] predniSONE [Deltasone] 50 mg PO QDAY #5 tab 09/05/17 Unknown Rx Diazepam [Valium] 5 mg PO Q8H PRN #13 tablet 03/05/18 Unknown Rx traMADoL [Ultram 50 MG tab] 50 mg PO Q6HR PRN #13 tablet 03/05/18 Unknown Rx Gabapentin [Neurontin] 100 mg PO Q8HR #30 capsule 02/01/19 Unknown Rx Ondansetron [Zofran Odt] 4 mg PO Q8HR PRN #14 tab.rapdis 02/01/19 Unknown Rx Prednisone [predniSONE 10 mg 10 mg PO .TAPER #1 tab.ds.pk 02/01/19 Unknown Rx (6-Day Pack, 21 Tabs)] oxyCODONE /ACETAMINOPHEN [Percocet 1 tab PO Q6HR PRN #14 tablet 02/01/19 Unknown Rx 5/325] Meclizine [Antivert] 25 mg PO TID PRN #20 tablet 06/18/19 01/09/20 01/02/20 Rx amLODIPine 10 mg PO QDAY PRN 01/09/20 01/09/20 01/05/20 History ALBUTEROL NEB's [Proventil 0.083% 2.5 mg IH Q4HRT PRN nebu 01/11/20 Unknown Rx NEBS] ALBUTEROL NEB's [Proventil 0.083% 2.5 mg IH Q6HRT nebu 01/11/20 Unknown Rx NEBS] Acetaminophen [Acetaminophen TAB] 650 mg PO Q6H PRN tablet 01/11/20 Unknown Rx Arformoterol Nebu [Brovana Nebu] 15 mcg IH Q12HRT ml 01/11/20 Unknown Rx Budesonide [Pulmicort Respules] 1 mg IH Q12HRT nebu 01/11/20 Unknown Rx Gabapentin 300 mg PO Q8HR 10 Days #30 cap 01/11/20 Unknown Rx Magnesium Hydroxide [Milk of 30 ml PO Q4H PRN oral.liqd 01/11/20 Unknown Rx Magnesia] Prednisone [predniSONE 10 mg 10 mg PO .TAPER #1 tab.ds.pk 01/11/20 Unknown Rx (6-Day Pack, 21 Tabs)] guaiFENesin ER [Mucinex ER] 600 mg PO Q12H #14 tablet.er 01/11/20 Unknown Rx predniSONE [Deltasone] 60 mg PO QDAY #15 tab 03/24/20 Unknown Rx Albuterol Sulfate [Proventil Hfa] 2 puff IH Q4HR PRN #1 hfa.aer.ad 12/11/20 Unknown Rx Azithromycin [Zithromax Z-SELWYN] 250 mg PO DAILY #6 tablet 12/11/20 Unknown Rx Benzonatate [Tessalon Perles] 100 mg PO Q8HR #30 capsule 12/11/20 Unknown Rx Cetirizine HCl [Zyrtec 10mg tab] 10 mg PO DAILY #30 tablet 12/11/20 Unknown Rx Fluticasone/Salmeterol [Advair 1 puff IH DAILY #1 inh 12/11/20 Unknown Rx Diskus 500-50 mcg] Montelukast [Singulair] 10 mg PO QPM #30 tablet 12/11/20 Unknown Rx predniSONE [Deltasone] 40 mg PO QDAY #10 tab 12/11/20 Unknown Rx Caffeine [Alertness Aid] 300 mg PO QDAY PRN #10 tablet 04/29/21 Unknown Rx Metoclopramide [Reglan] 10 mg PO QID PRN #30 tablet 04/29/21 Unknown Rx Cyclobenzaprine [Flexeril] 10 mg PO TID PRN #21 tab 08/20/21 Unknown Rx Lidocaine [Lidoderm] 1 each TP DAILY #10 patch 08/20/21 Unknown Rx Naproxen [Naprosyn] 500 mg PO BID #14 tab 08/20/21 Unknown Rx Prednisone [predniSONE 10 mg 10 mg PO .TAPER #1 pack 08/20/21 Unknown Rx (6-Day Pack, 21 Tabs)] Active Meds: Active Medications Acetaminophen (Acetaminophen 325 Mg Tab) 650 mg PO Q4H PRN PRN Reason: Pain MILD(1-3)/Fever >100.5/RIBEIRO Acetaminophen (Acetaminophen 325 Mg Tab) 650 mg PO Q4H PRN PRN Reason: Pain, Mild (1-3) Albuterol (Albuterol 2.5 Mg/3 Ml Nebu) 2.5 mg IH Q4HRT PRN PRN Reason: Shortness Of Breath Aspirin (Aspirin 325 Mg Tab) 325 mg PO QDAY EBONI Atorvastatin Calcium (Atorvastatin 40 Mg Tab) 40 mg PO QHS EBONI Bisacodyl (Bisacodyl 10 Mg Rect Supp) 10 mg NV QDAY PRN PRN Reason: Constipation Magnesium Hydroxide (Magnesium Hydroxide (Mom) Oral Liqd Udc) 30 ml PO Q4H PRN PRN Reason: Constipation Metoclopramide HCl (Metoclopramide 10 Mg Tab) 10 mg PO Q6H PRN PRN Reason: Nausea And Vomiting Morphine Sulfate (Morphine 4 Mg/1 Ml Inj) 2 mg IV Q24H PRN PRN Reason: Pain , Severe (7-10) Ondansetron HCl (Ondansetron 4 Mg/2 Ml Inj) 4 mg IV Q8H PRN PRN Reason: Nausea And Vomiting Ondansetron HCl (Ondansetron 4 Mg/2 Ml Inj) 4 mg IV Q8H PRN PRN Reason: Nausea And Vomiting Oxycodone/Acetaminophen (Oxycodone /Acetaminophen 5-325mg Tab) 1 tab PO Q6H PRN PRN Reason: Pain, Moderate (4-6) Promethazine HCl (Promethazine 25 Mg Rect Supp) 25 mg NV Q6H PRN PRN Reason: Nausea And Vomiting Sodium Chloride (Sodium Chloride 0.9% 10 Ml Flush Syringe) 10 ml IV BID EBONI Sodium Chloride (Sodium Chloride 0.9% 10 Ml Flush Syringe) 10 ml IV PRN PRN PRN Reason: LINE FLUSH Sodium Chloride (Sodium Chloride 0.9% 10 Ml Flush Syringe) 10 ml INJ PRN PRN PRN Reason: LINE FLUSH Review of Systems Constitutional: no weight loss, no weight gain, no chills, no sweats Ears, nose, mouth and throat: no ear pain, no ear discharge, no decreased hearing, no nasal congestion, no sinus pressure Breasts: no change in shape, no swelling Cardiovascular: no chest pain, no palpitations, no rapid/irregular heart beat, no edema Respiratory: no cough, no shortness of breath Gastrointestinal: nausea, no abdominal pain, no vomiting, no constipation, no change in bowel habits, no hematemesis Genitourinary Female: no pelvic pain, no flank pain, no dysuria, no urinary frequency, no urgency Rectal: no pain, no incontinence, no bleeding Musculoskeletal: no neck stiffness, no shooting arm pain, no arm numbness/tin gling, no low back pain, no leg numbness/tingling Integumentary: no rash, no pruritis, no sores, no wounds, no boils Neurological: weakness, numbness, headaches, change in speech, no syncope, no tremors, no memory loss Psychiatric: no anxiety, no memory loss, no change in sleep habits, no sleep disturbances, no insomnia, no hypersomnia, no change in libido Endocrine: no cold intolerance, no heat intolerance, no polyphagia, no excessive thirst, no polydipsia, no polyuria, no flushing Hematologic/Lymphatic: no easy bruising, no easy bleeding Allergic/Immunologic: no wheezing Exam - Constitutional Vitals: Temp Pulse Resp BP Pulse Ox 68 16 168/81 98 09/28/21 17:06 09/28/21 17:06 09/28/21 17:06 09/28/21 17:06 General appearance: Present: mild distress - EENT Eyes: Present: PERRL ENT: hearing intact, clear oral mucosa - Neck Neck: Present: supple, normal ROM - Respiratory Respiratory effort: normal Respiratory: bilateral: CTA - Cardiovascular Heart Sounds: Present: S1 & S2. Absent: rub, click - Extremities Extremities: pulses symmetrical, No edema Peripheral Pulses: within normal limits - Abdominal General gastrointestinal: Present: soft, non-tender, non-distended, normal bowel sounds Female genitourinary: Present: normal - Integumentary Integumentary: Present: clear, warm, dry - Musculoskeletal Musculoskeletal: gait normal, strength equal bilaterally - Psychiatric Psychiatric: appropriate mood/affect, intact judgment & insight - Neurologic Neurologic: CNII-XII intact, moves all extremities HEART Score - HEART Score Troponin: Troponin T < 0.010 ng/mL (0.00-0.029) 09/28/21 Unknown Results - Labs CBC & Chem 7: 09/28/21 Unknown 09/28/21 Unknown Labs: Abnormal lab results 09/28/21 09/28/21 Range/Units Unknown Unknown MCH 27 L (28-32) pg Glucose 137 H (65-100) mg/dL Total Creatine Kinase 165 H (30-135) units/L Assessment and Plan - Patient Problems (1) CVA (cerebral vascular accident) Current Visit: Yes Status: Acute Plan to address problem: CVA protocol: CT scan head, antiplatelet therapy, neuro check, seizure precautions, physical therapy consulted, outpatient therapy consulted, speech therapy consulted, echocardiogram, carotid Doppler, lipid panel, statin therapy. Teleneurology consulted. (2) Accelerated hypertension Current Visit: Yes Status: Acute Plan to address problem: Monitor blood pressure every shift, permissive hypertension overnight. (3) Osteoarthritis Current Visit: Yes Status: Acute Plan to address problem: Pain control, NSAID therapy, supportive care. (4) Asthma Current Visit: Yes Status: Acute Qualifiers: Asthma severity: mild Asthma persistence: intermittent Plan to address problem: Submental oxygen, bronchodilator therapy, nebulizer therapy as clinically indicated, supportive care. No acute exacerbation at this time. (5) DVT prophylaxis Current Visit: Yes Status: Acute Plan to address problem: SCD to bilateral lower extremities while in bed (6) Advance care planning Current Visit: Yes Status: Acute Plan to address problem: Disease education data, care plan discussed, diagnoses discussed, prognosis discussed, patient is full code. Patient acknowledges understanding agreement with care plan, +30 minutes.
[2021-09-28] MEDS ORDERED: HYDROmorphone 1 MG/1 ML INJ IV ONE (18:25)
[2021-09-28] MEDS ORDERED: HYDROmorphone 1 MG/1 ML INJ ONE (18:26)
--- NOTE | 2021-09-28 18:43 | Cat Scan Report ---
CT angio neck INDICATION / CLINICAL INFORMATION: 60 years Female; stroke 100 ML OMNI 350 . TECHNIQUE: Thin cut axial images obtained through the head during IV bolus contrast administration. S agittal, coronal, and 3 plane MIP reconstructions performed by the technologist. NASCET type criteria used evaluate stenoses. All CT scans at this location are performed using CT dose reduction for ALAR A by means of automated exposure control. COMPARISON: The study is compared to previous CTA neck of 06/17/2019. FINDINGS: CAROTID ARTERIES: There is mild atherosclerotic plaque involving right carotid bifurcation without si gnificant stenosis by NASCET criteria. Is a small focus of calcification on the right also without si gnificant stenosis. The streak artifact resulting from the dense venous contrast obscures the lower l eft common carotid segments at. VERTEBRAL ARTERIES: The origin of the left vertebral artery is also obscured by the beam hardening. H owever, the visualized cervical vertebral arteries also appear to demonstrate appropriate caliber wit hout significant developing focal stenosis. ARCH: There is no clear evidence of significant stenosis involving visualized arch vessels. ADDITIONAL FINDINGS: There is continued extensive anterior fusion involving cervical spine. IMPRESSION: There is no CTA evidence of significant developing stenosis involving cervical carotid or vertebral a rteries by NASCET to criteria. There is mild atherosclerotic plaque involving right carotid bifurcati on. Signer Name: Guille Sotelo MD Signed: 09/28/2021 6:39 PM Workstation Name: [id number]
--- NOTE | 2021-09-28 18:48 | Cat Scan Report ---
CT angio head INDICATION / CLINICAL INFORMATION: 60 years Female; stroke 100 ML OMNI 350. TECHNIQUE: Thin cut axial images obtained through the head during IV bolus contrast administration. S agittal, coronal, and 3 plane MIP reconstructions performed by the technologist. NASCET type criteria used evaluate stenoses. Automated exposure control utilized for radiation reduction purposes. COMPARISON: The study is compared to previous CTA head of 04/29/2021. FINDINGS: INTERNAL CAROTID ARTERIES: There is no significant focal stenosis involving intracranial ICAs by NASC ET criteria. VERTEBROBASILAR SYSTEM: There is also no clear evidence of significant developing stenosis involving vertebral basilar system. CEREBRAL ARTERIES: The proximal cerebral arteries and adjacent segments appear to demonstrate appropr iate caliber without significant developing stenosis or evidence of large vessel occlusion. ANEURYSM: None identified. ADDITIONAL FINDINGS: Remainder of the surrounding soft tissues are grossly normal. IMPRESSION: There is no clear CT evidence of large vessel occlusion amenable to endovascular treatment and correl ation be needed given the history of "stroke". Signer Name: Guille Sotelo MD Signed: 09/28/2021 6:43 PM Workstation Name: [id number]
[2021-09-28] MEDS ORDERED: METOCLOPRAMIDE 10 MG/2 ML INJ IV ONE (19:36)
[2021-09-28] MEDS ORDERED: ALBUTEROL 2.5 MG/3 ML NEBU IH SCH (20:00)
[2021-09-28] MEDS ORDERED: SALMETEROL IH SCH (22:00)
[2021-09-28] MEDS ORDERED: FLUTICASONE IH SCH (22:00)
[2021-09-28 22:24] LABS: Bilirubin,Urine NEG (Negative); Blood,Urine NEG (Negative); Color,Urine Straw (Yellow); Protein,Urine <15 mg/dL mg/dL (Negative); Urobilinogen,Urine < 2.0 mg/dL (<2.0); WBC,Urine < 1.0 /HPF (0.0-6.0)
[2021-09-28] MEDS: ARFORMOTEROL 15 MCG/2 ML NEBU IH SCH (22:58)
[2021-09-28] MEDS: BUDESONIDE 0.5 MG/2 ML NEBU IH SCH (22:58)
[2021-09-29] MEDS: GABAPENTIN 100 MG CAP PO SCH ×4 (04:24→21:13)
[2021-09-29] MEDS: guaiFENesin ER 600 MG TAB PO SCH ×3 (04:24→21:14)
[2021-09-29 04:25] LABS: Blood Urea Nitrogen 10 mg/dL (7-17); Calcium 9.4 mg/dL (8.4-10.2); Hemolysis Index 0
[2021-09-29] MEDS: NAPROXEN 500 MG TAB PO SCH ×3 (04:25→21:13)
[2021-09-29] MEDS: BENZONATATE 100 MG CAP PO SCH ×4 (04:26→21:13)
[2021-09-29 04:45] LABS: BUN/Creatinine Ratio 17
[2021-09-29] MEDS: ARFORMOTEROL 15 MCG/2 ML NEBU IH SCH ×2 (08:27→21:41)
[2021-09-29] MEDS: BUDESONIDE 0.5 MG/2 ML NEBU IH SCH ×2 (08:27→21:41)
--- NOTE | 2021-09-29 08:34 | Consultation ---
History of Present Illness Consult date: 09/29/21 Reason for Consult: Slurred speech. left side numbness, had Lumber Pump . History of present illness: My speech was slurred and my face felt numb History of present illness: 60 YO Female with HTN, HCV, Asthma, DM, Lumbar Radiculopathy S/P Pain Pump Placement, PE not currently on anticoagulation therapy presents to ED for evaluation. Patient reports "my speech was slurred and my face felt numb". Pt states that she has experienced intermittent headaches over the past 3 days with persistent symptoms over the same timeframe. Patient also reports a sudden onset of slurred speech and facial numbness 30 minutes prior to presentation. The patient presented to a nearby fire station after developing the aforementi oned symptoms and was found to have a blood pressure of 202/103 mmHg. Patient instructed to seek further care at [facility]. The patient was transported to [facility] via private vehicle for further care and evaluation of the aforementioned symptoms. The patient was seen and evaluated in the emergency department. All lab and imaging studies reviewed. The patient was found to have a focal neurologic deficit upon presentation. A code stroke was called. Teleneurology consulted. The patient was found to have clinical symptoms consistent with CVA as well accelerated hypertension. The patient was admitted to telemetry and initiated on CVA protocol. Pt denies fever, chills, CP, Palpitation, NVD, Prolonged travel/immobility, unilateral leg swelling, calf pain, hemoptysis, or recent ill contacts. Prior admission on 10/07/2020 reviewed. All medication listed at time of admission has been reconciled. Advanced care planning conducted in ED. On initial evaluation in ER BP#202/103--pt. is not taking BP medications she is on Neurontin at home 300 mg TID not taking Flexeril ? she is feeling much better today refused MRI CT brain is unremarkable CTA brain and neck is remarkable for mild atherosclerotic changes right ICA Bifurcation Past History Past Medical History: diabetes, hypertension, other (See HPI) Past Surgical History: Other (Pain pump placement) Social history: , lives with family. denies: smoking, alcohol abuse, prescription drug abuse Family history: hypertension Medications and Allergies Allergies Allergy/AdvReac Type Severity Reaction Status Date / Time dexamethasone [From Decadron] Allergy Anaphylaxis Verified 09/28/21 16:36 dexamethasone sod phosphate Allergy Anaphylaxis Verified 09/28/21 16:36 [From Decadron] epinephrine Allergy Rash Verified 09/28/21 16:36 ipratropium bromide Allergy Anaphylaxis Verified 09/28/21 16:36 [From Atrovent] peanut Allergy Anaphylaxis Verified 09/28/21 16:36 shellfish derived Allergy Anaphylaxis Verified 09/28/21 16:36 Home Medications Medication Instructions Recorded Confirmed Last Taken Type Fluticasone/Salmeterol [Advair 1 each IH BID 30 Days blst.w.dev 09/05/17 Unknown Rx 250-50 Diskus] guaiFENesin ER [Mucinex ER] 600 mg PO BID #14 tablet 09/05/17 Unknown Rx levoFLOXacin [Levaquin TAB] 750 mg PO DAILY #5 tablet 09/05/17 Unknown Rx oxyCODONE /ACETAMINOPHEN [Percocet 1 tab PO Q6H PRN #10 tablet 09/05/17 Unknown Rx 5/325 mg] predniSONE [Deltasone] 50 mg PO QDAY #5 tab 09/05/17 Unknown Rx Diazepam [Valium] 5 mg PO Q8H PRN #13 tablet 03/05/18 Unknown Rx traMADoL [Ultram 50 MG tab] 50 mg PO Q6HR PRN #13 tablet 03/05/18 Unknown Rx Gabapentin [Neurontin] 100 mg PO Q8HR #30 capsule 02/01/19 Unknown Rx Ondansetron [Zofran Odt] 4 mg PO Q8HR PRN #14 tab.rapdis 02/01/19 Unknown Rx Prednisone [predniSONE 10 mg 10 mg PO .TAPER #1 tab.ds.pk 02/01/19 Unknown Rx (6-Day Pack, 21 Tabs)] oxyCODONE /ACETAMINOPHEN [Percocet 1 tab PO Q6HR PRN #14 tablet 02/01/19 Unknown Rx 5/325] Meclizine [Antivert] 25 mg PO TID PRN #20 tablet 06/18/19 01/09/20 01/02/20 Rx amLODIPine 10 mg PO QDAY PRN 01/09/20 01/09/20 01/05/20 History ALBUTEROL NEB's [Proventil 0.083% 2.5 mg IH Q4HRT PRN nebu 01/11/20 Unknown Rx NEBS] ALBUTEROL NEB's [Proventil 0.083% 2.5 mg IH Q6HRT nebu 01/11/20 Unknown Rx NEBS] Acetaminophen [Acetaminophen TAB] 650 mg PO Q6H PRN tablet 01/11/20 Unknown Rx Arformoterol Nebu [Brovana Nebu] 15 mcg IH Q12HRT ml 01/11/20 Unknown Rx Budesonide [Pulmicort Respules] 1 mg IH Q12HRT nebu 01/11/20 Unknown Rx Gabapentin 300 mg PO Q8HR 10 Days #30 cap 01/11/20 Unknown Rx Magnesium Hydroxide [Milk of 30 ml PO Q4H PRN oral.liqd 01/11/20 Unknown Rx Magnesia] Prednisone [predniSONE 10 mg 10 mg PO .TAPER #1 tab.ds.pk 01/11/20 Unknown Rx (6-Day Pack, 21 Tabs)] guaiFENesin ER [Mucinex ER] 600 mg PO Q12H #14 tablet.er 01/11/20 Unknown Rx predniSONE [Deltasone] 60 mg PO QDAY #15 tab 03/24/20 Unknown Rx Albuterol Sulfate [Proventil Hfa] 2 puff IH Q4HR PRN #1 hfa.aer.ad 12/11/20 Unknown Rx Azithromycin [Zithromax Z-SELWYN] 250 mg PO DAILY #6 tablet 12/11/20 Unknown Rx Benzonatate [Tessalon Perles] 100 mg PO Q8HR #30 capsule 12/11/20 Unknown Rx Cetirizine HCl [Zyrtec 10mg tab] 10 mg PO DAILY #30 tablet 12/11/20 Unknown Rx Fluticasone/Salmeterol [Advair 1 puff IH DAILY #1 inh 12/11/20 Unknown Rx Diskus 500-50 mcg] Montelukast [Singulair] 10 mg PO QPM #30 tablet 12/11/20 Unknown Rx predniSONE [Deltasone] 40 mg PO QDAY #10 tab 12/11/20 Unknown Rx Caffeine [Alertness Aid] 300 mg PO QDAY PRN #10 tablet 04/29/21 Unknown Rx Metoclopramide [Reglan] 10 mg PO QID PRN #30 tablet 04/29/21 Unknown Rx Cyclobenzaprine [Flexeril] 10 mg PO TID PRN #21 tab 08/20/21 Unknown Rx Lidocaine [Lidoderm] 1 each TP DAILY #10 patch 08/20/21 Unknown Rx Naproxen [Naprosyn] 500 mg PO BID #14 tab 08/20/21 Unknown Rx Prednisone [predniSONE 10 mg 10 mg PO .TAPER #1 pack 08/20/21 Unknown Rx (6-Day Pack, 21 Tabs)] Active Meds: Active Medications Acetaminophen (Acetaminophen 325 Mg Tab) 650 mg PO Q4H PRN PRN Reason: Pain MILD(1-3)/Fever >100.5/RIBEIRO Acetaminophen (Acetaminophen 325 Mg Tab) 650 mg PO Q4H PRN PRN Reason: Pain, Mild (1-3) Albuterol (Albuterol 2.5 Mg/3 Ml Nebu) 2.5 mg IH Q4HRT PRN PRN Reason: Shortness Of Breath Aspirin (Aspirin 325 Mg Tab) 325 mg PO QDAY EBONI Atorvastatin Calcium (Atorvastatin 40 Mg Tab) 40 mg PO QHS EBONI Bisacodyl (Bisacodyl 10 Mg Rect Supp) 10 mg CO QDAY PRN PRN Reason: Constipation Magnesium Hydroxide (Magnesium Hydroxide (Mom) Oral Liqd Udc) 30 ml PO Q4H PRN PRN Reason: Constipation Metoclopramide HCl (Metoclopramide 10 Mg Tab) 10 mg PO Q6H PRN PRN Reason: Nausea And Vomiting Morphine Sulfate (Morphine 4 Mg/1 Ml Inj) 2 mg IV Q24H PRN PRN Reason: Pain , Severe (7-10) Ondansetron HCl (Ondansetron 4 Mg/2 Ml Inj) 4 mg IV Q8H PRN PRN Reason: Nausea And Vomiting Ondansetron HCl (Ondansetron 4 Mg/2 Ml Inj) 4 mg IV Q8H PRN PRN Reason: Nausea And Vomiting Oxycodone/Acetaminophen (Oxycodone /Acetaminophen 5-325mg Tab) 1 tab PO Q6H PRN PRN Reason: Pain, Moderate (4-6) Promethazine HCl (Promethazine 25 Mg Rect Supp) 25 mg CO Q6H PRN PRN Reason: Nausea And Vomiting Sodium Chloride (Sodium Chloride 0.9% 10 Ml Flush Syringe) 10 ml IV BID EBONI Sodium Chloride (Sodium Chloride 0.9% 10 Ml Flush Syringe) 10 ml IV PRN PRN PRN Reason: LINE FLUSH Sodium Chloride (Sodium Chloride 0.9% 10 Ml Flush Syringe) 10 ml INJ PRN PRN PRN Reason: LINE FLUSH Review of Systems Constitutional: no weight loss, no weight gain, no chills, no sweats Ears, nose, mouth and throat: no ear pain, no ear discharge, no decreased hearing, no nasal congestion, no sinus pressure Breasts: no change in shape, no swelling Cardiovascular: no chest pain, no palpitations, no rapid/irregular heart beat, no edema Respiratory: no cough, no shortness of breath Gastrointestinal: nausea, no abdominal pain, no vomiting, no constipation, no change in bowel habits, no hematemesis Genitourinary Female: no pelvic pain, no flank pain, no dysuria, no urinary frequency, no urgency Rectal: no pain, no incontinence, no bleeding Musculoskeletal: no neck stiffness, no shooting arm pain, no arm numbness/tingling, no low back pain, no leg numbness/tingling Integumentary: no rash, no pruritis, no sores, no wounds, no boils Neurological: weakness, numbness, headaches, change in speech, no syncope, no tremors, no memory loss Psychiatric: no anxiety, no memory loss, no change in sleep habits, no sleep disturbances, no insomnia, no hypersomnia, no change in libido Endocrine: no cold intolerance, no heat intolerance, no polyphagia, no excessive thirst, no polydipsia, no polyuria, no flushing Hematologic/Lymphatic: no easy bruising, no easy bleeding Allergic/Immunologic: no wheezing Past History Past Medical History: diabetes, hypertension, other (See HPI) Past Surgical History: Other (Pain pump placement) Social history: , lives with family. denies: smoking, alcohol abuse, prescription drug abuse Family history: hypertension Medications and Allergies Allergies Allergy/AdvReac Type Severity Reaction Status Date / Time dexamethasone [From Decadron] Allergy Anaphylaxis Verified 09/28/21 16:36 dexamethasone sod phosphate Allergy Anaphylaxis Verified 09/28/21 16:36 [From Decadron] epinephrine Allergy Rash Verified 09/28/21 16:36 ipratropium bromide Allergy Anaphylaxis Verified 09/28/21 16:36 [From Atrovent] peanut Allergy Anaphylaxis Verified 09/28/21 16:36 shellfish derived Allergy Anaphylaxis Verified 09/28/21 16:36 Home Medications Medication Instructions Recorded Confirmed Last Taken Type levoFLOXacin [Levaquin TAB] 750 mg PO DAILY #5 tablet 09/05/17 09/29/21 Unknown Rx predniSONE [Deltasone] 50 mg PO QDAY #5 tab 09/05/17 09/29/21 Unknown Rx Diazepam [Valium] 5 mg PO Q8H PRN #13 tablet 03/05/18 09/29/21 Unknown Rx traMADoL [Ultram 50 MG tab] 50 mg PO Q6HR PRN #13 tablet 03/05/18 09/29/21 Unknown Rx Ondansetron [Zofran Odt] 4 mg PO Q8HR PRN #14 tab.rapdis 02/01/19 09/29/21 Unknown Rx oxyCODONE /ACETAMINOPHEN [Percocet 1 tab PO Q6HR PRN #14 tablet 02/01/19 09/29/21 Unknown Rx 5/325] Meclizine [Antivert] 25 mg PO TID PRN #20 tablet 06/18/19 09/29/21 01/02/20 Rx amLODIPine 10 mg PO QDAY PRN 01/09/20 09/29/21 01/05/20 History ALBUTEROL NEB's [Proventil 0.083% 2.5 mg IH Q4HRT PRN nebu 01/11/20 09/29/21 Unknown Rx NEBS] Acetaminophen [Acetaminophen TAB] 650 mg PO Q6H PRN tablet 01/11/20 09/29/21 Unknown Rx Arformoterol Nebu [Brovana Nebu] 15 mcg IH Q12HRT ml 01/11/20 09/29/21 Unknown Rx Budesonide [Pulmicort Respules] 1 mg IH Q12HRT nebu 01/11/20 09/29/21 Unknown Rx Gabapentin 300 mg PO Q8HR 10 Days #30 cap 01/11/20 09/29/21 Unknown Rx Magnesium Hydroxide [Milk of 30 ml PO Q4H PRN oral.liqd 01/11/20 09/29/21 Unknown Rx Magnesia] guaiFENesin ER [Mucinex ER] 600 mg PO Q12H #14 tablet.er 01/11/20 09/29/21 Unknown Rx predniSONE [Deltasone] 60 mg PO QDAY #15 tab 03/24/20 09/29/21 Unknown Rx Albuterol Sulfate [Proventil Hfa] 2 puff IH Q4HR PRN #1 hfa.aer.ad 12/11/20 09/29/21 Unknown Rx Azithromycin [Zithromax Z-SELWYN] 250 mg PO DAILY #6 tablet 12/11/20 09/29/21 Unknown Rx Benzonatate [Tessalon Perles] 100 mg PO Q8HR #30 capsule 12/11/20 09/29/21 Unknown Rx Cetirizine HCl [Zyrtec 10mg tab] 10 mg PO DAILY #30 tablet 12/11/20 09/29/21 Unknown Rx Fluticasone/Salmeterol [Advair 1 puff IH DAILY #1 inh 12/11/20 09/29/21 Unknown Rx Diskus 500-50 mcg] Montelukast [Singulair] 10 mg PO QPM #30 tablet 12/11/20 09/29/21 Unknown Rx predniSONE [Deltasone] 40 mg PO QDAY #10 tab 12/11/20 09/29/21 Unknown Rx Caffeine [Alertness Aid] 300 mg PO QDAY PRN #10 tablet 04/29/21 09/29/21 Unknown Rx Metoclopramide [Reglan] 10 mg PO QID PRN #30 tablet 04/29/21 09/29/21 Unknown Rx Cyclobenzaprine [Flexeril] 10 mg PO TID PRN #21 tab 08/20/21 09/29/21 Unknown Rx Lidocaine [Lidoderm] 1 each TP DAILY #10 patch 08/20/21 09/29/21 Unknown Rx Naproxen [Naprosyn] 500 mg PO BID #14 tab 08/20/21 09/29/21 Unknown Rx Prednisone [predniSONE 10 mg 10 mg PO .TAPER #1 pack 08/20/21 09/29/21 Unknown Rx (6-Day Pack, 21 Tabs)] Active Meds: Active Medications Acetaminophen (Acetaminophen 325 Mg Tab) 650 mg PO Q4H PRN PRN Reason: Pain MILD(1-3)/Fever >100.5/RIBEIRO Albuterol (Albuterol 2.5 Mg/3 Ml Nebu) 2.5 mg IH Q4HRT PRN PRN Reason: Shortness Of Breath Amlodipine Besylate (Amlodipine 10 Mg Tab) 10 mg PO QDAY PRN PRN Reason: Blood Pressure Arformoterol Tartrate (Arformoterol 15 Mcg/2 Ml Nebu) 15 mcg IH Q12HRT [facility] Last Admin: 09/29/21 08:27 Dose: 15 mcg Aspirin (Aspirin 325 Mg Tab) 325 mg PO QDAY [facility] Atorvastatin Calcium (Atorvastatin 40 Mg Tab) 40 mg PO QHS [facility] Last Admin: 09/29/21 04:24 Dose: Not Given Benzonatate (Benzonatate 100 Mg Cap) 100 mg PO Q8HR [facility] Last Admin: 09/29/21 06:30 Dose: Not Given Bisacodyl (Bisacodyl 10 Mg Rect Supp) 10 mg CO QDAY PRN PRN Reason: Constipation Budesonide (Budesonide 0.5 Mg/2 Ml Nebu) 1 mg IH Q12HRT [facility] Last Admin: 09/29/21 08:27 Dose: 1 mg Cetirizine HCl (Cetirizine 10 Mg Tab) 10 mg PO DAILY [facility] Cyclobenzaprine HCl (Cyclobenzaprine 10 Mg Tab) 10 mg PO TID PRN PRN Reason: Muscle Spasm Gabapentin (Gabapentin 100 Mg Cap) 100 mg PO Q8HR [facility] Last Admin: 09/29/21 06:30 Dose: Not Given Guaifenesin (Guaifenesin Er 600 Mg Tab) 600 mg PO BID [facility] Last Admin: 09/29/21 04:24 Dose: Not Given Lidocaine (Lidocaine 5% 1 Each Patch) 1 each TD DAILY [facility] Magnesium Hydroxide (Magnesium Hydroxide (Mom) Oral Liqd Udc) 30 ml PO Q4H PRN PRN Reason: Constipation Meclizine HCl (Meclizine 25 Mg Tab) 25 mg PO TID PRN PRN Reason: Vertigo Metoclopramide HCl (Metoclopramide 10 Mg Tab) 10 mg PO QID PRN PRN Reason: Nausea Last Admin: 09/28/21 21:43 Dose: 10 mg Montelukast Sodium (Montelukast 10 Mg Tab) 10 mg PO QPM [facility] Morphine Sulfate (Morphine 4 Mg/1 Ml Inj) 2 mg IV Q24H PRN PRN Reason: Pain , Severe (7-10) Naproxen (Naproxen 500 Mg Tab) 500 mg PO BID [facility] Last Admin: 09/29/21 04:25 Dose: Not Given Ondansetron HCl (Ondansetron 4 Mg/2 Ml Inj) 4 mg IV Q8H PRN PRN Reason: Nausea And Vomiting Last Admin: 09/28/21 23:00 Dose: 4 mg Oxycodone/Acetaminophen (Oxycodone /Acetaminophen 5-325mg Tab) 1 tab PO Q6H PRN PRN Reason: Pain, Moderate (4-6) Promethazine HCl (Promethazine 25 Mg Rect Supp) 25 mg CO Q6H PRN PRN Reason: Nausea And Vomiting Sodium Chloride (Sodium Chloride 0.9% 10 Ml Flush Syringe) 10 ml IV BID EBONI Last Admin: 09/29/21 04:27 Dose: Not Given Sodium Chloride (Sodium Chloride 0.9% 10 Ml Flush Syringe) 10 ml IV PRN PRN PRN Reason: LINE FLUSH Tramadol HCl (Tramadol 50 Mg Tab) 50 mg PO Q6H PRN PRN Reason: Pain, Moderate (4-6) Physical Examination - Vital Signs Vital Signs: Vital Signs Pulse Ox 99 09/28/21 16:56 - Constitutional General appearance: comfortable - EENT EENT: Present: PERRL, mucous membranes moist - Respiratory Respiratory: Present: lungs clear, rhonchi - Cardiovascular Cardiovascular: Present: regular rate, normal S1, normal S2 Extremities: Present: no peripheral edema bilatateraly, no clubbing, cyanosis - Gastrointestinal Gastrointestinal: Present: normoactive bowel sounds - Integumentary Integumentary: Present: normal - Neurologic Cranial nerve examination: PERRL, EOMI, intact Speech examination: intact Sensorimotor examination: intact Detailed motor examination: grossly full strength in - Level of Consciousness 1a. Level of Consciousness: alert/keenly responsive - LOC Questions 1b. LOC Questions: answers both correctly - LOC Command 1c. LOC Commands: performs tasks correctly - Best Gaze 2. Best Gaze: normal - Visual 3. Visual: no visual loss - Facial Palsy 4. Facial Palsy: normal symmetrical movement - Motor Arm 5a. Motor Arm Left: no drift 5b. Motor Arm Right: no drift - Motor Leg 6a. Motor Leg Left: no drift 6b. Motor Leg Right: no drift - Limb Ataxia 7. Limb Ataxia: absent - Sensory 8. Sensory: normal - Best Language 9. Best Language: no aphasia - Dysarthria 10. Dysarthria: normal - Extinction and Inattention 11. Extinction/Inattention: no abnormality - Scoring Total Score: 0 Stroke Severity: No Stroke Symptoms Results - Laboratory Findings CBC and BMP: 09/28/21 Unknown 09/29/21 03:40 Abnormal Lab Findings: Abnormal Labs 09/28/21 09/28/21 09/29/21 Unknown Unknown 03:40 MCH 27 L Glucose 137 H 129 H Total Creatine Kinase 165 H Assessment and Plan Assessment and Plan 60 YO Female with HTN, HCV, Asthma, DM, Lumbar Radiculopathy S/P Pain Pump Placement, PE not currently on anticoagulation therapy presents to ED for evaluation. Patient reports "my speech was slurred and my face felt numb". Pt states that she has experienced intermittent headaches over the past 3 days with persistent symptoms over the same timeframe. - Patient Problems # Presented with new onset slurred speech and left side numbness -R/O CVA (cerebral vascular accident) -NIH#0 -She refused MRI brain -CT brain and CTA brain and neck is remarkable for atherosclerotic changes mild GIANNI at Bifurcation -Mantain ASA 81 mg and Lipitor 40 mg -Review echo -LDL is pending # Accelerated hypertension -Monitor blood pressure every shift, - permissive hypertension overnight. -BP<150/80 # Osteoarthritis -Pain control, NSAID therapy, supportive care. -Cut down Neurontin to 100 mg tid -PT therapy # Asthma -Submental oxygen, bronchodilator therapy, nebulizer therapy as clinically rajiv cated, supportive care. No acute exacerbation at this time. # DVT prophylaxis -SCD to bilateral lower extremities while in bed Will follow as needed
[2021-09-29] MEDS ORDERED: CETIRIZINE 10 MG TAB PO SCH (10:00)
[2021-09-29] MEDS ORDERED: ASPIRIN 325 MG TAB PO SCH (10:00)
[2021-09-29] MEDS ORDERED: LIDOCAINE 5% 1 EACH PATCH TD SCH (10:00)
--- NOTE | 2021-09-29 14:55 | Progress Note ---
Assessment and Plan Assessment and plan: #CVA versus TIA -patient with neurological deficits that have resolved -CT head, CTA head/neck negative for acute findings -TTE and carotid doppler final reads pending -continue aspirin and statin -BP control -MRI unable to be performed due to pain pump and prior hardware -Neurology following, assistance appreciated #Hypertensive urgency -patient with history of untreated HTN -counseled about importance taking BP medications to prevent further episodes -will start amlodipine 10mg qday -PCP follow up at discharge #Lumbar radiculopathy s/p pain pump #Osteoarthritis -PRN Pain control, NSAID therapy, supportive care. -patient with pain pump #Asthma -stable, not in acute exacerbation -will continue nebulizers PRN #Advanced care planning -Disease education data, care plan discussed, diagnoses discussed, prognosis discussed, patient is full code. Patient acknowledges understanding agreement with care plan, +30 minutes. History Interval history: Documents overnight. Patient reports that her dysarthria and weakness has resolved. Has no prior history of hypertension. Denies headache, visual changes, shortness of breath and falls. Hospitalist Physical - Physical exam Narrative exam: GENERAL: Well-developed well-nourished. In no acute distress. HEENT: Normocephalic. Atraumatic. NECK: Supple. CHEST/LUNGS: CTAB on room air HEART/CARDIOVASCULAR: RRR. No murmur, rubs or gallops appreciated. ABDOMEN: +BS. NT/ND. SKIN: No rashes noted. NEURO: No focal motor deficit observed or illicited. Follows all commands. MUSCULOSKELETAL: No joint effusion EXTREMITIES: No cyanosis, clubbing or edema. PSYCH: Cooperative. - Constitutional Vitals: Temp Pulse Resp BP Pulse Ox 97.6 F 82 18 132/71 98 09/29/21 08:02 09/29/21 08:27 09/29/21 08:27 09/29/21 08:02 09/29/21 08:27 General appearance: Present: mild distress HEART Score - HEART Score Troponin: Troponin T < 0.010 ng/mL (0.00-0.029) 09/28/21 Unknown Results - Labs CBC & Chem 7: 09/28/21 Unknown 09/29/21 03:40 Labs: Laboratory Last Values WBC 4.5 K/mm3 (4.5-11.0) 09/28/21 Unknown RBC 4.64 M/mm3 (3.65-5.03) 09/28/21 Unknown Hgb 12.3 gm/dl (10.1-14.3) 09/28/21 Unknown Hct 37.2 % (30.3-42.9) 09/28/21 Unknown MCV 80 fl (79-97) 09/28/21 Unknown MCH 27 pg (28-32) L 09/28/21 Unknown MCHC 33 % (30-34) 09/28/21 Unknown RDW 13.9 % (13.2-15.2) 09/28/21 Unknown Plt Count 266 K/mm3 (140-440) 09/28/21 Unknown Lymph % (Auto) Safety Professional 09/28/21 Unknown Patrick % (Auto) Safety Professional 09/28/21 Unknown Eos % (Auto) Safety Professional 09/28/21 Unknown Baso % (Auto) Safety Professional 09/28/21 Unknown Lymph # (Auto) Safety Professional 09/28/21 Unknown Patrick # (Auto) Safety Professional 09/28/21 Unknown Eos # (Auto) Safety Professional 09/28/21 Unknown Baso # (Auto) Safety Professional 09/28/21 Unknown Seg Neutrophils % Safety Professional 09/28/21 Unknown Seg Neutrophils # Safety Professional 09/28/21 Unknown PT 12.8 Sec. (12.2-14.9) 09/28/21 Unknown INR 0.87 (0.87-1.13) 09/28/21 Unknown APTT 24.8 Sec. (24.2-36.6) 09/28/21 Unknown Thrombin Time 16.8 Sec. (15.1-19.6) 09/28/21 Unknown Sodium 142 mmol/L (137-145) 09/29/21 03:40 Potassium 4.2 mmol/L (3.6-5.0) 09/29/21 03:40 Chloride 106.1 mmol/L (98-107) 09/29/21 03:40 Carbon Dioxide 25 mmol/L (22-30) 09/29/21 03:40 Anion Gap 15 mmol/L 09/29/21 03:40 BUN 10 mg/dL (7-17) 09/29/21 03:40 Creatinine 0.6 mg/dL (0.6-1.2) 09/29/21 03:40 Estimated GFR > 60 ml/min 09/29/21 03:40 BUN/Creatinine Ratio 17 % 05/12/22 03:40 Glucose 129 mg/dL (65-100) H 09/29/21 03:40 POC Glucose 105 mg/dL (70-105) 09/28/21 17:05 Hemoglobin A1c 5.6 % (4-6) 09/29/21 11:15 Calcium 9.4 mg/dL (8.4-10.2) 09/29/21 03:40 Total Bilirubin 0.40 mg/dL (0.1-1.2) 09/28/21 Unknown Direct Bilirubin < 0.2 mg/dL (0-0.2) 09/28/21 Unknown Indirect Bilirubin 0.2 mg/dL 09/28/21 Unknown AST 19 units/L (5-40) 09/28/21 Unknown ALT 13 units/L (7-56) 09/28/21 Unknown Alkaline Phosphatase 98 units/L (35-129) 09/28/21 Unknown Total Creatine Kinase 165 units/L (30-135) H 09/28/21 Unknown CK-MB (CK-2) 1.9 ng/mL (0.0-4.0) 09/28/21 Unknown CK-MB (CK-2) Rel Index 1.1 (0-4) 09/28/21 Unknown Troponin T < 0.010 ng/mL (0.00-0.029) 09/28/21 Unknown Total Protein 7.5 g/dL (6.3-8.2) 09/28/21 Unknown Albumin 4.3 g/dL (3.9-5) 09/28/21 Unknown Albumin/Globulin Ratio 1.3 % 09/28/21 Unknown Vitamin B12 277.0 pg/mL (211-911) 09/29/21 03:40 TSH 1.290 mlU/mL (0.270-4.200) 09/29/21 03:40 Urine Color Straw (Yellow) 09/28/21 Unknown Urine Turbidity Clear (Clear) 09/28/21 Unknown Urine pH 7.0 (5.0-7.0) 09/28/21 Unknown Ur Specific [place] 1.019 (1.003-1.030) 09/28/21 Unknown Urine Protein <15 mg/dl mg/dL (Negative) 09/28/21 Unknown Urine Glucose (UA) Neg mg/dL (Negative) 09/28/21 Unknown Urine Ketones Neg mg/dL (Negative) 09/28/21 Unknown Urine Blood Neg (Negative) 09/28/21 Unknown Urine Nitrite Neg (Negative) 09/28/21 Unknown Urine Bilirubin Neg (Negative) 09/28/21 Unknown Urine Urobilinogen < 2.0 mg/dL (<2.0) 09/28/21 Unknown Ur Leukocyte Esterase Sm (Negative) 09/28/21 Unknown Urine WBC (Auto) < 1.0 /HPF (0.0-6.0) 09/28/21 Unknown Urine RBC (Auto) 1.0 /HPF (0.0-6.0) 09/28/21 Unknown U Epithel Cells (Auto) < 1.0 /HPF (0-13.0) 09/28/21 Unknown Holloway/IV: Voiding Method Toilet Active Medications - Current Medications Current Medications: Generic Name Dose Route Start Last Admin Trade Name Freq PRN Reason Stop Dose Admin Acetaminophen 650 mg 09/28/21 18:15 09/29/21 10:23 Acetaminophen 325 Mg Tab PO 650 mg Q4H PRN Administration Pain MILD(1-3)/Fever >100.5/RIBEIRO Albuterol 2.5 mg 09/28/21 18:15 Albuterol 2.5 Mg/3 Ml Nebu IH Q4HRT PRN Shortness Of Breath Amlodipine Besylate 10 mg 09/28/21 18:18 Amlodipine 10 Mg Tab PO QDAY PRN Blood Pressure Arformoterol Tartrate 15 mcg 09/28/21 20:00 09/29/21 08:27 Arformoterol 15 Mcg/2 Ml Nebu IH 15 mcg Q12HRT EBONI Administration Aspirin 325 mg 09/29/21 10:00 09/29/21 10:23 Aspirin 325 Mg Tab PO 325 mg QDAY EBONI Administration Atorvastatin Calcium 40 mg 09/28/21 22:00 09/29/21 04:24 Atorvastatin 40 Mg Tab PO Not Given QHS EBONI Benzonatate 100 mg 09/28/21 22:00 09/29/21 06:30 Benzonatate 100 Mg Cap PO Not Given Q8HR EBONI Bisacodyl 10 mg 09/28/21 18:15 Bisacodyl 10 Mg Rect Supp PA QDAY PRN Constipation Budesonide 1 mg 09/28/21 20:00 09/29/21 08:27 Budesonide 0.5 Mg/2 Ml Nebu IH 1 mg Q12HRT [facility] Administration Cetirizine HCl 10 mg 09/29/21 10:00 09/29/21 10:24 Cetirizine 10 Mg Tab PO 10 mg DAILY [facility] Administration Cyclobenzaprine HCl 10 mg 09/28/21 18:18 Cyclobenzaprine 10 Mg Tab PO TID PRN Muscle Spasm Gabapentin 100 mg 09/28/21 22:00 09/29/21 06:30 Gabapentin 100 Mg Cap PO Not Given Q8HR [facility] Guaifenesin 600 mg 09/28/21 22:00 09/29/21 10:23 Guaifenesin Er 600 Mg Tab PO 600 mg BID [facility] Administration Lidocaine 1 each 09/29/21 10:00 09/29/21 11:31 Lidocaine 5% 1 Each Patch TD Not Given DAILY [facility] Magnesium Hydroxide 30 ml 09/28/21 18:15 Magnesium Hydroxide (Mom) Oral Liqd Udc PO Q4H PRN Constipation Meclizine HCl 25 mg 09/28/21 18:18 Meclizine 25 Mg Tab PO TID PRN Vertigo Metoclopramide HCl 10 mg 09/28/21 18:18 09/28/21 21:43 Metoclopramide 10 Mg Tab PO 10 mg QID PRN Administration Nausea Montelukast Sodium 10 mg 09/29/21 18:00 Montelukast 10 Mg Tab PO QPM [facility] Morphine Sulfate 2 mg 09/28/21 18:15 Morphine 4 Mg/1 Ml Inj IV Q24H PRN Pain , Severe (7-10) Naproxen 500 mg 09/28/21 22:00 09/29/21 11:29 Naproxen 500 Mg Tab PO Not Given BID [facility] Ondansetron HCl 4 mg 09/28/21 18:15 09/28/21 23:00 Ondansetron 4 Mg/2 Ml Inj IV 4 mg Q8H PRN Administration Nausea And Vomiting Oxycodone/Acetaminophen 1 tab 09/28/21 18:15 Oxycodone /Acetaminophen 5-325mg Tab PO Q6H PRN Pain, Moderate (4-6) Promethazine HCl 25 mg 09/28/21 18:15 Promethazine 25 Mg Rect Supp PA Q6H PRN Nausea And Vomiting Sodium Chloride 10 ml 09/28/21 22:00 09/29/21 10:24 Sodium Chloride 0.9% 10 Ml Flush Syringe IV 10 ml BID EBONI Administration Sodium Chloride 10 ml 09/28/21 18:15 Sodium Chloride 0.9% 10 Ml Flush Syringe IV PRN PRN LINE FLUSH Tramadol HCl 50 mg 09/28/21 19:00 Tramadol 50 Mg Tab PO Q6H PRN Pain, Moderate (4-6)
--- NOTE | 2021-09-29 16:29 | Vascular Lab Report ---
DUPLEX DOPPLER ULTRASOUND CAROTID, BILATERAL INDICATION / CLINICAL INFORMATION: stroke. COMPARISON: CTA neck 09/28/2021. FINDINGS: RIGHT CAROTID: Minimal atherosclerotic plaque. - PLAQUE ESTIMATE (%): < 50% - CCA velocity: 97 cm/sec. - ICA peak systolic velocity: 122 cm/sec. - ICA/CCA PSV Ratio: Less than 2. Right Vertebral Artery: Antegrade flow. LEFT CAROTID: Minimal atherosclerotic plaque. - PLAQUE ESTIMATE (%): < 50% - CCA velocity: 107 cm/sec. - ICA peak systolic velocity: 116 cm/sec. - ICA/CCA PSV Ratio: Less than 2. Left Vertebral Artery: Antegrade flow. IMPRESSION: 1. Right Internal Carotid Artery: Less than 50% diameter stenosis. 2. Left Internal Carotid Artery: Less than 50% diameter stenosis. Velocity criteria are extrapolated from diameter data as defined by the Society of Radiologists in Ul trasound Consensus Conference, Radiology 2003; 229;340-346. NO STENOSIS (NORMAL) - Plaque = none; ICA PSV < 125 cm/sec; ICA/CCA PSV Ratio < 2.0 <50% STENOSIS - Plaque < 50%; ICA PSV < 125 cm/sec; ICA/CCA PSV Ratio < 2.0 50-69% STENOSIS - Plaque > 50%; ICA PSV = 125-230 cm/sec; ICA/CCA PSV Ratio = 2.0-4.0 >70% BUT <100% STENOSIS - Plaque > 50%; ICA PSV > 230 cm/sec; ICA/CCA PSV Ratio > 4.0 NEAR OCCLUSION - Plaque = visible lumen; ICA PSV = high/low/none; ICA/CCA PSV Ratio = variable TOTAL OCCLUSION - Plaque = no lumen; ICA PSV = none; ICA/CCA PSV Ratio = N/A Scribed by: Magalis Rose RDMS, RVT, RMSKS Scribed: 09/29/2021 2:40 PM I have reviewed the images, agree with this report, and edited this report as needed. Signer Name: Gold Rivera MD Signed: 09/29/2021 4:13 PM Workstation Name: [id number]
[2021-09-29] MEDS: amLODIPine 10 MG TAB PO SCH (17:56)
[2021-09-29] MEDS ORDERED: MONTELUKAST 10 MG TAB PO SCH (18:00)
[2021-09-30] MEDS: BENZONATATE 100 MG CAP PO SCH (06:17)
[2021-09-30] MEDS: GABAPENTIN 100 MG CAP PO SCH (06:17)
[2021-09-30 08:25] VITALS: BP 102/65
[2021-09-30] MEDS: ARFORMOTEROL 15 MCG/2 ML NEBU IH SCH (09:37)
[2021-09-30] MEDS: BUDESONIDE 0.5 MG/2 ML NEBU IH SCH (09:37)
[2021-09-30] MEDS: amLODIPine 10 MG TAB PO SCH (10:49)
--- NOTE | 2021-09-30 11:04 | Progress Note ---
Assessment and Plan Assessment and Plan 60 YO Female with HTN, HCV, Asthma, DM, Lumbar Radiculopathy S/P Pain Pump Placement, PE not currently on anticoagulation therapy presents to ED for evaluation. Patient reports "my speech was slurred and my face felt numb". Pt states that she has experienced intermittent headaches over the past 3 days with persistent symptoms over the same timeframe. - Patient Problems # Presented with new onset slurred speech and left side numbness -R/O CVA (cerebral vascular accident) -NIH#0 -She refused MRI brain -CT brain and CTA brain and neck is remarkable for atherosclerotic changes mild GIANNI at Bifurcation -Mantain ASA 81 mg and Lipitor 40 mg -Review echo #50-55% with mild diastolic dysfunction -LDL is pending # Accelerated hypertension--Improved -Monitor blood pressure every shift, - permissive hypertension overnight. -BP<150/80 # Osteoarthritis -Pain control, NSAID therapy, supportive care. -Cut down Neurontin to 100 mg tid -PT therapy # Asthma -Submental oxygen, bronchodilator therapy, nebulizer therapy as clinically indicated, supportive care. No acute exacerbation at this time. # DVT prophylaxis -SCD to bilateral lower extremities while in bed Will sign off Subjective Date of service: 09/30/21 Interval history: doing well no complaint BP is better controlled Echo is noted Objective - Vital Sign Vital Signs - 12hr 09/29/21 09/30/21 09/30/21 23:31 02:00 03:48 Temperature 98.5 F 98.2 F Pulse Rate 71 62 Pulse Rate [ Anterior Bilateral Throughout] Respiratory 16 16 Rate Respiratory Rate [Anterior Bilateral Throughout] Blood Pressure 127/49 125/68 O2 Sat by Pulse 96 98 97 Oximetry 09/30/21 09/30/21 09/30/21 05:00 08:16 09:37 Temperature 97.7 F Pulse Rate 61 62 Pulse Rate [ 69 Anterior Bilateral Throughout] Respiratory 18 Rate Respiratory 18 Rate [Anterior Bilateral Throughout] Blood Pressure 102/65 O2 Sat by Pulse 97 Oximetry - General Apperance Constitutional: comfortable - EENT EENT: PERRL - Respiratory Respiratory: chest non-tender, lungs clear, rhonchi - Cardiovascular Cardiovascular: regular rate, normal S1, normal S2 Extremities: no peripheral edema bilat, no clubbing, cyanosis - Gastrointestinal Gastrointestinal: normoactive bowel sounds - Neurologic Cranial nerve examination: PERRL, EOMI, intact Speech examination: intact Detailed motor examination: grossly full strength in - Laboratory Findings CBC and BMP: 09/28/21 Unknown 09/29/21 03:40 Abnormal Lab Findings: Abnormal Labs 09/28/21 09/28/21 09/29/21 Unknown Unknown 03:40 MCH 27 L Glucose 137 H 129 H Total Creatine Kinase 165 H
--- NOTE | 2021-09-30 11:46 | Discharge Summary ---
Providers - Providers Date of Admission: 09/28/21 18:15 Date of discharge: 09/30/21 Attending physician: MILLY MARTINEZ MD 09/28/21 18:15 Occupational Therapy Evaluate and Treat [CONS] Routine Comment: Reason For Exam: Neuro deficits Physical Therapy Evaluation and Treat [CONS] Routine Comment: Reason For Exam: Neuro deficits 09/28/21 18:17 Speech Therapy Evaluation and Treat [CONS] Routine Reason For Exam: swallow eval 09/29/21 07:39 Consult to Physician [CONS] Routine Comment: Consulting Provider: FAY DUPREE Physician Instructions: Reason For Exam: CVA rule out Primary care physician: MONET BARNEY Hospitalization Reason for admission: CVA rule out Condition: Stable Hospital course: 60-year-old female with history of hypertension, lumbar radiculopathy status post pain pump placement who presented to the emergency department with dysarthria and numbness of her face. She was found to be in hypertensive urgency. Code stroke was called on arrival. Teleneurology was consulted. She was admitted for CVA rule out. MRI was unable to be retained due to retained hardware. CT of the head and CT angio head/neck were negative for acute findings. Carotid Doppler showed less than 50% stenosis bilaterally. Echocardiogram showed normal ejection fraction, mild diastolic dysfunction and no PFO. Once stable and evaluated by PT, she was discharged home with her . Disposition: 01 HOME / SELF CARE / HOMELESS Final Discharge Diagnosis (Prints w/discharge instructions): Transient ischemic attack. Hypertensive urgency. Lumbar radiculopathy status post pain pump. Osteoarthritis. Asthma Time spent for discharge: 35 minutes Core Measure Documentation - Palliative Care Palliative Care/ Comfort Measures: Not Applicable - Core Measures Any of the following diagnoses?: stroke - Stroke Discharge Requirements Statin for LDL = or >70 mg/dl on DC: Yes Anticoag for atrial fib/atrial flutter: Not Applicable Antithrombotic for ischemic stroke: Yes Exam - Physical Exam Narrative exam: GENERAL: Well-developed well-nourished. In no acute distress. HEENT: Normocephalic. Atraumatic. NECK: Supple. CHEST/LUNGS: CTAB on room air HEART/CARDIOVASCULAR: RRR. No murmur, rubs or gallops appreciated. ABDOMEN: +BS. NT/ND. SKIN: No rashes noted. NEURO: No focal motor deficit observed or illicited. Follows all commands. MUSCULOSKELETAL: No joint effusion EXTREMITIES: No cyanosis, clubbing or edema. PSYCH: Cooperative. - Constitutional Vitals: Temp Pulse Resp BP Pulse Ox 97.7 F 69 18 102/65 97 09/30/21 08:16 09/30/21 09:37 09/30/21 09:37 09/30/21 08:16 09/30/21 08:16 Plan Care Plan Goals: Please follow-up with your primary care provider. Please have them to refer you to cardiology for an outpatient event monitor. Please start taking new medications as prescribed. Follow up with: MONET BARNEY MD [Primary Care Provider] - 7 Days Forms: Work/School Release Form Prescriptions: AtorvaSTATin [Lipitor] 40 mg PO QHS 30 Days #30 tablet amLODIPine 10 mg PO QDAY 30 Days #30 tablet Aspirin 325 mg PO QDAY 30 Days #30 tablet
--- NOTE | 2021-10-04 18:12 | Electrocardiograph Report ---
[facility] Test Date: 2021-09-28 Test Time: 17:14:08 Pat Name: CHARLY HENDRIX Department: Room: A466 1 Gender: F Store Leader: CINTHYA : 1960 Requested By: SAHIL CUENCA Order Number: [id number] Reading MD: Harjinder Worley Measurements Intervals [place] Rate: 69 P: 46 FL: 165 QRS: 23 QRSD: 89 T: 38 QT: 407 QTc: 438 Interpretive Statements Sinus rhythm No previous ECG available for comparison Electronically Signed On 10-04-2021 18:12:11 EDT by Harjinder Worley
== END 2021-09-30 11:25 | disposition home or self-care (01) | DRG 69 ==
LOC: ED 16:23 → 4A 18:15
PROVIDERS: ADMIT Internal Medicine; ATTEND Student in an Organized Health Care Education/Training Program
DX: G45.9 Transient cerebral ischemic attack, unspecified (principal); I16.1 Hypertensive emergency; R51.9 Headache, unspecified; M19.90 Unspecified osteoarthritis, unspecified site; I10 Essential (primary) hypertension; E11.9 Type 2 diabetes mellitus without complications; J45.909 Unspecified asthma, uncomplicated; M54.16 Radiculopathy, lumbar region; Z82.49 Family history of ischemic heart disease and other diseases of the circulatory system; Z88.8 Allergy status to other drugs, medicaments and biological substances
CPT/HCPCS: 36415; 70450; 70496; 70498; 80048; 80076; 81001; 82550; 82553; 82607; 82962; 83036; 84443; 84484; 85025; 85610; 85670; 85730; 93005; 93306; 93880; 94640; G0378; C8929; J1170; J2270; J2405; Q9967

== ENCOUNTER 2021-12-21 17:23 | Inpatient (IN) | payer BC ==
--- NOTE | 2021-12-21 17:34 | Event Note ---
ED Screening Note ED Screening Note: co severe l sided chest pain recent admit for tia home rx: keaton, ambjarrod and tracey has had la pain all day per staff This initial assessment/diagnostic orders/clinical plan/treatment(s) is/are subject to change based on patients health status, clinical progression and re- assessment by fellow clinical providers in the ED. Further treatment and workup at subsequent clinical providers discretion. Patient/guardian urged not to elope from the ED as their condition may be serious if not clinically assessed and managed. Initial orders include: ekg labs CT Dr Sevilla and Oswald at bedside
[2021-12-21] MEDS ORDERED: ONDANSETRON 4 MG/2 ML INJ IV ONE (17:36)
[2021-12-21] MEDS ORDERED: MORPHINE 4 MG/1 ML INJ IV ONE (17:36)
--- NOTE | 2021-12-21 17:39 | History and Physical Report ---
History of Present Illness Chief complaint: My chest hurts really bad History of present illness: 61 YO Female with HTN, HCV, Asthma, DM, Lumbar Radiculopathy S/P Pain Pump Placement, PE not currently on anticoagulation, BPV, ITALO presents to ED for evaluation. Patient reports "my chest hurts really bad". Pt states that she has experienced a sudden onset of pain in her chest that began approximately 3 hours ago and has gotten progressively worse over the same timeframe. Patient symptoms began while at work. Patient taken directly to fast-track for evaluation. The patient was seen and evaluated in the emergency department. All lab and imaging studies reviewed. The patient was found to have angina at rest, hypertensive emergency, as well as clinical symptoms consistent with diastolic CHF. Patient admitted to telemetry due to increased risk of worsening symptoms after medical stabilization. The patient was initiated on ACS protocol. Cardiology team consulted in ED. Pt denies fever, chills, Palpi tation, NVD, Prolonged travel/immobility, unilateral leg swelling, calf pain, hemoptysis, or recent ill contacts. Prior admission on 09/28/2021 reviewed. All medication listed at time of admission has been reconciled. Advanced care planning conducted in ED. Past History Past Medical History: diabetes, hypertension, other (See HPI) Past Surgical History: tonsillectomy, Other (Back surgery, cervical spine surgery) Social history: , lives with family. denies: smoking, alcohol abuse, prescription drug abuse Family history: diabetes, hypertension Medications and Allergies Allergies Allergy/AdvReac Type Severity Reaction Status Date / Time dexamethasone [From Decadron] Allergy Anaphylaxis Verified 12/21/21 18:10 dexamethasone sod phosphate Allergy Anaphylaxis Verified 12/21/21 18:10 [From Decadron] epinephrine Allergy Rash Verified 12/21/21 18:10 ipratropium bromide Allergy Anaphylaxis Verified 12/21/21 18:10 [From Atrovent] peanut Allergy Anaphylaxis Verified 12/21/21 18:10 shellfish derived Allergy Anaphylaxis Verified 12/21/21 18:10 Home Medications Medication Instructions Recorded Confirmed Last Taken Type Diazepam [Valium] 5 mg PO Q8H PRN #13 tablet 03/05/18 09/29/21 Unknown Rx traMADoL [Ultram 50 MG tab] 50 mg PO Q6HR PRN #13 tablet 03/05/18 09/29/21 Unknown Rx Meclizine [Antivert] 25 mg PO TID PRN #20 tablet 06/18/19 09/29/21 01/02/20 Rx ALBUTEROL NEB's [Proventil 0.083% 2.5 mg IH Q4HRT PRN nebu 01/11/20 09/29/21 Unknown Rx NEBS] Acetaminophen [Acetaminophen TAB] 650 mg PO Q6H PRN tablet 01/11/20 09/29/21 Unknown Rx Arformoterol Nebu [Brovana Nebu] 15 mcg IH Q12HRT ml 01/11/20 09/29/21 Unknown Rx Budesonide [Pulmicort Respules] 1 mg IH Q12HRT nebu 01/11/20 09/29/21 Unknown Rx guaiFENesin ER [Mucinex ER] 600 mg PO Q12H #14 tablet.er 01/11/20 09/29/21 Unknown Rx Albuterol Sulfate [Proventil Hfa] 2 puff IH Q4HR PRN #1 hfa.aer.ad 12/11/20 09/29/21 Unknown Rx Benzonatate [Tessalon Perles] 100 mg PO Q8HR #30 capsule 12/11/20 09/29/21 Unknown Rx Cetirizine HCl [Zyrtec 10mg tab] 10 mg PO DAILY #30 tablet 12/11/20 09/29/21 Unknown Rx Fluticasone/Salmeterol [Advair 1 puff IH DAILY #1 inh 12/11/20 09/29/21 Unknown Rx Diskus 500-50 mcg] Montelukast [Singulair] 10 mg PO QPM #30 tablet 12/11/20 09/29/21 Unknown Rx Caffeine [Alertness Aid] 300 mg PO QDAY PRN #10 tablet 04/29/21 09/29/21 Unknown Rx Metoclopramide [Reglan TAB] 10 mg PO QID PRN #30 tablet 04/29/21 09/29/21 Unknown Rx Cyclobenzaprine [Flexeril 10 MG 10 mg PO TID PRN #21 tab 08/20/21 09/29/21 Unknown Rx TAB] Lidocaine [Lidoderm] 1 each TP DAILY #10 patch 08/20/21 09/29/21 Unknown Rx Naproxen [Naprosyn] 500 mg PO BID #14 tab 08/20/21 09/29/21 Unknown Rx Aspirin 325 mg PO QDAY 30 Days #30 tablet 09/30/21 Unknown Rx AtorvaSTATin [Lipitor] 40 mg PO QHS 30 Days #30 tablet 09/30/21 Unknown Rx amLODIPine 10 mg PO QDAY 30 Days #30 tablet 09/30/21 Unknown Rx Review of Systems Constitutional: no weight loss, no weight gain, no fever, no chills Ears, nose, mouth and throat: no ear pain, no tinnitis, no decreased hearing, no nose pain, no nasal congestion, no nasal discharge Breasts: no change in shape, no swelling, no mass Cardiovascular: chest pain, no orthopnea, no palpitations, no rapid/irregular heart beat, no edema Respiratory: no cough, no cough with sputum, no hemoptysis Gastrointestinal: no abdominal pain, no nausea, no vomiting, no diarrhea, no constipation, no hematemesis Genitourinary Female: no pelvic pain, no flank pain, no dysuria, no urinary frequency, no urgency Rectal: no pain, no incontinence, no bleeding Musculoskeletal: neck pain, shooting arm pain Integumentary: no rash, no pruritis, no redness, no sores, no wounds Neurological: no head injury, no paralysis, no weakness, no parathesias, no numbness, no tingling, no seizures Psychiatric: anxiety, no memory loss, no sleep disturbances, no hypersomnia Endocrine: no cold intolerance, no heat intolerance, no excessive thirst, no polydipsia, no polyuria, no nocturia Hematologic/Lymphatic: no easy bruising, no easy bleeding Allergic/Immunologic: no urticaria, no allergic rhinitis, no wheezing Exam - Constitutional General appearance: Present: mild distress - EENT Eyes: Present: PERRL ENT: hearing intact, clear oral mucosa - Neck Neck: Present: supple, normal ROM - Respiratory Respiratory effort: normal Respiratory: bilateral: CTA - Cardiovascular Heart Sounds: Present: S1 & S2. Absent: rub, click - Extremities Extremities: pulses symmetrical, No edema Peripheral Pulses: within normal limits - Abdominal General gastrointestinal: Present: soft, non-tender, non-distended, normal bowel sounds Female genitourinary: Present: normal - Integumentary Integumentary: Present: clear, warm, dry - Musculoskeletal Musculoskeletal: gait normal, strength equal bilaterally - Psychiatric Psychiatric: appropriate mood/affect, intact judgment & insight - Neurologic Neurologic: CNII-XII intact, moves all extremities Results - Labs CBC & Chem 7: 12/21/21 18:13 12/21/21 18:13 Assessment and Plan - Patient Problems (1) Angina at rest Current Visit: Yes Status: Acute Plan to address problem: ACS protocol: Serial cardiac enzymes, EKG, telemetry, morphine, supplemental oxygen, nitro, aspirin, pain control, cardiology team consulted. (2) Diastolic CHF Current Visit: Yes Status: Acute Qualifiers: Heart failure chronicity: acute on chronic Qualified Code(s): I50.33 - Acute on chronic diastolic (congestive) heart failure Plan to address problem: Strict I's/O, monitor urine output every shift, daily weight, afterload reduction, blood pressure control, monitor fluid balance. (3) Diabetes Current Visit: Yes Status: Acute Plan to address problem: Consistent carbohydrate diet, Accu-Chek, is a protocol, hypoglycemia protocol. (4) Cervical radiculopathy Current Visit: Yes Status: Acute (5) Hypertensive emergency Current Visit: Yes Status: Acute Plan to address problem: Monitor blood pressure every shift, continue medical management, pain control, I V hydralazine every 6 hours as needed. Blood pressure greater than equal 105 mmHg. (6) DVT prophylaxis Current Visit: Yes Status: Acute Plan to address problem: SCD to bilateral lower extremities while in bed (7) Advance care planning Current Visit: Yes Status: Acute Plan to address problem: Disease education data, care plan discussed, diagnosis, prognosis discussed, patient knowledges understanding agree with care plan, +30 minutes. (8) Preventative health care Current Visit: Yes Status: Acute Plan to address problem: Patient counseled regarding risk factor reduction, outpatient follow-up with primary care physician for all age and risk factor appropriate screening test. +30 minutes.
[2021-12-21] MEDS ORDERED: ALBUTEROL 2.5 MG/3 ML NEBU IH PRN ×2 (17:40→17:45)
[2021-12-21] MEDS ORDERED: oxyCODONE /ACETAMINOPHEN 5-325MG TAB PO PRN (17:40)
--- NOTE | 2021-12-21 17:42 | Emergency Department Report ---
ED General Adult HPI - General Stated complaint: CHEST PAIN Time Seen by Provider: 12/21/21 17:33 Source: patient - History of Present Illness Initial comments: Patient presents to the emergency department with a chief complaint of extreme left shoulder pain that started within the last 3 hours. Pain radiates into the neck into the left portion of the chest as well. Patient denies any shortness of breath or abdominal pain. Describes the pain as sharp in nature and rates it a 10 out of 10. -: Sudden Location: chest, upper extremity Radiation: proximal Severity scale (0 -10): 10 Quality: sharp Consistency: constant Improves with: none Worsens with: none Associated Symptoms: denies other symptoms Treatments Prior to Arrival: none - Related Data Previous Rx's Medication Instructions Recorded Last Taken Type Diazepam [Valium] 5 mg PO Q8H PRN #13 tablet 03/05/18 Unknown Rx traMADoL [Ultram 50 MG tab] 50 mg PO Q6HR PRN #13 tablet 03/05/18 Unknown Rx Meclizine [Antivert] 25 mg PO TID PRN #20 tablet 06/18/19 01/02/20 Rx ALBUTEROL NEB's [Proventil 0.083% 2.5 mg IH Q4HRT PRN nebu 01/11/20 Unknown Rx NEBS] Acetaminophen [Acetaminophen TAB] 650 mg PO Q6H PRN tablet 01/11/20 Unknown Rx Arformoterol Nebu [Brovana Nebu] 15 mcg IH Q12HRT ml 01/11/20 Unknown Rx Budesonide [Pulmicort Respules] 1 mg IH Q12HRT nebu 01/11/20 Unknown Rx guaiFENesin ER [Mucinex ER] 600 mg PO Q12H #14 tablet.er 01/11/20 Unknown Rx Albuterol Sulfate [Proventil Hfa] 2 puff IH Q4HR PRN #1 hfa.aer.ad 12/11/20 Unknown Rx Benzonatate [Tessalon Perles] 100 mg PO Q8HR #30 capsule 12/11/20 Unknown Rx Cetirizine HCl [Zyrtec 10mg tab] 10 mg PO DAILY #30 tablet 12/11/20 Unknown Rx Fluticasone/Salmeterol [Advair 1 puff IH DAILY #1 inh 12/11/20 Unknown Rx Diskus 500-50 mcg] Montelukast [Singulair] 10 mg PO QPM #30 tablet 12/11/20 Unknown Rx Caffeine [Alertness Aid] 300 mg PO QDAY PRN #10 tablet 04/29/21 Unknown Rx Metoclopramide [Reglan TAB] 10 mg PO QID PRN #30 tablet 04/29/21 Unknown Rx Cyclobenzaprine [Flexeril 10 MG 10 mg PO TID PRN #21 tab 08/20/21 Unknown Rx TAB] Lidocaine [Lidoderm] 1 each TP DAILY #10 patch 08/20/21 Unknown Rx Naproxen [Naprosyn] 500 mg PO BID #14 tab 08/20/21 Unknown Rx Aspirin 325 mg PO QDAY 30 Days #30 tablet 09/30/21 Unknown Rx AtorvaSTATin [Lipitor] 40 mg PO QHS 30 Days #30 tablet 09/30/21 Unknown Rx amLODIPine 10 mg PO QDAY 30 Days #30 tablet 09/30/21 Unknown Rx Allergies Allergy/AdvReac Type Severity Reaction Status Date / Time dexamethasone [From Decadron] Allergy Anaphylaxis Verified 09/28/21 16:36 dexamethasone sod phosphate Allergy Anaphylaxis Verified 09/28/21 16:36 [From Decadron] epinephrine Allergy Rash Verified 09/28/21 16:36 ipratropium bromide Allergy Anaphylaxis Verified 09/28/21 16:36 [From Atrovent] peanut Allergy Anaphylaxis Verified 09/28/21 16:36 shellfish derived Allergy Anaphylaxis Verified 09/28/21 16:36 ED Review of Systems ROS: Stated complaint: CHEST PAIN Other details as noted in HPI Constitutional: denies: chills, fever Eyes: denies: eye pain, eye discharge, vision change ENT: denies: ear pain, throat pain Respiratory: denies: cough, shortness of breath, wheezing Cardiovascular: chest pain. denies: palpitations Endocrine: no symptoms reported Gastrointestinal: denies: abdominal pain, nausea, diarrhea Genitourinary: denies: urgency, dysuria, discharge Musculoskeletal: other (left shoulder pain). denies: back pain, joint swelling, arthralgia Skin: denies: rash, lesions Neurological: denies: headache, weakness, paresthesias Psychiatric: denies: anxiety, depression Hematological/Lymphatic: denies: easy bleeding, easy bruising ED Past Medical Hx - Past Medical History Hx Hypertension: Yes ("stress related" not currently being treated) Hx Congestive Heart Failure: No Hx Diabetes: Yes ("steriod induced") Hx Pulmonary Embolism: Yes Hx Liver Disease: Yes (HEPATITIS C) Hx Sickle Cell Disease: No Hx Kidney Stones: Yes Hx Asthma: Yes Hx Tuberculosis: No (Exposure) Hx HIV: No Additional medical history: intubations for asthma, lumbar radiculopathy - Surgical History Hx Open Heart Surgery: No Hx Cholecystectomy: No Hx Appendectomy: No Hx Breast Surgery: No Additional Surgical History: back, neck, tonsilectomy - Social History Substance Use Type: None, Alcohol - Medications Home Medications: Home Medications Medication Instructions Recorded Confirmed Last Taken Type Diazepam [Valium] 5 mg PO Q8H PRN #13 tablet 03/05/18 09/29/21 Unknown Rx traMADoL [Ultram 50 MG tab] 50 mg PO Q6HR PRN #13 tablet 03/05/18 09/29/21 Unknown Rx Meclizine [Antivert] 25 mg PO TID PRN #20 tablet 06/18/19 09/29/21 01/02/20 Rx ALBUTEROL NEB's [Proventil 0.083% 2.5 mg IH Q4HRT PRN nebu 01/11/20 09/29/21 Unknown Rx NEBS] Acetaminophen [Acetaminophen TAB] 650 mg PO Q6H PRN tablet 01/11/20 09/29/21 Unknown Rx Arformoterol Nebu [Brovana Nebu] 15 mcg IH Q12HRT ml 01/11/20 09/29/21 Unknown Rx Budesonide [Pulmicort Respules] 1 mg IH Q12HRT nebu 01/11/20 09/29/21 Unknown Rx guaiFENesin ER [Mucinex ER] 600 mg PO Q12H #14 tablet.er 01/11/20 09/29/21 Unknown Rx Albuterol Sulfate [Proventil Hfa] 2 puff IH Q4HR PRN #1 hfa.aer.ad 12/11/20 09/29/21 Unknown Rx Benzonatate [Tessalon Perles] 100 mg PO Q8HR #30 capsule 12/11/20 09/29/21 Unknown Rx Cetirizine HCl [Zyrtec 10mg tab] 10 mg PO DAILY #30 tablet 12/11/20 09/29/21 Unknown Rx Fluticasone/Salmeterol [Advair 1 puff IH DAILY #1 inh 12/11/20 09/29/21 Unknown Rx Diskus 500-50 mcg] Montelukast [Singulair] 10 mg PO QPM #30 tablet 12/11/20 09/29/21 Unknown Rx Caffeine [Alertness Aid] 300 mg PO QDAY PRN #10 tablet 04/29/21 09/29/21 Unknown Rx Metoclopramide [Reglan TAB] 10 mg PO QID PRN #30 tablet 04/29/21 09/29/21 Unknown Rx Cyclobenzaprine [Flexeril 10 MG 10 mg PO TID PRN #21 tab 08/20/21 09/29/21 Unknown Rx TAB] Lidocaine [Lidoderm] 1 each TP DAILY #10 patch 08/20/21 09/29/21 Unknown Rx Naproxen [Naprosyn] 500 mg PO BID #14 tab 08/20/21 09/29/21 Unknown Rx Aspirin 325 mg PO QDAY 30 Days #30 tablet 09/30/21 Unknown Rx AtorvaSTATin [Lipitor] 40 mg PO QHS 30 Days #30 tablet 09/30/21 Unknown Rx amLODIPine 10 mg PO QDAY 30 Days #30 tablet 09/30/21 Unknown Rx ED Physical Exam - General General appearance: alert, in no apparent distress - Head Head exam: Present: atraumatic, normocephalic - Eye Eye exam: Present: normal appearance, PERRL, EOMI - ENT ENT exam: Present: mucous membranes moist - Neck Neck exam: Present: normal inspection - Respiratory Respiratory exam: Present: normal lung sounds bilaterally. Absent: respiratory distress - Cardiovascular Cardiovascular Exam: Present: regular rate, normal rhythm. Absent: systolic murmur, diastolic murmur, rubs, gallop - GI/Abdominal GI/Abdominal exam: Present: soft, normal bowel sounds. Absent: distended, tenderness - Extremities Exam Extremities exam: Present: other (Patient has pain of the left shoulder with active and passive range of motion. On exam spasms of the trapezius and deltoids on the left side) - Back Exam Back exam: Present: normal inspection - Neurological Exam Neurological exam: Present: alert, oriented X3 - Psychiatric Psychiatric exam: Present: normal affect, normal mood - Skin Skin exam: Present: warm, dry, intact, normal color. Absent: rash ED Medical Decision Making - EKG Data -: EKG Interpreted by Me EKG shows normal: sinus rhythm - EKG Data 12/21/21 17:41 EKG shows sinus rhythm with ST depression in lead V6 Critical care attestation.: If time is entered above; I have spent that time in minutes in the direct care of this critically ill patient, excluding procedure time. ED Disposition Clinical Impression: Hypertensive emergency, Cervical radiculopathy, Angina at rest Disposition: ADMITTED INPATIENT Is pt being admited?: Yes Condition: Fair Instructions: Hypertension (ED), Angina, [id number]
[2021-12-21] MEDS ORDERED: traMADol 50 MG TAB PO PRN ×2 (17:43→17:45)
[2021-12-21] MEDS ORDERED: NITROGLYCERIN 0.4 MG TAB SUBL SL PRN (17:43)
[2021-12-21] MEDS ORDERED: ACETAMINOPHEN 325 MG TAB PO PRN ×2 (17:43→17:45)
[2021-12-21] MEDS ORDERED: METOCLOPRAMIDE 10 MG TAB PO PRN (17:45)
[2021-12-21] MEDS ORDERED: MECLIZINE 25 MG TAB PO PRN (17:45)
[2021-12-21] MEDS ORDERED: CYCLOBENZAPRINE 10 MG TAB PO PRN (17:45)
[2021-12-21] MEDS ORDERED: diazePAM 5 MG TAB PO PRN (17:45)
[2021-12-21] MEDS ORDERED: ASPIRIN 81 MG TAB CHEW PO STA (17:57)
[2021-12-21] MEDS ORDERED: HYDROmorphone 2 MG/1 ML INJ IV ONE (18:10)
--- NOTE | 2021-12-21 18:23 | XRay Report ---
CHEST 1 VIEW INDICATION: Chest Pain. COMPARISON: 01/07/2022 FINDINGS: Support devices: None. Heart: Normal. Lungs/Pleura: No acute pulmonary or pleural findings. IMPRESSION: 1. No acute findings. CERVICAL SPINE 4 VIEWS INDICATION: Chest Pain COMPARISON: CT neck 09/28/2021 FINDINGS: No acute, displaced fracture is seen. Alignment is within normal limits. No prevertebral soft tissue swelling. Postoperative changes are again noted with fusion C3-C7. There is mild discogenic degenerative change at C2-3. IMPRESSION: 1. No acute findings. Signer Name: Andrew Helms MD Signed: 12/21/2021 6:18 PM Workstation Name: [id number]
[2021-12-21 18:31] LABS: Basophils % (Auto) 0.4 % (0.0-1.8); Eosinophils # (Auto) 0.1 K/mm3 (0.0-0.4); Eosinophils % (Auto) 1.9 % (0.0-4.3); Hematocrit 36.5 % (30.3-42.9); Hemoglobin 12.7 gm/dl (10.1-14.3); Lymphocytes # (Auto) 2.2 K/mm3 (1.2-5.4); Lymphocytes % (Auto) 37.6 % (13.4-35.0); Mean Corpuscular HGB Conc 35 % (30-34); Mean Corpuscular Volume 79 fl (79-97); Monocytes # (Auto) 0.5 K/mm3 (0.0-0.8); Monocytes % (Auto) 8.5 % (0.0-7.3); Platelet Count 275 K/mm3 (140-440); Red Blood Count 4.62 M/mm3 (3.65-5.03); Red Cell Distribution Width 14.1 % (13.2-15.2)
[2021-12-21 18:42] LABS: Alanine Aminotransferase 17 units/L (7-56); Albumin 4.4 g/dL (3.9-5); BUN/Creatinine Ratio 15; Blood Urea Nitrogen 16 mg/dL (7-17); Calcium 9.3 mg/dL (8.4-10.2); Hemolysis Index 5; INR 0.84 (0.87-1.13)
[2021-12-21 18:43] LABS: Partial Thromboplastin Time 26.9 Sec. (24.2-36.6)
--- NOTE | 2021-12-21 18:45 | Cat Scan Report ---
CT HEAD WITHOUT CONTRAST INDICATION / CLINICAL INFORMATION: AMS - left side weakness. TECHNIQUE: All CT scans at this location are performed using CT dose reduction for ALARA by means of automated e xposure control. COMPARISON: Head CT 09/28/2021 and MRI brain FINDINGS: HEMORRHAGE: No evidence of intracranial hemorrhage or extra-axial fluid collection. EXTRA-AXIAL SPACES: Cortical sulci, sylvian fissures and basilar cisterns have an unremarkable appear ance. VENTRICULAR SYSTEM: The third and lateral ventricles are at the upper limit of normal for size given the patient's age of 61 years. 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 Findings were present on previous study. Underlying microvascular ischemic beckie nges are present. There is no indication of recent or remote cortical infarction. MIDLINE SHIFT OR HERNIATION: There is no mass effect. CEREBELLUM / BRAINSTEM: Brainstem and cerebellum have an unremarkable appearance. MIDLINE STRUCTURES:No abnormalities of the pituitary gland or pineal region are identified. INTRACRANIAL VESSELS: Calcified atherosclerotic plaque is seen along the course the cavernous segment s of both internal carotid arteries. ORBITS: visualized portions of the orbits have an unremarkable appearance. SOFT TISSUES of HEAD: No significant abnormality. CALVARIUM: Evaluation of bone windows reveals no abnormalities. PARANASAL SINUSES / MASTOID AIR CELLS: Visualized portions of the paranasal sinuses are free from inf lammatory mucosal disease. Mastoid air cells are normally pneumatized. ADDITIONAL FINDINGS: None. IMPRESSION: 1. No acute intracranial abnormality. No significant interval change. 2. 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 Signer Name: Zbigniew Carlson MD Signed: 12/21/2021 6:41 PM Workstation Name: [id number]
[2021-12-21] MEDS ORDERED: methylPREDNISolone Sod Succinate 125 MG/2 ML INJ IV ONE (19:00)
[2021-12-21] MEDS: HYDROmorphone 0.5 MG/0.5 ML INJ IV PRN (19:49)
[2021-12-21] MEDS: ONDANSETRON 4 MG/2 ML INJ IV PRN (19:49)
[2021-12-21] MEDS: ARFORMOTEROL 15 MCG/2 ML NEBU IH SCH (21:56)
[2021-12-21] MEDS: BUDESONIDE 0.5 MG/2 ML NEBU IH SCH (21:56)
[2021-12-21] MEDS: NAPROXEN 500 MG TAB PO SCH (22:00)
[2021-12-21] MEDS: guaiFENesin ER 600 MG TAB PO SCH (22:02)
[2021-12-21] MEDS: BENZONATATE 100 MG CAP PO SCH (22:02)
[2021-12-21] MEDS: MONTELUKAST 10 MG TAB PO SCH (22:02)
[2021-12-22] MEDS: ONDANSETRON 4 MG/2 ML INJ IV PRN ×3 (01:56→18:33)
[2021-12-22] MEDS: methylPREDNISolone Sod Succinate 40 MG/1 ML INJ IV SCH ×3 (01:56→18:36)
[2021-12-22] MEDS: guaiFENesin ER 600 MG TAB PO SCH (05:25)
[2021-12-22] MEDS: BENZONATATE 100 MG CAP PO SCH (05:25)
[2021-12-22] MEDS: HYDROmorphone 0.5 MG/0.5 ML INJ IV PRN (07:22)
[2021-12-22] MEDS ORDERED: BENZONATATE 100 MG CAP PO PRN (08:00)
[2021-12-22] MEDS: BUDESONIDE 0.5 MG/2 ML NEBU IH SCH ×2 (08:16→20:53)
[2021-12-22] MEDS: ARFORMOTEROL 15 MCG/2 ML NEBU IH SCH ×2 (08:16→20:53)
[2021-12-22] MEDS ORDERED: guaiFENesin ER 600 MG TAB PO PRN (09:00)
[2021-12-22] MEDS: amLODIPine 10 MG TAB PO SCH (09:47)
[2021-12-22] MEDS: NAPROXEN 500 MG TAB PO SCH ×2 (09:47→21:24)
[2021-12-22] MEDS: CETIRIZINE 10 MG TAB PO SCH (09:47)
[2021-12-22] MEDS: LIDOCAINE 5% 1 EACH PATCH TD SCH (09:47)
[2021-12-22] MEDS ORDERED: NON-FORMULARY EACH (Fluticasone/Salmeterol [Advair Diskus 500-50 Mcg] 1 EACH Blst.W.Dev) IH SCH (10:00)
--- NOTE | 2021-12-22 12:55 | Consultation ---
History of Present Illness Consult date: 12/22/21 Requesting physician: FLOYD GEE Consult reason: chest pain History of present illness: Patient is a 61-year-old female with past medical history of hypertension, asthma, diabetes, lumbar radiculopathy s/p pain pump placement, history of PE not on anticoagulation who was admitted to the hospital yesterday for complaint of left-sided shoulder and neck pain which started suddenly yesterday. Patient reports while at work she suddenly developed pain in her left shoulder that radiated to her neck and down her left arm. Patient reports pain radiated across her chest too. She describes the pain as achy and rated as 10 out of 10. She associates the pain with nausea vomiting and diaphoresis. She reports the pain is worse with palpation near her left shoulder. And when moving left upper extremity she denies shortness of breath, crushing/squeezing pain, or palpitations. She states that when she checked her blood pressure when she was having this pain her BP was 240/100. At time of interview this morning patient reports that the pain has decreased and states pain is also relieved when lying on right side. Patient is previously unknown to our practice. Cardiology is consulted for chest pain Past History Past Medical History: diabetes, hypertension, other (See HPI) Past Surgical History: tonsillectomy, Other (Back surgery, cervical spine surgery) Social history: , lives with family. denies: smoking, alcohol abuse, prescription drug abuse Family history: diabetes, hypertension Medications and Allergies Allergies Allergy/AdvReac Type Severity Reaction Status Date / Time dexamethasone [From Decadron] Allergy Anaphylaxis Verified 12/21/21 18:10 dexamethasone sod phosphate Allergy Anaphylaxis Verified 12/21/21 18:10 [From Decadron] epinephrine Allergy Rash Verified 12/21/21 18:10 ipratropium bromide Allergy Anaphylaxis Verified 12/21/21 18:10 [From Atrovent] peanut Allergy Anaphylaxis Verified 12/21/21 18:10 shellfish derived Allergy Anaphylaxis Verified 12/21/21 18:10 Home Medications Medication Instructions Recorded Confirmed Last Taken Type Arformoterol Nebu [Brovana Nebu] 15 mcg IH Q12HRT ml 01/11/20 12/22/21 Unknown Rx Albuterol Sulfate [Proventil Hfa] 2 puff IH Q4HR PRN #1 hfa.aer.ad 12/11/20 12/22/21 Unknown Rx Benzonatate [Tessalon Perles] 100 mg PO Q8HR #30 capsule 12/11/20 12/22/21 Unknown Rx Montelukast [Singulair] 10 mg PO QPM #30 tablet 12/11/20 12/22/21 Unknown Rx Lidocaine [Lidoderm] 1 each TP DAILY #10 patch 08/20/21 12/22/21 Unknown Rx ALPRAZolam [Xanax TAB] 1 mg PO TID PRN 12/22/21 12/22/21 Unknown History Gabapentin [Neurontin] 300 mg PO Q8HR 12/22/21 12/22/21 Unknown History Venlafaxine [Effexor] 75 mg PO QDAY 12/22/21 12/22/21 Unknown History Zolpidem [Ambien] 10 mg PO QHS PRN 12/22/21 12/22/21 Unknown History amLODIPine [Norvasc] 10 mg PO DAILY 12/22/21 12/22/21 Unknown History Active Meds: Active Medications Acetaminophen (Acetaminophen 325 Mg Tab) 650 mg PO Q4H PRN PRN Reason: Pain MILD(1-3)/Fever >100.5/RIBEIRO Albuterol (Albuterol 2.5 Mg/3 Ml Nebu) 2.5 mg IH Q4HRT PRN PRN Reason: Shortness Of Breath Amlodipine Besylate (Amlodipine 10 Mg Tab) 10 mg PO QDAY [facility] Last Admin: 12/22/21 09:47 Dose: 10 mg Arformoterol Tartrate (Arformoterol 15 Mcg/2 Ml Nebu) 15 mcg IH Q12HRT [facility] Last Admin: 12/22/21 08:16 Dose: 15 mcg Atorvastatin Calcium (Atorvastatin 40 Mg Tab) 40 mg PO QHS [facility] Last Admin: 12/21/21 22:02 Dose: Not Given Benzonatate (Benzonatate 100 Mg Cap) 100 mg PO Q8HR PRN PRN Reason: Cough Budesonide (Budesonide 0.5 Mg/2 Ml Nebu) 1 mg IH Q12HRT [facility] Last Admin: 12/22/21 08:16 Dose: 1 mg Cetirizine HCl (Cetirizine 10 Mg Tab) 10 mg PO DAILY [facility] Last Admin: 12/22/21 09:47 Dose: 10 mg Cyclobenzaprine HCl (Cyclobenzaprine 10 Mg Tab) 10 mg PO TID PRN PRN Reason: Muscle Spasm Diazepam (Diazepam 5 Mg Tab) 5 mg PO Q8H PRN PRN Reason: Muscle Spasm Guaifenesin (Guaifenesin Er 600 Mg Tab) 600 mg PO Q12H PRN PRN Reason: Congestion Hydromorphone HCl (Hydromorphone 0.5 Mg/0.5 Ml Inj) 0.5 mg IV Q3H PRN PRN Reason: Pain , Severe (7-10) Last Admin: 12/22/21 07:22 Dose: 0.5 mg Lidocaine (Lidocaine 5% 1 Each Patch) 1 each TD DAILY [facility] Last Admin: 12/22/21 09:47 Dose: 1 each Meclizine HCl (Meclizine 25 Mg Tab) 25 mg PO TID PRN PRN Reason: Vertigo Methylprednisolone Sodium Succinate (Methylprednisolone Sod Succinate 40 Mg/1 Ml Inj) 40 mg IV Q8H [facility] Last Admin: 12/22/21 09:47 Dose: 40 mg Metoclopramide HCl (Metoclopramide 10 Mg Tab) 10 mg PO QID PRN PRN Reason: Nausea Montelukast Sodium (Montelukast 10 Mg Tab) 10 mg PO QPM [facility] Last Admin: 12/21/21 22:02 Dose: Not Given Naproxen (Naproxen 500 Mg Tab) 500 mg PO BID [facility] Last Admin: 12/22/21 09:47 Dose: 500 mg Nitroglycerin (Nitroglycerin 0.4 Mg Tab Subl) 0.4 mg SL Q5M PRN PRN Reason: Chest Pain Ondansetron HCl (Ondansetron 4 Mg/2 Ml Inj) 4 mg IV Q8H PRN PRN Reason: Nausea And Vomiting Last Admin: 12/22/21 09:47 Dose: 4 mg Oxycodone/Acetaminophen (Oxycodone /Acetaminophen 5-325mg Tab) 1 tab PO Q6H PRN PRN Reason: Pain, Moderate (4-6) Sodium Chloride (Sodium Chloride 0.9% 10 Ml Flush Syringe) 10 ml IV BID [facility] Last Admin: 12/22/21 09:48 Dose: 10 ml Sodium Chloride (Sodium Chloride 0.9% 10 Ml Flush Syringe) 10 ml IV PRN PRN PRN Reason: LINE FLUSH Tramadol HCl (Tramadol 50 Mg Tab) 50 mg PO Q6H PRN PRN Reason: Pain, Moderate (4-6) Review of Systems Constitutional: no weight loss, no weight gain, no fever, no chills Ears, nose, mouth and throat: no sinus pressure, no sinus pain Cardiovascular: chest pain Respiratory: no shortness of breath, no dyspnea on exertion Gastrointestinal: nausea, vomiting, no abdominal pain Musculoskeletal: neck pain, shooting arm pain, other (shoulder pain) Integumentary: no rash, no pruritis, no redness Neurological: no head injury, no transient paralysis Psychiatric: no anxiety, no memory loss Endocrine: no cold intolerance, no heat intolerance Hematologic/Lymphatic: no easy bruising, no easy bleeding Physical Examination Vital Signs Temp Pulse Resp BP Pulse Ox 98.9 F 100 H 20 159/98 99 12/21/21 18:32 12/21/21 18:32 12/21/21 18:32 12/21/21 18:32 12/21/21 18:32 General appearance: no acute distress Neck: Positive: trachea midline Cardiac: Positive: Reg Rate and Rhythm Lungs: Positive: Normal Breath Sounds Neuro: Positive: Grossly Intact Abdomen: Positive: Soft, Active Bowel Sounds Skin: Negative: Rash, Suspicious Lesions, Ulceration Extremities: Present: upper extr. pulses. Absent: edema Results 12/21/21 18:13 12/21/21 18:13 Cardiac Enzymes 12/21/21 Range/Units 18:13 AST 19 (5-40) units/L Coagulation 12/21/21 Range/Units 18:13 PT 12.6 (12.2-14.9) Sec. INR 0.84 L (0.87-1.13) APTT 26.9 (24.2-36.6) Sec. CBC 12/21/21 Range/Units 18:13 WBC 6.0 (4.5-11.0) K/mm3 RBC 4.62 (3.65-5.03) M/mm3 Hgb 12.7 (10.1-14.3) gm/dl Hct 36.5 (30.3-42.9) % Plt Count 275 (140-440) K/mm3 Lymph # (Auto) 2.2 (1.2-5.4) K/mm3 [place] # (Auto) 0.5 (0.0-0.8) K/mm3 Eos # (Auto) 0.1 (0.0-0.4) K/mm3 Baso # (Auto) 0.0 (0.0-0.1) K/mm3 Comprehensive Metabolic Panel 12/21/21 Range/Units 18:13 Sodium 141 (137-145) mmol/L Potassium 4.3 (3.6-5.0) mmol/L Chloride 105.0 (98-107) mmol/L Carbon Dioxide 23 (22-30) mmol/L BUN 16 (7-17) mg/dL Creatinine 1.1 (0.6-1.2) mg/dL Glucose 111 H (65-100) mg/dL Calcium 9.3 (8.4-10.2) mg/dL AST 19 (5-40) units/L ALT 17 (7-56) units/L Alkaline Phosphatase 114 (35-129) units/L Total Protein 8.0 (6.3-8.2) g/dL Albumin 4.4 (3.9-5) g/dL - Imaging and Cardiology Echo: report reviewed EKG interpretations - Telemetry EKG Rhythm: Sinus Rhythm - EKG Sinus rhythms and dysrhythmias: sinus rhythm Assessment and Plan Patient is a 61-year-old female with past medical history of hypertension, asthma, diabetes, lumbar radiculopathy s/p pain pump placement, history of PE not on anticoagulation who was admitted to the hospital yesterday for complaint of left-sided shoulder and neck pain which started suddenly yesterday Atypical Chest pain Hypertensive Eemergency HTN Athsma Diabetes h/o PE Echo 09/28/2021-EF 50 to 55%. Borderline concentric LVH. Right ventricular systolic function is normal. Bubble study did not demonstrate PFO. No aortic regurgitation. Trace mitral regurgitation. Trace tricuspid regurgitation. Trace pulmonic regurgitation Plan: EKG shows normal sinus rhythm rate 67 with no acute ischemic changes. Troponins negative x3. AMI ruled out Patient's chest pain is atypical described as achy worse with movement and starting in left shoulder and neck that radiates down left arm Patient reports history of PE and systolic blood pressure of 240/100 will order CTA chest to rule out PE/aortic dissection If CTA chest negative will plan for stress test in the a.m. Patient to be n.p.o. after midnight Agree with amlodipine and atorvastatin Plan of care discussed with patient who verbalized understanding and acknowledgment Patient seen in conjunction with Dr. Dowd who agrees with this plan of care - Patient Problems (1) Cervical radiculopathy Current Visit: Yes Status: Acute (2) Diabetes Current Visit: Yes Status: Acute (3) Asthma Current Visit: No Status: Chronic Qualifiers: Asthma severity: unspecified severity Asthma persistence: intermittent Asthma complication type: with acute exacerbation Qualified Code(s): J45.21 - Mild intermittent asthma with (acute) exacerbation (4) HTN (hypertension) Current Visit: No Status: Chronic (5) Back pain Current Visit: No Status: Chronic
--- NOTE | 2021-12-22 13:03 | Progress Note ---
Assessment and Plan Assessment and plan: #Chest pain #ACS rule out -troponin negative x2 -CTA of the chest negative for PE or aortic dissection -plan for stress test tomorrow -Cardiology following, assistance appreciated #Hypertensive urgency-improved -continue amlodipine at home dose, discussed adding a second agent if BP continues to be elevated -PCP follow up at discharge #Lumbar radiculopathy s/p pain pump #Osteoarthritis -XRay of cervical spine negative -patient with pain pump -PRN pain control #Asthma -stable, not in acute exacerbation -will continue nebulizers PRN #Advanced care planning -Disease education data, care plan discussed, diagnoses discussed, prognosis discussed, patient is full code. Patient acknowledges understanding agreement with care plan, +30 minutes. History Interval history: No acute events overnight. Patient reports excruciating chest and left shoulder/arm pain yesterday that has since resolved. Her only symptom today is nausea. She denies recurrence of chest pain. We discussed current care plan and patient is agreeable. Cardiology plans for stress test tomorrow. Hospitalist Physical - Physical exam Narrative exam: GENERAL: Well-developed well-nourished. In no acute distress. HEENT: Normocephalic. Atraumatic. NECK: Supple. CHEST/LUNGS: CTAB on room air HEART/CARDIOVASCULAR: RRR. No murmur, rubs or gallops appreciated. ABDOMEN: +BS. NT/ND. SKIN: No rashes noted. NEURO: No focal motor deficit. Follows all commands. MUSCULOSKELETAL: No joint effusion EXTREMITIES: No cyanosis, clubbing or edema. PSYCH: Cooperative. - Constitutional Vitals: Temp Pulse Resp BP Pulse Ox 97.8 F 75 18 137/81 96 12/22/21 05:10 12/22/21 08:16 12/22/21 08:16 12/22/21 05:10 12/22/21 08:16 General appearance: Present: no acute distress HEART Score - HEART Score Troponin: Troponin T < 0.010 ng/mL (0.00-0.029) 12/21/21 22:48 Results - Labs CBC & Chem 7: 12/21/21 18:13 12/22/21 12:17 Labs: Laboratory Last Values WBC 6.0 K/mm3 (4.5-11.0) 12/21/21 18:13 RBC 4.62 M/mm3 (3.65-5.03) 12/21/21 18:13 Hgb 12.7 gm/dl (10.1-14.3) 12/21/21 18:13 Hct 36.5 % (30.3-42.9) 12/21/21 18:13 MCV 79 fl (79-97) 12/21/21 18:13 MCH 28 pg (28-32) 12/21/21 18:13 MCHC 35 % (30-34) H 12/21/21 18:13 RDW 14.1 % (13.2-15.2) 12/21/21 18:13 Plt Count 275 K/mm3 (140-440) 12/21/21 18:13 Lymph % (Auto) 37.6 % (13.4-35.0) H 12/21/21 18:13 [place] % (Auto) 8.5 % (0.0-7.3) H 12/21/21 18:13 Eos % (Auto) 1.9 % (0.0-4.3) 12/21/21 18:13 Baso % (Auto) 0.4 % (0.0-1.8) 12/21/21 18:13 Lymph # (Auto) 2.2 K/mm3 (1.2-5.4) 12/21/21 18:13 [place] # (Auto) 0.5 K/mm3 (0.0-0.8) 12/21/21 18:13 Eos # (Auto) 0.1 K/mm3 (0.0-0.4) 12/21/21 18:13 Baso # (Auto) 0.0 K/mm3 (0.0-0.1) 12/21/21 18:13 Seg Neutrophils % 51.6 % (40.0-70.0) 12/21/21 18:13 Seg Neutrophils # 3.1 K/mm3 (1.8-7.7) 12/21/21 18:13 PT 12.6 Sec. (12.2-14.9) 12/21/21 18:13 INR 0.84 (0.87-1.13) L 12/21/21 18:13 APTT 26.9 Sec. (24.2-36.6) 12/21/21 18:13 Sodium 141 mmol/L (137-145) 12/21/21 18:13 Potassium 4.3 mmol/L (3.6-5.0) 12/21/21 18:13 Chloride 105.0 mmol/L (98-107) 12/21/21 18:13 Carbon Dioxide 23 mmol/L (22-30) 12/21/21 18:13 Anion Gap 17 mmol/L 12/21/21 18:13 BUN 16 mg/dL (7-17) 12/21/21 18:13 Creatinine 1.1 mg/dL (0.6-1.2) 12/21/21 18:13 Estimated GFR > 60 ml/min 12/21/21 18:13 BUN/Creatinine Ratio 15 % 12/21/21 18:13 Glucose 111 mg/dL (65-100) H 12/21/21 18:13 Calcium 9.3 mg/dL (8.4-10.2) 12/21/21 18:13 Phosphorus 3.80 mg/dL (2.5-4.5) 12/21/21 18:13 Magnesium 1.80 mg/dL (1.7-2.3) 12/21/21 18:13 Total Bilirubin 0.20 mg/dL (0.1-1.2) 12/21/21 18:13 AST 19 units/L (5-40) 12/21/21 18:13 ALT 17 units/L (7-56) 12/21/21 18:13 Alkaline Phosphatase 114 units/L (35-129) 12/21/21 18:13 Troponin T < 0.010 ng/mL (0.00-0.029) 12/21/21 22:48 Total Protein 8.0 g/dL (6.3-8.2) 12/21/21 18:13 Albumin 4.4 g/dL (3.9-5) 12/21/21 18:13 Albumin/Globulin Ratio 1.2 % 12/21/21 18:13 [place]ay/IV: Voiding Method Toilet Active Medications - Current Medications Current Medications: Generic Name Dose Route Start Last Admin Trade Name Freq PRN Reason Stop Dose Admin Acetaminophen 650 mg 12/21/21 17:40 Acetaminophen 325 Mg Tab PO Q4H PRN Pain MILD(1-3)/Fever >100.5/RIBEIRO Albuterol 2.5 mg 12/21/21 17:40 Albuterol 2.5 Mg/3 Ml Nebu IH Q4HRT PRN Shortness Of Breath Amlodipine Besylate 10 mg 12/22/21 10:00 12/22/21 09:47 Amlodipine 10 Mg Tab PO 10 mg QDAY EBONI Administration Arformoterol Tartrate 15 mcg 12/21/21 20:00 12/22/21 08:16 Arformoterol 15 Mcg/2 Ml Nebu IH 15 mcg Q12HRT EBONI Administration Atorvastatin Calcium 40 mg 12/21/21 22:00 12/21/21 22:02 Atorvastatin 40 Mg Tab PO Not Given QHS EBONI Benzonatate 100 mg 12/22/21 08:00 Benzonatate 100 Mg Cap PO Q8HR PRN Cough Budesonide 1 mg 12/21/21 20:00 12/22/21 08:16 Budesonide 0.5 Mg/2 Ml Nebu IH 1 mg Q12HRT EBONI Administration Cetirizine HCl 10 mg 12/22/21 10:00 12/22/21 09:47 Cetirizine 10 Mg Tab PO 10 mg DAILY EBONI Administration Cyclobenzaprine HCl 10 mg 12/21/21 17:45 Cyclobenzaprine 10 Mg Tab PO TID PRN Muscle Spasm Diazepam 5 mg 12/21/21 17:45 Diazepam 5 Mg Tab PO Q8H PRN Muscle Spasm Guaifenesin 600 mg 12/22/21 09:00 Guaifenesin Er 600 Mg Tab PO Q12H PRN Congestion Hydromorphone HCl 0.5 mg 12/21/21 17:40 12/22/21 07:22 Hydromorphone 0.5 Mg/0.5 Ml Inj IV 0.5 mg Q3H PRN Administration Pain , Severe (7-10) Lidocaine 1 each 12/22/21 10:00 12/22/21 09:47 Lidocaine 5% 1 Each Patch TD 1 each DAILY EBONI Administration Meclizine HCl 25 mg 12/21/21 17:45 Meclizine 25 Mg Tab PO TID PRN Vertigo Methylprednisolone Sodium Succinate 40 mg 12/22/21 02:00 12/22/21 09:47 Methylprednisolone Sod Succinate 40 Mg/1 Ml Inj IV 40 mg Q8H EBONI Administration Metoclopramide HCl 10 mg 12/21/21 17:45 Metoclopramide 10 Mg Tab PO QID PRN Nausea Montelukast Sodium 10 mg 12/21/21 18:00 12/21/21 22:02 Montelukast 10 Mg Tab PO Not Given QPM EBONI Naproxen 500 mg 12/21/21 22:00 12/22/21 09:47 Naproxen 500 Mg Tab PO 500 mg BID EBONI Administration Nitroglycerin 0.4 mg 12/21/21 17:43 Nitroglycerin 0.4 Mg Tab Subl SL Q5M PRN Chest Pain Ondansetron HCl 4 mg 12/21/21 17:40 12/22/21 09:47 Ondansetron 4 Mg/2 Ml Inj IV 4 mg Q8H PRN Administration Nausea And Vomiting Oxycodone/Acetaminophen 1 tab 12/21/21 17:40 Oxycodone /Acetaminophen 5-325mg Tab PO Q6H PRN Pain, Moderate (4-6) Sodium Chloride 10 ml 12/21/21 22:00 12/22/21 09:48 Sodium Chloride 0.9% 10 Ml Flush Syringe IV 10 ml BID EBONI Administration Sodium Chloride 10 ml 12/21/21 17:43 Sodium Chloride 0.9% 10 Ml Flush Syringe IV PRN PRN LINE FLUSH Tramadol HCl 50 mg 12/21/21 17:43 Tramadol 50 Mg Tab PO Q6H PRN Pain, Moderate (4-6)
[2021-12-22 13:10] LABS: Blood Urea Nitrogen 15 mg/dL (7-17); Calcium 9.8 mg/dL (8.4-10.2); Hemolysis Index 0
[2021-12-22 13:25] LABS: BUN/Creatinine Ratio 21
--- NOTE | 2021-12-22 13:25 | Cat Scan Report ---
CTA CHEST WITH CONTRAST INDICATION / CLINICAL INFORMATION: rule out PE/aortic dissection. Chest pain TECHNIQUE: Axial CT images were obtained through the chest after injection of 100 cc of Omnipaque 350 IV contrast. 3 plane MIP and/or 3D reconstructions were produced. All CT scans at this location are performed using CT dose reduction for ALARA by means of automated exposure control. COMPARISON: AP chest performed yesterday FINDINGS: PULMONARY EMBOLUS: None. THORACIC AORTA: No significant abnormality. No evidence for dissection. HEART: No significant abnormality. CORONARY ARTERY CALCIFICATION: Absent -- None. MEDIASTINUM / DEANN: No significant abnormality. PLEURA: No pleural effusion. No pneumothorax. LUNGS: No acute air space or interstitial disease. No suspicious pulmonary lesion. ADDITIONAL FINDINGS: None. UPPER ABDOMEN: No acute findings. SKELETAL STRUCTURES: No bone lesion or acute injury. Lower cervical fusion and lower thoracic neurost imulator noted. IMPRESSION: 1. No CT evidence for pulmonary embolism. 2. No acute findings. Signer Name: Hans Goldstein Jr, MD Signed: 12/22/2021 1:20 PM Workstation Name: [id number]
[2021-12-22] MEDS ORDERED: ZOLPIDEM 5 MG TAB PO PRN (15:11)
[2021-12-22] MEDS: ACETAMINOPHEN 325 MG TAB PO PRN (15:42)
[2021-12-22] MEDS: VENLAFAXINE 75 MG TAB PO SCH (15:43)
[2021-12-22] MEDS: MONTELUKAST 10 MG TAB PO SCH (18:34)
--- NOTE | 2021-12-22 18:38 | Electrocardiograph Report ---
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
--- NOTE | 2021-12-22 18:45 | Electrocardiograph Report ---
[facility] Test Date: 2021-12-22 Test Time: 07:23:19 Pat Name: CHARLY HENDRIX Department: Room: A480 1 Gender: F Strategic Partnership Specialist: AMADOU : 1960 Requested By: JALIL CALDWELL Order Number: [id number] Reading MD: Harjinder Worley Measurements Intervals [place] Rate: 67 P: 60 GA: 169 QRS: 29 QRSD: 88 T: 49 QT: 433 QTc: 457 Interpretive Statements Sinus rhythm Normal ECG Compared to ECG 12/21/2021 17:26:39 No significant change Electronically Signed On 12-22-2021 18:45:35 EDT by Harjinder Worley
--- NOTE | 2021-12-22 18:50 | Electrocardiograph Report ---
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
[2021-12-22] MEDS: GABAPENTIN 300 MG CAP PO SCH (21:23)
[2021-12-23] MEDS: methylPREDNISolone Sod Succinate 40 MG/1 ML INJ IV SCH ×2 (02:37→12:00)
[2021-12-23] MEDS: GABAPENTIN 300 MG CAP PO SCH ×2 (06:14→14:33)
[2021-12-23] MEDS ORDERED: REGADENOSON 0.4 MG/5 ML INJ IV ONE (08:14)
[2021-12-23] MEDS: ARFORMOTEROL 15 MCG/2 ML NEBU IH SCH (10:04)
[2021-12-23] MEDS: BUDESONIDE 0.5 MG/2 ML NEBU IH SCH (10:04)
[2021-12-23] MEDS: ACETAMINOPHEN 325 MG TAB PO PRN (11:59)
[2021-12-23] MEDS: VENLAFAXINE 75 MG TAB PO SCH (11:59)
[2021-12-23] MEDS: CETIRIZINE 10 MG TAB PO SCH (11:59)
[2021-12-23] MEDS: NAPROXEN 500 MG TAB PO SCH (11:59)
[2021-12-23] MEDS: amLODIPine 10 MG TAB PO SCH (11:59)
[2021-12-23] MEDS: LIDOCAINE 5% 1 EACH PATCH TD SCH (12:00)
[2021-12-23 12:01] VITALS: BP 135/64
--- NOTE | 2021-12-23 12:17 | Discharge Summary ---
Providers - Providers Date of Admission: 12/21/21 17:40 Date of discharge: 12/23/21 Attending physician: MILLY MARTINEZ MD 12/21/21 Consult to Cardiac Rehabilitation [CONS] Routine Reason For Exam: Phase I 12/21/21 17:43 Consult to Cardiology [CONS] Routine Consulting Provider: CARLOS EID Reason For Exam: angina Primary care physician: FACILITIES ENGINEERING MANAGER Hospitalization Reason for admission: ACS rule out Condition: Fair Hospital course: 61-year-old female with history of hypertension, asthma, and lumbar radiculopathy who presented with acute onset left-sided chest pain. She was admitted for ACS rule out. She was also found to have hypertensive urgency. She was given blood pressure medications and her blood pressure improved as well as chest pain. Echocardiogram was not repeated due to recent echo which was reviewed. CTA of the chest was negative for PE and aortic dissection. Cardiology was consulted and stress test was performed. Stress test was negative for acute ischemia. Once stable patient was discharged home with instruction to follow-up with PCP. Disposition: 01 HOME / SELF CARE / HOMELESS Final Discharge Diagnosis (Prints w/discharge instructions): Chest pain. ACS ruled out. Hypertensive urgency. History of hypertension. Lumbar radiculopathy. Osteoarthritis. Asthma Time spent for discharge: 35 minutes Core Measure Documentation - Palliative Care Palliative Care/ Comfort Measures: Not Applicable - Core Measures Any of the following diagnoses?: none Exam - Physical Exam Narrative exam: GENERAL: Well-developed well-nourished. In no acute distress. HEENT: Normocephalic. Atraumatic. CHEST/LUNGS: CTAB on room air HEART/CARDIOVASCULAR: RRR. No murmur, rubs or gallops appreciated. ABDOMEN: +BS. NT/ND. NEURO: No focal motor deficit. Follows all commands. MUSCULOSKELETAL: No joint effusion EXTREMITIES: No cyanosis, clubbing or edema. PSYCH: Cooperative. - Constitutional Vitals: Temp Pulse Resp BP Pulse Ox 97.9 F 77 16 135/64 94 12/23/21 11:59 12/23/21 07:59 12/23/21 03:45 12/23/21 11:59 12/23/21 07:59 Plan Care Plan Goals: Please follow-up with your primary care provider as soon as possible. If you are able please purchase a blood pressure cuff as we discussed. Measure your blood pressure at different times of the day and record the readings to take to your PCP. Continue taking all medications as they are prescribed to you. Your stress test was negative. If you experience similar chest pain, please return to the ED. Follow up with: PRIMARY CARE, [Primary Care Provider] - 7 Days Forms: Work/School Release Form
--- NOTE | 2021-12-23 13:39 | Progress Note ---
Assessment and Plan Patient is a 61-year-old female with past medical history of hypertension, asthma, diabetes, lumbar radiculopathy s/p pain pump placement, history of PE not on anticoagulation who was admitted to the hospital yesterday for complaint of left-sided shoulder and neck pain which started suddenly yesterday Atypical Chest pain Hypertensive Eemergency HTN Athsma Diabetes h/o PE Echo 09/28/2021-EF 50 to 55%. Borderline concentric LVH. Right ventricular systolic function is normal. Bubble study did not demonstrate PFO. No aortic regurgitation. Trace mitral regurgitation. Trace tricuspid regurgitation. Trace pulmonic regurgitation Plan: Patient for stress test this a.m. Stress test negative for signs of ischemia see report for full details Due to patient's atypical complaints of pain that started in her neck suspect patient's pain related to her chronic neck pain Agree with continuing amlodipine and atorvastatin Cardiac status otherwise stable for discharge Plan of care discussed with patient who verbalized understanding and acknowledgment Patient seen in conjunction with Dr. Dowd who agrees with this plan of care - Patient Problems (1) Cervical radiculopathy Current Visit: Yes Status: Acute (2) Diabetes Current Visit: Yes Status: Acute (3) Asthma Current Visit: No Status: Chronic Qualifiers: Asthma severity: unspecified severity Asthma persistence: intermittent Asthma complication type: with acute exacerbation Qualified Code(s): J45.21 - Mild intermittent asthma with (acute) exacerbation (4) HTN (hypertension) Current Visit: No Status: Chronic (5) Back pain Current Visit: No Status: Chronic Subjective Date of service: 12/23/21 Principal diagnosis: atypical chest pain Interval history: Patient for stress test this a.m. Sinus 60s -70s on monitor with no event Objective Vital Signs Temp Pulse Pulse Resp Resp BP Pulse Ox 12/23/21 11:59 97.9 F 135/64 12/23/21 07:59 98.2 F 77 141/61 94 12/23/21 07:37 97 12/23/21 03:45 98.4 F 69 16 115/56 92 12/22/21 22:51 98.2 F 83 16 138/65 95 12/22/21 22:00 80 12/22/21 20:54 83 18 12/22/21 20:52 95 12/22/21 20:03 97 12/22/21 19:53 98.2 F 80 16 137/59 95 12/22/21 15:27 98.2 F 82 139/63 98 - Physical Examination General: No Apparent Distress Neck: Positive: trachea midline Cardiac: Positive: Reg Rate and Rhythm Lungs: Positive: Normal Breath Sounds Neuro: Positive: Grossly Intact Abdomen: Positive: Soft, Active Bowel Sounds Skin: Negative: Rash, Suspicious Lesions, Ulceration Extremities: Present: upper extr. pulses. Absent: edema - Imaging and Cardiology Nuclear stress test: pending Echo: report reviewed - Telemetry EKG Rhythm: Sinus Rhythm - EKG Sinus rhythms and dysrhythmias: sinus rhythm
--- NOTE | 2021-12-23 14:28 | Electrocardiograph Report ---
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
--- NOTE | 2021-12-24 05:16 | Treadmill Report ---
DATE OF SERVICE: 12/23/2021 NUCLEAR PERFUSION SCAN REFERRING PHYSICIAN: Hospitalist lázrao. PROTOCOL: The patient was assessed in postoperative state, given 10 mCi of technetium at rest. The patient had rest imaging. The patient underwent Lexiscan stress test per standard protocol. At peak stress, the patient was given 26 mCi technetium. Shortly thereafter, the patient had stress imaging. Raw imaging reveals mild GI artifact, no significant motion effect. SPECT imaging examined carefully in horizontal long axis, vertical long axis, short axis views. There was normal homogeneous uptake of radioisotope in all port segments. No evidence of significant fixed or reversible perfusion defect suggestive of prior infarction or ischemia. Gated wall motion reveals normal systolic thickening, calculated ejection fraction of 60%. No TID. CONCLUSIONS: 1. Normal myocardial perfusion scan without evidence of active ischemia or prior infarction. 2. Normal left ventricular systolic performance without evidence of stress-induced segmental wall motion abnormalities or transient ischemic dilatation. TID: [id number] RECEIPT: [id number] MARJAN/DENYS
== END 2021-12-23 15:40 | disposition home or self-care (01) | DRG 304 ==
LOC: ED 17:23 → 4A 17:40
PROVIDERS: ADMIT Internal Medicine; ATTEND Student in an Organized Health Care Education/Training Program
DX: I16.1 Hypertensive emergency (principal); I50.33 Acute on chronic diastolic (congestive) heart failure; J45.21 Mild intermittent asthma with (acute) exacerbation; M54.12 Radiculopathy, cervical region; E11.9 Type 2 diabetes mellitus without complications; F41.1 Generalized anxiety disorder; M19.90 Unspecified osteoarthritis, unspecified site; R07.89 Other chest pain; Z88.8 Allergy status to other drugs, medicaments and biological substances; Z86.711 Personal history of pulmonary embolism; Z79.82 Long term (current) use of aspirin; Z82.49 Family history of ischemic heart disease and other diseases of the circulatory system; Z83.3 Family history of diabetes mellitus; Z91.010 Allergy to peanuts; Z91.013 Allergy to seafood
CPT/HCPCS: 36415; 70450; 71045; 71275; 72040; 78452; 80048; 80053; 83735; 84100; 84484; 85025; 85610; 85730; 93005; 93017; 94640; G0378; A9502; J1170; J2270; J2405; J2785; J2920; J2930; Q9967